=== PATIENT | male | born 1945 | race Caucasian/White ===

== ENCOUNTER → 2019-09-19 11:45 | Outpatient (BNVA) | payer MEDICARE, OTHER, SELFPAY | PROVIDERS: PCP Nurse Practitioner Family; Visit Provider Nurse Practitioner Family | DX: I10 Essential (primary) hypertension (principal); E11.9 Type 2 diabetes mellitus without complications | CPT/HCPCS: 80053; 80061; 82044; 83036; 85025 ==

== ENCOUNTER 2019-09-25 08:31 | Outpatient (CLI) | payer MEDICARE, OTHER, SELFPAY ==
--- NOTE | 2019-09-25 08:47 | NMCV_ITS ---
NM kayleen perf SPECT r/s* [id number] Tad Deleon Age: 74 Gender: M : 1945 Exam Date: 09/25/2019 08:47 Ordering Phys: Good Duvall MD ([email or web address]) Technologist: TATI Andre Exam Location: [facility] Indications: SHORTNESS OF BREATH STRESS TEST [facility] IMAGE PROTOCOL Rest/Stress 1 Exercise Day Radiopharmaceutical Dose (mCi) Administration Site Administered by Rest: Tc-99m 11.0 IV TATI Andre Sestamibi Stress:Tc-99m 32.4 IV TATI Meek Sestamibi Rest: 25-Sep-2019 60 Discovery 630 Stress: 25-Sep-2019 30 Discovery 630 Images obtained in supine and prone position. Radiopharmaceutical was injected at 76 % maximum heart rate. SPECT RESULTS Technical Quality: Excellent Raw Data Analysis: Normal Image Corrections: No attenuation or motion correction applied Summed Stress Score: 7 Summed Rest Score: 2 Summed Difference Score: 5 PERFUSION FINDINGS Medium-sized area of fixed perfusion defect noted in basal to distal inferior inferolateral wall with mild reversibility on the stress images suggestive of old myocardial infarction surrounded by mild doug-infarct ischemia most likely involving RCA FUNCTIONAL RESULTS (calculated via Gated SPECT) Stress Image LV EF (%): 39 Stress EDV (mL):194 TID: 0.98 Stress ESV (mL):118 Rest Image LV EF (%): 39 FUNCTIONAL FINDINGS: Inferior wall basal to mid akinesis and mid to distal hypokinesis IMPRESSIONS Medium-sized area of old myocardial infarction surrounded by small area of mild doug-infarct ischemia noted in the basal to distal inferior and inferolateral wall suggestive of lesion in RCA territory. Good Duvall MD (Electronically Signed) Final Date: 26 September 2019 14:09 S
--- NOTE | 2019-09-25 08:47 | ECG_ITS ---
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 Interpretive Statements NAME OF STUDY: EXERCISE SESTAMIBI STRESS TEST INDICATION: Pre Operative Clearance, EXERCISE DATA: The patient was exercised by Isaac protocol. Baseline heart rate was 78 beats per minute. Baseline blood pressure was 220/150 millimeters of mercury. Target heart rate was 145 beats per minute. Maximum heart rate achieved was 111, which was 76 % of the target heart rate. Maximum blood pressure was 246/115 millimeters of mercury. Total exercise time was 6 minutes 34 seconds. Maximum METs achieved was 7.5, maximum VO2 was 26.3. The reason for ending the test was completion of the protocol. The patient complained of during the stress test, which then resolved at the end of the test. ELECTROCARDIOGRAM: BASELINE: Sinus rhythm, normal axis, interventricular conduction delay, paced rhythm EXERCISE: At the peak exercise level, no significant ST-T changes suggestive of ischemia noted. RECOVERY: During the recovery period, heart rate dropped appropriately. Inferolateral ST depression noted CONCLUSION: 1. Exercise capacity fair. 2. Heart rate response was appropriate. Please note that patient had paced rhythm. 3. Blood pressure response was hypertensive. 4. Symptoms not suggestive of ischemia. 5. Electrocardiogram portion of the stress test was equivocal ischemia. 6. Nuclear scan will be documented separately. Electronically Signed On 10-02-2019 22:28:05 CDT by Good Duvall M.D. [id number]
[2019-09-25 09:01] VITALS: BMI 27.6
[2019-09-25 10:47] VITALS: BP 214/97; PULSE 65
== END 2019-09-25 08:32 | disposition home or self-care (01) ==
LOC: CDL 08:32
PROVIDERS: PCP Nurse Practitioner Family; Visit Provider Internal Medicine Cardiovascular Disease
DX: R06.02 Shortness of breath (principal); I25.2 Old myocardial infarction
CPT/HCPCS: 78452; 93017; A9500

== ENCOUNTER → 2019-10-01 09:21 | Outpatient (BNVA) | payer MEDICARE, OTHER, SELFPAY | PROVIDERS: PCP Nurse Practitioner Family; Visit Provider Nurse Practitioner Family | DX: D64.9 Anemia, unspecified (principal); R07.2 Precordial pain; I10 Essential (primary) hypertension; E11.9 Type 2 diabetes mellitus without complications | CPT/HCPCS: 85025 ==

== ENCOUNTER 2019-11-14 09:49 | Outpatient (CLI) | payer MEDICARE, OTHER, SELFPAY ==
[2019-11-14 10:09] LABS: Basophils % 0.4 %; Eosinophils # 0.1 10^3/uL (0.0-0.8); Eosinophils % 1.3 %; Hematocrit 33.5 % (42.0-52.0); Hemoglobin 11.3 g/dL (11.7-16.6); Lymphocytes # 0.9 10^3/uL (0.8-4.8); Lymphocytes % 17.3 %; Mean Corpuscular HGB Conc 33.7 g/dL (30.0-36.0); Mean Corpuscular Hemoglobin 29.3 pg (28.0-34.0); Mean Corpuscular Volume 86.8 fL (80-94); Mean Platelet Volume 11.5 fL (7.4-10.4); Monocytes # 0.4 10^3/uL (0.2-0.9); Monocytes % 8.2 %; Neutrophils # 3.82 10^3/uL (1.8-7.7); Neutrophils % 72.4 %; Nucleated Red Blood Cells % 0 %; Platelet Count 110 10^3/cmm (130-400); Red Blood Count 3.86 10^6/uL (4.1-5.3); White Blood Count 5.3 10^3/uL (4.0-10.0)
[2019-11-14 10:32] LABS: Blood Urea Nitrogen 23 mg/dL (8-23); Calcium 9.6 mg/dL (8.5-10.5); Carbon Dioxide 27 mmol/L (22-29); Chloride 99 mmol/L (98-107); Glucose 229 mg/dL (65-115); INR 0.98 (0.83-1.21); Osmolality Calculated 284 mOsm/kg (285-295); Prothrombin Time (Patient) 13.3 Seconds (12.0-15.1); Sodium 135 mmol/L (136-145)
== END 2019-11-14 09:50 | disposition home or self-care (01) ==
PROVIDERS: PCP Nurse Practitioner Family; Visit Provider Internal Medicine Cardiovascular Disease
DX: I70.90 Unspecified atherosclerosis (principal); R07.2 Precordial pain
CPT/HCPCS: 80048; 85025; 87635

== ENCOUNTER 2019-11-18 10:20 | Observation (INO) | payer MEDICARE, OTHER, SELFPAY ==
[2019-11-18] VITALS (60 sets, daily range): BP systolic 137–222; BP diastolic 73–124; PULSE 63–80; RESP 0–32; TEMP 36.5–37; O2SAT 95–98; BMI 27.8
[2019-11-18] MEDS: diphenhydrAMINE 50 mg Capsule PO (07:45)
--- NOTE | 2019-11-18 08:15 | XACV_ITS ---
Ht: 183 cm Wt: 93 kg BSA: 2.19 m2 Gender: Male : 1945 Any Known Allergies: Other Exam Priority: Routine Procedure(s): Procedure Description: Diagnostic procedure Procedure Description: Coronary IVUS Procedure Description: Miscellaneous Procedure Description: ACT Procedure Description: Coronary Angiography Diagnostic Cath Status: Elective Diagnostic Findings LM has 0% stenosis. CX has 0% stenosis. Distal Left Anterior Descending Coronary Artery: Severe 90% stenosis, MATEUS: 0 flow. pRCA: Severe 100% stenosis, MATEUS: 3 flow. Coronary angiography shows right dominance. PCI Status: Elective PCI Indication: New Onset Angina <= 2 months Interventional Findings Distal Left Anterior Descending Coronary Artery: 90% stenosis treated with MDT R ZAFAR 2.75X12 VALERIE and MDT NC EUPHORA RX [id number] BALLOON. 0% residual stenosis, MATEUS: 3 flow. Conclusions There is severe coronary artery disease with two vessel disease. Distal Left Anterior Descending Coronary Artery was treated with Drug Eluting Stent and Balloon. Indication for left heart cath: Worsening of shortness of breath despite of guideline directed therapy maximization. History of abnormal documented left main lesion by prior angiogram at an outside hospital, history of multiple stents. Recent history of worsening of chest pain despite of optimization of medicine suggestive of possible unstable angina . IVUS: After crossing left main and LAD lesion with cougar wire ACIST IVUS catheter was crossed into left main and LAD. No significant left main lesion was noted while distal calcified LAD lesion at the distal edge of prior stent was noted to have 2.75mm2 MLA . . Recommendations Continue current medical management and risk factor modification. Interventional RX Recommendation: PCI w/o planned CABG Diagnostic RX Recommendation: PCI w/o planned CABG Pressures Phase:Rest AO : 157 mmHg / 80 mmHg ( 111 mmHg ) @ 4:10:00 AM 177 mmHg / 87 mmHg ( 125 mmHg ) @ 4:14:00 AM 112 mmHg / 67 mmHg ( 90 mmHg ) @ 4:52:00 AM 187 mmHg / 84 mmHg ( 129 mmHg ) @ 4:57:00 AM Clinical Evaluation EBL: 5mL-10mL Procedural Details Procedure Consent Obtained. Pre-Procedure Time Out. Identified patient by full name and date of as verbalized by the patient/guarantor. Does the consent match the physician's order: Yes. Accurate & Complete Informed Consent: Yes. Inpatient/Outpatient History & Physical on Chart: Yes. If H&P is completed, is and addenduem needed: No; If yes, is the addendum complete: N/A. Visualize and Verify Site with Patient/Guarantor: N/A. Relevant Radiology Images available: N/A. Pre-op teaching completed and patient verbalized understanding. The risks, benefits, and alternatives of sedation and/or procedure were discussed by physician. The patient agrees to continue. Procedure started. [facility] Clinical Fraility Score: 4: Vulnerable. Squad Leader Indications: New Onset Angina. Chest Pain Symptom Assessment: Typical Angina Symptoms. Cardiovascular Instability: No. Correct patient, site and procedure confirmed by cath team. PERRLA. 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 Lungs clear x 5 lobes. IV Site on Arrival: 18 gauge in the left anticubital. IV Fluids: 0.9% NaCl at KVO. 0 mL infused prior to collaborative teacher. Pre Procedural Pulses: bilateral dorsalis pedis was 3+. Pre Procedural Pulses: bilateral posterior tibial was 3+. Pre Procedural Pulses: bilateral radial was 3+. Oxygen started at 2liters/min via nasal canula. Baseline sample Acquired. HR: 71 BPM. Physician arrived. Equipment: 6F - Radial. Cardiac Cath Pack. ACIST Manifold Kit Model BT 2000. Heparinized Saline (2 units/mL), 1000 mL bag. Baseline sample Acquired. HR: 70 BPM. bilateral groins was prepped with chloroprep then draped in the usual sterile fashion. right radial was prepped with chloroprep then draped in the usual sterile fashion. Physician scrubbed in. Immediate Pre-Procedure Time Out. Correct Patient: Yes; Correct Procedure: Yes; Correct Site: Yes; Correct Patient Position: Yes; Correct Supplies: Yes; Dried Flammable Prep: Yes; Blood Products Available: N/A;. Lidocaine 1% infiltrated to the right radial. Arterial access obtained. A CRD 5F JR4 Diagnostic Catheter was advanced over the wire and used for Right coronary angiography. Catheter out. 6 belarusian XB 3.5 SH guide catheter was inserted over the wire. Inventory is Nipendo [place] XT .014 190cm Str. Guidewire. [place] guidewire was advanced through the guide catheter to lesion in the mid LAD. [place] wire out. Inventory is TR 180cm Runthrough NS extra floppy 0.014 wire. Runthrough guidewire was advanced through the guide catheter to lesion in the mid LAD. [employer] IVUS catheter inserted to MID LAD. IVUS image recorded MID LAD. IVUS image recorded LEFT MAIN. IVUS catheter removed. ACT drawn. Results seconds. Therapeutic limits - pre-heparin administration 90-150 seconds and monitoring heparin during a vascular procedure >250 seconds. Inflation Number : 1 A MDT R ZAAFR 2.75X12 VALERIE -Lot Number# [id number] exp date 05/21/2021 was prepped and advanced across the Dist LAD. The stent was deployed at 16 DAY for 0:24 seconds. Stent balloon out over wire. Results checked. Inflation number : 2 A MDT NC EUPHORA RX [id number] BALLOON was prepped and advanced across the Dist LAD , then inflated to 10 DAY for 0:12 seconds. Inflation number: 3 The MDT NC EUPHORA RX [id number] BALLOON was reinflated across the Dist LAD, to 10 DAY for 0:12 seconds. Balloon and wire out. Guide catheter out. Physician scrubbed out. A TR Band was successful obtaining hemostatsis at the Right Radial artery insertion site. TR band placed. Hemostasis obtained. Post Procedure: Pulses reassessed and unchanged. PERRLA. 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 No VTE prophylaxis required. Medication's Wasted: Lidocaine 1% = 14 mL. Medication's Wasted: Nitro = 49.8 mg. Medication's Wasted: Heparin = 3000 units. Total IV fluids: 75 mL. Contrast type used: Omnipaque 300 mgI/mL, 500 mL bottle. Complications: none. Estimated blood loss: 5mL-10mL. Post-op diagnosis: CAD. Procedure completed. Patient transferred by wheelchair to 1st floor. Vital chart was stopped. Site: Right Radial artery Sheath Size: 6 Fr Hemostasis Method: TR Band Hemostasis Success: Successful Procedure Medications Start: 8:55 AM Stop: 8:55 AM Medication: Versed Amount: 1 mg Route: I.V. Start: 8:55 AM Stop: 8:55 AM Medication: Fentanyl Amount: 50 mcg Route: I.V. Start: 9:07 AM Stop: 9:07 AM Medication: Versed Amount: 1 mg Route: I.V. Start: 9:07 AM Stop: 9:07 AM Medication: Nitrogylcerin Amount: 200 mcg Route: I.A. Start: 9:10 AM Stop: 9:10 AM Medication: Heparin Amount: 5000 units Route: I.V. Start: 9:22 AM Stop: 9:22 AM Medication: Heparin Amount: 3000 units Route: I.V. Start: 9:38 AM Stop: 9:38 AM Medication: Versed Amount: 1 mg Route: I.V. Start: 10:02 AM Stop: 10:02 AM Medication: Versed Amount: 1 mg Route: I.V. Start: 10:13 AM Stop: 10:13 AM Medication: Plavix Amount: 300 mg Route: P.O. I, the attending physician, have reviewed and verified all procedure medications. Yes, all medications given per verbal order History/Risk Factors Hypertension: Yes Dyslipidemia: Yes Diabetic Therapy: Oral Peripheral Arterial Disease (PAD): No Myocardial Infarction (AL): No Obesity: No Renal Disease: No Tobacco Use: Former Prior Interventions PCI: Yes CABG: No Valve Surgery: No Report Signatures Finalized by:Good Duvall MD on 11/28/2019 5:12:51 PM
--- NOTE | 2019-11-18 09:00 | W.PM.OPSUD ---
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 He would like to proceed with it
[2019-11-18] MEDS: aspirin 81 mg Chew Tablet PO (11:42)
[2019-11-18] MEDS: hyDRALAzine 50 mg Tablet PO (15:19)
[2019-11-18] MEDS: carvedilol 25 mg Tablet PO (17:30)
[2019-11-18] MEDS: nitroglycerin 1 gm/inch oint Pkt 1 INCH TOPICAL (17:30)
[2019-11-18] MEDS: losartan 50 mg Tablet PO (17:30)
--- NOTE | 2019-11-18 18:26 | PC.NURSE ---
6516 Dr red notified of patient elevated blood pressure despite home mediation given blood pressure contniues to remain high new instructions to give home valsartan equivalent dose per pharmacy 25 mg coreg and 1 inch nitro paste and monitor bp
--- NOTE | 2019-11-18 18:30 | PC.NURSE ---
1730 new orders followed
--- NOTE | 2019-11-18 18:30 | PC.NURSE ---
notified Dr red of patient continued climb in blood pressure despite blood pressure medication given one hour ago new instructions given to start a nitro drip and maintain sys blood pressure less than 150
[2019-11-18] MEDS: nitroglycerin drip 50 MG/250 ML PREMIX IV (18:59)
--- NOTE | 2019-11-18 19:30 | PC.NURSE ---
Patient alert and oriented. Patient is denying pain and is on a nitro gtt. Patient is on telemetry. WIll continue to [facility].
--- NOTE | 2019-11-18 20:43 | PC.NURSE ---
Called Dr. Eloina taylor Patient blood pressure patient on 20 of Nitro gtt and patient still HTN. Orders for 0.2mg clondine PO x1. Hold hydralidralzine and IMDUR tonight. Will continue to montior.
[2019-11-18] MEDS: atorvastatin 40 mg Tablet 80 MG PO (20:54)
[2019-11-18] MEDS: trazodone 100 mg Tablet PO (20:54)
[2019-11-18] MEDS: cloNIDine 0.1 mg Tablet 0.2 MG PO (20:55)
--- NOTE | 2019-11-18 21:02 | PC.NURSE ---
supervisor mapping contacted regarding patient being upset about his blood pressure and Patient stated he would contact his proof operator and have him at the front end ui developer if it did not start to come down immediately. Medications were given as prescribed by Dr. Duvall and Nitro drip increased. Patient is anxious. supervisor mapping is conversing with patient at this time.
--- NOTE | 2019-11-18 23:06 | PC.NURSE ---
Updated patients grace Mishra per patients request and gone over medications given per patient request. Patient is calm and resting with eyes closed at this time. Patient denies any needs at this time. Current blood pressure 170/82.
[2019-11-19] VITALS (28 sets, daily range): BP systolic 132–185; BP diastolic 65–90; PULSE 65–71; RESP 10–20; TEMP 36.5; O2SAT 95–96
--- NOTE | 2019-11-19 04:05 | PC.NURSE ---
Called Dr. Omar Oscar patients blood pressure 160s to 170s at 70 on Nitro drip. Orders to give morning Coreg PO Now. Read back verbal order.
[2019-11-19] MEDS: carvedilol 25 mg Tablet 50 MG PO (04:12)
--- NOTE | 2019-11-19 04:16 | PC.NURSE ---
Patient complaint of slight head ache. Patient offered a tylenol or something for pain. Patient refused at this time. Patient would like to go without if he could.
[2019-11-19] MEDS: acetaminophen 325 mg Tablet 650 MG PO (04:23)
--- NOTE | 2019-11-19 05:58 | PC.NURSE ---
End of Shift: Patient mood has calmed and he has rested fairly well this shift. Patient remains alert and oriented. Patient remains on a nitro drip. Will continue to monitor.
[2019-11-19] MEDS: ferrous sulfate EC 325 mg Tablet PO (07:58)
[2019-11-19] MEDS: digoxin 125 mcg Tablet PO (07:59)
[2019-11-19] MEDS: isosorbide mononitrate ER 30 mg Tablet PO (07:59)
[2019-11-19] MEDS: losartan 50 mg Tablet PO (07:59)
[2019-11-19] MEDS: hyDRALAzine 50 mg Tablet PO (07:59)
[2019-11-19] MEDS: clopidogrel 75 mg Tablet PO (07:59)
[2019-11-19] MEDS: fluticasone nasal spray 16gm Btl 2 SPRAY INTRANASAL (07:59)
[2019-11-19] MEDS: aspirin 81 mg Chew Tablet PO (07:59)
[2019-11-19] MEDS: albuterol 8 gm MDI 2 PUFF INHALATION (08:02)
--- NOTE | 2019-11-19 08:30 | PC.NURSE ---
PATIENT AMBULATED IN THE HALLWAY WITH STAFF. NO ISSUES OR COMPLAINTS. BLOOD PRESSURE WNL UPON ARRIVAL BACK TO PATIENT ROOM. WILL CONTINUE TO MONITOR AND TITRATE NITRO GTT.
--- NOTE | 2019-11-19 10:08 | P.SS_ITS ---
Short Stay Summary Providers Date of Admit/Discharge: 11/19/19 Attending Provider: Good Duvall MD Primary Care Provider: Aspen Solis MD Chief Complaint: Chest Pain HPI History of Present Illness Tad Deleon is a 74 year old male past medical history significant for coronary artery disease labeled as 40% left main prior history of stents to LAD, history of RCA [employer] for worsening of chest pain along with shortness of breath underwent LAVONNE guided stent placement of mid LAD. Left main did not show any significant disease I believe what patient is describing that on his prior cath outside our hospital he was told that he has a ostial 40% left main it appeared to me due to angle of the vessel ostium look narrow but IVUS was consistent with luminal area of 12 mm without any significant stenosis. Mid LAD distal to prior stent is 80% has calcified stenosis, MLA was 2.76 treated with 2.75 mm x 12 stent placed in overlapping fashion into prior stent, stent was postdilated with 3.0 x 8 mm noncompliant balloon at high pressure. Prior stent has 50 to 60% in- stent restenosis which is also postdilated and treated with noncompliant balloon. Excellent angiographic result was achieved. Postop course was complicated with high blood pressure requiring nitro drip, patient did not take his home meds in the morning systolic blood pressure was around 192 200. Patient spent overnight his medicines were titrated this morning his systolic blood pressure is below 120/80. He is feeling much better he denies chest pain shortness of breath PND orthopnea he is being discharged home. Right wrist looks good. Review of Systems All/Imm: Denies: acute wheezing Home Meds/Allergies Home Medications and Allergies Home Medications Medication Instructions Recorded Confirmed Type albuterol sulfate 90 mcg/actuation 2 puff INHALATION Q6H PRN 03/19/19 11/18/19 History aerosol inhaler ascorbate calcium (vitamin C) 500 500 mg PO DAILY tab 03/19/19 11/18/19 History mg tablet aspirin 81 mg chewable tablet 81 mg PO DAILY tab 03/19/19 11/18/19 History atorvastatin 80 mg tablet 80 mg PO ONCE 03/19/19 11/18/19 History ferrous sulfate 325 mg (65 mg 325 mg PO DAILY tab 03/19/19 11/18/19 History iron) tablet fluticasone propionate 50 2 spray INTRANASAL DAILY ml 03/19/19 11/18/19 History mcg/actuation nasal spray,suspension glipizide 5 mg tablet, extended 5 mg PO DAILY tab 03/19/19 11/18/19 History release 24 hr metformin 500 mg tablet 500 mg PO BID 03/19/19 11/18/19 History nitroglycerin 0.4 mg sublingual 0.4 mg SUBLINGUAL Q5M PRN 03/19/19 11/18/19 History tablet omega-3 fatty acids 1,000 mg 1,000 mg PO DAILY cap 03/19/19 11/18/19 History capsule trazodone 100 mg tablet 100 mg PO .HS tab 03/19/19 11/18/19 History vit C 250 mg-E 200 unit-zinc 40 1 tab PO BID 03/19/19 11/18/19 History mg-copper 1 [id number] capsule cetirizine 10 mg capsule 10 mg PO DAILY PRN cap 09/05/19 11/18/19 History digoxin 125 mcg (0.125 mg) tablet 125 mcg PO DAILY tab 09/05/19 11/18/19 History terbinafine HCl 250 mg tablet 250 mg PO DAILY 09/05/19 11/18/19 History Allergies Allergy/AdvReac Type Severity Reaction Status Date / Time atenolol [From Tenormin] Allergy Intermediate hypotension Verified 11/18/19 08:15 niacin Allergy Intermediate rash, hot Verified 11/18/19 08:15 flashes PFSH Acute PFSH: Medical History Arteriosclerotic vascular disease Cardiac pacemaker [employer] pacemaker, last [place] transmission 08/04/18. Next [place] check 11/12/18 Chronic kidney disease, stage 2 (mild) Essential hypertension History of carotid artery dissection Mixed hyperlipidemia Paroxysmal atrial fibrillation Presence of stent in LAD coronary artery February 2018 Presence of stent in left circumflex coronary artery February 2018 RCA occlusion Thrombocytopenia TIA (transient ischemic attack) Type 2 diabetes mellitus without complications Ventricular tachycardia Surgical History History of right-sided carotid endarterectomy October 2018 Family History Family/Other CAD (coronary artery disease) Father CAD (coronary artery disease) Hyperlipidemia Hypertension Mother CAD (coronary artery disease) Cancer Dementia Hyperlipidemia Hypertension Brother Diabetes Denies family history of Clotting disorder Psychiatric illness Chronic kidney disease (CKD) Suicide Anesthesia complication Bleeding disorder Family history of premature coronary artery disease Lung disease Stroke Social History Smoking and tobacco status: former smoker Quit status (tobacco): has quit using tobacco Year quit tobacco: 1988 Alcohol intake: never Caregiver/support person: Yes (spouse) Lives independently: Yes Household members: spouse Housing: House Marital status: Number of children: 1 Current occupational status: retired History of recent travel: No Current gender identity: Male Vijaya/Pentecostalism: [employer] Dietary Habits: Current diet type/program: low salt Caffeine: Yes Exercise: What type of physical activity do you participate in?: walking Physical activity functional status: independent ambulation How many days of moderate to strenuous exercise, like a brisk walk, did you do in the last 7 days: 5 Safety: Seatbelt use: always Home Safety: Working smoke detector in home: Yes Fire extinguisher in home: No Carbon monoxide detector in home: Yes Vitals/I&O/Wt Last Vital Signs Temp 97.7 F 11/19/19 07:40 Pulse 68 11/19/19 08:06 Resp 20 H 11/19/19 08:06 BP 146/77 11/19/19 07:59 Pulse Ox 95 11/19/19 08:06 11/18/19 11/19/19 11/19/19 22:59 06:59 14:59 Intake Total 812.875 / 1312.875 437.250 / 1750.125 340.050 / 340.050 Output Total 400 / 1100 Balance 412.875 / 212.875 437.250 / 650.125 340.050 / 340.050 Weight last 48 hrs Weight 205 lb Physical Exam Narrative: EXAM NARRATIVE: GENERAL: Patient is alert, awake and oriented x3. NECK: No jugular vein distension. HEENT: No cyanosis. No icterus. No pallor. HEART: Regular S1 and S2. No murmur, rub or gallop. LUNGS: Clear to auscultate bilaterally. ABDOMEN: Soft, nontender and nondistended. Positive bowel sounds. No guarding, rebound or tenderness. CENTRAL NERVOUS SYSTEM: Grossly nonfocal. EXTREMITIES: Lower extremities without edema bilaterally. Const: COMMON NORMALS: alert Resp: COMMON NORMALS: clear to auscultation bilaterally AUSCULTATION: clear to auscultation bilaterally Neuro: SENSORIUM/ORIENTATION: Yes alert Hospital Course Discharge Summary: As above SSS Data Data Completed and Pending: Pending at discharge Category Date Time Status DISK SANDER request for service Routin e Exams 11/18/19 08:15 Taken Diagnoses at Discharge Discharge Diagnosis (1) Arteriosclerotic vascular disease: Status: Acute (2) Cardiac pacemaker: Status: Acute Problem details: [employer] pacemaker, last [place] transmission 08/04/18. 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 Qualified Code(s): E11.9 - Type 2 diabetes mellitus without complications (4) Paroxysmal atrial fibrillation: Status: Acute (5) Essential hypertension: Status: Acute Discharge Plan Discharge Patient Disposition: Home Condition: Stable Prescriptions: Continued terbinafine HCl 250 mg tablet 250 mg PO DAILY RF: 0 Allergy Relief (cetirizine) 10 mg capsule 10 mg PO DAILY PRN (Reason: allergy symptoms) RF: 0 trazodone 100 mg tablet 100 mg PO .HS RF: 0 atorvastatin 80 mg tablet 80 mg PO ONCE RF: 0 fluticasone propionate 50 mcg/actuation spray,suspension 2 spray INTRANASAL DAILY RF: 0 metformin 500 mg tablet 500 mg PO BID RF: 0 glipizide 5 mg tablet extended release 24hr 5 mg PO DAILY RF: 0 aspirin 81 mg tablet,chewable 81 mg PO DAILY RF: 0 ferrous sulfate [iron] 325 mg (65 mg iron) tablet 325 mg PO DAILY RF: 0 omega-3 fatty acids 1,000 mg capsule 1,000 mg PO DAILY RF: 0 ascorbate calcium (vitamin C) 500 mg tablet 500 mg PO DAILY RF: 0 PreserVision AREDS-2 [id number] [id number]-[id number]-mg capsule 1 tab PO BID RF: 0 nitroglycerin 0.4 mg tablet, sublingual 0.4 mg SUBLINGUAL Q5M PRN (Reason: Chest Pain) RF: 0 albuterol sulfate [ProAir HFA] 90 mcg/actuation HFA aerosol inhaler 2 puff INHALATION Q6H PRN (Reason: Shortness Of Breath) RF: 0 digoxin 125 mcg (0.125 mg) tablet 125 mcg PO DAILY RF: 0 clopidogrel [Plavix] 75 mg tablet 75 mg PO DAILY Qty: 90 RF: 3 valsartan 160 mg tablet 160 mg PO BID Qty: 60 RF: 3 hydralazine 50 mg tablet 50 mg PO TID Qty: 90 RF: 3 isosorbide mononitrate 30 mg tablet extended release 24 hr 30 mg PO BID Qty: 180 RF: 3 carvedilol 25 mg tablet 37.5 mg PO DIRECTED Qty: 135 RF: 3 Discharge Orders: Discharge Order (Routine); Ordered 11/19/19 Ordered By: Good Duvall Referrals: Good Duvall MD [Physician] - (You have an follow-up appointment with Dr. Masha vela on at 12:45p.m. If you have any questions or need to reschedule. Please call ) Georgia Adler FNP [Nurse Practitioner] - (You have an follow-up appointment with Georgia Adler Sunday at 10:00a.m. If you havw any questions or need to reschedule. Please call ) Discharge Diet: Cardiac and Low Salt Discharge Activity: Resume usual activity Patient Instructions: Left Heart Catheterization (DC), Coronary Angioplasty (DC), Hypertension (DC), Chest Pain Stoplight, Post Angiogram Home Care Instru ctions Activity Restrictions/Additional Instructions: Follow-up with Georgia dAler in 7 days cardiology nurse practitioner. Follow-up with Dr. Duvall in 3 months. 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
[2019-11-19] MEDS: carvedilol 25 mg Tablet PO (10:58)
--- NOTE | 2019-11-19 11:00 | PC.NURSE ---
PATIENT'S BLOOD PRESSURE NOTED TO BE 175/[address] JOHNSON. ORDERED 25MG COREG NOW. PATIENT MAY PROCEED WITH DISCHARGE.
== END 2019-11-19 11:02 | disposition home or self-care (01) ==
LOC: CSU 11-19 07:39
PROVIDERS: Admitting Provider Internal Medicine Cardiovascular Disease; PCP Family Medicine; Visit Provider Internal Medicine Cardiovascular Disease
DX: I25.10 Atherosclerotic heart disease of native coronary artery without angina pectoris (principal); I12.9 Hypertensive chronic kidney disease with stage 1 through stage 4 chronic kidney disease, or unspecified chronic kidney disease; N18.2 Chronic kidney disease, stage 2 (mild); E11.22 Type 2 diabetes mellitus with diabetic chronic kidney disease; E78.2 Mixed hyperlipidemia; I48.0 Paroxysmal atrial fibrillation; Z79.84 Long term (current) use of oral hypoglycemic drugs; Z87.891 Personal history of nicotine dependence; Z95.0 Presence of cardiac pacemaker; Z95.5 Presence of coronary angioplasty implant and graft; Z82.49 Family history of ischemic heart disease and other diseases of the circulatory system
CPT/HCPCS: 12345; 36415; 85347; 92978; 93454; 94640; 96360; 96361; C1725; C1753; C1769; C1874; C1887; C1894; C9600; G0378; J1644; J2250; J3010; J3490; J3535; J7030; Q0163; Q9967

== ENCOUNTER → 2019-11-24 10:33 | Outpatient (BNVA) | payer MEDICARE, OTHER, SELFPAY | PROVIDERS: PCP Family Medicine; Visit Provider Nurse Practitioner Family | DX: I70.90 Unspecified atherosclerosis (principal) | CPT/HCPCS: 80048 ==

== ENCOUNTER 2020-01-23 09:37 | Outpatient (CLI) | payer MEDICARE, OTHER, SELFPAY ==
--- NOTE | 2020-01-23 10:15 | USCV_ITS ---
Tad Deleon Age: 74 Gender: M : 1945 Exam Date: 01/23/2020 10:05 Ordering Phys: Georgia Adler Technologist: Flaca Knott Exam Location: [facility] Indication: HISTORY OF BILAT CAROTID ENDARTARECTOMAY Risk Factors: Unknown Previous Vascular Surgery: R CEA, L CEA Right Brachial BP: / Left Brachial BP: / Right Left Velocity (cm/s) Spectral Plaque Velocity (cm/s) Spectral Plaque Syst/Diast Broadening Syst/Diast Broadening 51.90/ 16.40 Prox CCA 62.40 / 14.50 43.50/ 11.20 Mid CCA 53.00 / 14.50 39.90/ 11.80 Distal CCA 63.20 / 27.30 146.80/38.20 Prox ICA 63.20 / 20.50 114.40/35.50 Mid ICA 73.50 / 23.90 103.90/23.70 Distal ICA 79.40 / 25.80 379.80 ECA 104.20 3.38 ICA/CCA 1.50 Antegrade Vertebral Antegrade 39.70/ 11.10 cm/s 38.60/ 14.10 cm/s Tri Subclavian Tri 97.30 97.15 FINDINGS Moderate to heavy heterogeneous plaques in the right bifurcation and proximal internal carotid artery Mild to moderate diffuse plaques of the left bifurcation and internal carotid artery Antegrade flow in the vertebral arteries bilaterally Elevated velocity in the right external carotid artery Intimal thickening in the common carotid arteries bilaterally CONCLUSIONS Moderate to heavy heterogeneous plaques in the right bifurcation and proximal internal carotid arterywith velocity elevation consistent with 50-79% stenosis. Mild to moderate diffuse plaques of the left bifurcation and internal carotid arterywith velocity elevation consistent with 16-49% stenosis. Elevated velocity in the external carotid artery on the right side, suggestive of hemodynamically significant stenosis. Compared to the study from 01/16/2019, there is worsening of stenosis on the right side Dr Sophie Nelson MD FAC (Electronically Signed) Final Date: 24 January 2020 18:13 S
== END 2020-01-23 09:38 | disposition home or self-care (01) ==
LOC: RAD 09:48
PROVIDERS: PCP Nurse Practitioner Family; Visit Provider Nurse Practitioner Family
DX: I70.90 Unspecified atherosclerosis (principal); I65.23 Occlusion and stenosis of bilateral carotid arteries
CPT/HCPCS: 93880

== ENCOUNTER 2020-02-12 13:15 | Outpatient (CLI) | payer MEDICARE, OTHER, SELFPAY ==
--- NOTE | 2020-02-12 14:00 | CT_ITS ---
WS: [id number] CTA scan of the head and neck. Additional two-dimensional coronal and sagittal reconstruction along w ith MIP images was performed. 02/12/2020 Clinical Data: I65.29 - Occlusion and stenosis of unspecified carotid artery Comparison: CTA of the head and neck, 10/18/2018 DLP: 2225.[address] scans at [facility] use at least one of these dose optimization techniques: automat ed exposure control; mA and/or kV adjustment per patient size (includes targeted exams where dose is matched to clinical indication); or iterative reconstruction. Findings: The carotid arteries bifurcate normally into the internal carotid arteries. There is 60% stenosis of the origin of the right internal carotid artery but there is no stenosis of the left internal carotid artery. The vertebral arteries are normal in size. . The intracerebral circulation shows that the in ternal carotid arteries bifurcate into the anterior and middle cerebral arteries. The basilar arteria l system is normal. No aneurysms are seen. There is no evidence of any recent infarct or hemorrhage. The lung apices show no abnormalities. There is calcification in the wall of the aortic arch. The thy roid gland shows normal enhancement. There is no prevertebral soft tissue swelling. No lymphadenopath y is seen in the neck. The salivary glands are nonremarkable. There is degenerative change and degene rative disc narrowing from C5 through C7. No compression fractures are seen. The larynx and oropharyn x are normal. The parapharyngeal regions show no abnormalities. The ventricular system is modestly dilated but there is no shift. No recent infarct or hemorrhage is seen. No abnormal intracerebral masses are present. Bony windows demonstrate no fractures or erosions . The mastoid air cells, internal auditory canals, sella turcica, intraorbital contents and paranasal sinuses are unremarkable. CT/CT angio headneck* [id number] Impression: 1. 60% stenosis of the right internal carotid artery origin. 2. No stenosis of the left internal carotid artery.
[2020-02-12 14:07] LABS: Blood Urea Nitrogen 20 mg/dL (8-23)
[2020-02-12] MEDS: iohexol 350 mg/mL 100 mL Btl IV (14:16)
== END 2020-02-12 13:16 | disposition home or self-care (01) ==
LOC: RADWPI 13:18
PROVIDERS: PCP Nurse Practitioner Family; Visit Provider Nurse Practitioner Family
DX: I65.21 Occlusion and stenosis of right carotid artery (principal)
CPT/HCPCS: 70496; 70498; 82565; 84520; Q9967

== ENCOUNTER → 2020-06-09 16:20 | Outpatient (BNVA) | payer MEDICARE, OTHER, SELFPAY | PROVIDERS: PCP Nurse Practitioner Family; Visit Provider Nurse Practitioner Family | DX: N41.9 Inflammatory disease of prostate, unspecified (principal); N41.0 Acute prostatitis | CPT/HCPCS: 80053; 81000; 85025; G0103 ==

== ENCOUNTER → 2020-07-22 10:01 | Outpatient (BNVA) | payer MEDICARE, OTHER, SELFPAY | PROVIDERS: PCP Nurse Practitioner Family; Visit Provider Nurse Practitioner Family | DX: I48.0 Paroxysmal atrial fibrillation (principal); Z95.0 Presence of cardiac pacemaker | CPT/HCPCS: 80162 ==

== ENCOUNTER → 2020-07-26 09:53 | Outpatient (BNVA) | payer MEDICARE, OTHER, SELFPAY | PROVIDERS: PCP Nurse Practitioner Family; Visit Provider Internal Medicine Cardiovascular Disease | DX: I70.90 Unspecified atherosclerosis (principal); I65.29 Occlusion and stenosis of unspecified carotid artery; I48.0 Paroxysmal atrial fibrillation | CPT/HCPCS: 80162 ==

== ENCOUNTER → 2020-07-30 11:59 | Outpatient (BNVA) | payer MEDICARE, OTHER, SELFPAY | PROVIDERS: PCP Nurse Practitioner Family; Visit Provider Nurse Practitioner Family | DX: N41.0 Acute prostatitis; R35.0 Frequency of micturition | CPT/HCPCS: 80053; 81003; 85025; G0103 ==

== ENCOUNTER → 2020-08-10 16:17 | Outpatient (BNVA) | payer MEDICARE, OTHER, SELFPAY | PROVIDERS: PCP Nurse Practitioner Family; Visit Provider Nurse Practitioner Family | DX: D64.9 Anemia, unspecified (principal) | CPT/HCPCS: 82272 ==

== ENCOUNTER 2020-08-26 08:08 | Emergency (ER) | payer MEDICARE, OTHER, SELFPAY ==
[2020-08-26] VITALS (7 sets, daily range): BP systolic 123–160; BP diastolic 63–77; PULSE 61–65; RESP 15–18; TEMP 36.6; O2SAT 96–98; BMI 27.0
--- NOTE | 2020-08-26 08:11 | ECG_ITS ---
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 Measurements Intervals Sandy Rate: 65 P: 241 IA: 258 QRS: -21 QRSD: 130 T: 202 QT: 399 QTc: 415 Interpretive Statements ELECTRONIC ATRIAL PACEMAKER SEPTAL MYOCARDIAL INFARCTION [40+ ms Q WAVE IN V1/V2], OF INDETERMINATE AGE POSSIBLE LATERAL MYOCARDIAL INFARCTION [30 ms Q WAVE IN I/aVL/V5/V6], OF INDETERMINATE AGE Compared to ECG 02/28/2019 13:24:36 Myocardial infarct finding now present Ventricular-paced complex(es) or rhythm no longer present Ventricular premature complex(es) no longer present Electronically Signed On 08-26-2020 18:23:10 CDT by Anibal Abernathy M.D. [email or web address]
--- NOTE | 2020-08-26 08:11 | XR_ITS ---
WS: [id number] Exam: XR chest 1V portable [id number] Date/Time of Exam: 08/26/2020 8:26 AM Reason For Exam: dyspnea/cough Comparison 02/28/2019. The lungs are fully expanded and clear. Heart size is normal. A cardiac pacer superimposes the left c hest. Signs of previous coronary artery stenting. Several old left rib fractures. The mediastinum and regional bony structures are otherwise intact. XR/XR chest 1V portable [id number] IMPRESSION: 1. No acute cardiopulmonary finding.
--- NOTE | 2020-08-26 08:12 | W.ED.ARRPALP ---
HPI - Arrhythmia/Palpitations General: Chief Complaint: Arrhythmia/Palpitations Stated Complaint: afib sob Time Seen by Provider: 08/26/20 08:09 History of Present Illness: HPI narrative: 75-year-old male who presents emergency room with complaint of shortness of breath and varying heart rate. Patient has a known history of atrial fibrillation he is on carvedilol and digoxin. He also is on aspirin and Plavix. Patient has a known history of coronary disease and has previously had PTCA with stenting. Patient states his heart rate on the monitor at home has gone from 47 to 80s. He is due for a change in his battery on his pacemaker in about 5 months. Not actually had any chest pain. MD complaint: atrial fibrillation Onset (ago): hour(s) Duration: intermittent Severity: mild Context: occurred during rest Arrhythmia history: atrial fibrillation Associated symptoms: Deny anxiety, cough, diaphoresis, muscle cramps, nausea, paresthesias, pre-syncope, sense of impending doom, short of breath, syncope or vomiting Treatments prior to arrival: beta-ezra and other (digoxin) Review of Systems Const: Denies: diaphoresis ENMT: Denies: throat pain, ear or mastoid pain, nasal discharge or nasal congestion Card: Reports: chest pain (Patient states he chronically has intermittent chest discomfort and this is) and palpitations; Denies: syncope or pre-syncope Resp: Denies: dyspnea, productive cough or non-productive cough GI: Denies: nausea or vomiting : Denies: flank pain, dysuria, urinary frequency or urinary urgency Musc: Denies: muscle cramps Skin/Breast: Denies: rash or pruritus Psych: Denies: anxiety [facility] ED PFSH: Medical History (Updated 08/26/20 @ 11:29 by Oswaldo Ortega DO) Arteriosclerotic vascular disease Cardiac pacemaker St Varghese pacemaker, DDDR, base rate 65 bpm. Chronic kidney disease, stage 2 (mild) Essential hypertension History of carotid artery dissection Mixed hyperlipidemia Paroxysmal atrial fibrillation Presence of stent in LAD coronary artery February 2018 Presence of stent in left circumflex coronary artery February 2018 RCA occlusion Thrombocytopenia TIA (transient ischemic attack) Type 2 diabetes mellitus without complications Ventricular tachycardia Surgical History History of right-sided carotid endarterectomy October 2018 Family History Family/Other CAD (coronary artery disease) Father CAD (coronary artery disease) Hyperlipidemia Hypertension Mother CAD (coronary artery disease) Cancer Dementia Hyperlipidemia Hypertension Brother Diabetes Denies family history of Clotting disorder Psychiatric illness Chronic kidney disease (CKD) Suicide Anesthesia complication Bleeding disorder Family history of premature coronary artery disease Lung disease Stroke Social History Smoking and tobacco status: former smoker Quit status (tobacco): has quit using tobacco Year quit tobacco: 1988 Alcohol intake: never Caregiver/support person: Yes (spouse) Lives independently: Yes Household members: spouse Housing: House Marital status: Number of children: 1 Current occupational status: retired History of recent travel: No Current gender identity: Male 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: [employer] Physical Exam Const: COMMON NORMALS: no acute distress GENERAL APPEARANCE: cooperative and comfortable ORIENTATION/CONSCIOUSNESS: Yes awake, Yes oriented to person, Yes oriented to place and Yes oriented to time HENMT: COMMON NORMALS: normocephalic, atraumatic, hearing grossly normal bilaterally and external ears normal HEAD & SCALP: normocephalic and atraumatic EXTERNAL EAR: Yes external ears normal Neck/C-Spine: COMMON NORMALS: no JVD Resp: COMMON NORMALS: normal respiratory effort, No retractions, No use of accessory muscles and clear to auscultation bilaterally AUSCULTATION: clear to auscultation bilaterally Cardio: COMMON NORMALS: no JVD, regular rate, regular rhythm and No murmurs present (Cardio) RATE: regular rate RHYTHM: regular rhythm GI: COMMON NORMALS: Soft to palpation and No hepatosplenomegaly present AUSCULTATION: Yes normoactive bowel sounds PALPATION: Yes Soft to palpation, No Tenderness to palpation present (GI), No Guarding due to palpation present (GI) and Yes No hepatosplenomegaly present Extremity: COMMON NORMALS: normal to inspection, capillary refill normal, no clubbing, cyanosis or edema, no calf tenderness and no pedal edema Neuro: SENSORIUM/ORIENTATION: Yes oriented to person, Yes oriented to place and Yes oriented to time Skin: COMMON NORMALS: no rashes or lesions noted GENERAL SKIN EXAM: no rashes or lesions noted Course Vital Signs: Vital signs: Vital Signs Temperature 97.8 F 08/26/20 08:09 Pulse Rate 65 08/26/20 11:26 Respiratory Rate 15 08/26/20 11:26 Blood Pressure 160/77 08/26/20 11:26 Pulse Oximetry 97 08/26/20 11:26 MDM - Arrhythmia/Palpitations MDM Narrative: Medical decision making narrative: Patient remained asymptomatic while in the ER. He had a stress test in September of last year and a subsequent PTCA with stenting. He is symptom-free at this time. He is mostly concerned with his variation of his heart rate. Interrogation of the pacer does not show any abnormalities there were some mode switches which he interrogation was read as normal. There was no periods of time where it was not functioning properly and battery life is tolerated at 5-1/2 months. We will go ahead and discharge home continue on the same medications and follow-up with Dr. Vigil. We will get a 48-hour Holter monitor to evaluate for episodes of bradycardia. And have follow-up with Dr. Vigil return to the emergency room if has any other symptoms or concerns. Lab Data: Labs: Lab Results 08/26/20 08/26/20 08/26/20 Range/Units 08:38 08:38 08:38 WBC 5.1 (4.0-10.0) 10^3/ uL RBC 3.30 L (4.1-5.3) 10^6/u L Hgb 9.7 L (11.7-16.6) g/dL Hct 28.6 L (42.0-52.0) % MCV 86.7 (80-94) fL MCH 29.4 (28.0-34.0) pg MCHC 33.9 (30.0-36.0) g/dL RDW 14.4 (12.1-15.1) % Plt Count 101 L (130-400) 10^3/c mm MPV 11.6 H (7.4-10.4) fL Neut % (Auto) 75.5 % Lymph % (Auto) 14.1 % Ballard % (Auto) 8.0 % Eos % (Auto) 1.4 % Baso % (Auto) 0.6 % Neut # (Auto) 3.86 (1.8-7.7) 10^3/u L Lymph # (Auto) 0.7 L (0.8-4.8) 10^3/u L Ballard # (Auto) 0.4 (0.2-0.9) 10^3/u L Eos # (Auto) 0.1 (0.0-0.8) 10^3/u L Baso # (Auto) 0.0 (0.0-0.1) 10^3/u L Nucleated RBC % (a uto) 0 % Nucleated RBCs # 0.0 /100WBC Sodium 136 (136-145) mmol/L Potassium 3.9 (3.5-5.1) mmol/L Chloride 101 (98-107) mmol/L Carbon Dioxide 24 (22-29) mmol/L Anion Gap 14.9 (5-19) BUN 22 (8-23) mg/dL Creatinine 1.3 H (0.7-1.2) mg/dL GFR Calculation Not Reportable Glucose 143 H (65-115) mg/dL Calculated Osmolal ity 288 (285-295) mOsm/k g Calcium 8.7 (8.5-10.5) mg/dL Total Bilirubin 0.4 (0.15-1.2) mg/dL AST 16 (0-40) U/L ALT 19 (0-41) U/L Alkaline Phosphata se 51 (40-130) IU/L Troponin T Baselin e 29 H (0-15) ng/L Troponin T 120 Min [place] (0-15) ng/L Delta Troponin T (0-10) ABS# Total Protein 5.9 L (6.6-8.7) g/dL Albumin 4.0 (3.5-5.2) g/dL Globulin 1.9 (1.3-4.6) g/dL Urine Color (Yellow) Urine Appearance (CLEAR) Urine pH (5-7) Ur Specific Gravit y (1.005-1.030) Urine Protein (Negative) Urine Glucose (UA) (Normal) Urine Ketones (Negative) Urine Blood (Negative) Urine Nitrate (Negative) Urine Bilirubin (Negative) Urine Urobilinogen (Negative) mg/dL Ur Leukocyte Charito ase (Negative) Urine RBC (0-2) /hpf Urine WBC (0-5) /hpf Ur Squamous Epith Cells (0-5) /hpf Amorphous Sediment Urine Bacteria (NONE) /hpf Digoxin 1.1 (0.6-1.2) ng/mL 08/26/20 08/26/20 Range/Units 09:48 10:34 WBC (4.0-10.0) 10^3/ uL RBC (4.1-5.3) 10^6/u L Hgb (11.7-16.6) g/dL Hct (42.0-52.0) % MCV (80-94) fL MCH (28.0-34.0) pg MCHC (30.0-36.0) g/dL RDW (12.1-15.1) % Plt Count (130-400) 10^3/c mm MPV (7.4-10.4) fL Neut % (Auto) % Lymph % (Auto) % Ballard % (Auto) % Eos % (Auto) % Baso % (Auto) % Neut # (Auto) (1.8-7.7) 10^3/u L Lymph # (Auto) (0.8-4.8) 10^3/u L Ballard # (Auto) (0.2-0.9) 10^3/u L Eos # (Auto) (0.0-0.8) 10^3/u L Baso # (Auto) (0.0-0.1) 10^3/u L Nucleated RBC % (a uto) % Nucleated RBCs # /100WBC Sodium (136-145) mmol/L Potassium (3.5-5.1) mmol/L Chloride (98-107) mmol/L Carbon Dioxide (22-29) mmol/L Anion Gap (5-19) BUN (8-23) mg/dL Creatinine (0.7-1.2) mg/dL GFR Calculation Glucose (65-115) mg/dL Calculated Osmolal ity (285-295) mOsm/k g Calcium (8.5-10.5) mg/dL Total Bilirubin (0.15-1.2) mg/dL AST (0-40) U/L ALT (0-41) U/L Alkaline Phosphata se (40-130) IU/L Troponin T Baselin e (0-15) ng/L Troponin T 120 Min [place] 22.50 H (0-15) ng/L Delta Troponin T -6.50 L (0-10) ABS# Total Protein (6.6-8.7) g/dL Albumin (3.5-5.2) g/dL Globulin (1.3-4.6) g/dL Urine Color Yellow (Yellow) Urine Appearance Clear (CLEAR) Urine pH 5 (5-7) Ur Specific Gravit y 1.020 (1.005-1.030) Urine Protein 3+ H (Negative) Urine Glucose (UA) Norm (Normal) Urine Ketones Negative (Negative) Urine Blood Neg (Negative) Urine Nitrate Negative (Negative) Urine Bilirubin Neg (Negative) Urine Urobilinogen Norm (Negative) mg/dL Ur Leukocyte Charito ase Negative (Negative) Urine RBC None (0-2) /hpf Urine WBC None (0-5) /hpf Ur Squamous Epith Cells 0-4 H (0-5) /hpf Amorphous Sediment Not Reportable Urine Bacteria None (NONE) /hpf Digoxin (0.6-1.2) ng/mL Discharge Plan Discharge Patient Disposition: Home Clinical Impression: Paroxysmal atrial fibrillation, Cardiac pacemaker, Essential hypertension Condition: Stable Prescriptions: No Action Allergy Relief (cetirizine) 10 mg capsule 10 mg PO DAILY RF: 0 carvedilol 25 mg tablet 37.5 mg PO BID RF: 0 trazodone 100 mg tablet 100 mg PO BEDTIME RF: 0 fluticasone propionate 50 mcg/actuation spray,suspension 2 spray INTRANASAL DAILY RF: 0 aspirin 81 mg tablet,chewable 81 mg PO DAILY@12 RF: 0 ferrous sulfate [iron] 325 mg (65 mg iron) tablet 325 mg PO DAILY RF: 0 omega-3 fatty acids 1,000 mg capsule 1,000 mg PO BEDTIME RF: 0 ascorbate calcium (vitamin C) 500 mg tablet 500 mg PO QAM RF: 0 PreserVision AREDS-2 [id number] vl-bxpm-sq-mg capsule 1 tab PO BID RF: 0 nitroglycerin 0.4 mg tablet, sublingual 0.4 mg SUBLINGUAL Q5M PRN (Reason: Chest Pain) RF: 0 albuterol sulfate [ProAir HFA] 90 mcg/actuation HFA aerosol inhaler 2 puff INHALATION QID PRN (Reason: Shortness Of Breath) RF: 0 atorvastatin 80 mg tablet 80 mg PO BEDTIME RF: 0 valsartan 80 mg tablet See Rx Instructions PO BID Qty: 180 RF: 2 isosorbide mononitrate 30 mg tablet extended release 24 hr 30 mg PO BID Qty: 180 RF: 3 digoxin 125 mcg (0.125 mg) tablet 125 mcg PO BID RF: 0 nifedipine 30 mg Tablet Extended Release 30 mg PO BID@, RF: 0 metformin 1,000 mg Tablet 500 mg PO BID RF: 0 ibuprofen 200 mg Tablet 600 mg PO PRN RF: 0 glipizide 5 mg Tablet 5 mg PO QAM RF: 0 Voltaren 1 % Gel 2 g TOPICAL QID PRN (Reason: Pain) RF: 0 Vitamin C 1 tab PO DAILY RF: 0 Vitamin D3 1 cap PO DAILY RF: 0 Plavix 75 mg tablet 75 mg PO DAILY@12 RF: 0 hydralazine 50 mg tablet 50 mg PO TID RF: 0 Discharge Orders: Discharge ED (Routine); Ordered 08/26/20 Ordered By: Oswaldo Ortega Referrals: Paris Dennis FNP [Primary Care Provider] - Discharge Diet: Usual diet Discharge Activity: Resume usual activity Patient Instructions: Opioid Safety Activity Restrictions/Additional Instructions: Follow-up with your manufacturing process technician within the week. Continue take all of your currently prescribed medications. Coding Level of Care Code ED Senior Service Technician for Manpreet Fwd Exam Comprehensive
--- NOTE | 2020-08-26 08:48 | PC.NURSE ---
Pacemaker interrogated
[2020-08-26 08:51] LABS: Basophils % 0.6 %; Eosinophils # 0.1 10^3/uL (0.0-0.8); Eosinophils % 1.4 %; Hematocrit 28.6 % (42.0-52.0); Hemoglobin 9.7 g/dL (11.7-16.6); Lymphocytes # 0.7 10^3/uL (0.8-4.8); Lymphocytes % 14.1 %; Mean Corpuscular HGB Conc 33.9 g/dL (30.0-36.0); Mean Corpuscular Hemoglobin 29.4 pg (28.0-34.0); Mean Corpuscular Volume 86.7 fL (80-94); Mean Platelet Volume 11.6 fL (7.4-10.4); Monocytes # 0.4 10^3/uL (0.2-0.9); Neutrophils # 3.86 10^3/uL (1.8-7.7); Neutrophils % 75.5 %; Nucleated Red Blood Cells % 0 %; Platelet Count 101 10^3/cmm (130-400); Red Cell Distribution Width 14.4 % (12.1-15.1); White Blood Count 5.1 10^3/uL (4.0-10.0)
--- NOTE | 2020-08-26 08:56 | PC.NURSE ---
XR performed at bedside
[2020-08-26 09:06] LABS: Troponin(5th) Baseline 29 ng/L (0-15)
[2020-08-26 09:08] LABS: Alanine Aminotransferase 19 U/L (0-41); Alkaline Phosphatase 51 IU/L (40-130); Anion Gap 14.9 (5-19); Aspartate Amino Transferase 16 U/L (0-40); Blood Urea Nitrogen 22 mg/dL (8-23); Calcium 8.7 mg/dL (8.5-10.5); Carbon Dioxide 24 mmol/L (22-29); Chloride 101 mmol/L (98-107); Digoxin 1.1 ng/mL (0.6-1.2); Globulin 1.9 g/dL (1.3-4.6); Glucose 143 mg/dL (65-115); Osmolality Calculated 288 mOsm/kg (285-295); Potassium 3.9 mmol/L (3.5-5.1); Sodium 136 mmol/L (136-145); Total Bilirubin 0.4 mg/dL (0.15-1.2); Total Protein 5.9 g/dL (6.6-8.7)
[2020-08-26 10:07] LABS: Add Urine Microscopic? YES; Bilirubin Urine Neg (Negative); Blood Urine Neg (Negative); Glucose Urine UA Norm (Normal); Ketones Urine Negative (Negative); Leukocyte Esterase Urine Negative (Negative); Nitrate Urine Negative (Negative); Protein Urine 3+ (Negative); Urine Appearance Clear (CLEAR); Urine Color Yellow (Yellow); Urobilinogen Urine Norm (Negative); pH Urine 5 (5-7)
[2020-08-26 10:08] LABS: Add Urine Culture? No; Squamous Epithelial Cell Urine 0-4 /hpf (0-5)
--- NOTE | 2020-08-26 10:11 | ECG_ITS ---
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 Measurements Intervals [place] Rate: 65 P: -70 [place]: 257 QRS: -22 QRSD: 124 T: 164 QT: 392 QTc: 408 Interpretive Statements ELECTRONIC ATRIAL PACEMAKER SEPTAL MYOCARDIAL INFARCTION [40+ ms Q WAVE IN V1/V2], OF INDETERMINATE AGE MODERATE T-WAVE ABNORMALITY, CONSIDER LATERAL ISCHEMIA [-0.1+ mV T WAVE IN I/aVL/V5/V6] Compared to ECG 08/26/2020 08:33:27 T-wave abnormality now present Possible ischemia now present Myocardial infarct finding still present Electronically Signed On 08-26-2020 18:30:23 CDT by Anibal Abernathy M.D. [email or web address]/[id number]
--- NOTE | 2020-08-26 10:26 | PC.PHAR ---
pt states he takes care of his own medications-pts [place] med [place] has nifedipine 30mg daily as a active medication-kimberli @ [facility] states this medication was dced on september [address] hardin-pt states he has been taking 30mg bid-pts [place] med list has digoxin 125mcg daily-rx written in 07/26/20 250mcg daily from eliazar jiménez-pt states he is taking 125mcg bid-notes are made in pharmacy comments
--- NOTE | 2020-08-30 06:56 | DCPLANNER ---
bank manager had message to schedule an outpatient appointment for a 48 hour halter monitor with [facility]. bank manager faxed a signed order to [facility]. bank manager will call for appointment information.
--- NOTE | 2020-08-30 08:45 | DCPLANNER ---
training and quality manager had message to schedule a follow up appointment for patient with [facility]. Patient has a followup appointment scheduled for 08.27.20 with Georgia Adler, patient is aware of appointment.
--- NOTE | 2020-09-17 07:30 | DCPLANNER ---
Patient had an appointment scheduled for 08.30.20 for a 48 hour halter monitor - patient did attend appointment.
--- NOTE | 2020-10-07 08:09 | DCPLANNER ---
Patient had a follow up appointment scheduled for 08.30.20 at [facility] - patient did attend appointment.
== END 2020-08-26 11:46 | disposition home or self-care (01) ==
PROVIDERS: Emergency Provider Family Medicine; PCP Nurse Practitioner Family
DX: I48.0 Paroxysmal atrial fibrillation (principal); Z95.0 Presence of cardiac pacemaker; Z79.82 Long term (current) use of aspirin; Z79.84 Long term (current) use of oral hypoglycemic drugs; I12.9 Hypertensive chronic kidney disease with stage 1 through stage 4 chronic kidney disease, or unspecified chronic kidney disease; E11.22 Type 2 diabetes mellitus with diabetic chronic kidney disease; N18.2 Chronic kidney disease, stage 2 (mild); E78.2 Mixed hyperlipidemia; Z86.73 Personal history of transient ischemic attack (TIA), and cerebral infarction without residual deficits; Z87.891 Personal history of nicotine dependence
CPT/HCPCS: 71045; 80053; 80162; 81001; 84484; 85025; 93005; 99284

== ENCOUNTER → 2020-08-30 11:34 | Outpatient (BNVA) | payer MEDICARE, OTHER, SELFPAY | PROVIDERS: PCP Nurse Practitioner Family; Visit Provider Nurse Practitioner Family | DX: D64.9 Anemia, unspecified (principal); Z95.0 Presence of cardiac pacemaker | CPT/HCPCS: 80053; 82607; 82728; 82746; 83550; 85025 ==

== ENCOUNTER → 2020-09-02 13:45 | Outpatient (BNVA) | payer MEDICARE, OTHER, SELFPAY | PROVIDERS: PCP Nurse Practitioner Family; Referring Provider Nurse Practitioner Family; Visit Provider Nurse Practitioner Family | DX: R35.0 Frequency of micturition (principal); N41.1 Chronic prostatitis | CPT/HCPCS: 81003; 87086 ==

== ENCOUNTER → 2020-09-14 09:37 | Outpatient (BNVA) | payer MEDICARE, OTHER, SELFPAY | PROVIDERS: PCP Nurse Practitioner Family; Visit Provider Nurse Practitioner Family | DX: D64.9 Anemia, unspecified (principal) | CPT/HCPCS: 85025 ==

== ENCOUNTER → 2020-10-04 08:50 | Outpatient (BNVA) | payer MEDICARE, OTHER, SELFPAY | PROVIDERS: PCP Nurse Practitioner Family; Visit Provider Internal Medicine | DX: Z01.812 Encounter for preprocedural laboratory examination (principal); D50.9 Iron deficiency anemia, unspecified; Z20.822 Contact with and (suspected) exposure to COVID-19 | CPT/HCPCS: 87635 ==

== ENCOUNTER 2020-10-08 08:11 | Day surgery (SDC) | payer MEDICARE, OTHER, SELFPAY ==
[2020-10-05 09:49] VITALS: BMI 27.0
[2020-10-08] MEDS: sodium chloride 0.9% 1,000 ML 30 ML IV (08:33)
[2020-10-08 08:34] VITALS: BP 131/75; PULSE 67; RESP 18; TEMP 36.2; O2SAT 97
[2020-10-08 08:47] LABS: Glucose Point of Care 148 mg/dL (70-110)
--- NOTE | 2020-10-08 08:56 | P.ANESASSM_ITS ---
Pre-Anesthetic Assessment Pre-Anesthetic Assessment: Height/Weight: Height 1.85 m Weight 92.986 kg Temp Pulse Resp BP Pulse Ox 97.2 F L 67 18 131/75 97 10/08/20 08:34 10/08/20 08:34 10/08/20 08:34 10/08/20 08:34 10/08/20 08:34 Preop Diagnosis: iron def anemia Proposed Procedure: Operation Date: 10/08/20 09:30 Proposed Procedures p EGD [id number] d50.9 d64.9(Not Applicable) - Bassam Brennan MD s Colonoscopy(Not Applicable) - Bassam Brennan MD Was Beta Alice taken within 24 hours: Yes Was Clonidine taken within 24 hours: N/A Last intake: Intake Last Liquid Date 10/07/20 Last Liquid Time 23:00 Last Solid Date 10/06/20 Social: Social History: No alcohol and No tobacco Exam: Pre-Anes Outpt Exam: alert, oriented x 3, clear to auscultation bilaterally and regular rate & rhythm Airway: Submandibular: WNL Cervical ROM: WNL MP: 1 Dentition: False History/ROS: No significant history except as noted Pulmonary: Pulmonary: None reported CV/HEM: CV/HEM: Afib (pacemaker 65bpm), Anemia, Arrythmia, CAD, HTN and Palp : : Chronic renal Insufficiency and UTI Comments: BPH Hepatic: Hepatic: None reported GI: GI: GERD Metabolic: Metabolic: DM and Hyperlipidemia Musc/skel: Musc/skel: Lower Back Pain and OA/DJD (history of decompression) Neuropsych: Neuropsych: TIA Anesthetic Plan: ASA status: 3 Anesthesia: Anesthesia Evaluation and MAC Risk of > 500 ml blood loss (7ml/kg in children): No Meds/Allergies Current Medications: Current Medications Generic Name Dose Route Start Last Admin Trade Name Freq PRN Reason Stop Dose Admin Sodium Chloride 1,000 mls @ 30 ml s/hr 10/08/20 08:30 10/08/20 08:33 Sodium Chloride 0.9% IV 10/09/20 08:29 30 mls/hr .Q24H REGULO Administration PFSH Anesthesia PFSH: Medical History Arteriosclerotic vascular disease Cardiac pacemaker St Varghese pacemaker, DDDR, base rate 65 bpm. Chronic kidney disease, stage 2 (mild) Chronic prostatitis Essential hypertension History of carotid artery dissection Mixed hyperlipidemia Paroxysmal atrial fibrillation Presence of stent in LAD coronary artery February 2018 Presence of stent in left circumflex coronary artery February 2018 RCA occlusion Thrombocytopenia TIA (transient ischemic attack) Type 2 diabetes mellitus without complications Ventricular tachycardia Surgical History History of right-sided carotid endarterectomy October 2018 Family History Family/Other CAD (coronary artery disease) Father CAD (coronary artery disease) Hyperlipidemia Hypertension Mother CAD (coronary artery disease) Cancer Dementia Hyperlipidemia Hypertension Brother Diabetes Denies family history of Clotting disorder Psychiatric illness Chronic kidney disease (CKD) Suicide Anesthesia complication Bleeding disorder Family history of premature coronary artery disease Lung disease Stroke Social History Smoking and tobacco status: former smoker Quit status (tobacco): has quit using tobacco Year quit tobacco: 1988 Second hand smoke exposure: No Alcohol intake: never Caregiver/support person: Yes (spouse) Lives independently: Yes Household members: spouse Housing: House Marital status: Number of children: 1 Current occupational status: retired Pets and animals: Yes Pets & animals: dog(s) History of recent travel: No Current gender identity: Male Vijaya/Pentecostal: [employer] Special vijaya needs: No Agree to transfusion: Yes Data Anesthesia Other Labs: Laboratory Results - last 48 hr 10/08/20 08:43 POC Glucose 148 H Cardiac Studies: Cardiac Event Monitor 09/07/20
--- NOTE | 2020-10-08 09:41 | W.PM.OPSFHP ---
Same Day Surgery H&P Indication for Procedure/HPI DATE OF PROCEDURE: October 08, 2020 CHIEF COMPLAINT/INDICATIONFOR SURGICAL PROCEDURE: Anemia PREOP DIAGNOSIS: iron def anemia PLANNED PROCEDRUE: Operation Date: 10/08/20 09:30 Proposed Procedures p EGD [id number] d50.9 d64.9(Not Applicable) - Bassam Brennan MD s Colonoscopy(Not Applicable) - Bassam Brennan MD Medications/Allergies* Home Medications Medication Instructions Recorded Confirmed Type albuterol sulfate 90 mcg/actuation 2 puff INHALATION QID PRN 03/19/19 10/08/20 History aerosol inhaler ascorbate calcium (vitamin C) 500 500 mg PO QAM tab 03/19/19 10/08/20 History mg tablet aspirin 81 mg chewable tablet 81 mg PO DAILY@12 tab 03/19/19 10/08/20 History ferrous sulfate 325 mg (65 mg 325 mg PO DAILY tab 03/19/19 10/08/20 History iron) tablet fluticasone propionate 50 2 spray INTRANASAL DAILY ml 03/19/19 10/08/20 History mcg/actuation nasal spray,suspension nitroglycerin 0.4 mg sublingual 0.4 mg SUBLINGUAL Q5M PRN 03/19/19 10/08/20 History tablet omega-3 fatty acids 1,000 mg 1,000 mg PO BEDTIME cap 03/19/19 10/08/20 History capsule trazodone 100 mg tablet 100 mg PO BEDTIME tab 03/19/19 10/08/20 History vit C 250 mg-vit E 90 mg-zinc 40 1 tab PO BID 03/19/19 10/08/20 History mg-copper 1 ig-[id number]-qcgpln capsule cetirizine 10 mg capsule 10 mg PO DAILY cap 09/05/19 10/08/20 History atorvastatin 80 mg tablet 80 mg PO BEDTIME tab 01/20/20 10/08/20 History carvedilol 25 mg tablet 37.5 mg PO BID tab 01/20/20 10/08/20 History Vitamin D3 1 cap PO DAILY 08/26/20 10/08/20 History clopidogrel [Plavix] 75 mg PO DAILY@12 08/26/20 10/08/20 History diclofenac sodium [Voltaren] 2 g TOPICAL QID PRN 08/26/20 10/08/20 History glipizide 5 mg PO QAM 08/26/20 10/08/20 History hydralazine 50 mg PO TID 08/26/20 10/08/20 History ibuprofen 600 mg PO PRN 08/26/20 10/08/20 History omega-3 250 zg-dsu-lwm-lutein 2.5 1 cap PO DAILY 08/30/20 10/08/20 History mg-zeaxanthin 0.5 mg capsule Allergies/Adverse Reactions Allergy/AdvReac Type Severity Reaction Status Date / Time atenolol [From Tenormin] Allergy Intermediate hypotension Verified 10/05/20 09:38 niacin Allergy Intermediate rash, hot Verified 10/05/20 09:38 flashes Current Medications: Generic Name Dose Route Start Last Admin Trade Name Freq PRN Reason Stop Dose Admin Sodium Chloride 1,000 mls @ 30 mls/hr 10/08/20 08:30 10/08/20 08:33 Sodium Chloride 0.9% IV 10/09/20 08:29 30 mls/hr .Q24H REGULO Administration Pertinent History/Comorbid Conditions* Medical History (Updated 09/29/20 @ 15:11 by Bassam Brennan MD) Arteriosclerotic vascular disease Cardiac pacemaker St Varghese pacemaker, DDDR, base rate 65 bpm. Chronic kidney disease, stage 2 (mild) Chronic prostatitis Essential hypertension History of carotid artery dissection Mixed hyperlipidemia Paroxysmal atrial fibrillation Presence of stent in LAD coronary artery February 2018 Presence of stent in left circumflex coronary artery February 2018 RCA occlusion Thrombocytopenia TIA (transient ischemic attack) Type 2 diabetes mellitus without complications Ventricular tachycardia Surgical History (Updated 10/22/19 @ 13:22 by JANA Carpio) History of right-sided carotid endarterectomy October 2018 Family History (Updated 04/14/19 @ 10:58 by Candelaria Ballesteros RN) Diabetes Brother CAD (coronary artery disease) Family/Other Father Mother Dementia Mother Hyperlipidemia Father Mother Cancer Mother Hypertension Father Mother Denies family history of Clotting disorder Psychiatric illness Chronic kidney disease (CKD) Suicide Anesthesia complication Bleeding disorder Family history of premature coronary artery disease Lung disease Stroke Social History Smoking and tobacco status: former smoker Quit status (tobacco): has quit using tobacco Year quit tobacco: 1988 Second hand smoke exposure: No Alcohol intake: never Caregiver/support person: Yes (spouse) Lives independently: Yes Household members: spouse Housing: House Marital status: Number of children: 1 Current occupational status: retired Pets and animals: Yes Pets & animals: dog(s) History of recent travel: No Current gender identity: Male Vijaya/Episcopal: [employer] Special vijaya needs: No Agree to transfusion: Yes Pertinent Exam Findings alert, oriented x 3, clear to auscultation bilaterally, regular rate & rhythm, operative site marked and procedure specific exam findings Recommendations Surgery/Procedure today Coding Level of Care Code Acute Gill Box Operator for Manpreet Garcia
[2020-10-08 10:14] VITALS: BP 150/78; PULSE 65; RESP 16; TEMP 36.1; O2SAT 97
[2020-10-08 10:34] VITALS: BP 166/78; PULSE 66; RESP 18; O2SAT 96
--- NOTE | 2020-10-08 11:40 | ANE.PACU2 ---
Inpatient post-anesthesia follow up: Airway intact: Yes Vital signs: Temperature 97 F Pulse Rate 66 Respiratory Rate 18 Blood Pressure 166/78 Pulse Oximetry 96 Oxygen Delivery Me thod Room Air Oxygen Flow Rate Fraction of Inspir ed Oxygen Hydration adequate: Yes Nausea and vomiting: No Pain level: 1 Mental status: Baseline
[2020-10-10 12:33] LABS: H. Pylori / CLO Test Negative
== END 2020-10-08 10:45 | disposition home or self-care (01) ==
PROVIDERS: PCP Nurse Practitioner Family; Visit Provider Internal Medicine
PROC: 0DJ08ZZ Inspection of Upper Intestinal Tract, Via Natural or Artificial Opening Endoscopic (ICD-10-PCS; CPT 43235; principal; 2020-10-08 09:30)
PROC: 0DJD8ZZ Inspection of Lower Intestinal Tract, Via Natural or Artificial Opening Endoscopic (ICD-10-PCS; CPT 45378; 2020-10-08 09:30)
DX: D50.9 Iron deficiency anemia, unspecified (principal); D12.2 Benign neoplasm of ascending colon; K57.30 Diverticulosis of large intestine without perforation or abscess without bleeding; K29.70 Gastritis, unspecified, without bleeding; K25.9 Gastric ulcer, unspecified as acute or chronic, without hemorrhage or perforation; Z95.0 Presence of cardiac pacemaker; Z79.82 Long term (current) use of aspirin; E78.2 Mixed hyperlipidemia; I12.9 Hypertensive chronic kidney disease with stage 1 through stage 4 chronic kidney disease, or unspecified chronic kidney disease; E11.22 Type 2 diabetes mellitus with diabetic chronic kidney disease; N18.2 Chronic kidney disease, stage 2 (mild); I48.0 Paroxysmal atrial fibrillation; Z95.5 Presence of coronary angioplasty implant and graft; Z86.73 Personal history of transient ischemic attack (TIA), and cerebral infarction without residual deficits; Z82.49 Family history of ischemic heart disease and other diseases of the circulatory system; Z83.3 Family history of diabetes mellitus; Z87.891 Personal history of nicotine dependence; N40.0 Benign prostatic hyperplasia without lower urinary tract symptoms
CPT/HCPCS: 36416; 43239; 45385; 82962; 87077; 88305; 96360; 96361; J2704; J7030

== ENCOUNTER → 2020-10-14 15:52 | Outpatient (BNVA) | payer MEDICARE, OTHER, SELFPAY | PROVIDERS: PCP Nurse Practitioner Family; Visit Provider Nurse Practitioner Family | DX: D64.9 Anemia, unspecified (principal); N41.1 Chronic prostatitis; Z12.5 Encounter for screening for malignant neoplasm of prostate | CPT/HCPCS: 85025; G0103 ==

== ENCOUNTER → 2020-10-15 11:11 | Outpatient (BNVA) | payer MEDICARE, OTHER, SELFPAY | PROVIDERS: PCP Nurse Practitioner Family; Visit Provider Nurse Practitioner Family | DX: D64.9 Anemia, unspecified (principal); R53.83 Other fatigue; R53.1 Weakness | CPT/HCPCS: 80053; 82306; 82607; 84443 ==

== ENCOUNTER → 2020-10-25 08:29 | Outpatient (BNVA) | payer MEDICARE, OTHER, SELFPAY | PROVIDERS: PCP Nurse Practitioner Family; Visit Provider Nurse Practitioner Family | DX: R50.9 Fever, unspecified (principal); N18.9 Chronic kidney disease, unspecified; Z11.52 Encounter for screening for COVID-19; Z20.822 Contact with and (suspected) exposure to COVID-19 | CPT/HCPCS: 80048; 81000; 85025; 87635 ==

== ENCOUNTER → 2020-12-01 09:35 | Outpatient (BNVA) | payer MEDICARE, OTHER, SELFPAY | PROVIDERS: PCP Nurse Practitioner Family; Visit Provider Nurse Practitioner Family | DX: E11.9 Type 2 diabetes mellitus without complications (principal) | CPT/HCPCS: 36416; 80053; 80061; 82009; 82962; 83036; 83721; 83735; 85025 ==

== ENCOUNTER → 2020-12-31 12:08 | Outpatient (BNVA) | payer MEDICARE, OTHER, SELFPAY | PROVIDERS: PCP Nurse Practitioner Family; Visit Provider Internal Medicine Nephrology | DX: N18.9 Chronic kidney disease, unspecified (principal) | CPT/HCPCS: 82043 ==

== ENCOUNTER → 2021-02-09 09:00 | Outpatient (BNVA) | payer MEDICARE, OTHER, SELFPAY | PROVIDERS: PCP Nurse Practitioner Family; Visit Provider Thoracic Surgery (Cardiothoracic Vascular Surgery) | DX: Z20.822 Contact with and (suspected) exposure to COVID-19 (principal); Z95.0 Presence of cardiac pacemaker | CPT/HCPCS: 87635 ==

== ENCOUNTER 2021-02-14 06:48 | Day surgery (SDC) | payer MEDICARE, OTHER, SELFPAY ==
[2021-02-09 10:45] VITALS: BMI 27.0
--- NOTE | 2021-02-09 11:02 | ECG_ITS ---
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 Measurements Intervals [place] Rate: 58 P: -72 [place]: 260 QRS: 4 QRSD: 131 T: 140 QT: 429 QTc: 424 Interpretive Statements ELECTRONIC ATRIAL PACEMAKER INTRAVENTRICULAR CONDUCTION DELAY [130+ ms QRS DURATION] SEPTAL MYOCARDIAL INFARCTION , OF INDETERMINATE AGE [40+ ms Q WAVE IN V1/V2] Compared to ECG 08/26/2020 10:27:50 Intraventricular conduction delay now present T-wave abnormality no longer present Possible ischemia no longer present Myocardial infarct finding still present Electronically Signed On 02-09-2021 23:54:37 STRUCTURAL DESIGNER by Sophie Nelson M.D. [id number]
[2021-02-09 11:44] LABS: Basophils % 0.2 %; Eosinophils % 0.2 %; Hematocrit 28.1 % (42.0-52.0); Lymphocytes % 11.4 %; Mean Corpuscular Hemoglobin 28.2 pg (28.0-34.0); Mean Corpuscular Volume 88.1 fl (80-94); Mean Platelet Volume 11.9 fL (7.4-10.4); Monocytes # 0.6 10^3/uL (0.2-0.9); Monocytes % 6.5 %; Neutrophils # 7.36 10^3/uL (1.8-7.7); Neutrophils % 81.3 %; Nucleated Red Blood Cells % 0 %; Platelet Count 125 10^3/cmm (130-400); Red Blood Count 3.19 10^6/uL (4.1-5.3); Red Cell Distribution Width 14.3 % (12.1-15.1); White Blood Count 9.1 10^3/uL (4.0-10.0)
[2021-02-09 12:03] LABS: Anion Gap 15.6 (5-19); Blood Urea Nitrogen 38 mg/dL (8-23); Calcium 9.3 mg/dL (8.5-10.5); Carbon Dioxide 20 mmol/L (22-29); Chloride 104 mmol/L (98-107); Glucose 117 mg/dL (65-115); Osmolality Calculated 292 mOsm/kg (285-295); Potassium 3.6 mmol/L (3.5-5.1); Sodium 136 mmol/L (136-145)
[2021-02-09 12:08] LABS: Add Urine Microscopic? YES; Bilirubin Urine Neg (Negative); Blood Urine Neg (Negative); Glucose Urine UA Norm (Normal); Ketones Urine Negative (Negative); Leukocyte Esterase Urine Negative (Negative); Nitrate Urine Negative (Negative); Protein Urine 2+ (Negative); Specific Gravity, Urine 1.015 (1.005-1.030); Urine Appearance Clear (CLEAR); Urine Color Yellow (Yellow); Urobilinogen Urine Norm (Negative); pH Urine 5 (5-7)
[2021-02-09 12:24] LABS: Add Urine Culture? No; Hyaline Casts Urine 0-4 /lpf; Renal Epithelial Cells Urine 2 /hpf; WBC Urine 0-4 /hpf (0-5)
--- NOTE | 2021-02-09 17:30 | P.ANESASSM_ITS ---
Pre-Anesthetic Assessment Pre-Anesthetic Assessment: Height/Weight: Height 1.85 m Weight 92.986 kg Preop Diagnosis: Pacemaker generator end of service Proposed Procedure: Operation Date: 02/14/21 08:20 Proposed Procedures p Pacemaker Exchange(Not Applicable) - Bandar Paniagua MD Was Beta Alice taken within 24 hours: Yes Was Clonidine taken within 24 hours: N/A Social: Social History: No alcohol and No tobacco Exam: Pre-Anes Outpt Exam: alert, oriented x 3, clear to auscultation bilaterally and regular rate & rhythm Airway: Submandibular: WNL Cervical ROM: WNL MP: 2 Dentition: False CV/HEM: CV/HEM: Afib, Anemia, Arrythmia, CAD, CHF, HTN and PVD Comments: Pacemaker : : Chronic renal Insufficiency GI: GI: GERD Metabolic: Metabolic: DM Neuropsych: Neuropsych: TIA Anesthetic Plan: ASA status: 3 Anesthesia: Choice Risk of > 500 ml blood loss (7ml/kg in children): No PFSH Anesthesia PFSH: Medical History Arteriosclerotic vascular disease Cardiac pacemaker [employer] pacemaker, DDDR, base rate 65 bpm. Chronic kidney disease, stage 2 (mild) Chronic prostatitis Essential hypertension History of carotid artery dissection Mixed hyperlipidemia Paroxysmal atrial fibrillation Presence of stent in LAD coronary artery February 2018 Presence of stent in left circumflex coronary artery February 2018 RCA occlusion Thrombocytopenia TIA (transient ischemic attack) Type 2 diabetes mellitus without complications Ventricular tachycardia Surgical History History of right-sided carotid endarterectomy October 2018 Family History Family/Other CAD (coronary artery disease) Father CAD (coronary artery disease) Hyperlipidemia Hypertension Mother CAD (coronary artery disease) Cancer Dementia Hyperlipidemia Hypertension Brother Diabetes Denies family history of Clotting disorder Psychiatric illness Chronic kidney disease (CKD) Suicide Anesthesia complication Bleeding disorder Family history of premature coronary artery disease Lung disease Stroke Social History Quit status (tobacco): has quit using tobacco Year quit tobacco: 1988 Second hand smoke exposure: No Alcohol intake: never Caregiver/support person: Yes (spouse) Lives independently: Yes Household members: spouse Housing: House Marital status: Number of children: 1 Current occupational status: retired Pets and animals: Yes Pets & animals: dog(s) History of recent travel: No Current gender identity: Male Vijaya/Anabaptist: [employer] [place] Special vijaya needs: No Agree to transfusion: Yes Data Anesthesia CBC & Chem 7: 02/09/21 11:15 02/09/21 11:15 Other Labs: Laboratory Results - last 48 hr 02/09/21 02/09/21 02/09/21 11:03 11:15 11:15 WBC 9.1 RBC 3.19 L Hgb 9.0 L Hct 28.1 L MCV 88.1 MCH 28.2 MCHC 32.0 RDW 14.3 Plt Count 125 L MPV 11.9 H Neut % (Auto) 81.3 Lymph % (Auto) 11.4 [place] % (Auto) 6.5 Eos % (Auto) 0.2 Baso % (Auto) 0.2 Neut # (Auto) 7.36 Lymph # (Auto) 1.0 [place] # (Auto) 0.6 Eos # (Auto) 0.0 Baso # (Auto) 0.0 Nucleated RBC % (auto) 0 Nucleated RBCs # 0.0 Sodium 136 Potassium 3.6 Chloride 104 Carbon Dioxide 20 L Anion Gap 15.6 BUN 38 H Creatinine 1.2 GFR Calculation Not Reportable Glucose 117 H Calculated Osmolality 292 Calcium 9.3 Urine Color Yellow Urine Appearance Clear Urine pH 5 Ur Specific [place] 1.015 Urine Protein 2+ H Urine Glucose (UA) Norm Urine Ketones Negative Urine Blood Neg Urine Nitrate Negative Urine Bilirubin Neg Urine Urobilinogen Norm Ur Leukocyte Esterase Negative Urine RBC None Urine WBC 0-4 H Ur Squamous Epith Cells None Ur Renal Epithelial Cell 2 Amorphous Sediment Not Reportable Urine Bacteria None Hyaline Casts 0-4 H Cardiac Studies: Cardiac Event Monitor 09/07/20
[2021-02-14 06:57] VITALS: BP 126/53; PULSE 58; RESP 18; TEMP 36.2; O2SAT 97
[2021-02-14 07:17] LABS: Glucose Point of Care 87 mg/dL (70-110)
[2021-02-14] MEDS: sodium chloride 0.9% 1,000 ML 30 ML IV (07:17)
--- NOTE | 2021-02-14 07:39 | P.ANESUD_ITS ---
Pre-Anesthetic Update Pre-Anesthetic Assessment: Date of Surgery/Procedure: 02/14/21 Preop Pina gnosis: Pacemaker generator end of service Proposed Procedure: Operation Date: 02/14/21 08:20 Proposed Procedures p Pacemaker Exchange(Not Applicable) - Bandar Paniagua MD Any changes to Pre-Anesthetic Assessment?: Yes Last Intake: Intake Last Liquid Date 02/13/21 Last Liquid Time 19:00 Last Solid Date 02/13/21 Last Solid Time 19:00 Labs Last 48hrs: Laboratory Results - last 48 hr 02/14/21 07:09 POC Glucose 87 Vitals: Temperature 97.2 F L 02/14/21 06:57 Temperature Source Temporal Artery S can 02/14/21 06:57 Pulse Rate 58 L 02/14/21 06:57 Pulse Rhythm 02/14/21 06:57 Pulse Strength 3+ Normal 02/14/21 06:57 Respiratory Rate 18 02/14/21 06:57 Blood Pressure 126/53 02/14/21 06:57 Blood Pressure Marlen n 77 02/14/21 06:57 Pulse Oximetry 97 02/14/21 06:57 Oxygen Delivery Me thod 02/14/21 06:57 Exam: Pre-Anes Outpt Exam: alert, oriented x 3, clear to auscultation bilaterally and regular rate & rhythm Cardiac Studies: Cardiac Event Monitor 09/07/20
--- NOTE | 2021-02-14 08:29 | W.PM.OPSUD ---
Surgery/Procedure H&P Update DATE OF PROCEDURE: February 14, 2021 DATE H&P PERFORMED: 02/07/21 H&P UPDATE INFORMATION: I have reviewed H&P completed within last 30 days, I have examined patient prior to procedure, No changes to prior documentation and Changes to prior documentation as noted here PREOP DIAGNOSIS: Pacemaker generator end of service PRIMARY INDICATION FOR PROCEDURE: Pacemaker generator end of service Cardiopulmonary exam completed today. Lungs are clear. No substantial murmurs. Pacemaker generator easily palpable in the left subclavicular region. PLANNED PROCEDURE: Operation Date: 02/14/21 08:20 Proposed Procedures p Pacemaker Exchange(Not Applicable) - Bandar Paniagua MD
[2021-02-14] MEDS: ceFAZolin 1,000 mg SDV 1000 MG IRRIGATION (08:59)
[2021-02-14] MEDS: lidocaine 1% INJ 20 mL XX (08:59)
--- NOTE | 2021-02-14 09:36 | PM.OP ---
Operative Report Date of procedure: February 14, 2021 Pre-op Diagnosis: Pacemaker generator end of service Post-op diagnosis: same Procedure Done: Pacemaker generator exchange Implants: Medtronic pacemaker generator Specimens removed/disposition: [place] pacing generator removed and delivered to pacemaker rep Pathology: none sent Surgeon: Bandar Paniagua Anesthesia: MAC and Local Estimated blood loss (mL): 5 Complications: None Condition: stable Disposition: same day Brief History: 75-year-old gentleman with dual-lead pacemaker now at end of service. Original device was placed approximately a decade ago. Diogo followed by Dr. Duvall through our cardiology service. He status post intervention to the LAD in August 2019 and has had several prior interventions to coronaries. Rationale for generator exchange was carefully discussed. All questions answered. Proper consents reviewed and signed. Procedure: Mr. Deleon was appropriately positioned and sterilely prepped and draped. IV consicious sedation was given with anesthesia monitoring. 1% lidocaine was infiltrated through the prior insertion incision site. # 15 scalpel blade was used to incise the skin down to subcutaneous layer. Subsequently, using sharp and blunt dissection the pseudocapsule to the old generator was reached and opened with a scalpel blade. This area was then enhanced utilizing Metzenbaum scissors with care taken not to injure the pacing leads. Once the pocket was adequate opened, hemostats were utilized to deliver the old generator. Set screws were released and the leads were removed and inserted properly into the new generator with set screws then secured. The old generator was removed from the field. The incision was irrigated with antibiotic solution. Hemostasis was confirmed. The new generator was placed back into the old subcutaneous pocket. The wound was then closed in 2 layers of 3-0 Vicryl suture. Skin was closed in a subcuticular manner with 4-0 undyed Vicryl suture. A 2 layer pressure dressing was then applied. The entire system was interrogated and appropriate parameters obtained. Patient tolerated procedure well and was taken to the recovery room in stable condition. I did student support counselor with the family at the completion of the procedure. Medtronic generator: Model: [id number] serial number:[id number] Right atrial lead pacing: Impedance 323 ohms. Threshold 1 V. Right ventricular lead sensing is 8.9 mV. Impedance 399 ohms. Threshold 0.75 V Mode: AAIR/DDDR 70/130 with mode switch
[2021-02-14 09:37] VITALS: BP 138/64; PULSE 75; RESP 18; TEMP 36.3; O2SAT 96
[2021-02-14 09:40] VITALS: BP 142/76; PULSE 70; RESP 17; O2SAT 96
[2021-02-14 09:45] VITALS: BP 148/67; PULSE 75; RESP 14; TEMP 36.5; O2SAT 95
[2021-02-14 10:01] VITALS: BP 152/77; PULSE 69; RESP 18; TEMP 36.1; O2SAT 95
--- NOTE | 2021-02-14 14:28 | ANE.PACU2 ---
Inpatient post-anesthesia follow up: Airway intact: Yes Vital signs: Temperature 97 F Pulse Rate 69 Respiratory Rate 18 Blood Pressure 152/77 Pulse Oximetry 95 Oxygen Delivery Me thod Room Air Oxygen Flow Rate Fraction of Inspir ed Oxygen Hydration adequate: Yes Nausea and vomiting: No Pain level: 2 Mental status: Baseline
== END 2021-02-14 10:45 | disposition home or self-care (01) ==
PROVIDERS: PCP Nurse Practitioner Family; Visit Provider Thoracic Surgery (Cardiothoracic Vascular Surgery)
PROC: 0JPT0PZ Removal of Cardiac Rhythm Related Device from Trunk Subcutaneous Tissue and Fascia, Open Approach (ICD-10-PCS; CPT 33228; principal; 2021-02-14 08:10)
DX: Z45.010 Encounter for checking and testing of cardiac pacemaker pulse generator [battery] (principal); I25.10 Atherosclerotic heart disease of native coronary artery without angina pectoris; K21.9 Gastro-esophageal reflux disease without esophagitis; Z86.73 Personal history of transient ischemic attack (TIA), and cerebral infarction without residual deficits; E78.2 Mixed hyperlipidemia; E11.22 Type 2 diabetes mellitus with diabetic chronic kidney disease; I13.0 Hypertensive heart and chronic kidney disease with heart failure and stage 1 through stage 4 chronic kidney disease, or unspecified chronic kidney disease; N18.9 Chronic kidney disease, unspecified; I50.9 Heart failure, unspecified; Z82.49 Family history of ischemic heart disease and other diseases of the circulatory system; Z83.3 Family history of diabetes mellitus; Z87.891 Personal history of nicotine dependence
CPT/HCPCS: 33228; 36415; 36416; 80048; 81001; 82962; 85025; 93005; C1786; J0690; J2250; J2405; J2704; J3010; J7030

== ENCOUNTER 2021-03-02 06:48 | Outpatient (CLI) | payer MEDICARE, OTHER, SELFPAY ==
--- NOTE | 2021-03-02 06:59 | US_ITS ---
WS: [id number] RENAL ULTRASOUND HISTORY: STAGE 3 CHRONIC KIDNEY DISEASE COMPARISON: None available. TECHNIQUE: 2-D and color Doppler imaging of the kidney submitted. Right kidney: 14.3 cm x 4.3 cm x 6.4 cm. Enlarged kidney with multiple cortical cysts. Largest cyst in the superior kidney measures 5.3 x 5.3 x 5.8 cm. No solid mass or obstruction. Left kidney: 13.0 cm x 5.1 cm x 5.9 cm. Mildly enlarged kidney. Multiple cortical cysts. The largest from the superior pole measures 6.1 x 5. 9 x 6.1 cm. No solid mass or obstruction. Aorta: Mild atherosclerosis. Urinary Bladder: Minimally distended urinary bladder. Mild thickening of the wall due to underdistent ion. Prostate gland is mildly heterogeneous measuring 4.3 x 2.7 x 4.1 cm. US/US renal BI* [id number] IMPRESSION: 1. Multiple bilateral renal cysts with no obstruction or solid mass. 2. Mild prostate gland enlargement and heterogeneity.
== END 2021-03-02 06:49 | disposition home or self-care (01) ==
LOC: RAD 06:51
PROVIDERS: PCP Nurse Practitioner Family; Visit Provider Internal Medicine Nephrology
DX: N18.32 Chronic kidney disease, stage 3b (principal); Q61.02 Congenital multiple renal cysts; N40.0 Benign prostatic hyperplasia without lower urinary tract symptoms
CPT/HCPCS: 76770

== ENCOUNTER → 2021-03-17 13:15 | Outpatient (BNVA) | payer MEDICARE, OTHER, SELFPAY | PROVIDERS: PCP Nurse Practitioner Family; Visit Provider Urology | DX: N41.1 Chronic prostatitis (principal) | CPT/HCPCS: 81003 ==

== ENCOUNTER 2021-06-17 11:49 | Outpatient (CLI) | payer MEDICARE, OTHER, SELFPAY ==
--- NOTE | 2021-06-17 12:00 | CT_ITS ---
WS: [id number] CT HEAD TECHNIQUE: Noncontrast CT of the head obtained from the skullbase to the vertex. CLINICAL INFORMATION: S09.90XA - Unspecified injury of head, initial encounter COMPARISON: 02/28/19 DLP: 1542.[address] scans at [facility] use at least one of these dose optimization techniques: automated e xposure control; mA and/or kV adjustment per patient size (includes targeted exams where dose is matc hed to clinical indication); or iterative reconstruction. FINDINGS: No evidence of intracranial hemorrhage or mass effect. Ventricular system and basal cisterns are henderson nt. Mild small vessel changes with mild parenchymal volume loss. No extra-axial fluid collections. No evidence of mass or mass effect. Normal stahl-white differentiation. Paranasal sinuses and mastoid air cells well aerated. Mild mucosal thickening in the ethmoid air cell s. Mild soft tissue swelling overlying the LEFT orbit CT/CT head wo con* [id number] IMPRESSION: 1. No evidence of intracranial hemorrhage or mass effect. 2. Mild small vessel changes with mild parenchymal volume loss. 3. Mild soft tissue swelling overlying the LEFT orbit. 4. No acute intracranial findings.
--- NOTE | 2021-06-17 12:00 | CT_ITS ---
WS: [id number] CT SINUSES TECHNIQUE: Noncontrast CT of the paranasal sinuses with coronal and sagittal reformatted images. CLINICAL INFORMATION: S09.90XA - Unspecified injury of head, initial encounter COMPARISON: January 10, 2011 DLP: 1542.[address] scans at [facility] use at least one of these dose optimization techniques: automated e xposure control; mA and/or kV adjustment per patient size (includes targeted exams where dose is matc hed to clinical indication); or iterative reconstruction. FINDINGS: Mastoid air cells are well aerated. Mild mucosal thickening in the ethmoid air cells. Mild mucosal th ickening LEFT maxillary sinus. Cavernous carotid calcification. Normal posterior nasopharynx. Lucenci es in the LEFT sphenoid wing unchanged the prior studies. Soft tissue edema overlying the LEFT superolateral orbit. Orbit is normal in appearance. No orbital f ractures. Normal lamina papyracea. Normal zygoma. Chronic mild LEFT to RIGHT nasal septal deviation. Inferior orbits are normal in appea emeterio. CT/CT sinus wo con* [id number] IMPRESSION: Mild soft tissue edema overlying the superolateral orbit. No acute fractures.
== END 2021-06-17 11:50 | disposition home or self-care (01) ==
LOC: RAD 11:52
PROVIDERS: PCP Nurse Practitioner Family; Visit Provider Nurse Practitioner Family
DX: S09.90XA Unspecified injury of head, initial encounter (principal); X58.XXXA Exposure to other specified factors, initial encounter; R60.0 Localized edema
CPT/HCPCS: 70450; 70486

== ENCOUNTER → 2021-06-21 10:23 | Outpatient (BNVA) | payer MEDICARE, OTHER, SELFPAY | PROVIDERS: PCP Nurse Practitioner Family; Visit Provider Internal Medicine Nephrology | DX: E11.9 Type 2 diabetes mellitus without complications (principal); M10.9 Gout, unspecified; N18.32 Chronic kidney disease, stage 3b | CPT/HCPCS: 80053; 80061; 82043; 82310; 83036; 83970; 84100; 84443; 84550; 85025 ==

== ENCOUNTER 2021-06-23 | Outpatient (CLI) | payer MEDICARE, OTHER, SELFPAY | END 2021-06-23 23:59 | disposition home or self-care (01) | LOC: RAD 10-11 15:42 | PROVIDERS: PCP Nurse Practitioner Family; Visit Provider Nurse Practitioner Family | DX: R79.89 Other specified abnormal findings of blood chemistry (principal) | CPT/HCPCS: 84439; 84481 ==

== ENCOUNTER → 2021-06-29 11:12 | Outpatient (BNVA) | payer MEDICARE, OTHER, SELFPAY | PROVIDERS: PCP Nurse Practitioner Family; Visit Provider Nurse Practitioner Family | DX: D50.9 Iron deficiency anemia, unspecified (principal); R79.89 Other specified abnormal findings of blood chemistry | CPT/HCPCS: 80048; 82607; 82728; 82746; 84439; 84443; 84481; 85025 ==

== ENCOUNTER → 2021-07-04 16:52 | Outpatient (BNVA) | payer MEDICARE, OTHER, SELFPAY | PROVIDERS: PCP Nurse Practitioner Family; Visit Provider Nurse Practitioner Family | DX: D50.9 Iron deficiency anemia, unspecified (principal) | CPT/HCPCS: 82272 ==

== ENCOUNTER → 2021-07-12 07:59 | Outpatient (BNVA) | payer MEDICARE, OTHER, SELFPAY | PROVIDERS: PCP Nurse Practitioner Family; Referring Provider Nurse Practitioner Family; Visit Provider Surgery | DX: D64.9 Anemia, unspecified (principal) | CPT/HCPCS: 99204 ==

== ENCOUNTER 2021-07-13 07:48 | Day surgery (SDC) | payer MEDICARE, OTHER, SELFPAY ==
[2021-07-12 09:49] VITALS: BMI 27.4
[2021-07-13 08:25] VITALS: BP 174/112; PULSE 59; RESP 18; TEMP 36.4; O2SAT 97
[2021-07-13] MEDS: sodium chloride 0.9% 1,000 ML 30 ML IV (08:29)
--- NOTE | 2021-07-13 09:23 | ANES.PREANE2 ---
Pre-Anesthetic Assessment Height/Weight: Height 1.85 m Weight 94.347 kg Temp Pulse Resp BP Pulse Ox 97.6 F 59 L 18 174/112 97 07/13/21 08:25 07/13/21 08:25 07/13/21 08:25 07/13/21 08:25 07/13/21 08:25 Preop Diagnosis: Pacemaker generator end of service Operation Date: 07/13/21 09:45 Proposed Procedures p EGD 96616/d50.9(Not Applicable) - Lazaro Preciado MD Familial anesthetic complications: None Was Beta Alice taken within 24 hours: Yes Was Clonidine taken within 24 hours: N/A Last intake: Intake Last Liquid Date 07/12/21 Last Liquid Time 16:00 Last Solid Date 07/12/21 Last Solid Time 16:00 Social No alcohol and No tobacco Exam alert, oriented x 3, clear to auscultation bilaterally and regular rate & rhythm Airway Submandibular: within normal limits Cervical ROM: within normal limits Mallampati: Class II Dentition: false Pulmonary Chronic Obstructive Pulmonary Disease CV/HEM Atrial Fibrillation, Anemia, Coronary Artery Disease (stent) and Hypertension Pacemaker Chronic Renal Insufficiency Metabolic Diabetes Mellitus and Hyperlipidemia Anesthetic Plan ASA status: 3 Anesthesia: MAC Medications/Allergies Home Medications Medication Instructions Recorded Confirmed Last Taken Type albuterol sulfate 90 mcg/actuation 2 puff INHALATION QID PRN 03/19/19 07/13/21 07/12/21 History aerosol inhaler (ProAir HFA) ascorbate calcium (vitamin C) 500 500 mg PO QAM tab 03/19/19 07/13/21 07/12/21 History mg tablet fluticasone propionate 50 2 spray INTRANASAL DAILY ml 03/19/19 07/13/21 07/12/21 History mcg/actuation nasal spray,suspension omega-3 fatty acids 1,000 mg 1,000 mg PO BEDTIME cap 03/19/19 07/13/21 07/12/21 History capsule trazodone 100 mg tablet 100 mg PO BEDTIME tab 03/19/19 07/13/21 07/12/21 History cetirizine 10 mg capsule (Allergy 10 mg PO DAILY cap 09/05/19 07/13/21 07/12/21 History Relief (cetirizine)) diclofenac sodium 1 % topical gel 2 g TOPICAL QID PRN 08/26/20 07/13/21 Unknown History (Voltaren) glipizide 5 mg tablet 5 mg PO QAM 08/26/20 07/13/21 07/12/21 History omega-3 250 no-ycv-wtb-lutein 2.5 1 cap PO DAILY 08/30/20 07/13/21 07/12/21 History mg-zeaxanthin 0.5 mg capsule ([employer] [facility]) vitamin B complex 1 tab PO DAILY #90 tab 09/03/20 07/13/21 07/12/21 Rx ondansetron HCl 4 mg tablet 4 mg PO Q6H PRN #20 tab 10/12/20 07/13/21 Unknown Rx (Zofran) atorvastatin 80 mg tablet 80 mg PO BEDTIME #90 tab 11/19/20 07/13/21 07/12/21 Rx carvedilol 25 mg tablet 37.5 mg PO BID #270 tab 11/19/20 07/13/21 07/12/21 Rx clopidogrel 75 mg tablet (Plavix) 75 mg PO DAILY@12 #90 tab 11/19/20 07/13/21 07/12/21 Rx digoxin 250 mcg (0.25 mg) tablet 250 mcg PO DAILY #90 tab 11/19/20 07/13/21 07/12/21 Rx isosorbide mononitrate 30 mg 30 mg PO BID #180 tab 11/19/20 07/13/21 07/13/21 Rx tablet,extended release 24 hr nifedipine 30 mg tablet,extended 30 mg PO BID #180 tab 11/19/20 07/13/21 07/12/21 Rx release nitroglycerin 0.4 mg sublingual 0.4 mg SUBLINGUAL Q5M PRN #25 tab 11/19/20 07/13/21 Unknown Rx tablet valsartan 160 mg tablet 160 mg PO BID #180 tab 11/19/20 07/13/21 07/13/21 Rx pen needle, diabetic 31 gauge x #100 ea 12/01/20 07/12/21 Unknown Rx 07/25 (Pen Needle) insulin detemir U-100 100 unit/mL 15 unit (0.15 mL) SUBCUT DAILY 30 02/10/21 07/13/21 07/12/21 Rx (3 mL) subcutaneous pen (Levemir Days #15 ml FlexTouch U-100 Insulin) hydralazine 50 mg tablet 50 mg PO TID tab 03/17/21 07/13/21 07/13/21 History levothyroxine 25 mcg tablet 25 mcg PO DAILY #90 tab 06/24/21 07/13/21 07/12/21 Rx ferrous sulfate 325 mg (65 mg 325 mg PO BID #60 tab 07/06/21 07/13/21 07/12/21 Rx iron) tablet (iron) pantoprazole 40 mg tablet,delayed 40 mg PO BID #60 tab 07/06/21 07/13/21 07/13/21 Rx release acetaminophen 300 mg-codeine 30 mg 1 - 2 tab PO TID PRN 07/12/21 07/13/21 Unknown History tablet aspirin 81 mg tablet,delayed 81 mg PO DAILY 07/12/21 07/13/21 07/12/21 History release cholecalciferol (vitamin D3) 50 50 mcg PO DAILY 07/12/21 07/13/21 07/12/21 History mcg (2,000 unit) capsule ciprofloxacin HCl 500 mg tablet 500 mg PO BID 07/12/21 07/13/21 07/13/21 History Allergies Allergy/AdvReac Type Severity Reaction Status Date / Time atenolol [From Tenormin] Allergy Intermediate hypotension Verified 07/13/21 08:17 niacin Allergy Intermediate rash, hot Verified 07/13/21 08:17 flashes Current Medications Generic Name Dose Route Start Last Admin Trade Name Freq PRN Reason Stop Dose Admin Sodium Chloride 1,000 mls @ 30 mls/hr 07/13/21 08:30 07/13/21 08:29 Sodium Chloride 0.9% IV 07/14/21 08:29 30 mls/hr .Q24H REGULO Administration PFSH Anesthesia Medical History Arteriosclerotic vascular disease Cardiac pacemaker Medtronic pacemaker, AAIR-DDDR, base rate 70 bpm. Chronic kidney disease, stage 2 (mild) Chronic prostatitis Diagnosed August 2020 with good response to more prolonged course of ciprofloxacin. Essential hypertension History of carotid artery dissection Mixed hyperlipidemia Paroxysmal atrial fibrillation Presence of stent in LAD coronary artery February 2018 Presence of stent in left circumflex coronary artery February 2018 RCA occlusion Thrombocytopenia TIA (transient ischemic attack) Type 2 diabetes mellitus without complications Ventricular tachycardia Surgical History (Updated 07/12/21 @ 08:27 by Lazaro Preciado MD) History of colonoscopy 1 year History of esophagogastroduodenoscopy 1 year History of permanent cardiac pacemaker placement History of right-sided carotid endarterectomy October 2018 Family History Family/Other CAD (coronary artery disease) Father CAD (coronary artery disease) Hyperlipidemia Hypertension Mother CAD (coronary artery disease) Cancer Dementia Hyperlipidemia Hypertension Brother Diabetes Social History Smoking and tobacco status: former smoker Quit status (tobacco): has quit using tobacco Year quit tobacco: 1988 Second hand smoke exposure: No Alcohol intake: never Caregiver/support person: Yes (spouse) Lives independently: Yes Household members: spouse Housing: House Marital status: Number of children: 1 Current occupational status: retired Pets and animals: Yes Pets & animals: dog(s) History of recent travel: No Current gender identity: Male Vijaya/Evangelical: [employer] [place] Special vijaya needs: No Agree to transfusion: Yes Data Anesthesia Cardiac Studies: Sestamibi Stress Test (Cardiology) 09/25/19 Cardiac Event Monitor 09/07/20
--- NOTE | 2021-07-13 09:28 | P.HP_ITS ---
Same Day Surgery H&P Indication for Procedure/HPI DATE OF PROCEDURE: July 13, 2021 CHIEF COMPLAINT/INDICATIONFOR SURGICAL PROCEDURE: Anemia PREOP DIAGNOSIS: Pacemaker generator end of service PLANNED PROCEDURE: Operation Date: 07/13/21 09:45 Proposed Procedures p EGD 46892/d50.9(Not Applicable) - Lazaro Preciado MD Medications/Allergies* Home Medications Medication Instructions Recorded Confirmed Type albuterol sulfate 90 mcg/actuation 2 puff INHALATION QID PRN 03/19/19 07/13/21 History aerosol inhaler (ProAir HFA) ascorbate calcium (vitamin C) 500 500 mg PO QAM tab 03/19/19 07/13/21 History mg tablet fluticasone propionate 50 2 spray INTRANASAL DAILY ml 03/19/19 07/13/21 History mcg/actuation nasal spray,suspension omega-3 fatty acids 1,000 mg 1,000 mg PO BEDTIME cap 03/19/19 07/13/21 History capsule trazodone 100 mg tablet 100 mg PO BEDTIME tab 03/19/19 07/13/21 History cetirizine 10 mg capsule (Allergy 10 mg PO DAILY cap 09/05/19 07/13/21 History Relief (cetirizine)) diclofenac sodium 1 % topical gel 2 g TOPICAL QID PRN 08/26/20 07/13/21 History (Voltaren) glipizide 5 mg tablet 5 mg PO QAM 08/26/20 07/13/21 History omega-3 250 ih-xif-aua-lutein 2.5 1 cap PO DAILY 08/30/20 07/13/21 History mg-zeaxanthin 0.5 mg capsule ([employer] [facility]) hydralazine 50 mg tablet 50 mg PO TID tab 03/17/21 07/13/21 History acetaminophen 300 mg-codeine 30 mg 1 - 2 tab PO TID PRN 07/12/21 07/13/21 His tory tablet aspirin 81 mg tablet,delayed 81 mg PO DAILY 07/12/21 07/13/21 History release cholecalciferol (vitamin D3) 50 50 mcg PO DAILY 07/12/21 07/13/21 History mcg (2,000 unit) capsule ciprofloxacin HCl 500 mg tablet 500 mg PO BID 07/12/21 07/13/21 History Allergies/Adverse Reactions Allergy/AdvReac Type Severity Reaction Status Date / Time atenolol [From Tenormin] Allergy Intermediate hypotension Verified 07/13/21 08:17 niacin Allergy Intermediate rash, hot Verified 07/13/21 08:17 flashes Current Medications: Generic Name Dose Route Start Last Admin Trade Name Sandor PRN Reason Stop Dose Admin Sodium Chloride 1,000 mls @ 30 mls/hr 07/13/21 08:30 07/13/21 08:29 Sodium Chloride 0.9% IV 07/14/21 08:29 30 mls/hr .Q24H REGULO Administration Pertinent History/Comorbid Conditions* Medical History (Updated 06/23/21 @ 14:18 by JANA Ambrocio) Arteriosclerotic vascular disease Cardiac pacemaker Medtronic pacemaker, AAIR-DDDR, base rate 70 bpm. Chronic kidney disease, stage 2 (mild) Chronic prostatitis Diagnosed August 2020 with good response to more prolonged course of ciprofloxacin. Essential hypertension History of carotid artery dissection Mixed hyperlipidemia Paroxysmal atrial fibrillation Presence of stent in LAD coronary artery February 2018 Presence of stent in left circumflex coronary artery February 2018 RCA occlusion Thrombocytopenia TIA (transient ischemic attack) Type 2 diabetes mellitus without complications Ventricular tachycardia Surgical History (Updated 07/12/21 @ 08:27 by Lazaro Preciado MD) History of colonoscopy 1 year History of esophagogastroduodenoscopy 1 year History of permanent cardiac pacemaker placement History of right-sided carotid endarterectomy October 2018 Family History (Updated 04/14/19 @ 10:57 by Candelaria Ballesteros RN) Diabetes Brother CAD (coronary artery disease) Family/Other Father Mother Dementia Mother Hyperlipidemia Father Mother Cancer Mother Hypertension Father Mother Social History Smoking and tobacco status: former smoker Quit status (tobacco): has quit using tobacco Year quit tobacco: 1988 Second hand smoke exposure: No Alcohol intake: never Caregiver/support person: Yes (spouse) Lives independently: Yes Household members: spouse Housing: House Marital status: Number of children: 1 Current occupational status: retired Pets and animals: Yes Pets & animals: dog(s) History of recent travel: No Current gender identity: Male Vijaya/Catholic: [employer] [place] Special vijaya needs: No Agree to transfusion: Yes Pertinent Exam Findings alert and regular rate & rhythm Recommendations Surgery/Procedure today Coding Level of Care Code Acute Lamp Shade Sewer for Manpreet Garcia
[2021-07-13 09:45] VITALS: BP 173/93; PULSE 68; RESP 16; TEMP 36.3; O2SAT 96
--- NOTE | 2021-07-13 09:48 | ANE.PACU2 ---
Inpatient post-anesthesia follow up: Airway intact: Yes Vital signs: Temperature 97.6 F Pulse Rate 59 Respiratory Rate 18 Blood Pressure 174/112 Pulse Oximetry 97 Oxygen Delivery Me thod Room Air Oxygen Flow Rate Fraction of Inspir ed Oxygen Hydration adequate: Yes Nausea and vomiting: No Pain level: 1 Mental status: Baseline
[2021-07-13 09:59] VITALS: BP 172/84; PULSE 70; RESP 16; O2SAT 96
== END 2021-07-13 10:10 | disposition home or self-care (01) ==
PROVIDERS: PCP Nurse Practitioner Family; Visit Provider Surgery
PROC: 0DJ08ZZ Inspection of Upper Intestinal Tract, Via Natural or Artificial Opening Endoscopic (ICD-10-PCS; CPT 43235; principal; 2021-07-13 09:45)
DX: Z45.010 Encounter for checking and testing of cardiac pacemaker pulse generator [battery] (principal); K25.9 Gastric ulcer, unspecified as acute or chronic, without hemorrhage or perforation; K29.80 Duodenitis without bleeding; K29.50 Unspecified chronic gastritis without bleeding; E78.2 Mixed hyperlipidemia; I48.0 Paroxysmal atrial fibrillation; Z86.73 Personal history of transient ischemic attack (TIA), and cerebral infarction without residual deficits; E11.22 Type 2 diabetes mellitus with diabetic chronic kidney disease; I12.9 Hypertensive chronic kidney disease with stage 1 through stage 4 chronic kidney disease, or unspecified chronic kidney disease; N18.2 Chronic kidney disease, stage 2 (mild); Z95.5 Presence of coronary angioplasty implant and graft; Z87.891 Personal history of nicotine dependence; J44.9 Chronic obstructive pulmonary disease, unspecified; I25.10 Atherosclerotic heart disease of native coronary artery without angina pectoris; Z79.4 Long term (current) use of insulin
CPT/HCPCS: 43239; 88305; 88342; J2704; J7030

== ENCOUNTER → 2021-07-26 09:04 | Outpatient (BNVA) | payer MEDICARE, OTHER, SELFPAY | PROVIDERS: PCP Nurse Practitioner Family; Visit Provider Surgery | DX: Z09 Encounter for follow-up examination after completed treatment for conditions other than malignant neoplasm (principal) | CPT/HCPCS: 99212 ==

== ENCOUNTER → 2021-07-27 13:57 | Outpatient (BNVA) | payer MEDICARE, OTHER, SELFPAY | PROVIDERS: PCP Nurse Practitioner Family; Visit Provider Nurse Practitioner Family | DX: D64.9 Anemia, unspecified (principal) | CPT/HCPCS: 85025 ==

== ENCOUNTER 2021-08-03 08:00 | Oncology outpatient (recurring) (ONCR) | payer MEDICARE, OTHER, SELFPAY ==
[2021-08-03] VITALS (8 sets, daily range): BP systolic 174–204; BP diastolic 63–78; PULSE 69–73; RESP 18; TEMP 22.7–36.6; O2SAT 97–99
[2021-08-03] MEDS: acetaminophen 325 mg Tablet 650 MG PO (08:47)
[2021-08-03] MEDS: diphenhydrAMINE 25 mg Capsule PO ×2 (08:48)
[2021-08-03] MEDS: sodium chloride 0.9% 250 ML 75 ML IV (08:49)
[2021-08-03] MEDS: FUROsemide 10 mg/mL SDV 2mL 20 MG IVP (11:33)
[2021-08-03] MEDS: ferric carboxy (IVPB) 750 MG in sodium chloride 0.9% (100 ml) 100 ML 345 MG IV (13:41)
== END 2021-08-09 23:59 | disposition home or self-care (01) ==
PROVIDERS: PCP Nurse Practitioner Family; Visit Provider Internal Medicine Hematology & Oncology
DX: D50.9 Iron deficiency anemia, unspecified (principal); Z79.899 Other long term (current) drug therapy
CPT/HCPCS: 36430; 82728; 83540; 83550; 86850; 86900; 86920; 96365; 99204; 99999; J1439; J1940; J7050; P9040

== ENCOUNTER 2021-08-17 14:00 | Oncology outpatient (recurring) (ONCR) | payer MEDICARE, OTHER, SELFPAY ==
[2021-08-10] MEDS: sodium chloride 0.9% 250 ML 75 ML IV (14:10)
[2021-08-10] MEDS: ferric carboxy (IVPB) 750 MG in sodium chloride 0.9% (100 ml) 100 ML 345 MG IV (14:27)
[2021-08-17 14:08] LABS: Basophils % 0.5 %; Eosinophils # 0.1 10^3/uL (0.0-0.8); Hemoglobin 11.2 g/dL (11.7-16.6); Lymphocytes # 0.9 10^3/uL (0.8-4.8); Lymphocytes % 14.9 %; Mean Corpuscular Hemoglobin 28.7 pg (28.0-34.0); Mean Corpuscular Volume 82.1 fl (80-94); Mean Platelet Volume 11.5 fL (7.4-10.4); Monocytes # 0.5 10^3/uL (0.2-0.9); Monocytes % 7.4 %; Neutrophils # 4.75 10^3/uL (1.8-7.7); Neutrophils % 75.9 %; Nucleated Red Blood Cells % 0 %; Platelet Count 91 10^3/cmm (130-400); Red Cell Distribution Width 14.2 % (12.1-15.1); White Blood Count 6.3 10^3/uL (4.0-10.0)
== END 2021-09-08 23:59 | disposition home or self-care (01) ==
PROVIDERS: PCP Nurse Practitioner Family; Visit Provider Internal Medicine Hematology & Oncology
DX: D50.9 Iron deficiency anemia, unspecified (principal); E11.22 Type 2 diabetes mellitus with diabetic chronic kidney disease; N18.9 Chronic kidney disease, unspecified; I12.9 Hypertensive chronic kidney disease with stage 1 through stage 4 chronic kidney disease, or unspecified chronic kidney disease; Z79.4 Long term (current) use of insulin; I48.0 Paroxysmal atrial fibrillation; D69.6 Thrombocytopenia, unspecified; Z79.899 Other long term (current) drug therapy; Z87.891 Personal history of nicotine dependence
CPT/HCPCS: 85025; 96365; 99214; J1439; J7050

== ENCOUNTER 2021-09-07 14:34 | Inpatient (IN) | payer MEDICARE, OTHER, SELFPAY ==
[2021-09-07 14:43] VITALS: BP 148/65; PULSE 84; RESP 18; TEMP 36.8; O2SAT 96; BMI 26.4
--- NOTE | 2021-09-07 14:53 | XR_ITS ---
WS: [id number] XR chest 1V portable [id number] REASON FOR EXAM: chest pain FINDINGS: The chest is unchanged compared to 08/26/2020. Cardiac device over the left chest with transvenous left subclavian vein leads to the right HM and ri ght ventricle. Moderate tortuosity and ectasia of thoracic aorta. Mild cardiomegaly. Previous coronary artery stents. Calcified granulomatous disease in both hemithoraces. 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 No acute pulmonary parenchymal or pleural abnormality is identified . Multiple old healed rib fractures on the left. XR/XR chest 1V portable [id number] IMPRESSION: No acute chest abnormality.
--- NOTE | 2021-09-07 14:53 | ECG_ITS ---
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 Measurements Intervals [place] Rate: 71 P: 170 ME: 271 QRS: 19 QRSD: 118 T: 96 QT: 353 QTc: 385 Interpretive Statements ELECTRONIC ATRIAL PACEMAKER POSSIBLE ANTERIOR MYOCARDIAL INFARCTION , OF INDETERMINATE AGE [30 ms Q WAVE IN V3/V4, OR R < 0.2 mV IN V4] MODERATE T-WAVE ABNORMALITY, CONSIDER LATERAL ISCHEMIA [-0.1+ mV T-WAVE IN I/aVL/V5/V6] Compared to ECG 02/09/2021 11:36:36 T-wave abnormality now present Possible ischemia now present Intraventricular conduction delay no longer present Myocardial infarct finding still present Electronically Signed On 09-08-2021 18:57:56 CDT by Anibal Abernathy M.D. [id number] f
--- NOTE | 2021-09-07 16:07 | W.ED.CHESTPA ---
HPI - Chest Pain General: Chief Complaint: Chest Pain Stated Complaint: Chest pressure, finger numbness, sob Time Seen by Provider: 09/07/21 15:30 Source: patient Mode of arrival: ambulatory Limitations: no limitations History of Present Illness: 76-year-old male presents emergency room complaining of chest pressure and pain for the last 2 to 3 weeks. He will get onsets at both rest and with exertion he has a known history of coronary disease with placement of 5 stents previously according to him. His last most recent angiogram was done in our facility about 2 to 3 years ago. He also has a pacemaker placed. In talking to him it is difficult to elicit exactly what the indication was. It sounds lhe may have had a heart block from his description of the events.. He has not really noticed anything that consistently exacerbates or relieves his discomfort. It does radiate up into his back and his shoulders. He gets short of breath with the chest pain. He denies any diaphoresis. He is diabetic he is a former smoker having quit 30 some years ago. Patient routinely describes eating walking a mile or 2 in the morning and doing other exertional activities such as riding a bike with no episodes of chest pain. MD complaint: chest pain Pertinent past history: coronary artery disease Onset (ago): week(s) (2 to 3 weeks) Timing of current episode: episodic Onset: during rest and during exertion Pain radiation: back, left shoulder and left scapula Severity: moderate Quality: tightness, aching and heaviness Relieving factors: nothing Exacerbating factors: nothing Associated symptoms: Reports dyspnea and other; Deny abdominal pain, diaphoresis, fever(s), leg edema, nausea, palpitations, sense of impending doom, syncope or vomiting Treatment prior to arrival: none Review of Systems Const: Denies: fever(s), chills, fatigue, malaise or diaphoresis ENMT: Denies: throat pain, ear or mastoid pain, nasal discharge or nasal congestion Card: Reports: chest pain; Denies: palpitations, irregular heart rhythm, edema, swelling of feet/ankles or syncope Resp: Reports: dyspnea GI: Denies: abdominal pain, nausea or vomiting : Denies: flank pain, difficulty urinating, dysuria, urinary frequency or urinary urgency Musc: Reports: back pain Skin/Breast: Denies: rash or pruritus PFSH ED PFSH: Medical History Arteriosclerotic vascular disease Cardiac pacemaker Medtronic pacemaker, AAIR-DDDR, base rate 70 bpm. Chronic kidney disease, stage 2 (mild) Chronic prostatitis Diagnosed August 2020 with good response to more prolonged course of ciprofloxacin. Essential hypertension History of carotid artery dissection Mixed hyperlipidemia Paroxysmal atrial fibrillation Presence of stent in LAD coronary artery February 2018 Presence of stent in left circumflex coronary artery February 2018 RCA occlusion Thrombocytopenia Thrombocytopenia TIA (transient ischemic attack) Type 2 diabetes mellitus without complications Ventricular tachycardia Surgical History History of colonoscopy 1 year History of esophagogastroduodenoscopy (07/13/21) 1 year History of permanent cardiac pacemaker placement History of right-sided carotid endarterectomy October 2018 Family History Family/Other CAD (coronary artery disease) Father CAD (coronary artery disease) Hyperlipidemia Hypertension Mother CAD (coronary artery disease) Cancer Dementia Hyperlipidemia Hypertension Brother Diabetes Social History Smoking and tobacco status: former smoker Quit status (tobacco): has quit using tobacco Year quit tobacco: 1988 Second hand smoke exposure: No Alcohol intake: never Caregiver/support person: Yes (spouse) Lives independently: Yes Household members: spouse Housing: House Marital status: Number of children: 1 Current occupational status: retired Pets and animals: Yes Pets & animals: dog(s) History of recent travel: No Current gender identity: Male Vijaya/Rastafari: [facility] Special vijaya needs: No Agree to transfusion: Yes Physical Exam Const: GENERAL APPEARANCE: cooperative and comfortable ORIENTATION/CONSCIOUSNESS: Yes awake, Yes oriented to person, Yes oriented to place and Yes oriented to time HENMT: COMMON NORMALS: normocephalic, atraumatic and hearing grossly normal bilaterally HEAD & SCALP: normocephalic and atraumatic Neck/C-Spine: COMMON NORMALS: no JVD Resp: COMMON NORMALS: normal respiratory effort, No retractions, No use of accessory muscles and clear to auscultation bilaterally AUSCULTATION: clear to auscultation bilaterally Cardio: COMMON NORMALS: no JVD, regular rate, regular rhythm and No murmurs present (Cardio) RATE: regular rate RHYTHM: regular rhythm GI: COMMON NORMALS: Soft to palpation and No hepatosplenomegaly present AUSCULTATION: Yes normoactive bowel sounds PALPATION: Yes Soft to palpation, No Tenderness to palpation present (GI), No Guarding due to palpation present (GI) and Yes No hepatosplenomegaly present Extremity: COMMON NORMALS: normal to inspection, capillary refill normal, no clubbing, cyanosis or edema, no calf tenderness and no pedal edema Neuro: SENSORIUM/ORIENTATION: Yes oriented to person, Yes oriented to place and Yes oriented to time Skin: COMMON NORMALS: no rashes or lesions noted GENERAL SKIN EXAM: no rashes or lesions noted Course Vital Signs: Vital signs: Vital Signs Temperature 98.7 F 09/07/21 22:27 Pulse Rate 79 09/07/21 22:27 Respiratory Rate 22 H 09/07/21 22:27 Blood Pressure 164/66 09/07/21 22:27 Pulse Oximetry 94 09/08/21 00:00 MDM - Chest Pain Medical Decision Making Patient has escalating angina with known history of heart disease his previous heart cath he had some heart disease note was decided to treat manic medically because they are not able to intervene because of the location of these issues. We will place patient on observation and consult to cardiology. Discussed with hospitalist orders are written. Medical Records I reviewed the patient's medical records. Lab Data I reviewed the patient's lab results. : 09/07/21 15:55 09/07/21 17:55 Radiology Impressions Chest X-Ray 09/07/21 14:53 IMPRESSION: No acute chest abnormality. Laboratory Results WBC 6.9 10^3/uL (4.0-10.0) 09/07/21 15:55 RBC 3.44 10^6/uL (4.1-5.3) L 09/07/21 15:55 Hgb 9.9 g/dL (11.7-16.6) L 09/07/21 15:55 Hct 28.4 % (42.0-52.0) L 09/07/21 15:55 MCV 82.6 fl (80-94) 09/07/21 15:55 MCH 28.8 pg (28.0-34.0) 09/07/21 15:55 MCHC 34.9 g/dL (30.0-36.0) 09/07/21 15:55 RDW 14.1 % (12.1-15.1) 09/07/21 15:55 Plt Count 88 10^3/cmm (130-400) L 09/07/21 15:55 MPV 12.5 fL (7.4-10.4) H 09/07/21 15:55 Neut % (Auto) 76.0 % 09/07/21 15:55 Lymph % (Auto) 11.4 % 09/07/21 15:55 [place] % (Auto) 10.7 % 09/07/21 15:55 Eos % (Auto) 1.2 % 09/07/21 15:55 Baso % (Auto) 0.3 % 09/07/21 15:55 Neut # (Auto) 5.28 10^3/uL (1.8-7.7) 09/07/21 15:55 Lymph # (Auto) 0.8 10^3/uL (0.8-4.8) 09/07/21 15:55 [place] # (Auto) 0.7 10^3/uL (0.2-0.9) 09/07/21 15:55 Eos # (Auto) 0.1 10^3/uL (0.0-0.8) 09/07/21 15:55 Baso # (Auto) 0.0 10^3/uL (0.0-0.1) 09/07/21 15:55 Nucleated RBC % (auto) 0 % 09/07/21 15:55 Nucleated RBCs # 0.0 /100WBC 09/07/21 15:55 Sodium Cancelled 09/07/21 15:55 Potassium Cancelled 09/07/21 15:55 Chloride Cancelled 09/07/21 15:55 Carbon Dioxide Cancelled 09/07/21 15:55 Anion Gap Cancelled 09/07/21 15:55 BUN Cancelled 09/07/21 15:55 Creatinine Cancelled 09/07/21 15:55 GFR Calculation Cancelled 09/07/21 15:55 Glucose Cancelled 09/07/21 15:55 Calculated Osmolality Cancelled 09/07/21 15:55 Calcium Cancelled 09/07/21 15:55 Total Bilirubin Cancelled 09/07/21 15:55 AST Cancelled 09/07/21 15:55 ALT Cancelled 09/07/21 15:55 Alkaline Phosphatase Cancelled 09/07/21 15:55 Troponin T Baseline 35 ng/L (0-15) H 09/07/21 15:55 Troponin T 120 Minute 30.88 ng/L (0-15) H 09/07/21 17:42 Delta Troponin T -4.12 ABS# (0-10) L 09/07/21 17:42 Total Protein Cancelled 09/07/21 15:55 Albumin Cancelled 09/07/21 15:55 Globulin Cancelled 09/07/21 15:55 Discharge Plan Discharge Patient Disposition: Admitted As Inpatient Admit Provider: Good Mallory Clinical Impression: Unstable angina, Arteriosclerotic vascular disease, Paroxysmal atrial fibrillation, Cardiac pacemaker, CKD (chronic kidney disease), Thrombocytopenia, Iron deficiency anemia, Essential hypertension Condition: Stable Coding Level of Care Code ED Hide Grader for Chg Fwd Exam Comprehensive
[2021-09-07 16:13] LABS: Basophils % 0.3 %; Eosinophils # 0.1 10^3/uL (0.0-0.8); Eosinophils % 1.2 %; Hematocrit 28.4 % (42.0-52.0); Hemoglobin 9.9 g/dL (11.7-16.6); Lymphocytes # 0.8 10^3/uL (0.8-4.8); Lymphocytes % 11.4 %; Mean Corpuscular HGB Conc 34.9 g/dL (30.0-36.0); Mean Corpuscular Hemoglobin 28.8 pg (28.0-34.0); Mean Corpuscular Volume 82.6 fl (80-94); Mean Platelet Volume 12.5 fL (7.4-10.4); Monocytes # 0.7 10^3/uL (0.2-0.9); Monocytes % 10.7 %; Neutrophils # 5.28 10^3/uL (1.8-7.7); Nucleated Red Blood Cells % 0 %; Platelet Count 88 10^3/cmm (130-400); Red Blood Count 3.44 10^6/uL (4.1-5.3); Red Cell Distribution Width 14.1 % (12.1-15.1); White Blood Count 6.9 10^3/uL (4.0-10.0)
[2021-09-07 16:42] LABS: Troponin(5th) Baseline 35 ng/L (0-15)
--- NOTE | 2021-09-07 16:53 | ECG_ITS ---
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 Measurements Intervals [place] Rate: 71 P: 265 NE: 306 QRS: 21 QRSD: 113 T: 266 QT: 331 QTc: 360 Interpretive Statements ELECTRONIC ATRIAL PACEMAKER INCOMPLETE RIGHT BUNDLE BRANCH BLOCK [90+ ms QRS DURATION, TERMINAL R IN V1/V2, 40+ ms S IN I/aVL/V4/V5/V6] SEPTAL MYOCARDIAL INFARCTION , PROBABLY OLD [40+ ms Q WAVE IN V1/V2] MODERATE T-WAVE ABNORMALITY, CONSIDER LATERAL ISCHEMIA [-0.1+ mV T-WAVE IN I/aVL/V5/V6] Compared to ECG 09/07/2021 14:52:54 Incomplete right bundle-branch block now present Myocardial infarct finding still present T-wave abnormality still present Possible ischemia still present Electronically Signed On 09-08-2021 19:03:32 CDT by Anibal Abernathy M.D. [id number]
[2021-09-07] MEDS: aspirin 81 mg Chew Tablet 324 MG PO (17:04)
[2021-09-07] MEDS: nitroglycerin 1 gm/inch oint Pkt 1 INCH TOPICAL (17:04)
[2021-09-07 17:44] VITALS: BP 158/70; PULSE 78; RESP 16; O2SAT 95
--- NOTE | 2021-09-07 17:51 | PM.HP ---
Providers/Chief Complaint Chief Complaint: Chest pressure, finger numbness, sob History of Present Illness Tad Deleon is a 76 year old male carries history of status coronary disease presented today with chief complaint of worsening shortness of breath. Coronary angiogram 11/29 showed distal calcified LAD lesion at distal edge of prior stent which was managed medically, he also has history of carotid artery disease 50 to 70% stenosis of right side, borderline anemia, paroxysmal A. fib, secondary to GI bleed not on anticoagulating agent, EGD revealed gastritis. Demetra stating that for last 2 weeks he has been experiencing shortness of breath and chest pain on exertion. He noticed the symptoms during his bike ride and walking his dog. He is describing this pain as pressure sensation radiating towards his jaw only last for about few minutes. In last 2 days he was also febrile temperature 100.9 isolated event. No productive cough, dysuria, diarrhea sinus infection. The only symptom that he associated with his fever was chills. He tested himself multiple times for COVID at home it was negative. In the ER for troponin is 35 EKG showing paced rhythm Chest x-ray unremarkable Hospital service has been requested to admit him because of his significant history I will do COVID test Check UA Serial troponin and EKG Give him therapeutic dose of Lovenox He still experiencing mild chest discomfort, Nitropaste has been applied at the bedside He is full code Review of Systems Const: Reports: fever(s), chills and body aches Eyes: Denies: change in vision ENMT: Denies: throat pain Card: Reports: chest pain Resp: Reports: dyspnea GI: Denies: abdominal pain : Denies: flank pain Musc: Denies: neck pain Skin/Breast: Denies: rash Neuro: Denies: headache(s) Psych: Denies: anxiety Endo: Denies: polyuria Jayden/Lymph: Denies: easy bruising All/Imm: Denies: urticaria Medications/Allergies Home Medications Medication Instructions Recorded Confirmed Last Taken Type albuterol sulfate 90 mcg/actuation 2 puff INHALATION QID PRN 03/19/19 09/07/21 07/12/21 History aerosol inhaler (ProAir HFA) ascorbate calcium (vitamin C) 500 500 mg PO QAM tab 03/19/19 09/07/21 09/07/21 History mg tablet fluticasone propionate 50 2 spray INTRANASAL DAILY PRN ml 03/19/19 09/07/21 07/12/21 History mcg/actuation nasal spray,suspension trazodone 100 mg tablet 100 mg PO BEDTIME tab 03/19/19 09/07/21 09/06/21 History cetirizine 10 mg capsule (Allergy 10 mg PO DAILY cap 09/05/19 09/07/21 09/07/21 History Relief (cetirizine)) diclofenac sodium 1 % topical gel 2 g TOPICAL QID PRN 08/26/20 09/07/21 Unknown History (Voltaren) glipizide 5 mg tablet 5 mg PO QAM 08/26/20 09/07/21 09/07/21 History omega-3 250 le-dwj-tuj-lutein 2.5 1 cap PO DAILY 08/30/20 09/07/21 09/07/21 History mg-zeaxanthin 0.5 mg capsule ([facility]) vitamin B complex 1 tab PO DAILY #90 tab 09/03/20 09/07/21 09/07/21 Rx atorvastatin 80 mg tablet 80 mg PO BEDTIME #90 tab 11/19/20 09/07/21 09/06/21 Rx carvedilol 25 mg tablet 37.5 mg PO BID #270 tab 11/19/20 09/07/21 09/07/21 Rx clopidogrel 75 mg tablet (Plavix) 75 mg PO DAILY@12 #90 tab 11/19/20 09/07/21 09/07/21 Rx isosorbide mononitrate 30 mg 30 mg PO BID #180 tab 11/19/20 09/07/21 09/07/21 Rx tablet,extended release 24 hr nifedipine 30 mg tablet,extended 30 mg PO BID #180 tab 11/19/20 09/07/21 09/07/21 Rx release nitroglycerin 0.4 mg sublingual 0.4 mg SUBLINGUAL Q5M PRN #25 tab 11/19/20 09/07/21 Unknown Rx tablet valsartan 160 mg tablet 160 mg PO BID #180 tab 11/19/20 09/07/21 09/07/21 Rx pen needle, diabetic 31 gauge x #100 ea 12/01/20 09/07/21 Unknown Rx 5/16 (Pen Needle) insulin detemir U-100 100 unit/mL 15 unit (0.15 mL) SUBCUT DAILY 30 02/10/21 09/07/21 09/07/21 Rx (3 mL) subcutaneous pen (Levemir Days #15 ml FlexTouch U-100 Insulin) pantoprazole 40 mg tablet,delayed 40 mg PO BID #60 tab 07/06/21 09/07/21 09/07/21 Rx release aspirin 81 mg tablet,delayed 81 mg PO DAILY 07/12/21 09/07/21 09/07/21 History release cholecalciferol (vitamin D3) 50 50 mcg PO DAILY 07/12/21 09/07/21 09/07/21 History mcg (2,000 unit) capsule digoxin 250 mcg (0.25 mg) tablet 125 mcg PO BID tab 08/02/21 09/07/21 09/07/21 History hydralazine 50 mg tablet 25 mg PO TID tab 08/02/21 09/07/21 09/07/21 History ciprofloxacin HCl 500 mg tablet 500 mg PO BID #60 tab 08/18/21 09/07/21 09/07/21 Rx levothyroxine 25 mcg tablet 25 mcg PO DAILY #90 tab 08/26/21 09/07/21 09/07/21 Rx Allergies Allergy/AdvReac Type Severity Reaction Status Date / Time atenolol [From Tenormin] Allergy Intermediate hypotension Verified 08/17/21 15:05 niacin Allergy Intermediate rash, hot Verified 08/17/21 15:05 flashes PFSH Acute PFSH: Medical History Arteriosclerotic vascular disease Cardiac pacemaker Medtronic pacemaker, AAIR-DDDR, base rate 70 bpm. Chronic kidney disease, stage 2 (mild) Chronic prostatitis Diagnosed August 2020 with good response to more prolonged course of ciprofloxacin. Essential hypertension History of carotid artery dissection Mixed hyperlipidemia Paroxysmal atrial fibrillation Presence of stent in LAD coronary artery February 2018 Presence of stent in left circumflex coronary artery February 2018 RCA occlusion Thrombocytopenia Thrombocytopenia TIA (transient ischemic attack) Type 2 diabetes mellitus without complications Ventricular tachycardia Surgical History History of colonoscopy 1 year History of esophagogastroduodenoscopy (07/13/21) 1 year History of permanent cardiac pacemaker placement History of right-sided carotid endarterectomy October 2018 Family History Family/Other CAD (coronary artery disease) Father CAD (coronary artery disease) Hyperlipidemia Hypertension Mother CAD (coronary artery disease) Cancer Dementia Hyperlipidemia Hypertension Brother Diabetes Social History Smoking and tobacco status: former smoker Quit status (tobacco): has quit using tobacco Year quit tobacco: 1988 Second hand smoke exposure: No Alcohol intake: never Caregiver/support person: Yes (spouse) Lives independently: Yes Household members: spouse Housing: House Marital status: Number of children: 1 Current occupational status: retired Pets and animals: Yes Pets & animals: dog(s) History of recent travel: No Current gender identity: Male Vijaya/Druze: [employer] Special vijaya needs: No Agree to transfusion: Yes Vitals/I&O/Wt Last Vital Signs Temp 98.3 F 09/07/21 14:43 Pulse 78 09/07/21 17:44 Resp 16 09/07/21 17:44 BP 158/70 09/07/21 17:44 Pulse Ox 95 09/07/21 17:44 Weight last 48 hrs Weight 90.718 kg Physical Exam Narrative: Very pleasant cooperative male Euvolemic No signs of tick bites Abdomen soft No sign of cholecystitis Nonfocal neuro exam Saturating well on room air Complaining of mild chest discomfort has Nitropaste on Bilateral breath sounds without adventitious rhonchi or crackles Abdomen is soft is at the bedside Very pleasant and cooperative EOMI, PERRLA Mild redness of conjunctive a noted No active crusting or discharge Data : 09/07/21 15:55 09/07/21 17:55 A&P Assessment and plan (1) Thrombocytopenia: Status: Acute (2) Iron deficiency anemia: Status: Acute (3) Sinus pain: Status: Acute (4) CKD (chronic kidney disease): Status: Acute (5) Unstable angina: Status: Acute (6) Carotid stenosis: Status: Acute (7) Arteriosclerotic vascular disease: Status: Acute (8) Cardiac pacemaker: Status: Acute (9) Type 2 diabetes mellitus without complications: Status: Acute Qualifiers: Diabetes mellitus [facility] insulin use: unspecified [facility] insulin use status Qualified Code(s): E11.9 - Type 2 diabetes mellitus without complications (10) Anemia: Status: Acute (11) Paroxysmal atrial fibrillation: Status: Acute (12) Essential hypertension: Status: Acute Plan Unstable angina Established history of coronary disease Patient is endorsing an isolated event of fever 100.9 I will do COVID PCR Chest x-ray unremarkable No active dysuria diarrhea Quick sign negative Sinusitis? Trend troponin and EKG L given therapeutic Lovenox for now N.p.o. after midnight Will consult cardiology after I see the trend of troponin For now he is on Nitropaste, I have notified patient that we will notify her supervisor vacuum metalizing overnight to evaluate him at the bedside if he becomes more symptomatic Pacemaker interrogation Type 2 diabetes Sliding scale, Accu-Cheks, sliding scale Carotid artery disease no active signs of stroke Sick sinus syndrome status post pacemaker placement Pacemaker interrogation Hypothyroid: Takes levothyroxine Anemia, thrombocytopenia, Dr. Merlos was planning for a bone marrow biopsy to rule out MDS Platelets are low 88,000 I would go ahead and give him therapeutic Lovenox for now monitor platelets closely N.p.o. after midnight Consistent carb cardiac diet for now Continue antihypertensives Patient is full code Patient is stating in case of any cardiac event he does not want to be resuscitated more than 15 to 20 minutes if there is no meaningful recovery, is at the bedside Attestations Medical Necessity Statement*: Anticipating more than 2 midnights for evaluation of unstable angina Time Spent in Patient Care: 40 Coding Level of Care Code Acute Agile Qa Tester for g Fwd Diagnoses Thrombocytopenia D69.6 Iron deficiency anemia D50.9 Sinus pain J34.89 CKD (chronic kidney disease) N18.9 Unstable angina I20.0 Carotid stenosis I65.29 Arteriosclerotic vascular disease I70.90 Cardiac pacemaker Z95.0 Type 2 diabetes mellitus without complications E11.9 Diabetes mellitus [facility] insulin use: 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
[2021-09-07 18:16] LABS: Troponin 5 2HR 30.88 ng/L (0-15)
[2021-09-07 18:18] LABS: Alanine Aminotransferase 17 U/L (0-41); Albumin Level 3.8 g/dL (3.5-5.2); Alkaline Phosphatase 49 IU/L (40-130); Anion Gap 15.2 (5-19); Aspartate Amino Transferase 15 U/L (0-40); Blood Urea Nitrogen 30 mg/dL (8-23); Calcium 8.7 mg/dL (8.5-10.5); Carbon Dioxide 24 mmol/L (22-29); Chloride 100 mmol/L (98-107); Globulin 2.9 g/dL (1.3-4.6); Glucose 111 mg/dL (65-115); Osmolality Calculated 287 mOsm/kg (285-295); Potassium 4.2 mmol/L (3.5-5.1); Sodium 135 mmol/L (136-145); Total Bilirubin 0.3 mg/dL (0.15-1.2); Total Protein 6.7 g/dL (6.6-8.7)
[2021-09-07 18:20] LABS: Troponin 5 2HR Delta -4.12 ABS# (0-10)
[2021-09-07] MEDS: enoxaparin 80 mg/0.8 mL Syringe 60 MG SUBCUT (18:35)
[2021-09-07 19:00] VITALS: BP 148/69; PULSE 70; RESP 18; O2SAT 94
[2021-09-07 19:48] VITALS: BP 157/74; PULSE 70; RESP 20; O2SAT 95
[2021-09-07 20:24] LABS: Adenovirus Not Detected (NOT DETECT); Chlamydia Pneumoniae Not Detected (NOT DETECT); Coronavirus 229E,HKU1,NL63,OC4 Not Detected (NOT DETECT); Human Metapneumovirus Not Detected (NOT DETECT); Human Rhinovirus/Enterovirus Not Detected (NOT DETECT); Influenza A Not Detected (NOT DETECT); Influenza A H1 Not Detected (NOT DETECT); Influenza A H1-2009 Not Detected (NOT DETECT); Influenza A H3 Not Detected (NOT DETECT); Influenza B Not Detected (NOT DETECT); Mycoplasma Pneumoniae Not Detected (NOT DETECT); Parainfluenza Virus Type 1 Not Detected (NOT DETECT); Parainfluenza Virus Type 2 Not Detected (NOT DETECT); Parainfluenza Virus Type 3 Not Detected (NOT DETECT); Parainfluenza Virus Type 4 Not Detected (NOT DETECT); Respiratory Syncytial Virus A Not Detected (NOT DETECT); Respiratory Syncytial Virus B Not Detected (NOT DETECT); SARS-COV-2 Not Detected (NOT DETECT)
[2021-09-07 20:35] LABS: Add Urine Culture? No; Add Urine Microscopic? YES; Bacteria Urine TRACE /hpf; Bilirubin Urine Neg (Negative); Blood Urine Neg (Negative); Glucose Urine UA Norm (Normal); Ketones Urine Negative (Negative); Leukocyte Esterase Urine Negative (Negative); Nitrate Urine Negative (Negative); Protein Urine 2+ (Negative); RBC Urine 0-4 /hpf (0-2); Specific Gravity, Urine 1.015 (1.005-1.030); Squamous Epithelial Cell Urine 0-4 /hpf (0-5); Urine Appearance Clear (CLEAR); Urine Color Yellow (Yellow); Urobilinogen Urine Norm (Negative); WBC Urine 0-4 /hpf (0-5); pH Urine 5 (5-7)
[2021-09-07 20:45] VITALS: BP 167/70; PULSE 71; RESP 20; O2SAT 92
--- NOTE | 2021-09-07 20:53 | ECG_ITS ---
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 Measurements Intervals [place] Rate: P: AK: QRS: QRSD: T: QT: QTc: Interpretive Statements ELECTRONIC ATRIAL PACEMAKER Compared to ECG 09/07/2021 16:58:32 Incomplete right bundle-branch block no longer present Myocardial infarct finding no longer present T-wave abnormality no longer present Possible ischemia no longer present Electronically Signed On 09-08-2021 19:02:47 CDT by Anibal Abernathy M.D. [id number]
[2021-09-07 21:30] LABS: Estmated Average Glucose 146; Hemoglobin A1C 6.7 % (4.0-6.0)
--- NOTE | 2021-09-07 21:33 | USCV_ITS ---
Pancho Tad Age: 76 Gender: M : 1945 Exam Date: 09/07/2021 23:06 Ordering Phys: Good Mallory MD Technologist: MIRANDA Exam Location: [facility] [place] Indication: chest pain, finger numbness, SOB, hx cardiac stents x 5. Hx pacer x 13 yrs. BP: 164 / 66 HR: 77 Rhythm: Sinus Technical Quality: Adequate MEASUREMENTS (Male / Female) Normal Values 2D ECHO LV Diastolic Diameter PLAX 5.2 cm 4.2 - 5.9 / 3.9 - 5.3 cm LV Systolic Diameter PLAX 3.1 cm IVS Diastolic Thickness 1.8 cm 0.6 - 1.0 / 0.6 - 0.9 cm IVS Systolic Thickness 1.9 cm LVPW Diastolic Thickness 2.1 cm 0.6 - 1.0 / 0.6 - 0.9 cm LVPW Systolic Thickness 2.4 cm LVOT Diameter 2.2 cm LV Ejection Fraction 2D Teich 71.7 % LV Ejection Fraction MOD 2C 70.0 % LV Ejection Fraction 2C AL 72.7 % LA Diameter 5.0 cm LA Width 4.7 cm LA Height 7.0 cm RA Width 3.3 cm RA Height 5.2 cm Aorta at Sinotubular Diameter 3.2 cm M-MODE Aortic Annulus Diameter 3.0 cm LA Ao Ratio MM 1.8 MV E Point Septal Separation 0.5 cm DOPPLER AV Peak Velocity 163.0 cm/s LVOT Peak Velocity 115.0 cm/s AV Area Cont Eq vti 2.5 cm squared AV Area Cont Eq pk 2.6 cm squared MV Peak Velocity 127.0 cm/s MV Area PHT 4.1 cm squared Mitral E to A Ratio 0.8 MV E' Velocity 48.5 cm/s Mitral E to MV E' Ratio 8.9 Mitral E to LV E' Lateral Ratio 7.2 Mitral E to LV E' Septal Ratio 11.7 TR Peak Velocity 269.3 cm/s TR Peak Gradient 29.0 mmHg TV Peak E Velocity 63.0 cm/s Right Atrial Pressure 10.0 mmHg Pulmonary Artery Systolic Pressu 39.0 mmHg PV Peak Velocity 114.0 cm/s RV Acceleration Time 0.1 s RV Ejection Time 0.4 s RV AcT/ET 0.3 FINDINGS Left Ventricle Normal left ventricular size. LV systolic function is normal with EF of 60-65%. No regional wall motion abnormalities. Grade 1 diastolic dysfunction Right Ventricle The right ventricle is normal in size and function. Pacemaker lead is seen Right Atrium The right atrium is normal in size. Pacemaker lead is seen Left Atrium The left atrium is dilated Mitral Valve Mitral valve is thickened. Without significant stenosis or prolapse. There is trace mitral regurgitation. Aortic Valve Aortic valve is thickened. No significant stenosis or regurgitation. Tricuspid Valve Structurally normal tricuspid valve without significant stenosis. Mild tricuspid regurgitation. RVSP is 35-40mmHg. This is consistent with mild pulmonary hypertension Pulmonic Valve Not well visualized Pericardium Moderate sized pericardial effusion. No echo features of pericardial tamponade Aorta Normal ascending aorta dimension. IVC The inferior vena cava appear normal. RA pressure 8mmHg CONCLUSIONS LV systolic function is normal with EF of 60-65% Grade 1 diastolic dysfunction Left atrium is dilated Trace mitral regurgitation Mild tricuspid regurgitation Mild pulmonary hypertension Moderate sized pericardial effusion. No echo features of pericardial tamponade Compared to prior echocardiogram from 04/30/2018, patient now has a moderate sized pericardial effusion Anibal Abernathy MD (Electronically Signed) Final Date: 08 September 2021 10:15 S
[2021-09-07 21:38] LABS: Troponin 5 6HR 34.29 ng/L (0-15); Troponin 5 6HR Delta -0.71 ng/L (0-12)
[2021-09-07 22:27] VITALS: BP 164/66; PULSE 79; RESP 22; TEMP 37.1; O2SAT 94
[2021-09-07] MEDS: atorvastatin 40 mg Tablet 80 MG PO (22:30)
[2021-09-08] VITALS (10 sets, daily range): BP systolic 151–213; BP diastolic 68–84; PULSE 70–79; RESP 17–19; TEMP 36.8–37.4; O2SAT 93–95
[2021-09-08 01:18] LABS: Glucose Point of Care 120 mg/dL (70-110)
[2021-09-08] MEDS: hyDRALAzine 50 mg Tablet 25 MG PO ×4 (03:26→20:37)
[2021-09-08] MEDS: pneumococcal (23 valent) SDV 0.5 mL IM (03:27)
[2021-09-08 05:07] LABS: Basophils % 0.3 %; Eosinophils # 0.1 10^3/uL (0.0-0.8); Eosinophils % 1.4 %; Lymphocytes # 0.8 10^3/uL (0.8-4.8); Mean Corpuscular HGB Conc 34.5 g/dL (30.0-36.0); Mean Corpuscular Hemoglobin 28.3 pg (28.0-34.0); Mean Corpuscular Volume 82.2 fl (80-94); Mean Platelet Volume 12.3 fL (7.4-10.4); Monocytes # 0.6 10^3/uL (0.2-0.9); Monocytes % 10.9 %; Neutrophils # 4.23 10^3/uL (1.8-7.7); Neutrophils % 73.1 %; Nucleated Red Blood Cells % 0 %; Platelet Count 90 10^3/cmm (130-400); Red Blood Count 3.53 10^6/uL (4.1-5.3); Red Cell Distribution Width 14.1 % (12.1-15.1); White Blood Count 5.8 10^3/uL (4.0-10.0)
[2021-09-08 05:30] LABS: Blood Urea Nitrogen 25 mg/dL (8-23); Calcium 9.2 mg/dL (8.5-10.5); Carbon Dioxide 24 mmol/L (22-29); Chloride 102 mmol/L (98-107); Glucose 109 mg/dL (65-115); Osmolality Calculated 291 mOsm/kg (285-295); Sodium 138 mmol/L (136-145)
[2021-09-08 05:32] LABS: Anion Gap 15.8 (5-19); Potassium 3.8 mmol/L (3.5-5.1)
[2021-09-08 06:26] LABS: Glucose Point of Care 146 mg/dL (70-110)
--- NOTE | 2021-09-08 08:48 | PM.CONSULT ---
Providers/Reason For Consult Consulting Physician/Specialty*: Dr. Terry, cardiology Reason for Consult*: Chest pain, history of coronary artery disease Attending Physician: Good Mallory MD History of Present Illness History of Present Illness Tad Deleon is a 76 year old male with PMHx of CAD with h/o prior stents, distal LAD stent (11/2019), type 2 DM, HTN, HLD, paroxysmal atrial fibrillation not on anticoagulation, s/p PPM with generator change 02/2021, carotid artery disease s/p bilateral carotid endarterectomy, hypothyroidism, gastritis/duodenitis on recent EGD and iron deficiency anemia s/p 2 units of blood transfusion and IV iron infusion recently and chronic prostatitis. He presented with chief complaint of worsening shortness of breath and vague chest discomfort 5/10 dull pain with intermittent sharp component.? He usually walks one and 1/2 miles eveyday but recently had to stop few times to catch his breath. In last 2 days he was also febrile temperature 100.9 isolated event with chills.? No productive cough, URI, dysuria, diarrhea.?? He tested himself multiple times for COVID at home it was negative. BP recently has been running somewhat high lately. He is accompanied by his . EKG with A paced rhythm, Possible old septal ND, T wave abnormality, consider lateral ischemia vs memory T waves (I, aVL, V4-V6). Review of Systems Const: Reports: fever(s), chills and body aches Eyes: Denies: change in vision ENMT: Denies: throat pain Card: Reports: chest pain and pre-syncope; Denies: edema, swelling of feet/ankles, syncope or dyspnea on exertion Resp: Reports: dyspnea GI: Denies: abdominal pain, hematochezia or melena : Denies: flank pain Musc: Denies: neck pain Skin/Breast: Denies: rash Neuro: Denies: headache(s) or weakness in extremities Psych: Denies: anxiety Endo: Denies: polyuria Jayden/Lymph: Denies: easy bruising, petechiae or purpura All/Imm: Denies: urticaria Medications/Allergies Home Medications Medication Instructions Recorded Confirmed Last Taken Type albuterol sulfate 90 mcg/actuation 2 puff INHALATION QID PRN 03/19/19 09/07/2122 History aerosol inhaler (ProAir HFA) ascorbate calcium (vitamin C) 500 500 mg PO QAM tab 03/19/19 09/07/21 09/07/21 History mg tablet fluticasone propionate 50 2 spray INTRANASAL DAILY PRN ml 03/19/19 09/07/21 07/12/21 History mcg/actuation nasal spray,suspension trazodone 100 mg tablet 100 mg PO BEDTIME tab 03/19/19 09/07/21 09/06/21 History cetirizine 10 mg capsule (Allergy 10 mg PO DAILY cap 09/05/19 09/07/21 09/07/21 History Relief (cetirizine)) diclofenac sodium 1 % topical gel 2 g TOPICAL QID PRN 08/26/20 09/07/21 Unknown History (Voltaren) glipizide 5 mg tablet 5 mg PO QAM 08/26/20 09/07/21 09/07/21 History omega-3 250 il-nut-gfb-lutein 2.5 1 cap PO DAILY 08/30/20 09/07/21 09/07/21 History mg-zeaxanthin 0.5 mg capsule ([facility]) vitamin B complex 1 tab PO DAILY #90 tab 09/03/20 09/07/21 09/07/21 Rx atorvastatin 80 mg tablet 80 mg PO BEDTIME #90 tab 11/19/20 09/07/21 09/06/21 Rx carvedilol 25 mg tablet 37.5 mg PO BID #270 tab 11/19/20 09/07/21 09/07/21 Rx clopidogrel 75 mg tablet (Plavix) 75 mg PO DAILY@12 #90 tab 11/19/20 09/07/21 09/07/21 Rx isosorbide mononitrate 30 mg 30 mg PO BID #180 tab 11/19/20 09/07/21 09/07/21 Rx tablet,extended release 24 hr nifedipine 30 mg tablet,extended 30 mg PO BID #180 tab 11/19/20 09/07/21 09/07/21 Rx release nitroglycerin 0.4 mg sublingual 0.4 mg SUBLINGUAL Q5M PRN #25 tab 11/19/20 09/07/21 Unknown Rx tablet valsartan 160 mg tablet 160 mg PO BID #180 tab 0909/07/21 09/07/21 Rx pen needle, diabetic 31 gauge x #100 ea 12/01/20 09/07/21 Unknown Rx 16 (Pen Needle) insulin detemir U-100 100 unit/mL 15 unit (0.15 mL) SUBCUT DAILY 30 02/10/21 09/07/21 09/07/21 Rx (3 mL) subcutaneous pen (Levemir Days #15 ml FlexTouch U-100 Insulin) pantoprazole 40 mg tablet,delayed 40 mg PO BID #60 tab 07/06/21 09/07/21 09/07/21 Rx release aspirin 81 mg tablet,delayed 81 mg PO DAILY 07/12/21 09/07/21 09/07/21 History release cholecalciferol (vitamin D3) 50 50 mcg PO DAILY 07/12/21 09/07/21 09/07/21 History mcg (2,000 unit) capsule digoxin 250 mcg (0.25 mg) tablet 125 mcg PO BID tab 08/02/21 09/07/21 09/07/21 History hydralazine 50 mg tablet 25 mg PO TID tab 08/02/21 09/07/21 09/07/21 History ciprofloxacin HCl 500 mg tablet 500 mg PO BID #60 tab 08/18/21 09/07/21 09/07/21 Rx levothyroxine 25 mcg tablet 25 mcg PO DAILY #90 tab 08/26/21 09/07/21 09/07/21 Rx Allergies Allergy/AdvReac Type Severity Reaction Status Date / Time atenolol [From Tenormin] Allergy Intermediate hypotension Verified 08/17/21 15:05 niacin Allergy Intermediate rash, hot Verified 08/17/21 15:05 flashes Current Medications Generic Name Dose Route Start Last Admin Trade Name Freq PRN Reason Stop Dose Admin Atorvastatin Calcium 80 mg 09/07/21 22:00 09/07/21 22:30 Atorvastatin 40 Mg Tablet PO 80 mg BEDTIME REGULO Administration Hydralazine HCl 25 mg 09/07/21 21:33 09/08/21 03:26 Hydralazine 50 Mg Tablet PO 25 mg TID REGULO Administration PFSH Acute PFSH: Medical History (Updated 09/08/21 @ 17:04 by Benita Terry MD) 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 Chronic kidney disease, stage 2 (mild) Chronic prostatitis Diagnosed August 2020 with good response to more prolonged course of ciprofloxacin. Essential hypertension History of carotid artery dissection Mixed hyperlipidemia Paroxysmal atrial fibrillation Presence of stent in LAD coronary artery February 2018 Presence of stent in left circumflex coronary artery February 2018 RCA occlusion Thrombocytopenia Thrombocytopenia TIA (transient ischemic attack) Type 2 diabetes mellitus without complications Ventricular tachycardia Surgical History History of colonoscopy 1 year History of esophagogastroduodenoscopy (07/13/21) 1 year History of permanent cardiac pacemaker placement History of right-sided carotid endarterectomy October 2018 Family History Family/Other CAD (coronary artery disease) Father CAD (coronary artery disease) Hyperlipidemia Hypertension Mother CAD (coronary artery disease) Cancer Dementia Hyperlipidemia Hypertension Brother Diabetes Social History Smoking and tobacco status: former smoker Quit status (tobacco): has quit using tobacco Year quit tobacco: 1988 Second hand smoke exposure: No Alcohol intake: never Caregiver/support person: Yes (spouse) Lives independently: Yes Household members: spouse Housing: House Marital status: Number of children: 1 Current occupational status: retired Pets and animals: Yes Pets & animals: dog(s) History of recent travel: No Current gender identity: Male Vijaya/Shinto: Jainism of [place] Special vijaya needs: No Agree to transfusion: Yes Vitals/I&O/Wt Last Vital Signs Temp 98.5 F 09/08/21 08:00 Pulse 79 09/08/21 08:00 Resp 18 09/08/21 08:00 BP 162/76 09/08/21 08:00 Pulse Ox 93 09/08/21 08:00 09/07/21 09/08/21 09/08/21 22:59 06:59 14:59 Intake Total 1060 / 1060 0 / 0 Output Total 1500 / 1500 Balance -440 / -440 0 / 0 Weight last 48 hrs Weight 200 lb Physical Exam Narrative: GENERAL: Averagely built and averagely nourished in no acute distress HEENT: Extraocular movement intact. No pallor or icterus. NECK: central trachea, No JVD, No carotid bruit. CARDIOVASCULAR SYSTEM: S1-S2 regular. No S3 or S4 present. No murmur rubs or gallops. RESPIRATORY SYSTEM: Chest clear to auscultation. No wheezes rhonchi or rubs heard. ABDOMEN: Soft, nontender and nondistended. Normal bowel sounds present. EXTREMITIES: No cyanosis or edema. No signs of chronic venous insufficiency. SCREEN STRETCHER: Patient is alert oriented ?3. No focal neurological deficits. SKIN: Normal turgor and temperature. PSYCH: Normal insight and judgment. Data : 09/08/21 04:27 09/08/21 04:27 Other data: TTE (09/08/21) CONCLUSIONS ?LV systolic function is normal with EF of 60-65% ?Grade 1 diastolic dysfunction ?Left atrium is dilated ?Trace mitral regurgitation ?Mild tricuspid regurgitation ?Mild pulmonary hypertension ?Moderate sized pericardial effusion.? No echo features of ?pericardial tamponade ?Compared to prior echocardiogram from 04/30/2018, patient now has ?a moderate sized pericardial effusion Coronary angiogram (11/2019) Diagnostic Cath Status: ? ? Elective Diagnostic Findings ? LM has 0% stenosis. ? CX has 0% stenosis. ? Distal Left Anterior Descending Coronary Artery: Severe 90% stenosis, MATEUS: 0 flow. ? pRCA: Severe 100% stenosis, MATEUS: 3 flow. ? Coronary angiography shows right dominance. PCI Status: ? ? Elective PCI Indication: ? ? New Onset Angina <= 2 months Interventional Findings ? Distal Left Anterior Descending Coronary Artery: 90% stenosis treated with MDT R ZAFAR 2.75X12 VALERIE and MDT DIDI EUPHORA RX 3.07E95ET BALLOON. 0% residual stenosis, MATEUS: 3 flow. Conclusions ? There is severe coronary artery disease with two vessel disease. ? Distal Left Anterior Descending Coronary Artery was treated with Drug Eluting Stent and Balloon. ? Indication for left heart cath: Worsening of shortness of breath despite of guideline directed therapy maximization.? History of abnormal documented left main lesion ? by prior angiogram at an outside hospital, history of multiple stents. Recent history of worsening of chest pain despite of optimization of medicine suggestive of possible unstable angina ? . ? IVUS: After crossing left main and LAD lesion with cougar wire ACIST IVUS catheter was crossed into left main and LAD.? No significant left main lesion was noted while distal calcified LAD lesion at the distal edge of prior stent was noted to have 2.75mm2 MLA .? . CTA Head/neck (02/2020) Impression:? 1. 60% stenosis of the right internal carotid artery origin. 2. No stenosis of the left internal carotid artery. A&P Assessment and plan (1) Chest pain: No significant EKG changes. Troponins flat. -Plan for stress test in am -increase imdur to 60 mg am and 30 mg pm -continue other meds Status: Acute (2) Arteriosclerotic vascular disease: h/o CAD with 100% occluded RCA and s/p distal LAD stent 11/2019 Status: Acute (3) Carotid stenosis: Status: Acute (4) Cardiac pacemaker: Status: Acute (5) Type 2 diabetes mellitus without complications: Status: Acute Qualifiers: Diabetes mellitus termite exterminator helper insulin use: unspecified termite exterminator helper insulin use status Qualified Code(s): E11.9 - Type 2 diabetes mellitus without complications Plan Paroxysmal atrial fibrillation: No prior CV/ antiarrhythmics; previously on OAC Hyperlipidemia Hypertension CKD stage 3 Normocytic anemia Thrombocytopenia Moderate pericardial effusion : no tamponade physiology Thank you for allowing me to participate in patient's care. Please feel free to call with questions or concerns Consult Attestations Time Spent in Patient Care: Greater than 35 minutes Coding Level of Care Code Acute Electrical Test Technician for Chg Fwd Diagnoses Chest pain R07.9 Arteriosclerotic vascular disease I70.90 Carotid stenosis I65.29 Cardiac pacemaker Z95.0 Type 2 diabetes mellitus without complications E11.9 Diabetes mellitus termite exterminator helper insulin use: unspecified intermediate insulin use status
--- NOTE | 2021-09-08 09:07 | PM.PN ---
Subjective Subjective: Patient is to complaining of chest pain 1 to 2 days intensity Has Nitropaste on his right side Troponin trending down Echo report is pending I requested Dr. Cedillo to see him as I have kept him n.p.o. Further plan will be made after cardiology consultation Vitals/I&O/Wt Last Vital Signs Temp 98.5 F 09/08/21 08:00 Pulse 79 09/08/21 08:00 Resp 18 09/08/21 08:00 BP 162/76 09/08/21 08:00 Pulse Ox 93 09/08/21 08:00 09/07/21 09/08/21 09/08/21 22:59 06:59 14:59 Intake Total 1060 / 1060 0 / 0 Output Total 1500 / 1500 Balance -440 / -440 0 / 0 Weight last 48 hrs Weight 90.718 kg Physical Exam Narrative: Patient is laying supine Awake and alert Nonfocal neuro exam Saturating well on room air Has Nitropaste Chest pain 1-2 in intensity Abdomen soft Surgery Movement No audible stridor or wheezing Soft abdomen Data : 09/08/21 04:27 09/08/21 04:27 A&P Assessment and plan (1) Unstable angina: Status: Acute (2) Thrombocytopenia: Status: Acute (3) Iron deficiency anemia: Status: Acute (4) Sinus pain: Status: Acute (5) Sinusitis: Status: Acute Qualifiers: Sinusitis location: maxillary Chronicity: acute Recurrence: non-recurrent Qualified Code(s): J01.00 - Acute maxillary sinusitis, unspecified (6) CKD (chronic kidney disease): Status: Acute Plan Unstable angina Established coronary disease Patient is n.p.o. I have kept him on therapeutic dose of Lovenox Continue aspirin and Plavix Still complaining of chest pain 1-2 in intensity Will make further plan after cardiology consultation Chronic kidney disease: Creatinine seems to be at baseline now Type 2 diabetes, hemoglobin A1c 6.7 Will check BMP Clinically does not look fluid overloaded No febrile episode likely sinusitis related febrile event at home COVID test negative Patient is full code N.p.o. Doing well on room air Continue levothyroxine He will need insulin with sliding scale, because of high creatinine I held his digoxin Pacemaker interrogation Attestations Medical Necessity Statement*: Awaiting cardiology consultation today Time Spent in Patient Care: 35 Coding Level of Care Code Acute Territory Sales Representative for Chg Fwd Diagnoses Unstable angina I20.0 Thrombocytopenia D69.6 Iron deficiency anemia D50.9 Sinus pain J34.89 Sinusitis J01.00 Sinusitis location: maxillary Chronicity: acute Recurrence: non-recurrent CKD (chronic kidney disease) N18.9
[2021-09-08] MEDS: doxycycline 100 mg Tablet PO ×2 (10:23→19:28)
[2021-09-08] MEDS: cetirizine 10 mg Tablet PO (10:25)
[2021-09-08] MEDS: carvedilol 25 mg Tablet 37.5 MG PO ×2 (10:25→19:26)
[2021-09-08] MEDS: aspirin 81 mg EC Tablet PO (10:25)
[2021-09-08] MEDS: insulin lispro 100 unit/1 mL SUBCUT ×3 (10:27→19:29)
[2021-09-08] MEDS: levothyroxine 25 mcg Tablet PO (10:27)
[2021-09-08] MEDS: losartan 50 mg Tablet PO (10:29)
[2021-09-08] MEDS: pantoprazole DR 40 mg Tablet PO ×2 (10:32→19:28)
[2021-09-08] MEDS: isosorbide mononitrate ER 60 mg Tablet PO (10:39)
[2021-09-08 11:46] LABS: Glucose Point of Care 246 mg/dL (70-110)
[2021-09-08] MEDS: clopidogrel 75 mg Tablet PO (13:03)
[2021-09-08 16:39] LABS: Glucose Point of Care 192 mg/dL (70-110)
[2021-09-08 18:05] LABS: NT Pro B Type Natriuretic Pept 1049 pg/mL (0-450)
[2021-09-08] MEDS: isosorbide mononitrate ER 30 mg Tablet PO (20:37)
[2021-09-08] MEDS: trazodone 100 mg Tablet PO (20:37)
[2021-09-08] MEDS: atorvastatin 40 mg Tablet 80 MG PO (20:37)
[2021-09-08] MEDS: enoxaparin 100 mg/mL Syringe 90 MG SUBCUT (20:38)
[2021-09-09] VITALS (13 sets, daily range): BP systolic 167–187; BP diastolic 64–75; PULSE 70–79; RESP 16–18; TEMP 36.4–38.4; O2SAT 92–99
[2021-09-09 00:32] LABS: Glucose Point of Care 234 mg/dL (70-110)
[2021-09-09 05:28] LABS: Basophils % 0.3 %; Eosinophils % 0.5 %; Hematocrit 28.6 % (42.0-52.0); Hemoglobin 9.7 g/dL (11.7-16.6); Lymphocytes # 0.8 10^3/uL (0.8-4.8); Lymphocytes % 11.9 %; Mean Corpuscular HGB Conc 33.9 g/dL (30.0-36.0); Mean Corpuscular Hemoglobin 28.4 pg (28.0-34.0); Mean Corpuscular Volume 83.6 fl (80-94); Mean Platelet Volume 12.3 fL (7.4-10.4); Monocytes # 0.6 10^3/uL (0.2-0.9); Monocytes % 8.8 %; Neutrophils # 4.97 10^3/uL (1.8-7.7); Neutrophils % 77.9 %; Nucleated Red Blood Cells % 0 %; Platelet Count 77 10^3/cmm (130-400); Red Blood Count 3.42 10^6/uL (4.1-5.3); White Blood Count 6.4 10^3/uL (4.0-10.0)
[2021-09-09 05:42] LABS: Blood Urea Nitrogen 27 mg/dL (8-23); C Reactive Protein 178.5 mg/L (0.0-4.9); Calcium 8.7 mg/dL (8.5-10.5); Carbon Dioxide 25 mmol/L (22-29); Chloride 101 mmol/L (98-107); Glucose 155 mg/dL (65-115); Magnesium 1.7 mg/dL (1.7-2.3); Osmolality Calculated 292 mOsm/kg (285-295); Sodium 137 mmol/L (136-145)
[2021-09-09 05:43] LABS: Anion Gap 14.8 (5-19); Potassium 3.8 mmol/L (3.5-5.1)
[2021-09-09] MEDS: enoxaparin 100 mg/mL Syringe 90 MG SUBCUT (06:05)
[2021-09-09 06:48] LABS: Glucose Point of Care 158 mg/dL (70-110)
[2021-09-09] MEDS: regadenoson 0.4 Mg/5 ml Syringe IVP (07:17)
[2021-09-09 09:19] LABS: C Reactive Protein 192.2 mg/L (0.0-4.9)
--- NOTE | 2021-09-09 09:44 | NMCV_ITS ---
NM kayleen perf SPECT r/s* [id number] Tad Deleon Age: 76 Gender: M : 1945 Exam Date: 09/09/2021 06:41 Ordering Phys: Benita Terry MD ([email or web address]) Technologist: TATI Andre Exam Location: [facility] Indications: CHEST PAIN STRESS TEST Please see separate stress test report in [facility] for full findings IMAGE PROTOCOL Rest/Stress 1 Lexiscan Day Radiopharmaceutical Dose (mCi) Administration Site Administered by Rest: Tc-99m 11.0 IV TATI Meek Sestamibi Stress:Tc-99m 32.8 IV TATI Meek Sestamibi Rest: 09-Sep-2021 60 Discovery 630 Stress: 09-Sep-2021 30 Discovery 630 0.4mg Lexiscan. Images obtained in supine and prone position. SPECT RESULTS Technical Quality: Excellent Raw Data Analysis: Normal Image Corrections: No attenuation or motion correction applied Summed Stress Score: 10 Summed Rest Score: 11 Summed Difference Score: 1 PERFUSION FINDINGS Medium sized perfusion abnormality of moderate to severe severiaty of basal to apical inferior, basal to mid inferolateral and apical lateral grewal on rest and stress images. FUNCTIONAL RESULTS (calculated via Gated SPECT) Stress Image LV EF (%): 45 Stress EDV (mL):213 TID: 0.98 Stress ESV (mL):117 FUNCTIONAL FINDINGS: The left ventricle is normal in size. Transient Ischemia Dilatation of 0.98. The left ventricular ejection fraction is mildly reduced with a value of 45%. There seems to be mild hypokinesis of inferior and mid to apical lateral grewal. IMPRESSIONS 1. Medium sized fixed perfusion abnormality of moderate to severe severity of basal to apical inferior, basal to mid inferolateral and apical lateral grewal. 2. This is suggestive of old myocardial infarction in right coronary/circumflex artery territory with no doug-infarct ischemia. 3. The left ventricular ejection fraction is mildly reduced with a value of 45%. 4. There seems to be mild hypokinesis of inferior and mid to apical lateral grweal. 5. No coronary ischemia based on this study. Benita Terry MD (Electronically Signed) Final Date: 09 September 2021 13:03 S
--- NOTE | 2021-09-09 09:44 | ECG_ITS ---
[facility] Test Date: 2021-09-09 Pat Name: Tad Deleon Department: Room: 279 Gender: Male Director Search: Mira Valentin : 1945 Requested By: Benita Terry Order Number: [id number] Zamora MD: Benita Terry M.D. Interpretive Statements NAME OF STUDY: LEXISCAN SESTAMIBI STRESS TEST INDICATION: Chest Pain PROCEDURE: At the baseline, the blood pressure was 156/70 mm Hg with a heart rate of 71 bpm. The electrocardiogram showed sinus rhythm, possible old anteroseptal infarct. Non specific T wave changes. ??? The Lexiscan was infused over a period of 20 seconds. A total of 0.4 milligrams of Lexiscan was infused. The stress phase was continued for a total of 5 minutes. Heart rate at the end of the stress phase was 70 bpm with a blood pressure of 161/61 mm Hg. The EKG at the peak infusion revealed no significant ST-T wave changes. Intermittent PVC's and demand V paced beats noted. ??? Sestamibi was injected 20 seconds after the Lexiscan infusion. ??? Blood pressure at the end of the recovery phase was 167/66 mm Hg with a heart rate of 73 beats per minute. ??? CONCLUSION: 1. No significant EKG changes with the LexiScan infusion. 2. No LexiScan induced chest pain or cardiac arrhythmia. 3. Normal blood pressure and heart rate response. 4. Sestamibi/sestamibi perfusion scan pending; see separate report. Electronically Signed On 09-18-2021 19:19:37 CDT by Benita Terry M.D. [id number]
[2021-09-09 10:57] LABS: Glucose Point of Care 250 mg/dL (70-110)
[2021-09-09] MEDS: aspirin 81 mg EC Tablet PO (11:23)
[2021-09-09] MEDS: hyDRALAzine 50 mg Tablet 25 MG PO (11:23)
[2021-09-09] MEDS: doxycycline 100 mg Tablet PO ×2 (11:24→18:47)
[2021-09-09] MEDS: losartan 50 mg Tablet PO (11:25)
[2021-09-09] MEDS: carvedilol 25 mg Tablet 37.5 MG PO ×2 (11:25→18:48)
[2021-09-09] MEDS: cetirizine 10 mg Tablet PO (11:25)
[2021-09-09] MEDS: clopidogrel 75 mg Tablet PO (11:26)
[2021-09-09] MEDS: levothyroxine 25 mcg Tablet PO (11:26)
[2021-09-09] MEDS: pantoprazole DR 40 mg Tablet PO ×2 (11:26→18:47)
[2021-09-09] MEDS: isosorbide mononitrate ER 60 mg Tablet PO ×2 (11:27→18:48)
--- NOTE | 2021-09-09 11:52 | P.PN_ITS ---
Subjective Subjective: High CRP, afebrile no leukocytosis Creatinine 1.5 Moderate pericardial effusion Concern for pericarditis Dr. Merlos I will follow up on stress test results today and add pericarditis treatment if needed We will hold off on adding any steroids for now Vitals/I&O/Wt Last Vital Signs Temp 97.5 F L 09/09/21 04:00 Pulse 74 09/09/21 09:50 Resp 17 09/09/21 09:50 BP 177/70 09/09/21 11:25 Pulse Ox 98 09/09/21 09:50 09/08/21 09/09/21 09/09/21 22:59 06:59 14:59 Intake Total 480 / 960 580 / 1540 Output Total 1100 / 1100 900 / 2000 Balance -620 / -140 -320 / -460 Weight last 48 hrs Weight 90.718 kg Physical Exam Narrative: Very pleasant male Sitting at the bedside is also present S1, S2 No signs of distant heart sounds or muffled heartbeat, no signs of JVD Patient still endorsing orthopnea and PND No active chest pain Currently doing well on room air Nonlabored breathing Abdomen is soft No signs of fluid overload nonfocal neuro exam Data : 09/09/21 05:17 09/09/21 05:17 A&P Assessment and plan (1) Chest pain: Status: Acute (2) Unstable angina: Status: Acute (3) Thrombocytopenia: Status: Acute (4) Iron deficiency anemia: Status: Acute (5) Type 2 diabetes mellitus without complications: Status: Acute Qualifiers: Diabetes mellitus custodial insulin use: unspecified custodial insulin use status Qualified Code(s): E11.9 - Type 2 diabetes mellitus without complications (6) Paroxysmal atrial fibrillation: Status: Acute (7) Essential hypertension: Status: Acute (8) Cardiac pacemaker: Status: Acute Plan Unstable angina Stress test results are pending Concern for pericarditis Moderate pericardial fusion No signs of cardiac tamponade No signs of muffled heart sounds, JVD Patient is still endorsing orthopnea and PND Does feel better on sitting upwards leaning forward Will touch base with Dr. Terry before adding any pericarditis treatment he has creatinine of 1.5 Echo reviewed Hypertensive: he is on Coreg, Imdur, hydralazine, needs optimization of antihypertensive regimen Type 2 diabetes: Sliding scale Chronic kidney disease: Creatinine at baseline Pacemaker secondary to sick sinus syndrome Paced rhythm Full code Cardiac consistent carb diet DVT prophylaxis on board Will make further plan after results of stress test Attestations Medical Necessity Statement*: Mentioned above Time Spent in Patient Care: 30 Coding Level of Care Code Acute Maintenance Journeyman for Haleyg Fwhugo Diagnoses Chest pain R07.9 Unstable angina I20.0 Thrombocytopenia D69.6 Iron deficiency anemia D50.9 Type 2 diabetes mellitus without complications E11.9 Diabetes mellitus continuous churn buttermaker insulin use: unspecified continuous churn buttermaker insulin use status Paroxysmal atrial fibrillation I48.0 Essential hypertension I10 Cardiac pacemaker Z95.0
[2021-09-09] MEDS: insulin lispro 100 unit/1 mL SUBCUT ×3 (12:06→18:48)
[2021-09-09] MEDS: amlodipine 10 mg Tablet PO (14:31)
[2021-09-09] MEDS: hyDRALAzine 50 mg Tablet PO ×2 (14:31→20:18)
[2021-09-09] MEDS: colchicine 0.6 mg Tablet PO (14:32)
[2021-09-09] MEDS: predniSONE 20 mg Tablet 40 MG PO (14:32)
--- NOTE | 2021-09-09 15:16 | PM.PN ---
Subjective Subjective: Patient states he feels better today. He complains of feeling tired. Has some generalized body ache. He underwent stress test this morning Medications: Reviewed: Yes Vitals/I&O/Wt Last Vital Signs Temp 98.3 F 09/09/21 12:17 Pulse 72 09/09/21 12:17 Resp 17 09/09/21 12:17 BP 177/75 09/09/21 12:17 Pulse Ox 94 09/09/21 12:17 09/09/21 09/09/21 09/09/21 06:59 14:59 22:59 Intake Total 580 / 1540 120 / 120 Output Total 900 / 2000 100 / 100 Balance -320 / -460 Physical Exam Narrative: GENERAL: Averagely built and averagely nourished in no acute distress HEENT: Extraocular movement intact. No pallor or icterus. NECK: central trachea, No JVD, No carotid bruit. CARDIOVASCULAR SYSTEM: S1-S2 regular. No S3 or S4 present. No murmur rubs or gallops. RESPIRATORY SYSTEM: Chest clear to auscultation. No wheezes rhonchi or rubs heard. ABDOMEN: Soft, nontender and nondistended. Normal bowel sounds present. EXTREMITIES: No cyanosis or edema. No signs of chronic venous insufficiency. EXTENSION DIVISION DIRECTOR: Patient is alert oriented ?3. No focal neurological deficits. SKIN: Normal turgor and temperature. PSYCH: Normal insight and judgment. Data : 09/09/21 05:17 09/09/21 05:17 A&P Assessment and plan (1) Chest pain: No significant EKG changes. Troponins flat. -No ischemia on stress Chest pain secondary to acute pericarditis Echo with small to moderate circumferential pericardial effusion more accumulation posteriorly. No tamponade physiology. EKG without any typical pericarditis changes. -On talking to patient today he does endorse to somewhat improvement of his chest discomfort on leaning forward and 2 episodes of low-grade fever 100.9 at home. ESR still pending and CRP has been reported to be increased at 179. -We will treat him for pericarditis with prednisone and low-dose colchicine given abnormal renal function, anemia, thrombocytopenia and gastritis/duodenitis. -He was advised to hold off on Plavix and increase pantoprazole to 40 mg twice a day while on prednisone. -He will need close monitoring of BMP, CBC, ESR and CRP -Plan to titrate prednisone down in a week or 2 based on symptoms and inflammatory markers and continue colchicine if tolerated for at least 3 months -f/u with [place] in 1 week -Follow-up with me in 6 to 8 weeks. 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 Imdur has been increased to 60 twice a day. Paroxysmal atrial fibrillation: No prior CV/ antiarrhythmics; previously on OAC Hyperlipidemia CKD stage 3 Normocytic anemia Thrombocytopenia Moderate pericardial effusion reported on echo : no tamponade physiology Thank you for allowing me to participate in patient's care. Please feel free to call with questions or concerns Attestations Medical Necessity Statement*: stable to be discharged. Coding Level of Care Code Acute Postdoctoral Scholar for Chg Fwd Diagnoses Chest pain R07.9 Arteriosclerotic vascular disease I70.90 Carotid stenosis I65.29 Cardiac pacemaker Z95.0 Type 2 diabetes mellitus without complications E11.9 Diabetes mellitus nursing home insulin use: unspecified nursing home insulin use status
--- NOTE | 2021-09-09 15:25 | PM.DCS ---
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 Reason for Visit Reason for Visit: Chest pressure, finger numbness, sob Hospital Course Hospital Course 76 male who presented with chief complaint of exertional shortness of breath and chest pain exertion, his chest pain was getting worse on laying flat, it would improve on sitting up and leaning forward, high ESR and CRP noted, Dr. Cedillo was consulted who recommended stress test, cardiac stress test is unremarkable for coronary ischemia, he was started on prednisone [address] Terry has recommended colchicine and prednisone at the time of discharge. He does have chronic kidney disease I would use lowest dose of colchicine. Dr. Terry is aware of chronic kidney disease. He will get Prednisone 40 mg for 2 weeks and then tapering regimen, colchicine 0.3 mg daily. I have held his losartan because of creatinine 1.5. Echo showed moderate pericardial effusion. Follow-up with cardiology in 1 week, repeat CBC, BMP, ESR and CRP Physical Exam Narrative: Very pleasant male Sitting at the bedside is also present S1, S2 No signs of distant heart sounds or muffled heartbeat, no signs of JVD Patient still endorsing orthopnea and PND No active chest pain Currently doing well on room air Nonlabored breathing Abdomen is soft No signs of fluid overload nonfocal neuro exam Discharge Data Studies Completed and Pending Completed Studies During Hospitalization Category Date Time Status Sestamibi Stress Test Request Routine Exams 09/09/21 09:44 Draft XR chest 1V portable [id number] Urgent Exams 09/07/21 14:53 Completed NM kayleen perf SPECT r/s* [id number] Routine Nuc Med 09/09/21 09:44 Completed CV. echo complete* [id number] Routine Ultrasound 09/07/21 21:33 Completed Pending at discharge Category Date Time Status Sestamibi Stress Test Request Routine Exams 09/08/21 09:44 Stop Req Basic Metabolic Panel AM LABS Lab 09/10/21 04:00 Ordered Complete Blood Count w/Auto AM LABS Lab 09/10/21 04:00 Ordered Erythrocyte Sedimentation Rate Routine Lab 09/09/21 08:55 Received Miscellaneous Test Routine Lab 09/09/21 08:55 Received Radiology Impressions Chest X-Ray 09/07/21 14:53 IMPRESSION: No acute chest abnormality. Laboratory Results WBC 6.4 10^3/uL (4.0-10.0) 09/09/21 05:17 RBC 3.42 10^6/uL (4.1-5.3) L 09/09/21 05:17 Hgb 9.7 g/dL (11.7-16.6) L 09/09/21 05:17 Hct 28.6 % (42.0-52.0) L 09/09/21 05:17 MCV 83.6 fl (80-94) 09/09/21 05:17 MCH 28.4 pg (28.0-34.0) 09/09/21 05:17 MCHC 33.9 g/dL (30.0-36.0) 09/09/21 05:17 RDW 14.0 % (12.1-15.1) 09/09/21 05:17 Plt Count 77 10^3/cmm (130-400) L 09/09/21 05:17 MPV 12.3 fL (7.4-10.4) H 09/09/21 05:17 Neut % (Auto) 77.9 % 09/09/21 05:17 Lymph % (Auto) 11.9 % 09/09/21 05:17 Hayes % (Auto) 8.8 % 09/09/21 05:17 Eos % (Auto) 0.5 % 09/09/21 05:17 Baso % (Auto) 0.3 % 09/09/21 05:17 Neut # (Auto) 4.97 10^3/uL (1.8-7.7) 09/09/21 05:17 Lymph # (Auto) 0.8 10^3/uL (0.8-4.8) 09/09/21 05:17 Hayes # (Auto) 0.6 10^3/uL (0.2-0.9) 09/09/21 05:17 Eos # (Auto) 0.0 10^3/uL (0.0-0.8) 09/09/21 05:17 Baso # (Auto) 0.0 10^3/uL (0.0-0.1) 09/09/21 05:17 Nucleated RBC % (auto) 0 % 09/09/21 05:17 Nucleated RBCs # 0.0 /100WBC 09/09/21 05:17 ESR Cancelled 09/09/21 05:17 Sodium 137 mmol/L (136-145) 09/09/21 05:17 Potassium 3.8 mmol/L (3.5-5.1) 09/09/21 05:17 Chloride 101 mmol/L (98-107) 09/09/21 05:17 Carbon Dioxide 25 mmol/L (22-29) 09/09/21 05:17 Anion Gap 14.8 (5-19) 09/09/21 05:17 BUN 27 mg/dL (8-23) H 09/09/21 05:17 Creatinine 1.5 mg/dL (0.7-1.2) H 09/09/21 05:17 GFR Calculation Not Reportable 09/09/21 05:17 Glucose 155 mg/dL (65-115) H 09/09/21 05:17 POC Glucose 250 mg/dL (70-110) H 09/09/21 10:53 Estimat Average Glucose 146 09/07/21 19:39 Hemoglobin A1c 6.7 % (4.0-6.0) H 09/07/21 19:39 Calculated Osmolality 292 mOsm/kg (285-295) 09/09/21 05:17 Calcium 8.7 mg/dL (8.5-10.5) 09/09/21 05:17 Magnesium 1.7 mg/dL (1.7-2.3) 09/09/21 05:17 Total Bilirubin 0.3 mg/dL (0.15-1.2) 09/07/21 17:55 AST 15 U/L (0-40) 09/07/21 17:55 ALT 17 U/L (0-41) 09/07/21 17:55 Alkaline Phosphatase 49 IU/L (40-130) 09/07/21 17:55 Troponin T Baseline 35 ng/L (0-15) H 09/07/21 15:55 Troponin T 120 Minute 30.88 ng/L (0-15) H 09/07/21 17:42 Delta Troponin T -4.12 ABS# (0-10) L 09/07/21 17:42 Troponin T Hi Sens 6Hr 34.29 ng/L (0-15) H 09/07/21 21:10 Troponin T Hi Sens 6Hr Delta -0.71 ng/L (0-12) L 09/07/21 21:10 C-Reactive Protein 192.2 mg/L (0.0-4.9) H 09/09/21 08:55 NT-Pro-B Natriuret Pep 1049 pg/mL (0-450) H 09/08/21 04:27 Total Protein 6.7 g/dL (6.6-8.7) 09/07/21 17:55 Albumin 3.8 g/dL (3.5-5.2) 09/07/21 17:55 Globulin 2.9 g/dL (1.3-4.6) 09/07/21 17:55 Urine Color Yellow (Yellow) 09/07/21 19:40 Urine Appearance Clear (CLEAR) 09/07/21 19:40 Urine pH 5 (5-7) 09/07/21 19:40 Ur Specific [place] 1.015 (1.005-1.030) 09/07/21 19:40 Urine Protein 2+ (Negative) H 09/07/21 19:40 Urine Glucose (UA) Norm (Normal) 09/07/21 19:40 Urine Ketones Negative (Negative) 09/07/21 19:40 Urine Blood Neg (Negative) 09/07/21 19:40 Urine Nitrate Negative (Negative) 09/07/21 19:40 Urine Bilirubin Neg (Negative) 09/07/21 19:40 Urine Urobilinogen Norm mg/dL (Negative) 09/07/21 19:40 Ur Leukocyte Esterase Negative (Negative) 09/07/21 19:40 Urine RBC 0-4 /hpf (0-2) H 09/07/21 19:40 Urine WBC 0-4 /hpf (0-5) H 09/07/21 19:40 Ur Squamous Epith Cells 0-4 /hpf (0-5) H 09/07/21 19:40 Amorphous Sediment Not Reportable 09/07/21 19:40 Urine Bacteria Trace /hpf (NONE) 09/07/21 19:40 Coronavirus 229E (PCR) Not detected (NOT DETECT) 09/07/21 18:33 SARS-CoV-2 (PCR) Not detected (NOT DETECT) 09/07/21 18:33 Vitals Last Vital Signs Temp 98.3 F 09/09/21 12:17 Pulse 72 09/09/21 12:17 Resp 17 09/09/21 12:17 BP 177/75 09/09/21 12:17 Pulse Ox 94 09/09/21 12:17 Discharge Plan Discharge Patient Disposition: Home Condition: Stable Prescriptions: New colchicine 0.6 mg Tablet 0.3 mg PO DAILY Qty: 90 0RF prednisone 20 mg tablet 40 mg PO DAILY 14 Days Qty: 56 0RF Continued Allergy Relief (cetirizine) 10 mg capsule 10 mg PO DAILY 0RF (DME) pen needle, diabetic [Pen Needle] 31 gauge x 5/16 needle See Rx Instructions .ROUTE .MEDSUPPLY Qty: 100 0RF Rx Instructions: As directed; 10 units hs trazodone 100 mg tablet 100 mg PO BEDTIME 0RF fluticasone propionate 50 mcg/actuation spray,suspension 2 spray INTRANASAL DAILY PRN (Reason: Nasal Congestion) 0RF ascorbate calcium (vitamin C) 500 mg tablet 500 mg PO QAM 0RF albuterol sulfate [ProAir HFA] 90 mcg/actuation HFA aerosol inhaler 2 puff INHALATION QID PRN (Reason: Shortness Of Breath) 0RF [facility] 250-2.5-0.5 mg capsule 1 cap PO DAILY 0RF hydralazine 50 mg tablet 25 mg PO TID 0RF vitamin B complex Tablet 1 tab PO DAILY Qty: 90 0RF atorvastatin 80 mg tablet 80 mg PO BEDTIME Qty: 90 4RF carvedilol 25 mg tablet 37.5 mg PO BID Qty: 270 4RF clopidogrel [Plavix] 75 mg tablet 75 mg PO DAILY@12 Qty: 90 4RF isosorbide mononitrate 30 mg tablet extended release 24 hr 30 mg PO BID Qty: 180 4RF nifedipine 30 mg tablet extended release 30 mg PO BID Qty: 180 4RF nitroglycerin 0.4 mg tablet, sublingual 0.4 mg SUBLINGUAL Q5M PRN (Reason: Chest Pain) Qty: 25 3RF Levemir FlexTouch U-100 Insuln 100 unit/mL (3 mL) insulin pen 15 unit SUBCUT DAILY 30 Days Qty: 15 2RF Rx Instructions: dose change pantoprazole 40 mg tablet,delayed release (DR/EC) 40 mg PO BID Qty: 60 1RF Rx Instructions: dose change levothyroxine 25 mcg tablet 25 mcg PO DAILY Qty: 90 0RF glipizide 5 mg Tablet 5 mg PO QAM 0RF aspirin 81 mg Tablet,Delayed Release (Dr/Ec) 81 mg PO DAILY 0RF cholecalciferol (vitamin D3) 50 mcg (2,000 unit) capsule 50 mcg PO DAILY 0RF Held valsartan 160 mg tablet 160 mg PO BID Qty: 180 4RF Hold Instructions: Resume on 10/07/21. Discontinued digoxin 250 mcg (0.25 mg) tablet 125 mcg PO BID 0RF ciprofloxacin HCl 500 mg tablet 500 mg PO BID Qty: 60 1RF diclofenac sodium [Voltaren] 1 % Gel 2 g TOPICAL QID PRN (Reason: Pain) 0RF Discharge Orders: Discharge Order (Routine); Ordered 09/09/21 Ordered By: Good Mallory Other Ambulatory Orders: Basic Metabolic Panel (Routine) Timeframe: 3 Days Facility: [facility] - Location: Lab - Main Lab Ordered By: Good Mallory Complete Blood Count w/Auto (Routine) Timeframe: 3 Days Location: Determined by Patient Ordered By: Good Mallory C Reactive Protein (Routine) Timeframe: 3 Days Facility: [facility] - Location: Lab - Main Lab Ordered By: Good Mallory Erythrocyte Sedimentation Rate (Routine) Timeframe: 3 Days Facility: [facility] - Location: Lab - Main Lab Ordered By: Good Mallory Referrals: Georgia Adler FNP [Nurse Practitioner] - 1 week Benita Terry MD [Physician] - 1 month Discharge Diet: Cardiac Discharge Activity: Increase activity as tolerated Patient Instructions: Opioid Safety Activity Restrictions/Additional Instructions: Prednisone 40 mg for 2 weeks and then you will taper prednisone as per Dr. Merlos's recommendation you will take colchicine 0.3 mg daily for next 3 months You will take prednisone 40 mg for 2 weeks and then you will take 30 mg for 3 days, 20 mg for 3 days, 10 mg for 3 days and then discontinue, if you run out of prednisone tablets please call your PCP or cardiology clinic Discharge Attestations Time Spent in Discharge Care*: less than 30 min Quality Metrics Clinical Quality Measures [ No reported AMI, CVA or VTE this stay] Coding Level of Care Code Acute Chg FW DC note Diagnoses Chest pain R07.9 Unstable angina I20.0 Thrombocytopenia D69.6 Iron deficiency anemia D50.9 Type 2 diabetes mellitus without complications E11.9 Diabetes mellitus chcf insulin use: unspecified termination clerk insulin use status Paroxysmal atrial fibrillation I48.0 Essential hypertension I10 Cardiac pacemaker Z95.0
--- NOTE | 2021-09-09 16:10 | XRR_ITS ---
PROCEDURE INFORMATION: Exam: XR Chest Exam date and time: 09/09/2021 4:53 PM Age: 76 years old Clinical indication: Fever TECHNIQUE: Imaging protocol: Radiologic exam of the chest. Views: 1 view. COMPARISON: CR XR chest 1V portable [id number] 09/07/2021 3:07 PM FINDINGS: Tubes, catheters and devices: There is a dual-lead AICD with leads positioned in the right atrium and right ventricle. Lungs: There is no consolidation. Pleural spaces: There is no pleural effusion or pneumothorax. Heart/Mediastinum: There is new moderate enlargement of the cardiac silhouette since 09/07/2021. Bones/joints: There are healed left lateral rib fractures. XR/XR chest 1V portable [id number] IMPRESSION: 1. New enlargement of the cardiac silhouette since 09/07/2021, suggesting pericardial effusion. 2. Lungs are clear.
[2021-09-09 17:24] LABS: Glucose Point of Care 249 mg/dL (70-110)
[2021-09-09] MEDS: trazodone 100 mg Tablet PO (20:18)
[2021-09-09] MEDS: atorvastatin 40 mg Tablet 80 MG PO (20:18)
[2021-09-09 20:59] LABS: Add Urine Culture? No; Add Urine Microscopic? YES; Amorphous Sediment Urine TRACE /hpf; Bacteria Urine TRACE /hpf; Bilirubin Urine Neg (Negative); Blood Urine Neg (Negative); Glucose Urine UA 4+ (Normal); Ketones Urine Negative (Negative); Leukocyte Esterase Urine Negative (Negative); Nitrate Urine Negative (Negative); Protein Urine 3+ (Negative); RBC Urine 0-4 /hpf (0-2); Specific Gravity, Urine 1.015 (1.005-1.030); Squamous Epithelial Cell Urine 0-4 /hpf (0-5); Urine Appearance Clear (CLEAR); Urine Color Yellow (Yellow); Urobilinogen Urine Norm (Negative); WBC Urine 0-4 /hpf (0-5); pH Urine 5 (5-7)
[2021-09-10] VITALS: BP 144/68; PULSE 70; RESP 19; TEMP 36.6; O2SAT 93
[2021-09-10 04:00] VITALS: BP 147/79; PULSE 70; RESP 18; TEMP 36.5; O2SAT 95
--- NOTE | 2021-09-10 04:00 | USCV_ITS ---
Tad Deleon Age: 76 Gender: M : 1945 Exam Date: 09/10/2021 06:58 Ordering Phys: Good Mallory MD Technologist: Melissa Barr [place] [facility] [place]: ECHO LIMITED FOR PERICARDIAL EFFUSION COMPARISON BP: 147 / 79 HR: 72 Rhythm: Sinus Technical Quality: Adequate MEASUREMENTS (Male / Female) Normal Values FINDINGS Left Ventricle This is a 2D examination only. This is to compare size of the pericardial effusion to that of several days ago. The ventricle is normal in size. Normal left ventricular function. Ejection fraction about 55%. Diastolic function not evaluated. Right Ventricle Normal right ventricular size and systolic function. Right Atrium Normal right atrial size. Left Atrium Normal left atrial size. Mitral Valve Structurally normal mitral valve. Aortic Valve Structurally normal trileaflet aortic valve. Tricuspid Valve Structurally normal tricuspid valve. Pulmonic Valve Pulmonic valve not well visualized. Pericardium There is a small to moderate sized pericardial effusion. This is unchanged from that of 09/07/2021. There is no right atrial or right ventricular diastolic collapse. Aorta Normal aorta. IVC Inferior vena cava not visualized. CONCLUSIONS This is a 2D examination only. This is to compare size of the pericardial effusion to that of several days ago. The ventricle is normal in size. Normal left ventricular function. Ejection fraction about 55%. Diastolic function not evaluated. There is a small to moderate sized pericardial effusion. This is unchanged from that of 09/07/2021. There is no right atrial or right ventricular diastolic collapse. Dr. Diogo Porras MD (Electronically Signed) Final Date: 10 September 2021 10:13 S
[2021-09-10 04:35] VITALS: PULSE 72
[2021-09-10 04:45] LABS: Basophils % 0.1 %; Hematocrit 27.4 % (42.0-52.0); Hemoglobin 9.7 g/dL (11.7-16.6); Lymphocytes # 0.4 10^3/uL (0.8-4.8); Lymphocytes % 5.2 %; Mean Corpuscular HGB Conc 35.4 g/dL (30.0-36.0); Mean Corpuscular Hemoglobin 28.7 pg (28.0-34.0); Mean Corpuscular Volume 81.1 fl (80-94); Mean Platelet Volume 12.3 fL (7.4-10.4); Monocytes # 0.4 10^3/uL (0.2-0.9); Neutrophils # 6.13 10^3/uL (1.8-7.7); Neutrophils % 88.1 %; Nucleated Red Blood Cells % 0 %; Platelet Count 113 10^3/cmm (130-400); Red Blood Count 3.38 10^6/uL (4.1-5.3); Red Cell Distribution Width 13.7 % (12.1-15.1)
[2021-09-10 05:04] LABS: Anion Gap 15.9 (5-19); Blood Urea Nitrogen 29 mg/dL (8-23); C Reactive Protein 162.2 mg/L (0.0-4.9); Calcium 8.9 mg/dL (8.5-10.5); Carbon Dioxide 23 mmol/L (22-29); Chloride 102 mmol/L (98-107); Glucose 242 mg/dL (65-115); Osmolality Calculated 298 mOsm/kg (285-295); Potassium 3.9 mmol/L (3.5-5.1); Sodium 137 mmol/L (136-145)
[2021-09-10] MEDS: enoxaparin 40 mg/0.4 mL Syringe SUBCUT (06:05)
[2021-09-10 06:24] LABS: Glucose Point of Care 228 mg/dL (70-110)
[2021-09-10 06:24] LABS: Glucose Point of Care 369 mg/dL (70-110)
--- NOTE | 2021-09-10 07:30 | P.PN_ITS ---
Subjective Subjective: Tad is 76 has a long list of medical problems including coronary disease, anemia, chronic kidney disease, thrombocytopenia, TIAs, nonsustained V. tach, bilateral carotid disease post endarterectomy, diabetes, dyslipidemia, pacemaker, peripheral disease, paroxysmal atrial fibrillation among others. He was admitted 3 days ago with chest pain and shortness of breath. His echo revealed a small to moderate size pericardial effusion. His stress test was negative. He was started on colchicine and prednisone. He was prepared for discharge yesterday however developed a fever. His discharge was held. He tells me he thinks his fever broke this morning about 4:00 when he woke up in a sweat. He feels fine now. As of 434 this morning his temperature was 97.7 degrees. Vitals/I&O/Wt Last Vital Signs Temp 97.7 F 09/10/21 04:00 Pulse 72 09/10/21 04:35 Resp 18 09/10/21 04:00 BP 147/79 09/10/21 04:00 Pulse Ox 95 09/10/21 04:00 09/09/21 09/10/21 09/10/21 22:59 06:59 14:59 Intake Total 640 / 760 1000 / 1760 Output Total 600 / 700 800 / 1500 Balance 40 / 60 200 / 260 Physical Exam Narrative: GENERAL: General he looks and feels well HEENT: Exam within normal limits. [] NECK: Supple without jugular vein distention. The carotid upstroke is normal without bruits. [] BACK: Exam normal. [] LUNGS: Clear. [] HEART: Regular rate and rhythm. [] ABDOMEN: Benign without organomegaly or tenderness. [] EXTREMITIES: No edema. [] NEUROLOGIC: Exam normal. [] SKIN: Unremarkable. 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 He will follow-up as scheduled and take the medications as currently prescribed. 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
[2021-09-10 08:34] VITALS: PULSE 72; RESP 18; O2SAT 95
[2021-09-10] MEDS: cetirizine 10 mg Tablet PO (08:56)
[2021-09-10] MEDS: isosorbide mononitrate ER 60 mg Tablet PO (08:56)
[2021-09-10] MEDS: carvedilol 25 mg Tablet 37.5 MG PO (08:56)
[2021-09-10] MEDS: predniSONE 20 mg Tablet 40 MG PO (08:57)
[2021-09-10] MEDS: levothyroxine 25 mcg Tablet PO (08:57)
[2021-09-10] MEDS: amlodipine 10 mg Tablet PO (08:57)
[2021-09-10] MEDS: doxycycline 100 mg Tablet PO (08:57)
[2021-09-10] MEDS: aspirin 81 mg EC Tablet PO (08:57)
[2021-09-10] MEDS: insulin lispro 100 unit/1 mL SUBCUT (08:58)
[2021-09-10] MEDS: colchicine 0.6 mg Tablet PO (08:58)
[2021-09-10] MEDS: pantoprazole DR 40 mg Tablet PO (08:58)
[2021-09-10 11:04] LABS: Erythrocyte Sedimentation Rate 33 mm/hr (0-10)
[2021-09-10 11:43] LABS: Glucose Point of Care 315 mg/dL (70-110)
--- NOTE | 2021-09-10 11:54 | PC.SOCIAL ---
Pg 2 IMM Explained to pt Pg 2 IMM. No questions voiced. Provided pt a copy. Initialed, dated, & timed a copy & placed in chart.
[2021-09-10 16:47] VITALS: PULSE 72; RESP 18; O2SAT 95
== END 2021-09-10 12:00 | disposition home or self-care (01) | DRG 316 ==
LOC: ER 19:19 → MEDSURG 20:04
PROVIDERS: Internal Medicine Cardiovascular Disease; Physician Assistant; Admitting Provider Internal Medicine; Emergency Provider Family Medicine; Visit Provider Internal Medicine
DX: I30.9 Acute pericarditis, unspecified (principal); R07.9 Chest pain, unspecified; I25.10 Atherosclerotic heart disease of native coronary artery without angina pectoris; Z95.5 Presence of coronary angioplasty implant and graft; Z95.0 Presence of cardiac pacemaker; E11.22 Type 2 diabetes mellitus with diabetic chronic kidney disease; I12.9 Hypertensive chronic kidney disease with stage 1 through stage 4 chronic kidney disease, or unspecified chronic kidney disease; N18.30 Chronic kidney disease, stage 3 unspecified; N41.1 Chronic prostatitis; E78.2 Mixed hyperlipidemia; I48.0 Paroxysmal atrial fibrillation; Z86.73 Personal history of transient ischemic attack (TIA), and cerebral infarction without residual deficits; Z87.891 Personal history of nicotine dependence; D69.6 Thrombocytopenia, unspecified; D50.9 Iron deficiency anemia, unspecified; D63.1 Anemia in chronic kidney disease; E03.9 Hypothyroidism, unspecified; Z95.828 Presence of other vascular implants and grafts; Z23 Encounter for immunization; Z79.891 Long term (current) use of opiate analgesic; Z79.82 Long term (current) use of aspirin; Z79.84 Long term (current) use of oral hypoglycemic drugs; Z79.4 Long term (current) use of insulin; Z79.51 Long term (current) use of inhaled steroids
CPT/HCPCS: 36415; 36416; 71045; 78452; 80048; 80053; 81001; 82962; 83036; 83735; 83880; 84484; 85025; 85651; 86140; 87040; 87635; 90471; 90732; 93005; 93017; 93306; 93308; 96372; 99285; A9500; J1650; J1815; J2785; J7512

== ENCOUNTER 2021-09-16 06:53 | Oncology outpatient (recurring) (ONCR) | payer MEDICARE, OTHER, SELFPAY ==
[2021-09-16 07:44] LABS: Basophils % 0.1 %; Eosinophils % 0.1 %; Hematocrit 29.6 % (42.0-52.0); Hemoglobin 10.2 g/dL (11.7-16.6); Lymphocytes # 0.5 10^3/uL (0.8-4.8); Lymphocytes % 4.7 %; Mean Corpuscular HGB Conc 34.5 g/dL (30.0-36.0); Mean Corpuscular Hemoglobin 28.5 pg (28.0-34.0); Mean Corpuscular Volume 82.7 fl (80-94); Mean Platelet Volume 11.3 fL (7.4-10.4); Monocytes # 0.5 10^3/uL (0.2-0.9); Monocytes % 4.8 %; Neutrophils # 8.73 10^3/uL (1.8-7.7); Neutrophils % 87.9 %; Nucleated Red Blood Cells % 0 %; Platelet Count 174 10^3/cmm (130-400); Red Blood Count 3.58 10^6/uL (4.1-5.3); Red Cell Distribution Width 14.3 % (12.1-15.1); White Blood Count 9.9 10^3/uL (4.0-10.0)
[2021-09-16 08:06] LABS: Anion Gap 15.2 (5-19); Blood Urea Nitrogen 39 mg/dL (8-23); C Reactive Protein 12.6 mg/L (0.0-4.9); Calcium 8.7 mg/dL (8.5-10.5); Carbon Dioxide 24 mmol/L (22-29); Chloride 99 mmol/L (98-107); Glucose 256 mg/dL (65-115); Iron 45 ug/dL (59-158); Osmolality Calculated 296 mOsm/kg (285-295); Percent Saturation 28.8 % (20-50); Potassium 4.2 mmol/L (3.5-5.1); Sodium 134 mmol/L (136-145); Total Iron Binding Capacity 156 mcg/dl; Unsaturated Iron Binding 111 ug/dL (112-347)
[2021-09-16 08:09] LABS: Erythrocyte Sedimentation Rate 26 mm/hr (0-10)
[2021-09-16 08:18] LABS: Ferritin 1256 ng/mL (30-400)
== END 2021-10-09 23:59 | disposition home or self-care (01) ==
PROVIDERS: Internal Medicine; Visit Provider Internal Medicine Hematology & Oncology
DX: Z79.899 Other long term (current) drug therapy (principal); D63.1 Anemia in chronic kidney disease
CPT/HCPCS: 36415; 80048; 82728; 83540; 83550; 85025; 85651; 86140; 99214

== ENCOUNTER → 2021-09-19 09:30 | Outpatient (BNVA) | payer MEDICARE, OTHER, SELFPAY | PROVIDERS: PCP Nurse Practitioner Family; Visit Provider Nurse Practitioner Family | DX: I12.9 Hypertensive chronic kidney disease with stage 1 through stage 4 chronic kidney disease, or unspecified chronic kidney disease (principal); N18.2 Chronic kidney disease, stage 2 (mild); Z86.73 Personal history of transient ischemic attack (TIA), and cerebral infarction without residual deficits; Z87.891 Personal history of nicotine dependence | CPT/HCPCS: 99213 ==

== ENCOUNTER → 2021-09-23 08:12 | Outpatient (BNVA) | payer MEDICARE, OTHER, SELFPAY | PROVIDERS: PCP Nurse Practitioner Family; Visit Provider Internal Medicine Cardiovascular Disease | DX: Z45.010 Encounter for checking and testing of cardiac pacemaker pulse generator [battery] (principal) | CPT/HCPCS: 93280 ==

== ENCOUNTER → 2021-10-10 11:27 | Outpatient (BNVA) | payer MEDICARE, OTHER, SELFPAY | PROVIDERS: PCP Nurse Practitioner Family; Visit Provider Internal Medicine Cardiovascular Disease | DX: I31.3 Pericardial effusion (noninflammatory) (principal); I12.9 Hypertensive chronic kidney disease with stage 1 through stage 4 chronic kidney disease, or unspecified chronic kidney disease; E11.22 Type 2 diabetes mellitus with diabetic chronic kidney disease; N18.9 Chronic kidney disease, unspecified; Z79.84 Long term (current) use of oral hypoglycemic drugs; E78.2 Mixed hyperlipidemia; D64.9 Anemia, unspecified; I70.90 Unspecified atherosclerosis; I42.9 Cardiomyopathy, unspecified; R06.02 Shortness of breath; Z87.891 Personal history of nicotine dependence | CPT/HCPCS: 36415; 80048; 82607; 82728; 83540; 83550; 83880; 85025; 86141; 99214 ==

== ENCOUNTER → 2021-10-13 10:29 | Outpatient (BNVA) | payer MEDICARE, OTHER, SELFPAY | PROVIDERS: PCP Nurse Practitioner Family; Visit Provider Internal Medicine Hematology & Oncology | DX: D64.9 Anemia, unspecified (principal) | CPT/HCPCS: 85025 ==

== ENCOUNTER 2021-10-18 14:14 | Oncology outpatient (recurring) (ONCR) | payer MEDICARE, OTHER, SELFPAY ==
[2021-10-10 12:56] LABS: Eosinophils % 0.1 %; Hematocrit 31.2 % (42.0-52.0); Hemoglobin 10.5 g/dL (11.7-16.6); Lymphocytes # 0.4 10^3/uL (0.8-4.8); Lymphocytes % 6.3 %; Mean Corpuscular HGB Conc 33.7 g/dL (30.0-36.0); Mean Corpuscular Hemoglobin 28.2 pg (28.0-34.0); Mean Corpuscular Volume 83.6 fl (80-94); Mean Platelet Volume 11.6 fL (7.4-10.4); Monocytes # 0.4 10^3/uL (0.2-0.9); Neutrophils # 6.04 10^3/uL (1.8-7.7); Neutrophils % 86.6 %; Nucleated Red Blood Cells % 0 %; Platelet Count 153 10^3/cmm (130-400); Red Blood Count 3.73 10^6/uL (4.1-5.3); Red Cell Distribution Width 15.9 % (12.1-15.1)
[2021-10-10 13:53] LABS: Anion Gap 13.5 (5-19); Blood Urea Nitrogen 38 mg/dL (8-23); Calcium 8.9 mg/dL (8.5-10.5); Carbon Dioxide 26 mmol/L (22-29); Chloride 101 mmol/L (98-107); Glucose 297 mg/dL (65-115); Iron 70 ug/dL (59-158); NT Pro B Type Natriuretic Pept 6198 pg/mL (0-450); Osmolality Calculated 302 mOsm/kg (285-295); Percent Saturation 38.8 % (20-50); Potassium 4.5 mmol/L (3.5-5.1); Sodium 136 mmol/L (136-145); Total Iron Binding Capacity 180 mcg/dl; Unsaturated Iron Binding 110 ug/dL (112-347); Vitamin B12 574 pg/mL (232-1245)
[2021-10-10 14:06] LABS: Ferritin 1419 ng/mL (30-400)
== END 2021-11-09 23:59 | disposition home or self-care (01) ==
PROVIDERS: Internal Medicine Cardiovascular Disease; PCP Nurse Practitioner Family; Visit Provider Internal Medicine Hematology & Oncology
DX: N18.9 Chronic kidney disease, unspecified (principal); D63.1 Anemia in chronic kidney disease
CPT/HCPCS: 36415; 80048; 82607; 82728; 83540; 83550; 83880; 85025; 86141; 99214

== ENCOUNTER → 2021-11-16 10:38 | Outpatient (BNVA) | payer MEDICARE, OTHER, SELFPAY | PROVIDERS: PCP Nurse Practitioner Family; Visit Provider Internal Medicine Hematology & Oncology | DX: N18.30 Chronic kidney disease, stage 3 unspecified (principal); D63.1 Anemia in chronic kidney disease | CPT/HCPCS: 80069; 82043; 82310; 83970; 85025 ==

== ENCOUNTER 2021-11-18 09:56 | Oncology outpatient (recurring) (ONCR) | payer MEDICARE, OTHER, SELFPAY | END 2021-12-09 23:59 | disposition home or self-care (01) | PROVIDERS: PCP Nurse Practitioner Family; Visit Provider Internal Medicine Hematology & Oncology | DX: D50.9 Iron deficiency anemia, unspecified (principal); K29.50 Unspecified chronic gastritis without bleeding; Z89.021 Acquired absence of right finger(s); D69.6 Thrombocytopenia, unspecified; Z79.899 Other long term (current) drug therapy | CPT/HCPCS: 99214 ==

== ENCOUNTER 2021-11-22 15:10 | Outpatient (CLI) | payer MEDICARE, OTHER, SELFPAY ==
--- NOTE | 2021-11-22 16:00 | USCV_ITS ---
Tad Deleon Age: 76 Gender: M : 1945 Exam Date: 11/22/2021 15:53 Ordering Phys: Sophie Nelson MD ([email or web address]) Technologist: Merrick Goss [place] [facility] [place]: Pericardial effusion BP: / HR: Rhythm: Sinus Technical Quality: Adequate MEASUREMENTS (Male / Female) Normal Values FINDINGS Left Ventricle Normal left ventricular cavity size and systolic function. Left ventricular ejection fraction is estimated at 55 %. No diagnostic regional wall motion abnormality. Right Ventricle Normal right ventricular size and systolic function. Pacemaker wire visualized in the right ventricle. Right Atrium Normal right atrial size. Pacemaker wire in the right atrial cavity. Left Atrium Mildly increased left atrial size. Mitral Valve Mildly thickened mitral valve. Aortic Valve Structurally normal trileaflet aortic valve. Tricuspid Valve Structurally normal tricuspid valve. Pulmonic Valve Pulmonic valve not well visualized. Pericardium Small circumferential pericardial effusion more along left ventricle. Aorta Normal size aortic root and proximal ascending aorta. IVC Inferior vena cava not visualized. CONCLUSIONS 1. Normal left ventricular cavity size and systolic function. Left ventricular ejection fraction is estimated at 55 %. No diagnostic regional wall motion abnormality. 2. Small circumferential pericardial effusion more along left ventricle. 3. When compared to previous echocardiogram dated 09/10/2021, pericardial effusion seems to have decreased in size. Benita Terry MD (Electronically Signed) Final Date: 24 November 2021 16:38 S
== END 2021-11-22 15:11 | disposition home or self-care (01) ==
PROVIDERS: PCP Nurse Practitioner Family; Visit Provider Internal Medicine Cardiovascular Disease
DX: I31.3 Pericardial effusion (noninflammatory) (principal); I42.9 Cardiomyopathy, unspecified
CPT/HCPCS: 93308

== ENCOUNTER → 2021-12-14 10:44 | Outpatient (BNVA) | payer MEDICARE, OTHER, SELFPAY | PROVIDERS: PCP Nurse Practitioner Family; Visit Provider Internal Medicine Hematology & Oncology | DX: I10 Essential (primary) hypertension (principal); E78.2 Mixed hyperlipidemia; R79.89 Other specified abnormal findings of blood chemistry; M10.9 Gout, unspecified; E11.8 Type 2 diabetes mellitus with unspecified complications; I70.90 Unspecified atherosclerosis; Z12.5 Encounter for screening for malignant neoplasm of prostate; K29.71 Gastritis, unspecified, with bleeding; D64.9 Anemia, unspecified; D69.6 Thrombocytopenia, unspecified | CPT/HCPCS: 80053; 80061; 82607; 82728; 83036; 83550; 84443; 84550; 85025; G0103 ==

== ENCOUNTER 2021-12-19 12:52 | Oncology outpatient (recurring) (ONCR) | payer MEDICARE, OTHER, SELFPAY | END 2022-01-09 23:59 | disposition home or self-care (01) | PROVIDERS: PCP Nurse Practitioner Family; Visit Provider Internal Medicine Hematology & Oncology | DX: D50.9 Iron deficiency anemia, unspecified (principal); D69.6 Thrombocytopenia, unspecified; Z79.899 Other long term (current) drug therapy | CPT/HCPCS: 99214 ==

== ENCOUNTER → 2022-02-17 09:08 | Outpatient (BNVA) | payer MEDICARE, OTHER, SELFPAY | PROVIDERS: PCP Nurse Practitioner Family; Visit Provider Internal Medicine Hematology & Oncology | DX: D64.9 Anemia, unspecified (principal); K29.71 Gastritis, unspecified, with bleeding | CPT/HCPCS: 82728; 83550; 85025 ==

== ENCOUNTER 2022-02-21 12:13 | Oncology outpatient (recurring) (ONCR) | payer MEDICARE, OTHER, SELFPAY | END 2022-03-11 23:59 | disposition home or self-care (01) | LOC: ONCMED 12:14 | PROVIDERS: PCP Nurse Practitioner Family; Visit Provider Internal Medicine Hematology & Oncology | DX: D50.9 Iron deficiency anemia, unspecified (principal); D69.6 Thrombocytopenia, unspecified; Z79.899 Other long term (current) drug therapy; Z87.891 Personal history of nicotine dependence | CPT/HCPCS: 99214 ==

== ENCOUNTER → 2022-03-14 07:55 | Outpatient (BNVA) | payer MEDICARE, OTHER, SELFPAY | PROVIDERS: PCP Nurse Practitioner Family; Visit Provider Urology | DX: N41.1 Chronic prostatitis (principal); R35.0 Frequency of micturition | CPT/HCPCS: 51798; 81003; 99213 ==

== ENCOUNTER → 2022-04-24 14:51 | Outpatient (BNVA) | payer MEDICARE, OTHER, SELFPAY | PROVIDERS: PCP Nurse Practitioner Family; Visit Provider Nurse Practitioner Family | DX: I70.90 Unspecified atherosclerosis (principal); I10 Essential (primary) hypertension; Z87.891 Personal history of nicotine dependence | CPT/HCPCS: 99214 ==

== ENCOUNTER → 2022-05-15 11:58 | Outpatient (BNVA) | payer MEDICARE, OTHER, SELFPAY | PROVIDERS: PCP Nurse Practitioner Family; Visit Provider Internal Medicine Hematology & Oncology | DX: D64.9 Anemia, unspecified (principal); K29.71 Gastritis, unspecified, with bleeding | CPT/HCPCS: 82728; 83550; 85025 ==

== ENCOUNTER 2022-05-19 08:28 | Oncology outpatient (recurring) (ONCR) | payer MEDICARE, OTHER, SELFPAY | END 2022-06-09 23:59 | disposition home or self-care (01) | PROVIDERS: PCP Nurse Practitioner Family; Visit Provider Internal Medicine Hematology & Oncology | DX: D50.9 Iron deficiency anemia, unspecified (principal); Z79.899 Other long term (current) drug therapy; Z87.891 Personal history of nicotine dependence; Z96.652 Presence of left artificial knee joint | CPT/HCPCS: 99213 ==

== ENCOUNTER → 2022-05-24 09:05 | Outpatient (BNVA) | payer MEDICARE, OTHER, SELFPAY | PROVIDERS: PCP Nurse Practitioner Family; Visit Provider Internal Medicine Nephrology | DX: N18.2 Chronic kidney disease, stage 2 (mild) (principal) | CPT/HCPCS: 80069; 81000; 82043; 82310; 83970; 85025 ==

== ENCOUNTER → 2022-06-05 15:44 | Outpatient (BNVA) | payer MEDICARE, OTHER, SELFPAY | PROVIDERS: PCP Nurse Practitioner Family; Visit Provider Nurse Practitioner Family | DX: I70.90 Unspecified atherosclerosis (principal); I12.9 Hypertensive chronic kidney disease with stage 1 through stage 4 chronic kidney disease, or unspecified chronic kidney disease; E11.22 Type 2 diabetes mellitus with diabetic chronic kidney disease; N18.2 Chronic kidney disease, stage 2 (mild); Z87.891 Personal history of nicotine dependence | CPT/HCPCS: 36415; 80048; 83880; 99214 ==

== ENCOUNTER → 2022-06-19 08:44 | Outpatient (BNVA) | payer MEDICARE, OTHER, SELFPAY | PROVIDERS: PCP Nurse Practitioner Family; Visit Provider Internal Medicine Hematology & Oncology | DX: E11.22 Type 2 diabetes mellitus with diabetic chronic kidney disease (principal); N18.9 Chronic kidney disease, unspecified; K29.71 Gastritis, unspecified, with bleeding; D63.1 Anemia in chronic kidney disease | CPT/HCPCS: 80048; 82668; 82728; 83550; 85025 ==

== ENCOUNTER 2022-06-21 14:21 | Oncology outpatient (recurring) (ONCR) | payer MEDICARE, OTHER, SELFPAY | END 2022-07-09 23:59 | disposition home or self-care (01) | PROVIDERS: PCP Nurse Practitioner Family; Visit Provider Internal Medicine Hematology & Oncology | DX: D50.9 Iron deficiency anemia, unspecified (principal); D69.6 Thrombocytopenia, unspecified; Z79.899 Other long term (current) drug therapy; Z87.891 Personal history of nicotine dependence | CPT/HCPCS: 99214 ==

== ENCOUNTER → 2022-06-28 13:07 | Outpatient (BNVA) | payer MEDICARE, OTHER, SELFPAY | PROVIDERS: PCP Nurse Practitioner Family; Visit Provider Internal Medicine Hematology & Oncology | DX: D64.9 Anemia, unspecified (principal) | CPT/HCPCS: 85025 ==

== ENCOUNTER 2022-07-03 09:51 | Day surgery (SDC) | payer MEDICARE, OTHER, SELFPAY ==
[2022-06-29 13:20] VITALS: BMI 27.0
[2022-07-03 10:53] VITALS: BP 148/71; PULSE 74; RESP 18; TEMP 36.3; O2SAT 97
[2022-07-03 10:57] LABS: Basophils % 0.5 %; Eosinophils # 0.1 10^3/uL (0.0-0.8); Eosinophils % 1.9 %; Hematocrit 34.2 % (42.0-52.0); Hemoglobin 11.1 g/dL (11.7-16.6); Lymphocytes # 0.9 10^3/uL (0.8-4.8); Lymphocytes % 15.2 %; Mean Corpuscular HGB Conc 32.5 g/dL (30.0-36.0); Mean Corpuscular Hemoglobin 26.9 pg (28.0-34.0); Mean Corpuscular Volume 82.8 fl (80-94); Mean Platelet Volume 11.1 fL (7.4-10.4); Monocytes # 0.5 10^3/uL (0.2-0.9); Monocytes % 8.5 %; Neutrophils # 4.25 10^3/uL (1.8-7.7); Neutrophils % 73.6 %; Nucleated Red Blood Cells % 0 %; Platelet Count 142 10^3/cmm (130-400); Red Blood Count 4.13 10^6/uL (4.1-5.3); Red Cell Distribution Width 15.7 % (12.1-15.1); White Blood Count 5.8 10^3/uL (4.0-10.0)
[2022-07-03] MEDS: sodium chloride 0.9% 1,000 ML 30 ML IV (10:57)
--- NOTE | 2022-07-03 11:35 | P.ANESASSM_ITS ---
Pre-Anesthetic Assessment Height/Weight: Height 1.85 m Weight 92.986 kg Temp Pulse Resp BP Pulse Ox O2 Del Method 97.3 F L 74 18 148/71 97 Room Air 07/03/22 10:53 07/03/22 10:53 07/03/22 10:53 07/03/22 10:53 07/03/22 10:53 07/03/22 10:53 Preop Diagnosis: Anemia Thrombocytopenia Operation Date: 07/03/22 12:00 Proposed Procedures p Bone Marrow Biospy With Aspiration(Not Applicable) - Lisette Merlos MD Familial anesthetic complications: none Was Beta Alice taken within 24 hours: N/A Last intake: Intake Last Liquid Date 07/02/22 Last Liquid Time 19:00 Last Solid Date 07/02/22 Last Solid Time 19:00 Social No alcohol and No tobacco Exam alert, oriented x 3, clear to auscultation bilaterally and regular rate & rhythm Airway Submandibular: within normal limits Cervical ROM: within normal limits Mallampati: Class II Dentition: false Pulmonary Asthma daily use of albuterol inhaler reports well controlled. CV/HEM Atrial Fibrillation, Stable Angina, Arrythmia, Coronary Artery Disease, Hypertension and Myocardial Infarction 2020 04 Pacemaker 2007 1st Pacemaker Cardiac Stents- multiple most recent 2019 bilateral CEA Chronic Renal Insufficiency Hepatic None reported GI Gastroesophageal Reflux Disease Metabolic Diabetes Mellitus (diet controlled), Hyperlipidemia and Thyroid Disease [facility] None reported Neuropsych None reported Anesthetic Plan ASA status: 3 Anesthesia: MAC Medications/Allergies Home Medications Medication Instructions Recorded Confirmed Last Taken Type albuterol sulfate 90 mcg/actuation 2 puff inhalation QID PRN 03/19/19 06/29/22 07/02/22 History aerosol inhaler (ProAir HFA) Shortness Of Breath ascorbate calcium (vitamin C) 500 500 mg PO QAM 03/19/19 07/03/22 07/02/22 History mg tablet fluticasone propionate 50 2 spray intranasal DAILY PRN Nasal 03/19/19 06/29/22 07/03/22 History mcg/actuation nasal Congestion spray,suspension trazodone 100 mg tablet 100 mg PO BEDTIME 03/19/19 06/29/22 07/02/22 History cetirizine 10 mg capsule (Allergy 10 mg PO DAILY 09/05/19 06/29/22 07/03/22 History Relief (cetirizine)) omega-3 250 ch-xny-cpq-lutein 2.5 1 cap PO DAILY 08/30/20 06/29/22 07/02/22 History mg-zeaxanthin 0.5 mg capsule ([employer] [facility]) vitamin B complex 1 tab PO DAILY #90 tabs 09/03/20 06/29/22 07/02/22 Rx atorvastatin 80 mg tablet 80 mg PO BEDTIME #90 tabs 11/19/20 06/29/22 07/03/22 Rx carvedilol 25 mg tablet 37.5 mg PO BID #270 tabs 11/19/20 06/29/22 07/03/22 Rx clopidogrel 75 mg tablet (Plavix) 75 mg PO DAILY@12 #90 tabs 11/19/20 06/29/22 06/28/22 Rx nitroglycerin 0.4 mg sublingual 0.4 mg sublingual Q5M PRN Chest 11/19/20 06/29/22 Unknown Rx tablet Pain #25 tabs pen needle, diabetic 31 gauge x #100 ea 12/01/20 06/21/22 Unknown Rx 5/16 (Pen Needle) pantoprazole 40 mg tablet,delayed 40 mg PO BID #60 tabs 07/06/21 06/29/22 07/03/22 Rx release aspirin 81 mg tablet,delayed 81 mg PO DAILY 07/12/21 06/29/22 06/28/22 History release cholecalciferol (vitamin D3) 50 50 mcg PO DAILY 07/12/21 06/29/22 07/02/22 History mcg (2,000 unit) capsule hydralazine 50 mg tablet 25 mg PO TID 08/02/21 06/29/22 07/02/22 History colchicine 0.6 mg tablet 0.3 mg PO DAILY #90 tabs 09/09/21 06/29/22 07/03/22 Rx potassium chloride 10 mEq 10 meq PO DAILY #90 tabs 10/11/21 06/29/22 07/02/22 Rx tablet,extended release(part/cryst) magnesium L-lactate 84 mg 84 mg PO BID #180 tabs 12/19/21 06/29/22 07/02/22 Rx tablet,extended release (Magtab) isosorbide mononitrate 30 mg 30 mg PO DAILY 12/21/21 06/29/22 07/02/22 History tablet,extended release 24 hr valsartan 160 mg tablet 160 mg PO BID #180 tabs 02/16/22 06/29/22 07/02/22 Rx levothyroxine 25 mcg tablet See Rx Instructions .Route 04/03/22 06/29/22 3 Rx .COMPLEX #90 tabs bumetanide 0.5 mg tablet 0.5 mg PO .COMPLEX 06/05/22 06/29/22 07/03/22 History nifedipine 30 mg tablet,extended 30 mg PO DIRECTED #270 tabs 06/09/22 06/29/22 06/29/22 Rx release Allergies Allergy/AdvReac Type Severity Reaction Status Date / Time atenolol [From Tenormin] Allergy Intermediate hypotension Verified 07/03/22 10 :46 niacin Allergy Intermediate rash, hot Verified 07/03/22 10:46 flashes Current Medications Generic Name Dose Route Start Last Admin Trade Name Freq PRN Reason Stop Dose Admin Sodium Chloride 1,000 mls @ 30 mls/hr 07/03/22 10:45 07/03/22 10:57 Sodium Chloride 0.9% IV 07/04/22 10:44 30 mls/hr .Q24H REGULO Administration PFSH Anesthesia Medical History Anemia 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 Carotid stenosis Chest pain Chronic kidney disease, stage 2 (mild) Chronic prostatitis Diagnosed August 2020 with good response to more prolonged course of ciprofloxacin. CKD (chronic kidney disease) Essential hypertension History of carotid artery dissection Iron deficiency anemia (~09/2020) Mixed hyperlipidemia Paroxysmal atrial fibrillation Presence of stent in LAD coronary artery February 2018 Presence of stent in left circumflex coronary artery February 2018 RCA occlusion Sinus pain Sinusitis Thrombocytopenia Thrombocytopenia TIA (transient ischemic attack) Type 2 diabetes mellitus without complications Unstable angina Ventricular tachycardia Surgical History History of colonoscopy 1 year History of esophagogastroduodenoscopy (07/13/21) 1 year History of permanent cardiac pacemaker placement History of right-sided carotid endarterectomy October 2018 Family History Family/Other CAD (coronary artery disease) Father CAD (coronary artery disease) Hyperlipidemia Hypertension Mother CAD (coronary artery disease) Cancer Dementia Hyperlipidemia Hypertension Stroke Brother Diabetes Denies family history of Clotting disorder Chronic kidney disease (CKD) Suicide Anesthesia complication Bleeding disorder Lung disease Social History Smoking and tobacco status: former smoker (smoked x 40 years) Quit status (tobacco): has quit using tobacco Year quit tobacco: 1988 Second hand smoke exposure: No Alcohol intake: never Substance/Drug Use: never Caregiver/support person: Yes (spouse) Lives independently: Yes Household members: spouse Housing: House Marital status: Number of children: 1 Current occupational status: retired Pets and animals: Yes Pets & animals: dog(s) Current gender identity: Male Vijaya/Worship: [employer] Special vijaya needs: No Agree to transfusion: Yes Data Anesthesia 07/03/22 10:47 Short CBC 07/03/22 Range/Units 10:47 WBC 5.8 (4.0-10.0) 10^3/uL Hgb 11.1 L (11.7-16.6) g/dL Hct 34.2 L (42.0-52.0) % MCV 82.8 (80-94) fl Plt Count 142 (130-400) 10^3/cmm Neut % (Auto) 73.6 % Neut # (Auto) 4.25 (1.8-7.7) 10^3/uL Cardiac Studies: Echocardiogram 09/07/21 Echocardiogram Limited Views 11/22/21 Sestamibi Stress Test (Cardiology) 09/09 Cardiac Event Monitor 11/07/21
--- NOTE | 2022-07-03 12:05 | W.PM.OPSUD ---
Surgery/Procedure H&P Update DATE OF PROCEDURE: July 03, 2022 DATE H&P PERFORMED: 06/21/22 CHANGES TO PREVIOUS DOCUMENTATION: Patient was seen and examined, no obvious changes or complaints since his recent visit to the clinic PREOP DIAGNOSIS: Anemia Thrombocytopenia PRIMARY INDICATION FOR PROCEDURE: Anemia, to rule out MDS PLANNED PROCEDURE: Operation Date: 07/03/22 12:00 Proposed Procedures p Bone Marrow Biospy With Aspiration(Not Applicable) - Lisette Merlos MD
--- NOTE | 2022-07-03 12:25 | P.PCN_ITS ---
Bone Marrow Biopsy Bone Marrow Biopsy: I was consulted by [] office regarding bone marrow biopsy on [Tad Deleon]. Briefly, the patient is a [77] year old [Male] with [Anemia]. In the Outpatient Services Department, with nursing staff and laboratory technologists in attendance, the procedure was discussed with the patient. Appropriate consent form had been signed. Appropriate alternatives, benefits and risks of procedure were discussed with the patient and he was pre- operatively assessed with a history and physical by myself and cleared for the biopsy procedure. The patient did request IV sedation and that was provided by the Anesthesia Department. Under aseptic condition, posterior right iliac area was cleaned and prepped, local anesthesia was given, about 15 cc of bone marrow aspirate and core biopsy was obtained, patient tolerated procedure well, specimen was sent for routine histopathology, flow cytometry, cytogenetics and FISH for MDS. Postprocedure nursing instructions were given Thank you for allowing me to participate in this patient's care and diagnosis. Coding Level of Care Code Acute Code for Manpreet Garcia
[2022-07-03 12:27] VITALS: BP 125/69; PULSE 72; RESP 18; TEMP 36.1; O2SAT 97
[2022-07-03 12:52] VITALS: BP 168/78; PULSE 70; RESP 16; O2SAT 98
--- NOTE | 2022-07-03 15:21 | ANE.PACU2 ---
Inpatient post-anesthesia follow up: Airway intact: Yes Vital signs: Temperature 97.0 F Pulse Rate 70 Respiratory Rate 16 Blood Pressure 168/78 Pulse Oximetry 98 Oxygen Delivery Me thod Room Air Oxygen Flow Rate 3 Fraction of Inspir ed Oxygen Hydration adequate: Yes Nausea and vomiting: No Pain level: 2 Mental status: Baseline
[2022-07-07 13:17] LABS: Leukemia Profile (BBPL) See Report; Lymphoma Profile (BBPL) See Report
[2022-07-13 12:08] LABS: Chromosome Analysis BBPL See Report; MDS Panel (BBPL) See Report
== END 2022-07-03 12:57 | disposition home or self-care (01) ==
PROVIDERS: PCP Nurse Practitioner Family; Visit Provider Internal Medicine Hematology & Oncology
PROC: 07DT3ZX Extraction of Bone Marrow, Percutaneous Approach, Diagnostic (ICD-10-PCS; CPT 38222; principal; 2022-07-03 12:00)
DX: D69.6 Thrombocytopenia, unspecified (principal); J45.909 Unspecified asthma, uncomplicated; I48.91 Unspecified atrial fibrillation; I25.118 Atherosclerotic heart disease of native coronary artery with other forms of angina pectoris; I12.9 Hypertensive chronic kidney disease with stage 1 through stage 4 chronic kidney disease, or unspecified chronic kidney disease; I25.2 Old myocardial infarction; Z95.5 Presence of coronary angioplasty implant and graft; Z95.0 Presence of cardiac pacemaker; N18.9 Chronic kidney disease, unspecified; K21.9 Gastro-esophageal reflux disease without esophagitis; E11.22 Type 2 diabetes mellitus with diabetic chronic kidney disease; E78.2 Mixed hyperlipidemia; E03.9 Hypothyroidism, unspecified; Z79.02 Long term (current) use of antithrombotics/antiplatelets; Z79.82 Long term (current) use of aspirin; Z87.891 Personal history of nicotine dependence; D64.9 Anemia, unspecified
CPT/HCPCS: 36415; 38222; 85025; 88184; 88185; 88237; 88264; 88291; 88305; 88311; 88367; 88374; J2704; J7030

== ENCOUNTER → 2022-07-17 08:13 | Outpatient (BNVA) | payer MEDICARE, OTHER, SELFPAY | PROVIDERS: PCP Nurse Practitioner Family; Visit Provider Internal Medicine Hematology & Oncology | DX: D64.9 Anemia, unspecified (principal); K29.71 Gastritis, unspecified, with bleeding | CPT/HCPCS: 82728; 85025 ==

== ENCOUNTER → 2022-07-19 14:39 | Outpatient (BNVA) | payer MEDICARE, OTHER, SELFPAY | PROVIDERS: PCP Nurse Practitioner Family; Visit Provider Internal Medicine Hematology & Oncology | DX: D50.9 Iron deficiency anemia, unspecified (principal); Z79.899 Other long term (current) drug therapy; Z87.891 Personal history of nicotine dependence | CPT/HCPCS: 99214 ==

== ENCOUNTER 2022-08-09 11:30 | Oncology outpatient (recurring) (ONCR) | payer MEDICARE, OTHER, SELFPAY ==
[2022-08-02 12:20] VITALS: BP 154/78; PULSE 74; RESP 18; TEMP 36.6; O2SAT 98
[2022-08-02] MEDS: ferric carboxy (IVPB) 750 MG in sodium chloride 0.9% (100 ml) 100 ML 345 MG IV (12:47)
[2022-08-02 12:51] VITALS: BP 157/76; PULSE 71; RESP 18; TEMP 36.6; O2SAT 97
[2022-08-09 12:25] VITALS: BP 183/75; PULSE 73; RESP 18; TEMP 35.9; O2SAT 99
[2022-08-09] MEDS: sodium chloride 0.9% 250 ML 75 ML IV (12:50)
[2022-08-09] MEDS: ferric carboxy (IVPB) 750 MG in sodium chloride 0.9% (100 ml) 100 ML 345 MG IV (12:51)
[2022-08-09 13:20] VITALS: BP 178/71; PULSE 73; RESP 18; TEMP 32.8; O2SAT 99
== END 2022-08-09 23:59 | disposition home or self-care (01) ==
PROVIDERS: PCP Nurse Practitioner Family; Visit Provider Internal Medicine Hematology & Oncology
DX: D50.9 Iron deficiency anemia, unspecified (principal)
CPT/HCPCS: 96365; J1439; J7050

== ENCOUNTER → 2022-08-30 09:19 | Outpatient (BNVA) | payer MEDICARE, OTHER, SELFPAY | PROVIDERS: PCP Nurse Practitioner Family; Visit Provider Internal Medicine Hematology & Oncology | DX: D64.9 Anemia, unspecified (principal); K29.71 Gastritis, unspecified, with bleeding | CPT/HCPCS: 82728; 83550; 85025 ==

== ENCOUNTER → 2022-08-31 09:30 | Outpatient (BNVA) | payer OTHER, MEDICARE, SELFPAY | PROVIDERS: PCP Nurse Practitioner Family; Referring Provider Emergency Medicine Emergency Medical Services; Visit Provider Dermatology | DX: L82.1 Other seborrheic keratosis (principal); L57.0 Actinic keratosis; L91.8 Other hypertrophic disorders of the skin; L81.4 Other melanin hyperpigmentation | CPT/HCPCS: 11102; 17000; 17003; 99203 ==

== ENCOUNTER 2022-09-05 13:21 | Oncology outpatient (recurring) (ONCR) | payer MEDICARE, OTHER, SELFPAY ==
[2022-09-05 13:33] VITALS: BP 168/71; PULSE 75; RESP 18; TEMP 37.1; O2SAT 97
[2022-09-05 13:46] LABS: Basophils % 0.7 %; Eosinophils # 0.1 10^3/uL (0.0-0.8); Eosinophils % 2.2 %; Hematocrit 28.2 % (42.0-52.0); Hemoglobin 9.3 g/dL (11.7-16.6); Lymphocytes # 0.7 10^3/uL (0.8-4.8); Lymphocytes % 17.3 %; Mean Corpuscular Hemoglobin 28.1 pg (28.0-34.0); Mean Corpuscular Volume 85.2 fl (80-94); Mean Platelet Volume 10.8 fL (7.4-10.4); Monocytes # 0.3 10^3/uL (0.2-0.9); Monocytes % 7.7 %; Neutrophils # 2.89 10^3/uL (1.8-7.7); Neutrophils % 71.6 %; Nucleated Red Blood Cells % 0 %; Platelet Count 107 10^3/cmm (130-400); Red Blood Count 3.31 10^6/uL (4.1-5.3); Red Cell Distribution Width 16.6 % (12.1-15.1)
[2022-09-05 14:12] LABS: Ferritin 730 ng/mL (30-400); Iron 65 ug/dL (59-158); Percent Saturation 30.3 % (20-50); Total Iron Binding Capacity 214 mcg/dl; Unsaturated Iron Binding 149 ug/dL (112-347)
== END 2022-09-08 23:59 | disposition home or self-care (01) ==
PROVIDERS: PCP Nurse Practitioner Family; Visit Provider Internal Medicine Hematology & Oncology
DX: Z79.899 Other long term (current) drug therapy; Z87.891 Personal history of nicotine dependence; K29.71 Gastritis, unspecified, with bleeding; D64.9 Anemia, unspecified
CPT/HCPCS: 36415; 51798; 81003; 82728; 83540; 83550; 85025; 99213; 99214

== ENCOUNTER → 2022-09-11 13:36 | Outpatient (BNVA) | payer MEDICARE, OTHER, SELFPAY | PROVIDERS: PCP Nurse Practitioner Family; Visit Provider Internal Medicine Cardiovascular Disease | DX: I70.90 Unspecified atherosclerosis (principal); E78.2 Mixed hyperlipidemia; I12.9 Hypertensive chronic kidney disease with stage 1 through stage 4 chronic kidney disease, or unspecified chronic kidney disease; E11.22 Type 2 diabetes mellitus with diabetic chronic kidney disease; N18.2 Chronic kidney disease, stage 2 (mild); Z87.891 Personal history of nicotine dependence; Z79.4 Long term (current) use of insulin; Z95.0 Presence of cardiac pacemaker | CPT/HCPCS: 99214 ==

== ENCOUNTER → 2022-11-20 13:23 | Outpatient (BNVA) | payer MEDICARE, OTHER, SELFPAY | PROVIDERS: PCP Nurse Practitioner Family; Visit Provider Internal Medicine Medical Oncology | DX: D64.9 Anemia, unspecified (principal) | CPT/HCPCS: 85025 ==

== ENCOUNTER 2022-11-22 14:36 | Oncology outpatient (recurring) (ONCR) | payer MEDICARE, OTHER, SELFPAY | END 2022-12-09 23:59 | disposition home or self-care (01) | PROVIDERS: PCP Nurse Practitioner Family; Visit Provider Internal Medicine Hematology & Oncology | DX: D64.9 Anemia, unspecified (principal); K29.71 Gastritis, unspecified, with bleeding; I12.9 Hypertensive chronic kidney disease with stage 1 through stage 4 chronic kidney disease, or unspecified chronic kidney disease; N18.9 Chronic kidney disease, unspecified | CPT/HCPCS: 99214 ==

== ENCOUNTER → 2022-12-12 11:22 | Outpatient (BNVA) | payer MEDICARE, OTHER, SELFPAY | PROVIDERS: PCP Nurse Practitioner Family; Visit Provider Nurse Practitioner Family | DX: N18.9 Chronic kidney disease, unspecified (principal); E55.9 Vitamin D deficiency, unspecified | CPT/HCPCS: 80069; 82043; 82306; 82542; 85025 ==

== ENCOUNTER → 2022-12-18 11:07 | Outpatient (BNVA) | payer OTHER, MEDICARE, SELFPAY | PROVIDERS: PCP Nurse Practitioner Family; Visit Provider Nurse Practitioner Family | DX: L57.0 Actinic keratosis (principal); L82.1 Other seborrheic keratosis; D18.01 Hemangioma of skin and subcutaneous tissue; L91.8 Other hypertrophic disorders of the skin | CPT/HCPCS: 17000; 99213 ==

== ENCOUNTER → 2022-12-19 08:35 | Outpatient (BNVA) | payer MEDICARE, OTHER, SELFPAY | PROVIDERS: PCP Nurse Practitioner Family; Visit Provider Internal Medicine Medical Oncology | DX: D64.9 Anemia, unspecified (principal); K29.71 Gastritis, unspecified, with bleeding | CPT/HCPCS: 82728; 83550; 85025 ==

== ENCOUNTER 2022-12-20 14:42 | Oncology outpatient (recurring) (ONCR) | payer MEDICARE, OTHER, SELFPAY ==
--- OUTSIDE RECORDS SUMMARY | 2022-12-20 14:43 | XMS_ITS | Patient Health Record ---
Author Name Unknown Organization [facility] Address [address] [place] [address] Support Name Relationship Address Phone Tad Deleon Guarantor Unknown [phone] ALLERGIES Allergen (clinical drug ingredient) Drug/Non Drug Allergy documented on EMR Reaction Allergy Type Onset Date Status atenolol Atenolol , Drug Allergy Active Tenormin (atenolol) Unknown Drug Allergy 945 Active REASON FOR REFERRAL No Information MEDICATIONS Medication SIG (Take, Route, Frequency, Duration) Notes Start Date End Date Status Enalapril Maleate 10 MG Oral Tablet Enalapril Maleate 10 MG Oral Tablet 3 03/12/18 Active ferrous sulfate 325 MG Oral Tablet ferrous sulfate 325 MG Oral Tablet 3 03/12/18 Active Nitroglycerin 0.4 MG Sublingual Tablet [Nitrostat] Nitroglycerin 0.4 MG Sublingual Tablet [Nitrostat] 3 03/12/18 Active Trazodone Hydrochloride 100 MG Oral Tablet Trazodone Hydrochloride 100 MG Oral Tablet 3 03/12/18 Active Hydrochlorothiazide 12.5 MG Oral Capsule Hydrochlorothiazide 12.5 MG Oral Capsule 3 03/12/18 Active atorvastatin 40 MG Oral Tablet atorvastatin 40 MG Oral Tablet 3 03/12/18 Active clopidogrel 75 MG Oral Tablet clopidogrel 75 MG Oral Tablet 3 03/12/18 Active Losartan Potassium 100 MG Oral Tablet Losartan Potassium 100 MG Oral Tablet 3 03/12/18 Active gabapentin 100 MG Oral Tablet gabapentin 100 MG Oral Tablet 3 03/12/18 Active Gemfibrozil 600 MG Oral Tablet Gemfibrozil 600 MG Oral Tablet 3 03/12/18 Active Aspirin 81 MG Oral Tablet Aspirin 81 MG Oral Tablet 3 01/01/19 00 Active SOCIAL HISTORY Sex Assigned At : Social History Observation Description Sex Assigned At Unknown PROBLEMS Problem Type ICD Code Onset Dates Problem Status W/U Status Risk SNOMED Code Notes Problem Atherosclerotic heart disease of [place] coronary artery without angina pectoris (I25.10) Active confirmed Atherosclerotic heart disease of [place] coronary artery without angina pectoris (430069918608824 ) [id number] ed Description:Essie nary arteriosclerosis Problem Paroxysmal atrial fibrillation (I48.0) Active confirmed Paroxysmal atrial fibrillation (328998195) [id number] ed Description:Paro xysmal atrial fibrillation Problem Shortness of breath (R06.02) Active confirmed Shortness of breath (391342590) [id number]- Problem Presence of cardiac pacemaker (Z95.0) Active confirmed Cardiac pacemaker in situ (844135550) [id number] ed Description:Card iac pacemaker in situ Problem Presence of coronary angioplasty implant and graft (Z95.5) Active confirmed Post percutaneous transluminal coronary angioplasty (356942489) [id number] ed Description:Hist ory of placement of stent for coronary artery disease Problem Sick sinus syndrome (I49.5) Active confirmed Sick sinus syndrome (16392443) [id number]-Thln ed Description:Sick sinus syndrome Problem Essential primary hypertension (I10) Active confirmed Essential hypertension (60725415) [id number]-Thle ed Description:Esse ntial hypertension PLAN OF TREATMENT No Information
== END 2023-01-09 23:59 | disposition home or self-care (01) ==
PROVIDERS: PCP Nurse Practitioner Family; Visit Provider Internal Medicine Hematology & Oncology
DX: D64.9 Anemia, unspecified (principal); K29.71 Gastritis, unspecified, with bleeding; I12.9 Hypertensive chronic kidney disease with stage 1 through stage 4 chronic kidney disease, or unspecified chronic kidney disease; N18.9 Chronic kidney disease, unspecified
CPT/HCPCS: 99214

== ENCOUNTER → 2023-01-12 08:21 | Outpatient (BNVA) | payer MEDICARE, OTHER, SELFPAY | PROVIDERS: PCP Nurse Practitioner Family; Visit Provider Internal Medicine Medical Oncology | DX: D64.9 Anemia, unspecified (principal); K29.71 Gastritis, unspecified, with bleeding | CPT/HCPCS: 80053; 82728; 83550; 85025 ==

== ENCOUNTER 2023-01-17 14:58 | Oncology outpatient (recurring) (ONCR) | payer MEDICARE, OTHER, SELFPAY ==
--- OUTSIDE RECORDS SUMMARY | 2023-01-17 15:00 | XMS_ITS | Patient Health Record ---
Author Name Unknown Organization [facility] Address [address] [facility] [place] [address] Care Team Providers Care Grinder Hand Name Role Phone Paris Dennis Primary Care Provider Bandar Woods Unavailable [phone] Jazmin Barksdale Unavailable [phone] ALLERGIES Allergen (clinical drug ingredient) Drug/Non Drug Allergy documented on EMR Reaction Allergy Type Onset Date Status atenolol Atenolol , Drug Allergy Active Tenormin (atenolol) Unknown Drug Allergy 945 Active niacin Niacin Unknown Drug Allergy Active REASON FOR REFERRAL Reason Gastritis w/Bleeding , Anemia Appt 01/11 Referring Provider First Name Paris Referring Provider Last Name Jeannie Referred Organization [facility] Referred Provider Faraz French shelly [facility] Referred Address [address] [place],[address] Referred Provider Specialty Gastroentero logy General Notes Amalia Reid 12/26 09:34:37 AM >3 year Referral Priority Routine MEDICATIONS Medication SIG (Take, Route, Frequency, Duration) Notes Start Date End Date Status Fluticasone Propionate 50 MCG/ACT 1 spray in each nostril Nasally Once a day Active Nitroglycerin 0.4 MG Sublingual Tablet [Nitrostat] Nitroglycerin 0.4 MG Sublingual Tablet [Nitrostat] 09/27/19 13 Not-Takin g Colchicine 0.6 MG 1 tablet Orally Active Losartan Potassium 100 MG Oral Tablet Losartan Potassium 100 MG Oral Tablet 09/27/19 13 Not-Takin g hydrALAZINE HCl 50 MG 1 tablet with food Orally Three times a day Active Cetirizine HCl 10 MG 1 tablet Orally Once a day Active Aspirin 81 MG Oral Tablet Aspirin 81 MG Oral Tablet 09/27/19 13 Active Carvedilol 25 MG 1 tablet with food Orally Twice a day Active Clopidogrel Bisulfate 75 MG 1 tablet Orally Once a day Active Cholecalciferol 50 MCG (2000 UT) 1 tablet Orally Once a day Active Enalapril Maleate 10 MG Oral Tablet Enalapril Maleate 10 MG Oral Tablet 09/27/19 13 Kapil jha Levothyroxine Sodium 25 MCG 1 tablet in the morning on an empty stomach Orally Once a day Active Isosorbide Mononitrate ER 30 MG 1 tablet in the morning Orally Once a day Active NIFEdipine ER 30 MG 1 tablet on an empty stomach Orally Once a day Active ferrous sulfate 325 MG Oral Tablet ferrous sulfate 325 MG Oral Tablet 09/27/19 13 Kapil jha Magnesium Lactate 84 MG (7MEQ) 1 tablet Orally every 12 hrs Active Valsartan 160 MG as directed Orally daily Active Albuterol Sulfate HFA 108 (90 Base) MCG/ACT 1 puff as needed Inhalation every 4 hrs Active traZODone HCl 100 MG 1 tablet at bedtime Orally Once a day Active Vitamin C 500 MG as directed Orally Once a day Active [place] DHA - as directed Orally daily Active Nitroglycerin 0.4 MG as directed Sublingual Active Potassium Chloride 10 MEQ/50ML as directed Intravenous Active Vitamin B Complex - as directed Orally daily Active Pantoprazole Sodium 40 MG 1 tablet Orally Once a day Active Hydrochlorothiazide 12.5 MG Oral Capsule Hydrochlorothiazide 12.5 MG Oral Capsule 09/27/19 13 Kapil jha atorvastatin 40 MG Oral Tablet atorvastatin 40 MG Oral Tablet 09/27/19 13 Active Aspirin 81 81 MG 1 tablet Orally Once a day Active clopidogrel 75 MG Oral Tablet clopidogrel 75 MG Oral Tablet 09/27/19 13 Active Trazodone Hydrochloride 100 MG Oral Tablet Trazodone Hydrochloride 100 MG Oral Tablet 09/27/19 13 Active Bumetanide 0.5 MG 1 tablet Orally Once a day Active Gemfibrozil 600 MG Oral Tablet Gemfibrozil 600 MG Oral Tablet 09/27/19 13 Kapil jha gabapentin 100 MG Oral Tablet gabapentin 100 MG Oral Tablet 09/27/19 13 Active Atorvastatin Calcium 80 MG 1 tablet Orally Once a day Active Cefdinir 300 MG as directed Orally twice daily Active SOCIAL HISTORY Tobacco Use: Social History Observation Description Date Details (start date - stop date) Former Smoker NA - NA Sex Assigned At : Social History Observation Description Sex Assigned At Unknown Tobacco Use/Smoking Question Answer Notes Are you a former smoker Alcohol Screen (Audit-C) Question Answer Notes Did you have a drink containing alcohol in the p ast year? No Points 0 Interpretation Negative PROBLEMS Problem Type ICD Code Onset Dates Problem Status W/U Status Risk SNOMED Code Notes Problem Iron deficiency anemia, unspecified iron deficiency anemia type (D50.9) Active confirmed 50950857 Problem Atherosclerotic heart disease of [place] coronary artery without angina pectoris (I25.10) Active confirmed Atherosclerotic heart disease of [place] coronary artery without angina pectoris (138661264067031 ) [id number] ed Description:Essie nary arteriosclerosis Problem Paroxysmal atrial fibrillation (I48.0) Active confirmed Paroxysmal atrial fibrillation (664010012) [id number] ed Description:Paro xysmal atrial fibrillation Problem Shortness of breath (R06.02) Active confirmed Shortness of breath (089805818) [id number]- Problem Presence of cardiac pacemaker (Z95.0) Active confirmed Cardiac pacemaker in situ (208613238) [id number]-Fmdv ed Description:Card iac pacemaker in situ Problem Presence of coronary angioplasty implant and graft (Z95.5) Active confirmed Post percutaneous transluminal coronary angioplasty (977304330) [id number] ed Description:Hist ory of placement of stent for coronary artery disease Problem Sick sinus syndrome (I49.5) Active confirmed Sick sinus syndrome (01419444) [id number]-Mxjw ed Description:Sick sinus syndrome Problem Essential primary hypertension (I10) Active confirmed Essential hypertension (93324882) [id number]-Easl ed Description:Esse ntial hypertension VITAL SIGNS Heart Rate 72 /min 01/11/2023 Temperature 98 degrees Fahrenheit 01/11/2023 Respiratory Rate 18 /min 01/11/2023 Oximetry 99 % 01/11/2023 Blood pressure diastolic 70 mm Hg 01/11/2023 Weight-kg 96.52 kg 01/11/2023 Height 73 in 01/11/2023 Blood pressure systolic 160 mm Hg 01/11/2023 Weight 212.8 lbs 01/11/2023 BMI 28.07 kg/m2 01/11/2023 Encounters Encounter Location Date Provider Diagnosis [facility] [address] [place] [address] 01/16/2023 Bandar Matthews [facility] [address] [place] [address] 01/02/2023 Jazmin Barksdale Iron deficiency anemia, unspecified iron deficiency anemia type D50.9 [facility] [address] [place] [address] 01/11/2023 Bandar Matthews Chronic anemia D64.9 ASSESSMENTS Encounter Date Diagnosis Assessment Notes Treatment Notes Treatment Clinical Notes 01/02/2023 Iron deficiency anemia, unspecified iron deficiency anemia type (ICD-10 - D50.9) 01/11/2023 Chronic anemia (ICD-10 - D64.9) PLAN OF TREATMENT No Information Insurance Providers Payer Name Payer Address Payer Phone Subscriber Number Group Number Insured Name Patient Relationship to Insured Coverage Start Date Coverage End Date [place] Medicare [address] DAISHA ÁLVAREZ [phone] [id number] Tad Deleon Self - patient is the insured [facility] Insurance [address] [address] DAVI VINCENT [phone] [id number] Tad Deleon Self - patient is the insured MEDICAL (GENERAL) HISTORY Medical History History ICD Code arthritis iron deficiency anemia diabetes hypertension asthma colon polyps congestive heart failure coronary artery disease Surgical History Surgery Date(Month/Year) Bilateral carotid endarterectomy coronary artery stent x 5 1999 pacemaker implant Left knee replacement 2022 Hospitalization History Reason Date(Month/Year) See history
== END 2023-02-08 23:59 | disposition home or self-care (01) ==
PROVIDERS: PCP Nurse Practitioner Family; Visit Provider Internal Medicine Hematology & Oncology
DX: D64.9 Anemia, unspecified (principal); K29.71 Gastritis, unspecified, with bleeding; I12.9 Hypertensive chronic kidney disease with stage 1 through stage 4 chronic kidney disease, or unspecified chronic kidney disease; N18.9 Chronic kidney disease, unspecified; D50.9 Iron deficiency anemia, unspecified; D69.6 Thrombocytopenia, unspecified; Z79.899 Other long term (current) drug therapy; Z87.891 Personal history of nicotine dependence; K29.50 Unspecified chronic gastritis without bleeding; Z89.021 Acquired absence of right finger(s); D63.1 Anemia in chronic kidney disease; I48.0 Paroxysmal atrial fibrillation; E11.22 Type 2 diabetes mellitus with diabetic chronic kidney disease; Z79.4 Long term (current) use of insulin; R06.02 Shortness of breath
CPT/HCPCS: 99213

== ENCOUNTER → 2023-02-12 12:44 | Outpatient (BNVA) | payer MEDICARE, OTHER, SELFPAY | PROVIDERS: PCP Nurse Practitioner Family; Visit Provider Internal Medicine Medical Oncology | DX: D64.9 Anemia, unspecified (principal) | CPT/HCPCS: 80053; 83550; 85025 ==

== ENCOUNTER 2023-02-14 07:54 | Oncology outpatient (recurring) (ONCR) | payer MEDICARE, OTHER, SELFPAY ==
--- OUTSIDE RECORDS SUMMARY | 2023-02-14 07:56 | XMS_ITS | Patient Health Record ---
Author Name Unknown Organization [facility] Address [address] [place] [address] Care Team Providers Care Sweatband Flanger Name Role Phone Paris Dennis Primary Care Provider Bandar Woods Unavailable [phone] Jazmin Barksdale Unavailable [phone] ALLERGIES Allergen (clinical drug ingredient) Drug/Non Drug Allergy documented on EMR Reaction Allergy Type Onset Date Status atenolol Atenolol , Drug Allergy Active Tenormin (atenolol) Unknown Drug Allergy 945 Active niacin Niacin Unknown Drug Allergy Active REASON FOR REFERRAL Reason Gastritis w/Bleeding , Anemia Appt 01/11 Referring Provider First Name Paris Referring Provider Last Name Jeannie Referred Organization [facility] Referred Provider Faraz French shelly [facility] Referred Address [address] [place],[address] Referred Provider Specialty Gastroentero logy General Notes [...] as directed Orally Once a day Active [place] DHA - as directed Orally daily Active [...] W/U Status Risk SNOMED Code Notes Problem Presence of coronary angioplasty implant and graft (Z95.5) Active confirmed Post percutaneous transluminal coronary angioplasty (090562393) [id number] ed Description:Hist ory of placement of stent for coronary artery disease Problem Sick sinus syndrome (I49.5) Active confirmed Sick sinus syndrome (31544839) [id number]-Uxnp ed Description:Sick sinus syndrome Problem Essential primary hypertension (I10) Active confirmed Essential hypertension (33561387) [id number]-Bayu ed Description:Esse ntial hypertension Problem Presence of cardiac pacemaker (Z95.0) Active confirmed Cardiac pacemaker in situ (331383996) [id number]-Zxrj ed Description:Card iac pacemaker in situ Problem Shortness of breath (R06.02) Active confirmed Shortness of breath (775992699) Dominic-8457817- Problem Paroxysmal atrial fibrillation (I48.0) Active confirmed Paroxysmal atrial fibrillation (796226300) [id number]-Ekpa ed Description:Paro xysmal atrial fibrillation Problem Atherosclerotic heart disease of [place] coronary artery without angina pectoris (I25.10) Active confirmed Atherosclerotic heart disease of [place] coronary artery without angina pectoris (329398765501788 ) [id number]-Uzuf ed Description:Essie nary arteriosclerosis Problem Iron deficiency anemia, unspecified iron deficiency anemia type (D50.9) Active confirmed 65288171 VITAL SIGNS Heart Rate 72 /min 01/11/2023 Temperature 98 degrees Fahrenheit 01/11/2023 Respiratory Rate 18 /min 01/11/2023 Oximetry 99 % 01/11/2023 Blood pressure diastolic 70 mm Hg 01/11/2023 Weight-kg 96.52 kg 01/11/2023 Height 73 in 01/11/2023 Blood pressure systolic 160 mm Hg 01/11/2023 Weight 212.8 lbs 01/11/2023 BMI 28.07 kg/m2 01/11/2023 Encounters Encounter Location Date Provider Diagnosis [facility] [address] [place] [address] 01/23/2023 Bandar Matthews [facility] [address] [place] [address] 01/02/2023 Jazmin Barksdale Iron deficiency anemia, unspecified iron deficiency anemia type D50.9 [facility] [address] [place] [address] 01/11/2023 Bandar Matthews Chronic anemia D64.9 ASSESSMENTS [...] [place] Medicare [address] DAISHA ÁLVAREZ [phone] [id number] Tad Deleon Self - patient is the insured [facility] Insurance [address] [address] DAV[place] VINC[place] [phone] [id number] Tad Deleon Self - patient is the insured MEDICAL (GENERAL) HISTORY Medical History History ICD Code arthritis iron deficiency anemia diabetes hypertension asthma colon polyps congestive heart failure coronary artery disease Surgical History Surgery Date(Month/Year) Left knee replacement 2022 pacemaker implant coronary artery stent x 5 1999 Bilateral carotid endarterectomy Hospitalization History Reason Date(Month/Year) See history
[2023-02-14 09:10] LABS: Ferritin 77 ng/mL (30-400)
== END 2023-03-11 23:59 | disposition home or self-care (01) ==
PROVIDERS: Internal Medicine; PCP Nurse Practitioner Family; Visit Provider Internal Medicine Hematology & Oncology
DX: D64.9 Anemia, unspecified (principal); K29.71 Gastritis, unspecified, with bleeding; I12.9 Hypertensive chronic kidney disease with stage 1 through stage 4 chronic kidney disease, or unspecified chronic kidney disease; N18.9 Chronic kidney disease, unspecified; D50.9 Iron deficiency anemia, unspecified; D69.6 Thrombocytopenia, unspecified; Z79.899 Other long term (current) drug therapy; Z87.891 Personal history of nicotine dependence; K29.50 Unspecified chronic gastritis without bleeding; Z89.021 Acquired absence of right finger(s); D63.1 Anemia in chronic kidney disease; I48.0 Paroxysmal atrial fibrillation; E11.22 Type 2 diabetes mellitus with diabetic chronic kidney disease; Z79.4 Long term (current) use of insulin; R06.02 Shortness of breath
CPT/HCPCS: 82728; 99214

== ENCOUNTER → 2023-02-20 13:56 | Outpatient (BNVA) | payer MEDICARE, OTHER, SELFPAY | PROVIDERS: PCP Nurse Practitioner Family; Visit Provider Internal Medicine Gastroenterology | DX: D64.9 Anemia, unspecified (principal) | CPT/HCPCS: 82668; 85007; 85027 ==

== ENCOUNTER → 2023-03-22 14:12 | Outpatient (BNVA) | payer MEDICARE, OTHER, SELFPAY | PROVIDERS: PCP Nurse Practitioner Family; Visit Provider Internal Medicine Cardiovascular Disease | DX: R07.9 Chest pain, unspecified (principal); I65.21 Occlusion and stenosis of right carotid artery; I10 Essential (primary) hypertension; E78.2 Mixed hyperlipidemia; E11.9 Type 2 diabetes mellitus without complications; Z87.891 Personal history of nicotine dependence; R94.31 Abnormal electrocardiogram [ECG] [EKG] | CPT/HCPCS: 93005; 99214 ==

== ENCOUNTER 2023-04-03 06:03 | Outpatient (CLI) | payer MEDICARE, OTHER, SELFPAY ==
--- NOTE | 2023-04-03 07:00 | USCV_ITS ---
Tad Deleon Age: 77 Gender: M : 1945 Exam Date: 04/03/2023 06:12 Ordering Phys: Sophie Nelson MD ([email or web address]) Technologist: MAMI Exam Location: [facility] [place] Indication: BRUIT Risk Factors: Previous Vascular Surgery: Right Brachial BP: / Left Brachial BP: / Right Left Velocity (cm/s) Spectral Plaque Velocity (cm/s) Spectral Plaque Syst/Diast Broadening Syst/Diast Broadening 55.90/ 17.90 Prox CCA 68.40 / 11.00 58.30/ 20.20 Mid CCA 66.70 / 15.40 43.50/ 15.50 Distal CCA 76.90 / 14.50 120.30/39.60 Prox ICA 57.20 / 15.00 105.10/37.60 Mid ICA 97.50 / 26.30 110.30/40.80 Distal ICA 94.70 / 31.90 217.20 ECA 92.90 2.06 ICA/CCA 1.27 Antegrade Vertebral Antegrade 95.90/ 23.20 cm/s 70.60/ 14.30 cm/s Tri Subclavian Tri 78.30 161.9 0 FINDINGS Mild diffuse plaques in the common carotid, internal carotid and bifurcations bilaterally Antegrade flow in the vertebral arteries bilaterally. Elevated Doppler velocity in the right external carotid artery Normal Doppler flow velocities in the right subclavian artery. Slightly elevated velocity in the left subclavian artery possibly from tortuosity Normal Doppler velocities in the vertebral arteries bilaterally CONCLUSIONS Mild diffuse plaques in the common carotid, internal carotid and bifurcations bilaterally with Doppler flow velocities suggesting less than 50% stenosis.. Elevated velocity in the right external carotid artery, suggesting hemodynamically significant stenosis. Elevated velocity in the left subclavian artery, possibly from tortuosity Compared to the study from 01/23/2020, the plaque burden on the right side appears to be much less Dr Sophie Nelson MD [facility] (Electronically Signed) Final Date: 04 April 2023 18:38 S
== END 2023-04-03 06:04 | disposition home or self-care (01) ==
LOC: RAD 06:03
PROVIDERS: PCP Nurse Practitioner Family; Visit Provider Internal Medicine Cardiovascular Disease
DX: I65.23 Occlusion and stenosis of bilateral carotid arteries (principal); R09.89 Other specified symptoms and signs involving the circulatory and respiratory systems
CPT/HCPCS: 93880

== ENCOUNTER 2023-04-03 06:26 | Outpatient (CLI) | payer MEDICARE, OTHER, SELFPAY ==
--- NOTE | 2023-04-03 | ECG_ITS ---
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 Interpretive Statements NAME OF STUDY: LEXISCAN SESTAMIBI STRESS TEST INDICATION: Chest Pain: RESULTS TO RAVI DEE PROCEDURE: At the baseline, the EKG revealed normal sinus rhythm with a nonspecific IVCD. V2 V3 lead reversal. Some nonspecific T wave changes. The baseline heart was 77 bpm with a blood pressue of 193/93 mm of Hg Lexiscan was infused over a period of 20 seconds. A total of 0.4 milligrams of Lexiscan was infused. The stress phase was continued for a total of 5 minutes. Heart rate at the end of the stress phase was 71 bpm with a blood pressure 170/76 mm of Hg. The EKG at the peak infusion revealed no significant changes. Sestamibi was injected 20 seconds after the Lexiscan infusion. Heart rate at the end of the recovery phase was 70 bpm with a blood pressure of 169/73 mm of Hg. CONCLUSION: 1. No significant EKG changes with the LexiScan infusion 2. No LexiScan induced chest pain or cardiac arrhythmia 3. Normal blood pressure and heart rate response 4. Sestamibi/sestamibi perfusion scan pending; see separate report. Electronically Signed On 04-06-2023 9:18:40 FRANCHISE SALES DIRECTOR by Sophie Nelson M.D. [id number]
[2023-04-03 07:41] VITALS: BMI 29.0
--- NOTE | 2023-04-03 07:46 | NMCV_ITS ---
NM kayleen perf SPECT r/s* [id number] Tad Deleon Age: 77 Gender: M : 1945 Exam Date: 04/03/2023 08:16 Ordering Phys: Sophie Nelson MD ([email or web address]) Technologist: TATI Andre Exam Location: [facility] Indications: CORONARY ANGIOPLASTY STATUS STRESS TEST Please see separate stress test report [facility] for full findings IMAGE PROTOCOL Rest/Stress 1 Lexiscan Day Radiopharmaceutical Dose (mCi) Administration Site Administered by Rest: Tc-99m 11.0 IV TATI Meek Sestamibi Stress:Tc-99m 32.7 IV TATI Meek Sestamibi Rest: 03-Apr-2023 60 Discovery 630 Stress: 03-Apr-2023 30 Discovery 630 0.4mg Lexiscan. Images obtained in supine and prone position. SPECT RESULTS Technical Quality: Excellent Raw Data Analysis: Normal Image Corrections: No attenuation or motion correction applied Summed Stress Score: 17 Summed Rest Score: 7 Summed Difference Score: 10 PERFUSION FINDINGS Moderate area of moderate to severely decreased aseptic involving the basal, mid and apical inferior, basal and mid inferolateral, apical lateral and LV apex. Some reversibility was noted in the basal and mid inferior and inferolateral regions. FUNCTIONAL RESULTS (calculated via Gated SPECT) Stress Image LV EF (%): 53 Stress EDV (mL):145 TID: 0.85 Stress ESV (mL):68 FUNCTIONAL FINDINGS: Segmental wall motion analysis revealed no significant wall motion abnormalities. IMPRESSIONS 1. Myocardial perfusion imaging revealing moderate area of moderate to severely decreased tracer uptake involving the inferior, inferolateral and apical regions with some reversibility in the basal and mid inferior and inferolateral regions suggesting myocardial scarring with ischemia in the distribution of the right coronary artery/circumflex artery. 2. Normal LV ejection fraction of 53%. 3. LV wall motion analysis revealing no gross wall motion abnormalities. 4. Mildly dilated LV cavity with an end-systolic volume of 68 ml Compared to the study from 09/09/2021, the ischemia appears to be new Dr Sophie Nelson MD [facility] (Electronically Signed) Final Date: 03 April 2023 10:20 S
[2023-04-03] MEDS: regadenoson 0.4 Mg/5 ml Syringe IVP (09:00)
[2023-04-03 09:16] VITALS: BP 153/84; PULSE 70
== END 2023-04-03 06:27 | disposition home or self-care (01) ==
PROVIDERS: PCP Nurse Practitioner Family; Visit Provider Internal Medicine Cardiovascular Disease
DX: R07.9 Chest pain, unspecified (principal); Z98.61 Coronary angioplasty status; R93.1 Abnormal findings on diagnostic imaging of heart and coronary circulation; I65.23 Occlusion and stenosis of bilateral carotid arteries; I51.7 Cardiomegaly; R09.89 Other specified symptoms and signs involving the circulatory and respiratory systems
CPT/HCPCS: 36415; 78452; 93017; 93880; 96374; A9500; J2785

== ENCOUNTER 2023-04-17 07:14 | Outpatient (CLI) | payer MEDICARE, OTHER, SELFPAY ==
--- NOTE | 2023-04-17 07:30 | US_ITS ---
WS: [id number] Complete ABDOMINAL ULTRASOUND HISTORY: thrombocytopenia COMPARISON: Renal ultrasound 03/02/2021 Liver: 13.7 cm in length. Normal size liver. Mild coarse echotexture throughout the liver but no mass . Portal Vein: Normal hepatopetal flow with monophasic waveform. Gallbladder: Normally distended gallbladder with no stones or wall thickening. CBD: 0.5 cm Pancreas: Normal size and echogenicity. Right kidney: 13.6 cm x 6.0 x 5.4 cm. Cortex: 1.0 cm. RIGHT kidney is normal size with mild thinning of the cortex. There are numerous cysts throughout the kidney. The largest cyst reidentified in the upper pole measures 5.7 x 6.1 x 6.0 cm with very slight increase in size since the prior study. There are numerous cysts identified. No solid mass. Left kidney: 13.8 cm x 6.9 cm x 6.6 cm. Cortex: 1.6 cm. Normal size kidney with numerous simple cysts. No hydronephrosis. Largest cyst measures 6.6 x 5.6 x 6 .5 cm. This cyst has increased slightly in size. Spleen: 12.9 cm. Normal. Aorta and IVC: Unremarkable abdominal aorta and IVC. Impression: 1. Normal gallbladder. 2. No hydronephrosis. 3. Numerous bilateral renal cysts. The largest cysts have slightly increased in size since . 4. Mild changes of mild hepatocellular disease or hepatic steatosis.
== END 2023-04-17 07:15 | disposition home or self-care (01) ==
LOC: RAD 07:14
PROVIDERS: PCP Nurse Practitioner Family; Visit Provider Internal Medicine
DX: D69.6 Thrombocytopenia, unspecified (principal); N28.1 Cyst of kidney, acquired
CPT/HCPCS: 76700

== ENCOUNTER → 2023-05-01 14:01 | Outpatient (BNVA) | payer MEDICARE, OTHER, SELFPAY | PROVIDERS: PCP Nurse Practitioner Family; Visit Provider Nurse Practitioner Family | DX: R05.9 Cough, unspecified (principal) | CPT/HCPCS: 71046; 87400; 87426 ==

== ENCOUNTER → 2023-05-14 18:07 | Outpatient (BNVA) | payer MEDICARE, OTHER, SELFPAY | PROVIDERS: PCP Nurse Practitioner Family; Visit Provider Nurse Practitioner Family | DX: E11.22 Type 2 diabetes mellitus with diabetic chronic kidney disease (principal); D64.9 Anemia, unspecified | CPT/HCPCS: 83036; 85025 ==

== ENCOUNTER → 2023-05-29 12:15 | Outpatient (BNVA) | payer MEDICARE, OTHER, SELFPAY | PROVIDERS: PCP Nurse Practitioner Family; Visit Provider Internal Medicine Medical Oncology | DX: I10 Essential (primary) hypertension (principal); E78.2 Mixed hyperlipidemia | CPT/HCPCS: 80053; 82607; 82728; 82746; 83883; 83921; 84155; 84156; 84165; 84166; 84238; 85025; 85045; 85610; 86334; 86335 ==

== ENCOUNTER 2023-06-06 11:34 | Oncology outpatient (recurring) (ONCR) | payer MEDICARE, OTHER, SELFPAY ==
[2023-06-06] MEDS: ferric carboxy (IVPB) 750 MG in sodium chloride 0.9% (100 ml) 100 ML 345 MG IV (13:18)
[2023-06-06 13:37] LABS: Ferritin 34 ng/mL (30-400); Iron 50 ug/dL (59-158); Percent Saturation 16.8 % (20-50); Total Iron Binding Capacity 296 mcg/dl; Unsaturated Iron Binding 246 ug/dL (112-347)
[2023-06-06 13:40] VITALS: BP 154/71; PULSE 71; RESP 16; TEMP 36.8; O2SAT 96
[2023-06-06 14:44] LABS: Hepatitis A Antibody IgM Non-Reactive (Nonreactive); Hepatitis B Core AB, Total Non-Reactive (Nonreactive); Hepatitis B Surface AB < 3.5 (11.5-1000); Hepatitis B Surface Antigen Non-Reactive (Nonreactive); Hepatitis C Virus Antibody Non-Reactive (Nonreactive)
[2023-06-07 12:24] LABS: PROTEIN, TOTAL 6.7 g/dL (6.1-8.1)
[2023-06-07 13:41] LABS: Leukemia Profile (BBPL) See Report
[2023-06-08 09:39] LABS: ALBUMIN 4.1 g/dL (3.8-4.8); ALPHA 1 GLOBULIN 0.4 g/dL (0.2-0.3); ALPHA 2 GLOBULIN 0.7 g/dL (0.5-0.9); BETA 1 GLOBULIN 0.4 g/dL (0.4-0.6); BETA 2 GLOBULIN 0.3 g/dL (0.2-0.5); GAMMA GLOBULIN 0.7 g/dL (0.8-1.7)
[2023-06-08 13:19] LABS: Zinc Level, Serum or Plasma 107 mcg/dL (60-130)
[2023-06-08 15:31] LABS: Copper Level 121 mcg/dL (70-175)
[2023-06-09 06:39] LABS: Methylmalonic Acid 237 nmol/L (87-318)
== END 2023-06-10 23:59 | disposition home or self-care (01) ==
PROVIDERS: PCP Nurse Practitioner Family; Visit Provider Internal Medicine
DX: D64.9 Anemia, unspecified (principal); K29.71 Gastritis, unspecified, with bleeding; I12.9 Hypertensive chronic kidney disease with stage 1 through stage 4 chronic kidney disease, or unspecified chronic kidney disease; N18.9 Chronic kidney disease, unspecified; D50.9 Iron deficiency anemia, unspecified; D69.6 Thrombocytopenia, unspecified; Z79.899 Other long term (current) drug therapy; Z87.891 Personal history of nicotine dependence; K29.50 Unspecified chronic gastritis without bleeding; Z89.021 Acquired absence of right finger(s); D63.1 Anemia in chronic kidney disease; I48.0 Paroxysmal atrial fibrillation; E11.22 Type 2 diabetes mellitus with diabetic chronic kidney disease; Z79.4 Long term (current) use of insulin; R06.02 Shortness of breath
CPT/HCPCS: 82525; 82728; 83540; 83550; 83921; 84155; 84165; 84630; 86334; 86705; 86706; 86709; 86803; 87340; 88184; 88185; 96365; 99214; J1439

== ENCOUNTER 2023-06-07 05:43 | Outpatient (CLI) | payer MEDICARE, OTHER, SELFPAY ==
[2023-06-07] VITALS (42 sets, daily range): BP systolic 127–180; BP diastolic 64–94; PULSE 67–85; RESP 6–21; TEMP 36.4–37.2; O2SAT 95–98; BMI 28.3
--- NOTE | 2023-06-07 06:00 | XACV_ITS ---
Ht: 185 cm Wt: 98 kg BSA: 2.26 m2 Gender: Male : 1945 Any Known Allergies: Other Exam Priority: Routine Procedure(s): Procedure Description: Diagnostic procedure Procedure Description: PCI procedure Procedure Description: Left Heart Catheterization Procedure Description: Drug Eluting Coronary Stent Procedure Description: PTCA Procedure Description: Coronary Angiography Diagnostic Cath Status: Elective Diagnostic Findings * The left main is a medium caliber vessel which has a tapering narrowing of around 20% distally. Minimal calcification was noted in the artery. * The left anterior descending artery is a medium caliber vessel which appears to wrap around the LV apex. The artery was found to have extensive stenting in the proximal, mid and distal segments. Near to the proximal end of the proximal stented area, there was a moderate to high-grade in-stent stenosis. Also in the doug stent area of the distal stented segment, high-grade lesions were noted. The artery gives off multiple diagonal branches. Minimal intimal irregularities are noted to the proximal segment of these arteries. * The left circumflex artery is a medium caliber vessel which appears to give of a high obtuse marginal branch which has a long stented segment. This was found to be widely patent. The proximal circumflex artery was found to have a minimal intimal irregularities. * The right coronary artery was found to be totally occluded at the ostium. There was a grade 2 vfhe-iy-aokak collaterals filling of the PLV and PDA branch of the artery. PCI Status: Elective PCI Indication: Other Interventional Findings * PROCEDURE DETAIL: We engaged left main artery with XB 3.5 guide catheter. IV heparin was administered to maintain anticoagulation. 0.014 run-through guidewire was used to cross the stenosis was put in distal LAD. Initially dilated severe ISR of mid to distal stent with 3.0 x 12 mm NC balloon at high pressure. Same balloon was used to predilate proximal LAD stent however there was significant area that was difficult to dilate just proximal to the proximal stent. At this stage we performed angiogram that showed stenosis that was extending below the mid to distal prior stent and was significant. We placed a 2.75 x 12 mm resolute Kike drug-eluting stent overlapping with the prior stent. We then performed IVUS that showed calcified lesion prior to proximal vessel stent which after the ballooning was not severe but as ballooning was just performed we decided to cover it with a 3.5x15mm Resolute kike stent. This stent was post dilated with [id number] balloon. At this time final angiogram was performed that showed excellent stent expansion, no residual stenosis and MATEUS-3 flow. Guidewire and guide catheter were removed. 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 * Proximal Left Anterior Descendin% stenosis treated with a MDT NC EUPHORA RX [id number] BALLOON, MDT R KIKE 2.75X12 VALERIE, MDT R KIKE 3.5X15 VALERIE, and MDT NC EUPHORA RX 3.42P78DY BALLOON. 0% residual stenosis, MATEUS: 3 flow. * Distal Left Anterior Descendin% stenosis treated with a MDT R KIKE 2.75X12 VALERIE. 0% residual stenosis, MATEUS: 3 flow. Conclusions 1. 77-year-old white male with a history of atherosclerotic heart disease and multiple PCI's in the past, is presenting with complaints of increasing episodes of chest pains. Abnormal Myocardial perfusion imaging revealing ischemia in the inferolateral regions. In view of his ongoing symptoms, in order to further evaluate the coronary status, a repeat cardiac catheterization was recommended. Patient underwent left heart catheterization with coronary angiogram today. The findings are as follows. 2. 1. The medium caliber left main artery was found to have a tapering narrowing of around 20% distally.2. The left anterior descending artery is a medium caliber elongated vessel which was found to have moderate to high-grade lesions in the proximal and distal segments mostly in the doug stent region. 3. Patent stented segment of the obtuse marginal artery.4. 100% occlusion of the right coronary artery at the ostium with a grade 2 ohlz-sz-tjryd collaterals filling of the PDA and the PLV branches. LV gram was not performed. LVEDP was 30 mmHg. 3. I reviewed and discussed the cardiac catheterization data with the Dr. Abernathy. It was thought to be appropriate to consider PCI of the LAD lesions. Dr. Abernathy concurred with this plan and took over further management of this patient at this point. 4. Successful revascularization of mid to distal LAD ISR and de marie lesion with 1 stent and balloon angioplasty. Successful revascularization of proximal LAD stenosis/ISR with balloon angioplasty and 1 stent placement. 5. Proximal Left Anterior Descending was treated with a Balloon, Drug Eluting Stent, Drug Eluting Stent, and Balloon. 6. Distal Left Anterior Descending was treated with a Drug Eluting Stent. Recommendations * Dual antiplatelet therapy with aspirin and plavix for at least 1 year. * High intensity statin therapy. * Outpatient cardiology follow up in 4 weeks. Interventional RX Recommendation: PCI w/o planned CABG Diagnostic RX Recommendation: PCI w/o planned CABG Anticoagulation: Heparin LV EDP: 32 mmHg Left Ventriculography Findings: * LV gram was not performed because of the patient's history of chronic kidney disease. The LVEDP was found to be 32 mmHg. Pressures Phase:Rest AO : 128 / 63 ( 89 ) @ 8:33:00 AM 120 / 69 ( 93 ) @ 8:35:00 AM 121 / 69 ( 93 ) @ 8:36:00 AM 162 / 70 ( 109 ) @ 8:39:00 AM 157 / 67 ( 106 ) @ 8:39:00 AM 131 / 76 ( 101 ) @ 8:56:00 AM 153 / 77 ( 109 ) @ 8:58:00 AM 133 / 75 ( 102 ) @ 9:01:00 AM 156 / 75 ( 109 ) @ 9:16:00 AM 142 / 68 ( 99 ) @ 9:19:00 AM LV : 166 / 11 / 32 @ 8:38:00 AM 153 / 10 / 28 @ 8:39:00 AM Valves Phase:DefaultPhase AV : 0.0 @ 8:32:19 AM 0.0 @ 8:32:19 AM AV Mean Gradient: 0.0 @ 8:32:19 AM 0.0 @ 8:32:19 AM Clinical Evaluation EBL: 5mL-10mL Procedural Details Pre-Procedure Time Out. Identified patient by full name and date of as verbalized by the patient/guarantor. Does the consent match the physician's order: Yes. Accurate & Complete Informed Consent: Yes. Inpatient/Outpatient History & Physical on Chart: Yes. If H&P is completed, is and addenduem needed: Yes; If yes, is the addendum complete: Yes. Visualize and Verify Site with Patient/Guarantor: N/A. Relevant Radiology Images available: Yes. Pre-op teaching completed and patient verbalized understanding. The risks, benefits, and alternatives of sedation and/or procedure were discussed by physician. The patient agrees to continue. Procedure started. [facility] Clinical Fraility Score: 4: Vulnerable. Linux Admin Indications: Worsening Angina. Chest Pain Symptom Assessment: Atypical Angina. Correct patient, site and procedure confirmed by cath team. Current diagnosis: Chest Pain. PERRLA. Strong, equal hand fig washer bilaterally. Lungs clear x 5 lobes. IV Site on Arrival: 20 gauge in the left anticubital. Current Diagnosis : Chest Pain. IV Fluids: 0.9% NaCl at KVO. 500 mL infused prior to agriculture laborer. Pre Procedural Pulses: bilateral dorsalis pedis was 3+. Pre Procedural Pulses: bilateral posterior tibial was 3+. Pre Procedural Pulses: bilateral radial was 3+. Oxygen started at 2liters/min via nasal canula. right groin was prepped with chloroprep then draped in the usual sterile fashion. right radial was prepped with chloroprep then draped in the usual sterile fashion. Baseline sample Acquired. HR: 71 BPM. Physician arrived. Physician scrubbed in. Immediate Pre-Procedure Time Out. Correct Patient: Yes; Correct Procedure: Yes; Correct Site: Yes; Correct Patient Position: Yes; Correct Supplies: Yes; Dried Flammable Prep: Yes; Blood Products Available: N/A;. Lidocaine 1% infiltrated to the right radial. Arterial access obtained. A 5 maori Adams catheter in over wire. Multiple views taken of left coronary artery. Dr. Abernathy called to review pictures. EDP Sample taken: LV 166/11,32; HR: 70 BPM; SpO2: 99%. Pullback taken: LV 153/10,28; AO 162/70(109); Mean: 0mmHg, Peak to Peak: 0mmHg, SEP: 5sec/min; HR: 70 BPM; SpO2: 98%. Catheter redirected to the RCA. Dr. Abernathy arrived. Catheter removed over the exchange wire. Dr. Nelson scrubbed out. Side port of sheath attached to Normal Saline flush at KVO to maintain patency. Dr. Abernathy scrubbed in. 6 maori XB 3.5 guide catheter was inserted over the wire. Runthrough guidewire was advanced through the guide catheter to lesion in the mid LAD. Inflation number : 1 A MDT NC EUPHORA RX 3.93Q71OL BALLOON was prepped and advanced across the Mid LAD , then inflated to 18 DAY for 0:21 seconds. Inflation number: 1 The MDT NC EUPHORA RX 3.84J62BC BALLOON was reinflated across the Prox LAD, to 18 DAY for 0:21 seconds. Balloon out. Results checked. Inflation number: 2 The MDT NC EUPHORA RX 3.08U56WH BALLOON was reinflated across the Mid LAD, to 14 DAY for 0:21 seconds. Inflation number: 3 The MDT NC EUPHORA RX 3.87J10TL BALLOON was reinflated across the Mid LAD, to 12 DAY for 0:08 seconds. Inflation number: 4 The MDT NC EUPHORA RX 3.96O17NF BALLOON was reinflated across the Mid LAD, to 12 DAY for 0:16 seconds. Balloon out. Results checked. Inflation Number : 1 A MDT R KIKE 2.75X12 VALERIE -Lot Number# _[id number] EXP: 07/06/2023 was prepped and advanced across the Dist LAD. The stent was deployed at 12 DAY for 0:21 seconds. Inflation number: 2 The stent balloon was then re-inflated across the Prox LAD to 16 DAY for 0:08 seconds. Inflation number: 3 The stent balloon was then re-inflated across the Prox LAD to 16 DAY for 0:16 seconds. Stent balloon out over wire. Results checked. IVUS catheter inserted OTW. ACT drawn. Results out of range high seconds. Therapeutic limits - pre-heparin administration 90-150 seconds and monitoring heparin during a vascular procedure >250 seconds. IVUS measurements obtained. IVUS catheter out OTW. Inflation Number : 4 A MDT R KIKE 3.5X15 VALERIE -Lot Number# _[id number] EXP:10/31/2025 was prepped and advanced across the Prox LAD. The stent was deployed at 12 DAY for 0:19 seconds. Stent balloon out over wire. Results checked. Inflation number : 5 A MDT NC EUPHORA RX 3.42J16TN BALLOON was prepped and advanced across the Prox LAD , then inflated to 12 DAY for 0:13 seconds. Inflation number: 6 The MDT NC EUPHORA RX 3.62X48TO BALLOON was reinflated across the Prox LAD, to 18 DAY for 0:15 seconds. Inflation number: 7 The MDT NC EUPHORA RX 3.16L79LA BALLOON was reinflated across the Prox LAD, to 20 DAY for 0:13 seconds. Balloon out. Results checked. Wire out. Results checked. Guide catheter out. ACT drawn. Results 292 seconds. Therapeutic limits - pre-heparin administration 90-150 seconds and monitoring heparin during a vascular procedure >250 seconds. A TR Band was successful obtaining hemostatsis at the Right Radial artery insertion site. Post Procedure: Pulses reassessed and unchanged. PERRLA. Strong, equal hand fig washer bilaterally. No VTE prophylaxis required. Medication's Wasted: Nitro = 49.6 mg. Medication's Wasted: Lidocaine 1% = 18 mL. Total IV fluids: 85 mL. Vital chart was stopped. Complications: None. Estimated blood loss: 5mL-10mL. Responsiveness - Normal response to verbal stimuli; alert and oriented, PERRLA. Airway - Unaffected, no intervention required; spontaneous ventilation. Circulation: W/N/L, pulses unchanged. Nausea/Vomiting: No. Procedure completed. Patient transferred by wheelchair to 1st floor. Access Site Site: Right Radial artery Sheath Size: 6 Fr Hemostasis Method: TR Band Hemostasis Success: Successful Procedure Medications Start: 7:23 AM Stop: 7:23 AM Medication: Versed Amount: 1 mg Route: I.V. Start: 7:24 AM Stop: 7:24 AM Medication: Fentanyl Amount: 25 mcg Route: I.V. Start: 7:29 AM Stop: 7:29 AM Medication: Verapamil Amount: 5 mg Route: I.A. Start: 7:29 AM Stop: 7:29 AM Medication: Nitrogylcerin Amount: 200 mcg Route: I.A. Start: 7:30 AM Stop: 7:30 AM Medication: Fentanyl Amount: 25 mcg Route: I.V. Start: 7:32 AM Stop: 7:32 AM Medication: Heparin Amount: 5000 units Start: 7:46 AM Stop: 7:46 AM Medication: Versed Amount: 1 mg Route: I.V. Start: 7:50 AM Stop: 7:50 AM Medication: Heparin Amount: 4000 units Route: I.V. Start: 7:56 AM Stop: 7:56 AM Medication: Fentanyl Amount: 25 mcg Route: I.V. Start: 8:04 AM Stop: 8:04 AM Medication: Heparin Amount: 1000 units Route: I.V. Start: 8:12 AM Stop: 8:12 AM Medication: Fentanyl Amount: 25 mcg Route: I.V. Start: 8:21 AM Stop: 8:21 AM Medication: Nitrogylcerin Amount: 200 mcg Route: I.C. I, the attending physician, have reviewed and verified all procedure medications. Yes, all medications given per verbal order History/Risk Factors Hypertension: Yes Dyslipidemia: Yes Peripheral Arterial Disease (PAD): No Myocardial Infarction (FL): No Obesity: No Renal Disease: Yes Tobacco Use: Former Prior Interventions PCI: Yes CABG: No Valve Surgery: No Date of PCI: 11/18/2019 Report Signatures Interventional Workflow Finalized by Anibal Abernathy MD on 06/10/2023 08:02 AM Diagnostic Workflow Finalized by Dr Sophie Nelson MD [facility] on 06/07/2023 10:28 PM
[2023-06-07 06:14] LABS: Basophils % 0.5 %; Eosinophils # 0.1 10^3/uL (0.0-0.8); Eosinophils % 1.6 %; Lymphocytes # 0.9 10^3/uL (0.8-4.8); Lymphocytes % 19.7 %; Mean Corpuscular HGB Conc 30.7 g/dL (30-55); Mean Corpuscular Hemoglobin 26.4 pg (27-33); Monocytes # 0.5 10^3/uL (0.2-0.9); Monocytes % 10.3 %; Neutrophils # 2.93 10^3/uL (1.8-7.7); Neutrophils % 67.2 %; Nucleated Red Blood Cells % 0 %; Platelet Count 137 10^3/cmm (157-399); Red Blood Count 3.14 10^6/uL (3.85-5.65); Red Cell Distribution Width 15.6 % (12.1-15.1); White Blood Count 4.36 10^3/uL (3.29-11.43)
[2023-06-07] MEDS: diphenhydrAMINE 50 mg Capsule PO (06:26)
--- NOTE | 2023-06-07 06:27 | PC.NURSE ---
NS bolus orders Dr. Nelson gave telephone orders to infuse 500ml bolus over 1 hour pre cardiac cath for elevated creatinine. Bolus started at this time and administered from 1000ml NS bag pulled in labor delivery specialist.
[2023-06-07 06:39] LABS: Anion Gap 14.8 (5-19); Blood Urea Nitrogen 33 mg/dL (8-23); Calcium 8.9 mg/dL (8.5-10.5); Carbon Dioxide 23 mmol/L (22-29); Chloride 105 mmol/L (98-107); Glucose 161 mg/dL (65-115); Osmolality Calculated 299 mOsm/kg (285-295); Potassium 3.8 mmol/L (3.5-5.1); Sodium 139 mmol/L (136-145)
--- NOTE | 2023-06-07 07:12 | PM.HP ---
Providers/Chief Complaint Admitting Physician: RODDY Nelson MD Primary Care Provider: JANA Ambrocio Chief Complaint: Abdominal pain History of Present Illness Tad Deleon is a 78 year old male with a history of atherosclerotic heart disease, status post PCI, history of hypertension, type 2 diabetes, dyslipidemia and chronic kidney disease presents with increasing episodes of chest pain. Patient had a Myocardial perfusion imaging which revealed areas of fixed and reversible defects suggesting myocardial scarring with ischemia in the distribution of the right coronary artery/circumflex artery. For further evaluation of his coronary status, in view of his ongoing symptoms, a repeat cardiac catheterization was recommended. Patient is also known to have carotid artery disease, status post carotid endarterectomy, TIA, paroxysmal atrial fibrillation, ventricular arrhythmia, chronic iron deficiency anemia, hypothyroidism and chronic kidney disease. He has no fever, chills or cough. Review of Systems Narrative: CONSTITUTIONAL: No fever or chills. EYES: No blurring of vision or other visual disturbances lately. ENT: No hoarseness of voice, auditory disturbances or sore throat. CARDIOVASCULAR: As mentioned above. RESPIRATORY: No significant cough. GASTROINTESTINAL: No hematemesis or melena. GENITOURINARY: No dysuria or hematuria. INTEGUMENTARY: No skin rashes or history of skin cancer. NEURO: No transient ischemic attacks or amaurosis. PSYCHIATRIC: No history of psychosis or major depression. HEMATOLOGIC: No bleeding disorders or significant anemia. ENDOCRINE: No history of polyuria or polydipsia. MUSCULOSKELETAL: No recent joint pain or swelling. ALLERGY/IMMUNOLOGY: As mentioned above. Medications/Allergies Home Medications Medication Instructions Recorded Confirmed Last Taken Type albuterol sulfate 90 mcg/actuation 2 puff inhalation QID PRN 03/19/19 06/06/23 07/02/22 History aerosol inhaler (ProAir HFA) Shortness Of Breath ascorbate calcium (vitamin C) 500 500 mg PO QAM 03/19/19 06/06/23 06/06/23 History mg tablet fluticasone propionate 50 2 spray intranasal DAILY PRN Nasal 03/19/19 06/06/23 07/03/22 History mcg/actuation nasal Congestion spray,suspension trazodone 100 mg tablet 100 mg PO BEDTIME 03/19/19 06/07/23 06/06/23 21:00 History cetirizine 10 mg capsule (Allergy 10 mg PO DAILY 0606/06/23 07/03/22 History Relief (cetirizine)) omega-3 250 sk-far-udv-lutein 2.5 1 cap PO DAILY 08/30/20 06/06/23 06/06/23 History mg-zeaxanthin 0.5 mg capsule ([facility]) vitamin B complex 1 tab PO DAILY #90 tabs 09/03/20 06/06/23 06/06/23 Rx atorvastatin 80 mg tablet 80 mg PO BEDTIME #90 tabs 11/19/20 06/06/23 06/06/23 21:00 Rx clopidogrel 75 mg tablet (Plavix) 75 mg PO DAILY@12 #90 tabs 11/19/20 06/06/23 06/07/23 05:00 Rx nitroglycerin 0.4 mg sublingual 0.4 mg sublingual Q5M PRN Chest 11/19/20 06/06/23 Unknown Rx tablet Pain #25 tabs pantoprazole 40 mg tablet,delayed 40 mg PO BID #60 tabs 07/06/21 06/06/23 06/06/23 05:00 Rx release aspirin 81 mg tablet,delayed 81 mg PO DAILY 07/12/21 06/06/23 06/07/23 05:00 History release cholecalciferol (vitamin D3) 50 50 mcg PO DAILY 07/12/21 06/06/23 06/06/23 History mcg (2,000 unit) capsule potassium chloride 10 mEq 10 meq PO DAILY #90 tabs 10/11/21 06/06/23 06/06/23 05:00 Rx tablet,extended release(part/cryst) valsartan 160 mg tablet 160 mg PO BID #180 tabs 02/16/22 06/06/23 06/07/23 05:00 Rx bumetanide 0.5 mg tablet 0.5 mg PO .COMPLEX 06/05/22 06/06/23 06/06/23 05:00 History nifedipine 30 mg tablet,extended 30 mg PO DIRECTED #270 tabs 06/09/22 06/07/23 06/06/23 12:00 Rx release levothyroxine 25 mcg tablet See Rx Instructions .Route 07/12/22 06/06/23 06/06/23 05:00 Rx .COMPLEX #90 tabs hydralazine 50 mg tablet 25 mg (1/2 x 50 mg) PO TID #180 09/11/22 06/07/23 06/06/23 17:00 Rx tabs carvedilol 25 mg tablet 37.5 mg (1.5 x 25 mg) PO BID #90 01/23/23 06/06/23 06/07/23 05:00 Rx tabs magnesium L-lactate 84 mg 84 mg PO BID #180 tabs 02/02/23 06/06/23 06/06/23 Rx tablet,extended release (Magtab) finasteride 1 mg tablet 1 mg PO DAILY 02/14/23 06/06/23 06/06/23 History isosorbide mononitrate 30 mg 60 mg (2 x 30 mg) PO DAILY #60 tabs 04/05/23 06/06/23 06/06/23 Rx tablet,extended release 24 hr budesonide-formoterol HFA 160 2 puff inhalation BID #10.2 grams 05/01/23 06/06/23 Unknown Rx mcg-4.5 mcg/actuation aerosol inhaler (Symbicort) dapagliflozin propanediol 10 mg 10 mg PO QAM #90 tabs 05/14/23 06/07/23 06/06/23 05:00 Rx tablet (Farxiga) Allergies Allergy/AdvReac Type Severity Reaction Status Date / Time atenolol [From Tenormin] Allergy Intermediate hypotension Verified 06/06/23 11:41 niacin Allergy Intermediate rash, hot Verified 06/06/23 11:41 flashes PFSH Acute PFSH: Medical History Chest pain AVM (arteriovenous malformation) of duodenum, acquired Unstable angina Thrombocytopenia Iron deficiency anemia (~09/2020) Sinus pain Sinusitis CKD (chronic kidney disease) Chronic prostatitis Diagnosed August 2020 with good response to more prolonged course of ciprofloxacin. Carotid stenosis Cardiac pacemaker Medtronic pacemaker, AAIR-DDDR, base rate 70 bpm. Thrombocytopenia Mixed hyperlipidemia Ventricular tachycardia TIA (transient ischemic attack) Arteriosclerotic vascular disease Chronic kidney disease, stage 2 (mild) History of carotid artery dissection RCA occlusion Presence of stent in left circumflex coronary artery February 2018 Presence of stent in LAD coronary artery February 2018 Type 2 diabetes mellitus without complications Anemia Essential hypertension Paroxysmal atrial fibrillation Surgical History History of colonoscopy 1 year History of esophagogastroduodenoscopy (07/13/21) 1 year History of permanent cardiac pacemaker placement History of right-sided carotid endarterectomy October 2018 Family History Family/Other CAD (coronary artery disease) Father CAD (coronary artery disease) Hyperlipidemia Hypertension Mother CAD (coronary artery disease) Cancer Dementia Hyperlipidemia Hypertension Stroke Brother Diabetes Denies family history of Clotting disorder Chronic kidney disease (CKD) Suicide Anesthesia complication Bleeding disorder Lung disease Social History Smoking and tobacco/nicotine status: former use of tobacco/nicotine Quit status (tobacco/nicotine): has quit using Year quit tobacco: 1988 Former quit date comment: smoked 30 years Second hand smoke exposure: No Alcohol intake: never Substance/Drug Use: never Caregiver/support person: Yes (spouse) Lives independently: Yes Household members: spouse Housing: House Marital status: Number of children: 1 Current occupational status: retired Pets and animals: Yes Pets & animals: dog(s) Current gender identity: Male Vijaya/Christianity: [facility] Special vijaya needs: No Agree to transfusion: Yes Vitals/I&O/Wt Last Vital Signs Temp 97.9 F 06/07/23 06:00 Pulse 76 06/07/23 06:00 Resp 18 06/07/23 06:00 BP 132/67 06/07/23 06:00 Pulse Ox 96 06/07/23 06:00 O2 Del Method Room Air 06/07/23 06:00 Weight last 48 hrs Weight 215 lb Physical Exam Narrative: GENERAL: The patient is alert and oriented times three. Not in any acute distress. HEENT: Mild pallor. No icterus or lymphadenopathy.Oral cavity: There are no mucous membrane lesions. NECK: Trachea appears to be central. No masses noted. No JVD or thyromegaly appreciated. RESPIRATORY: Chest is symmetrical. No intercostals muscle retraction or any accessory muscle activation. There is no chest wall tenderness. Breath sounds are heard bilaterally. No rales or rhonchi heard. No evidence of any consolidation. BREASTS: Deferred. HEART: The heart sounds are normal. No S3 or S4. Short systolic murmur in the left renal border. No diastolic murmurs. No pericardial rub ABDOMEN: No vessel pulsations or distention. No tenderness. No organomegaly appreciated. Bowel sounds are normally heard. : Deferred. RECTAL: Deferred. LYMPHATIC: No lymphadenopathy noted in the neck. EXTREMITIES: No edema or cyanosis. No clubbing. MUSCULOSKELETAL: No acute joint deformities or swelling SKIN: There are no significant rashes or ecchymosis NEUROPSYCHIATRIC: The patient is alert and oriented x3. Appears to be in a good mood. No tremors or rigidity noted. Data 06/07/23 06:05 06/07/23 06:05 EKG 1: My Interpretation: The EKG showed a sinus rhythm with diffuse nonspecific ST-T changes. Possible old septal ME. Other data: . Myocardial perfusion imaging revealing moderate area of moderate to severely decreased tracer uptake involving the inferior, inferolateral and apical regions with some reversibility in the basal and mid inferior and inferolateral regions suggesting myocardial scarring with ischemia in the distribution of the right coronary artery/circumflex artery. 2. Normal LV ejection fraction of 53%. 3. LV wall motion analysis revealing no gross wall motion abnormalities. 4. Mildly dilated LV cavity with an end-systolic volume of 68 ml Compared to the study from 09/09/2021, the ischemia appears to be new A&P Assessment and plan (1) Atherosclerotic heart disease of [place] coronary artery with other forms of angina pectoris: Cardiac catheterization today to evaluate the coronary status and decide on further management. (2) Carotid artery stenosis, asymptomatic: Continue on the current management. Follow-up evaluation as scheduled. Qualifiers: Laterality: right Qualified Code(s): I65.21 - Occlusion and stenosis of right carotid artery (3) Presence of permanent cardiac pacemaker: Patient renal function is appropriate. Continue on the current follow-up schedule (4) Mixed hyperlipidemia: Patient is known to have dyslipidemia. Advised to continue on the current medications. Will have the follow-up evaluation as scheduled. 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: unspecified fdc insulin use status Qualified Code(s): E11.9 - Type 2 diabetes mellitus without complications (7) CKD (chronic kidney disease): IV hydration Qualifiers: Chronic kidney disease stage: stage 3 (moderate) Chronic kidney disease stage 3 subtype: stage 3a (GFR 45-59) Qualified Code(s): N18.31 - Chronic kidney disease, stage 3a (8) Anemia: Chronic, iron deficiency anemia with no active bleed Qualifiers: Anemia type: iron deficiency Iron deficiency anemia type: other iron deficiency Qualified Code(s): D50.8 - Other iron deficiency anemias Plan This patient had iron transfusion yesterday. His anemia is chronic. Apparently had extensive workup for the anemia. His BUN/creatinine also seems to be stable. I discussed with the patient in detail the possible risk and benefits of the procedure. The risk of bleeding, hematoma, vascular injury, myocardial infarction, myocardial perforation, malignant cardiac arrhythmias ,CVA, renal failure and other concomitant complications were explained in detail. Patient understood this well. He carries an increased risk for bleeding and contrast-induced nephropathy. In view of his ongoing symptoms, it was thought to be appropriate to go ahead with the proposed procedure. Based on the angiogram findings, further management decisions will be made. Attestations Medical Necessity Statement*: Patient may require overnight stay after the procedure Coding Level of Care Code 57357 Diagnoses Atherosclerotic heart disease of [place] coronary artery with other forms of angina pectoris I25.118 Asymptomatic stenosis of right carotid artery I65.21 Laterality: right Presence of permanent cardiac pacemaker Z95.0 Mixed hyperlipidemia E78.2 Abnormal cardiovascular stress test R94.39 Type 2 diabetes mellitus without complication, unspecified whether fdc insulin use E11.9 Diabetes mellitus fdc insulin use: unspecified fdc insulin use status Stage 3a chronic kidney disease N18.31 Chronic kidney disease stage: stage 3 (moderate) Chronic kidney disease stage 3 subtype: stage 3a (GFR 45-59) Other iron deficiency anemia D50.8 Anemia type: iron deficiency Iron deficiency anemia type: other iron deficiency
--- NOTE | 2023-06-07 07:21 | W.PM.OPSUD ---
Surgery/Procedure H&P Update DATE OF PROCEDURE: June 07, 2023 DATE H&P PERFORMED: 06/07/23 H&P UPDATE INFORMATION: I have reviewed H&P completed within last 30 days, I have examined patient prior to procedure and No changes to prior documentation PREOP DIAGNOSIS: Atherosclerotic heart disease PRIMARY INDICATION FOR PROCEDURE: Abnormal stress test/atherosclerotic heart disease/hypertension/dyslipidemia/ PLANNED PROCEDURE: Operation Date: 06/07/23 07:00 Proposed Procedures p Cardiac Catheterization(Not Applicable) - Sophie Nelson MD PATIENT REASSESSED PRIOR TO SEDATION, WITH NO CHANGE NOTED: Yes PHYSICAL EXAM: alert, oriented x 3, clear to auscultation bilaterally and regular rate & rhythm AIRWAY EVAL/ANESTHESIA PLAN: normal airway, see other exam findings, ASA III, Monitored Anesthesia, Local Anesthesia, Risks, benefits & alternatives of sedation and/or procedure discussed and Patient agrees to continue as planned
--- NOTE | 2023-06-07 08:47 | PC.NURSE ---
Small hematoma On arrival to [facility] room 3 post cath TR band in place to right radial. Small hematoma noted above TR band band. Pressure applied and Second TR band placed containing 10 ml air. Radial pulse palpable. Pt instructed on activity restrictions and reportable signs and symptoms. Pt verbalized understanding. Denies pain.
[2023-06-07] MEDS: sodium chloride 0.9% 1,000 ML 100 ML IV (11:47)
[2023-06-07] MEDS: hyDRALAzine 20 mg/mL INJ 1 mL IVP ×2 (12:52→17:28)
[2023-06-07] MEDS: hyDRALAzine 50 mg Tablet 25 MG PO ×2 (15:35→21:16)
[2023-06-07] MEDS: albuterol 2.5 mg/3 mL Neb INHALATION ×2 (16:02→22:04)
[2023-06-07] MEDS: losartan 50 mg Tablet PO (17:21)
[2023-06-07] MEDS: magnesium lactate 84 mg Tablet PO (17:21)
[2023-06-07] MEDS: pantoprazole DR 40 mg Tablet PO (17:21)
[2023-06-07] MEDS: carvedilol 25 mg Tablet 37.5 MG PO (17:22)
[2023-06-07] MEDS: atorvastatin 40 mg Tablet 80 MG PO (21:16)
[2023-06-07] MEDS: trazodone 100 mg Tablet PO (21:16)
[2023-06-07] MEDS: budesonide 0.5 mg/2 mL Neb INHALATION (22:03)
[2023-06-08 00:38] VITALS: BP 181/77; PULSE 70; RESP 20; TEMP 37.3; O2SAT 94
[2023-06-08] MEDS: hyDRALAzine 20 mg/mL INJ 1 mL IVP (00:53)
[2023-06-08 04:54] VITALS: BP 175/76; PULSE 70; RESP 18; TEMP 37.4; O2SAT 97
[2023-06-08] MEDS: carvedilol 25 mg Tablet 37.5 MG PO (08:11)
[2023-06-08] MEDS: losartan 50 mg Tablet PO (08:11)
[2023-06-08] MEDS: levothyroxine 25 mcg Tablet PO (08:11)
[2023-06-08] MEDS: pantoprazole DR 40 mg Tablet PO (08:11)
[2023-06-08] MEDS: magnesium lactate 84 mg Tablet PO (08:11)
[2023-06-08] MEDS: hyDRALAzine 50 mg Tablet 25 MG PO (08:12)
[2023-06-08] MEDS: isosorbide mononitrate ER 30 mg Tablet 60 MG PO (08:12)
[2023-06-08] MEDS: aspirin 81 mg EC Tablet PO (08:12)
[2023-06-08] MEDS: albuterol 2.5 mg/3 mL Neb INHALATION (08:34)
[2023-06-08] MEDS: budesonide 0.5 mg/2 mL Neb INHALATION (08:34)
[2023-06-08 08:36] VITALS: PULSE 71; RESP 18; O2SAT 97
[2023-06-08 11:04] VITALS: BP 148/69
--- NOTE | 2023-06-08 12:16 | P.PN_ITS ---
Subjective 2 Subjective: Patient underwent left heart catheterization with the coronary angiogram. He was found to have high-grade lesions in the left and descending artery. Underwent angioplasty and stent placement by Dr. Abernathy. Patient remained stable throughout the postprocedure period. Currently he is ambulating on telemetry. No new symptoms. Medications: Medication Review Details: Current Medications Albuterol Sulfate (Albuterol 2.5 Mg/3 Ml Neb) 2.5 mg INHALATION QID.RESPIRATORY [facility] Last Admin: 06/08/23 08:34 Dose: 2.5 mg Aspirin (Aspirin 81 Mg Ec Tablet) 81 mg PO DAILY [facility] Last Admin: 06/08/23 08:12 Dose: 81 mg Atorvastatin Calcium (Atorvastatin 40 Mg Tablet) 80 mg PO BEDTIME [facility] Last Admin: 06/07/23 21:16 Dose: 80 mg Budesonide (Budesonide 0.5 Mg/2 Ml Neb) 0.5 mg INHALATION BID.RESPIRATORY [facility] Last Admin: 06/08/23 08:34 Dose: 0.5 mg Bumetanide (Bumetanide 1 Mg Tablet) 0.5 mg PO MoWeFr [facility] Last Admin: 06/08/23 08:15 Dose: Not Given Carvedilol (Carvedilol 25 Mg Tablet) 37.5 mg PO BID [facility] Last Admin: 06/08/23 08:11 Dose: 37.5 mg Clopidogrel Bisulfate (Clopidogrel 75 Mg Tablet) 75 mg PO DAILY@12 [facility] Last Admin: 06/07/23 11:17 Dose: Not Given Hydralazine HCl (Hydralazine 50 Mg Tablet) 25 mg PO TID [facility] Last Admin: 06/08/23 08:12 Dose: 25 mg Hydralazine HCl (Hydralazine 20 Mg/Ml Inj 1 Ml) 20 mg IVP Q4H PRN PRN Reason: HYPERTENSION Last Admin: 06/08/23 00:53 Dose: 20 mg Isosorbide Mononitrate (Isosorbide Mononitrate Er 30 Mg Tablet) 60 mg PO DAILY [facility] Last Admin: 06/08/23 08:12 Dose: 60 mg Levothyroxine Sodium (Levothyroxine 25 Mcg Tablet) 25 mcg PO DAILY [facility] Last Admin: 06/08/23 08:11 Dose: 25 mcg Losartan Potassium (Losartan 50 Mg Tablet) 50 mg PO BID [facility] Last Admin: 06/08/23 08:11 Dose: 50 mg Magnesium Lactate (Magnesium Lactate 84 Mg Tablet) 84 mg PO BID [facility] Last Admin: 06/08/23 08:11 Dose: 84 mg Nitroglycerin (Nitroglycerin 0.4 Mg Sublingual Tablet) 0.4 mg SUBLINGUAL Q5M PRN PRN Reason: Chest Pain Pantoprazole Sodium (Pantoprazole Dr 40 Mg Tablet) 40 mg PO BID [facility] Last Admin: 06/08/23 08:11 Dose: 40 mg Trazodone HCl (Trazodone 100 Mg Tablet) 100 mg PO BEDTIME [facility] Last Admin: 06/07/23 21:16 Dose: 100 mg Vitals/I&O/Wt Last Vital Signs Temp 99.3 F 06/08/23 04:54 Pulse 71 06/08/23 08:36 Resp 18 06/08/23 08:36 BP 148/69 06/08/23 11:04 Pulse Ox 97 06/08/23 08:36 O2 Del Method Room Air 06/08/23 08:36 06/07/23 06/08/23 06/08/23 22:59 06:59 14:59 Intake Total 1790 / 1790 1100 / 2890 Output Total 1200 / 1200 1000 / 2200 Balance 590 / 590 100 / 690 Weight last 48 hrs Weight 215 lb Physical Exam 2 Narrative: GENERAL: The patient is alert and oriented times three. Not in any acute distress. HEENT: Mild pallor. No icterus or lymphadenopathy.Oral cavity: There are no mucous membrane lesions. NECK: Trachea appears to be central. No masses noted. No JVD or thyromegaly appreciated. RESPIRATORY: Chest is symmetrical. No intercostals muscle retraction or any accessory muscle activation. There is no chest wall tenderness. Breath sounds are heard bilaterally. No rales or rhonchi heard. No evidence of any consolidation. BREASTS: Deferred. HEART: The heart sounds are normal. No S3 or S4. Short systolic murmur in the left renal border. No diastolic murmurs. No pericardial rub ABDOMEN: No vessel pulsations or distention. No tenderness. No organomegaly appreciated. Bowel sounds are normally heard. : Deferred. RECTAL: Deferred. LYMPHATIC: No lymphadenopathy noted in the neck. EXTREMITIES: No edema or cyanosis. No clubbing. MUSCULOSKELETAL: No acute joint deformities or swelling SKIN: There are no significant rashes or ecchymosis NEUROPSYCHIATRIC: The patient is alert and oriented x3. Appears to be in a good mood. No tremors or rigidity noted. Data 06/07/23 06:05 06/07/23 06:05 A&P Assessment and plan (1) Atherosclerotic heart disease of [place] coronary artery with other forms of angina pectoris: Patient had the angiogram which revealed high-grade lesions in the left anterior descending artery. Underwent PCI of these lesions. Currently remaining stable. No recurrence of chest pain. (2) Carotid artery stenosis, asymptomatic: Continue on the current management. Follow-up evaluation as scheduled. Qualifiers: Laterality: right Qualified Code(s): I65.21 - Occlusion and stenosis of right carotid artery (3) Presence of permanent cardiac pacemaker: The repeat BMP results are pending (4) Mixed hyperlipidemia: Patient is known to have dyslipidemia. Advised to continue on the current medications. Will have the follow-up evaluation as scheduled. 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 He will keep his follow-up appointments with the primary care and with hematology. Will be seen in the [facility] in a week. I may see him in the office as scheduled. Attestations 2 Medical Necessity Statement*: Discharge home today Coding Level of Care Code Acute Code for [facility] Diagnoses Atherosclerotic heart disease of [place] coronary artery with other forms of angina pectoris I25.118 Asymptomatic stenosis of right carotid artery I65.21 Laterality: right Presence of permanent cardiac pacemaker Z95.0 Mixed hyperlipidemia E78.2 Type 2 diabetes mellitus without complication, unspecified whether adjunct faculty for medical terminology insulin use E11.9 Diabetes mellitus group home insulin use: unspecified adjunct faculty for medical terminology insulin use status Stage 3a chronic kidney disease N18.31 Chronic kidney disease stage: stage 3 (moderate) Chronic kidney disease stage 3 subtype: stage 3a (GFR 45-59) Other iron deficiency anemia D50.8 Anemia type: iron deficiency Iron deficiency anemia type: other iron deficiency
[2023-06-08 12:57] LABS: Blood Urea Nitrogen 21 mg/dL (8-23); Calcium 8.5 mg/dL (8.5-10.5); Carbon Dioxide 19 mmol/L (22-29); Chloride 108 mmol/L (98-107); Creatinine Clr Calc Pharmacy 56.6654; Glucose 150 mg/dL (65-115); Osmolality Calculated 294 mOsm/kg (285-295); Sodium 139 mmol/L (136-145)
[2023-06-08] MEDS: clopidogrel 75 mg Tablet PO (13:41)
--- NOTE | 2023-06-08 13:41 | PC.NURSE ---
discharge to home with spotoi. instructed pt on his ff-up appointments and continued meds. all belongings sent with pt and -cellphone
== END 2023-06-08 13:09 | disposition home or self-care (01) ==
LOC: CCL 05:47 → CSU 11:31
PROVIDERS: Internal Medicine; PCP Nurse Practitioner Family; Visit Provider Internal Medicine Cardiovascular Disease
DX: I25.118 Atherosclerotic heart disease of native coronary artery with other forms of angina pectoris (principal); I65.21 Occlusion and stenosis of right carotid artery; Z95.0 Presence of cardiac pacemaker; E78.2 Mixed hyperlipidemia; R94.39 Abnormal result of other cardiovascular function study; E11.21 Type 2 diabetes mellitus with diabetic nephropathy; I12.9 Hypertensive chronic kidney disease with stage 1 through stage 4 chronic kidney disease, or unspecified chronic kidney disease; N18.2 Chronic kidney disease, stage 2 (mild); D63.1 Anemia in chronic kidney disease; Z86.73 Personal history of transient ischemic attack (TIA), and cerebral infarction without residual deficits; I48.0 Paroxysmal atrial fibrillation; Z87.891 Personal history of nicotine dependence
CPT/HCPCS: 36415; 80048; 85025; 85347; 92978; 93458; 94640; 96361; 96365; 96374; 96375; 99152; 99153; C1725; C1753; C1769; C1874; C1887; C1894; C9600; J0360; J1644; J2250; J3010; J3490; J7030; J7613; J7626; Q0163; Q9967

== ENCOUNTER → 2023-06-11 09:01 | Outpatient (BNVA) | payer MEDICARE, OTHER, SELFPAY | PROVIDERS: PCP Nurse Practitioner Family; Visit Provider Nurse Practitioner Family | DX: N18.31 Chronic kidney disease, stage 3a (principal) | CPT/HCPCS: 80069; 82043; 82542; 82652; 85007; 85027 ==

== ENCOUNTER 2023-06-20 11:43 | Outpatient (CLI) | payer MEDICARE, OTHER, SELFPAY ==
[2023-06-20 13:04] LABS: Calcium 9.1 mg/dL (8.5-10.5)
[2023-06-20 13:11] LABS: Parathyroid Hormone 64.3 pg/mL (15-65)
[2023-06-20 13:14] LABS: 25 Hydroxy Vitamin D 28 ng/mL (30-100)
== END 2023-06-20 11:44 | disposition home or self-care (01) ==
PROVIDERS: Internal Medicine Nephrology; PCP Nurse Practitioner Family; Visit Provider Internal Medicine
DX: E55.9 Vitamin D deficiency, unspecified (principal); N18.31 Chronic kidney disease, stage 3a
CPT/HCPCS: 36415; 82306; 82310; 83970

== ENCOUNTER → 2023-06-25 12:55 | Outpatient (BNVA) | payer MEDICARE, OTHER, SELFPAY | PROVIDERS: PCP Nurse Practitioner Family; Visit Provider Nurse Practitioner Family | DX: I25.118 Atherosclerotic heart disease of native coronary artery with other forms of angina pectoris (principal); Z87.891 Personal history of nicotine dependence; I12.9 Hypertensive chronic kidney disease with stage 1 through stage 4 chronic kidney disease, or unspecified chronic kidney disease; E11.22 Type 2 diabetes mellitus with diabetic chronic kidney disease; N18.2 Chronic kidney disease, stage 2 (mild); Z79.84 Long term (current) use of oral hypoglycemic drugs | CPT/HCPCS: 17000; 99213 ==

== ENCOUNTER 2023-07-04 13:30 | Oncology outpatient (recurring) (ONCR) | payer MEDICARE, OTHER, SELFPAY ==
[2023-06-13] MEDS: ferric carboxy (IVPB) 750 MG in sodium chloride 0.9% (100 ml) 100 ML 345 MG IV (15:04)
[2023-06-13 15:42] VITALS: BP 138/70; PULSE 72; RESP 16; O2SAT 98
[2023-06-14] VITALS (12 sets, daily range): BP systolic 157–188; BP diastolic 64–84; PULSE 68–86; RESP 16–17; TEMP 36.4–37.1; O2SAT 95–98
[2023-06-14] MEDS: sodium chloride 0.9% 250 mL Bag IV (08:37)
[2023-06-14] MEDS: diphenhydrAMINE 25 mg Capsule PO (08:38)
[2023-06-14] MEDS: acetaminophen 325 mg Tablet 650 MG PO (08:38)
[2023-06-14] MEDS: FUROsemide 10 mg/mL SDV 2mL 20 MG IVP (11:10)
[2023-06-20 14:39] LABS: Basophils % 0.7 %; Eosinophils # 0.1 10^3/uL (0.0-0.8); Eosinophils % 1.6 %; Hematocrit 34.1 % (37-53); Lymphocytes # 0.6 10^3/uL (0.8-4.8); Lymphocytes % 13.5 %; Mean Corpuscular HGB Conc 33.1 g/dL (30-55); Mean Corpuscular Hemoglobin 28.7 pg (27-33); Mean Corpuscular Volume 86.5 fl (82-101); Mean Platelet Volume 11.4 fL (7.4-10.4); Monocytes # 0.3 10^3/uL (0.2-0.9); Monocytes % 7.6 %; Neutrophils # 3.33 10^3/uL (1.8-7.7); Neutrophils % 76.4 %; Nucleated Red Blood Cells % 0 %; Platelet Count 108 10^3/cmm (157-399); Red Blood Count 3.94 10^6/uL (3.85-5.65); Red Cell Distribution Width 16.1 % (12.1-15.1); White Blood Count 4.36 10^3/uL (3.29-11.43)
[2023-06-20 15:00] LABS: Alanine Aminotransferase 17 U/L (0-41); Albumin Level 4.3 g/dL (3.5-5.2); Alkaline Phosphatase 74 U/L (40-130); Anion Gap 15.2 (5-19); Aspartate Amino Transferase 17 U/L (0-40); Blood Urea Nitrogen 28 mg/dL (8-23); Calcium 9.1 mg/dL (8.5-10.5); Carbon Dioxide 24 mmol/L (22-29); Chloride 106 mmol/L (98-107); Globulin 2.4 g/dL (1.3-4.6); Glucose 200 mg/dL (65-115); Iron 55 ug/dL (59-158); Osmolality Calculated 303 mOsm/kg (285-295); Percent Saturation 23.8 % (20-50); Potassium 4.2 mmol/L (3.5-5.1); Sodium 141 mmol/L (136-145); Total Bilirubin 0.4 mg/dL (0.15-1.2); Total Iron Binding Capacity 231 mcg/dl; Total Protein 6.7 g/dL (6.6-8.7); Unsaturated Iron Binding 176 ug/dL (112-347)
[2023-06-20 15:24] LABS: Ferritin 1300 ng/mL (30-400)
[2023-07-03 15:29] LABS: PTH Related Peptide (Protein) 8 pg/mL (11-20)
== END 2023-07-10 23:59 | disposition home or self-care (01) ==
PROVIDERS: PCP Nurse Practitioner Family; Visit Provider Internal Medicine
DX: Z53.9 Procedure and treatment not carried out, unspecified reason (principal)
CPT/HCPCS: 36415; 36430; 80053; 82274; 82306; 82310; 82542; 82728; 83540; 83550; 83970; 85025; 86850; 86900; 86920; 96365; J1439; J1940; J7050; P9040

== ENCOUNTER → 2023-07-09 09:39 | Outpatient (BNVA) | payer MEDICARE, OTHER, SELFPAY | PROVIDERS: PCP Nurse Practitioner Family; Referring Provider Internal Medicine; Visit Provider Surgery | DX: K92.2 Gastrointestinal hemorrhage, unspecified (principal); D50.9 Iron deficiency anemia, unspecified | CPT/HCPCS: 99214 ==

== ENCOUNTER → 2023-08-17 12:11 | Outpatient (BNVA) | payer MEDICARE, OTHER, SELFPAY | PROVIDERS: PCP Nurse Practitioner Family; Referring Provider Internal Medicine; Visit Provider Surgery | DX: K92.2 Gastrointestinal hemorrhage, unspecified (principal); D50.9 Iron deficiency anemia, unspecified; Z12.5 Encounter for screening for malignant neoplasm of prostate; Z79.899 Other long term (current) drug therapy | CPT/HCPCS: G0103 ==

== ENCOUNTER → 2023-08-30 10:45 | Outpatient (BNVA) | payer MEDICARE, OTHER, SELFPAY | PROVIDERS: PCP Nurse Practitioner Family; Visit Provider Nurse Practitioner Family | DX: L57.0 Actinic keratosis (principal); L81.4 Other melanin hyperpigmentation; L57.8 Other skin changes due to chronic exposure to nonionizing radiation; D22.5 Melanocytic nevi of trunk; L82.0 Inflamed seborrheic keratosis | CPT/HCPCS: 17000; 17110; 99213 ==

== ENCOUNTER 2023-09-03 08:30 | Oncology outpatient (recurring) (ONCR) | payer MEDICARE, OTHER, SELFPAY ==
[2023-08-23 11:49] LABS: Basophils % 0.2 %; Hematocrit 27.2 % (37-53); Lymphocytes # 0.7 10^3/uL (0.8-4.8); Lymphocytes % 10.4 %; Mean Corpuscular Hemoglobin 28.2 pg (27-33); Mean Platelet Volume 11.9 fL (7.4-10.4); Monocytes # 0.2 10^3/uL (0.2-0.9); Monocytes % 3.6 %; Neutrophils # 5.66 10^3/uL (1.8-7.7); Neutrophils % 84.9 %; Nucleated Red Blood Cells % 0 %; Platelet Count 141 10^3/cmm (157-399); Red Blood Count 3.09 10^6/uL (3.85-5.65); Red Cell Distribution Width 14.6 % (12.1-15.1); White Blood Count 6.66 10^3/uL (3.29-11.43)
[2023-08-23 12:07] LABS: Alanine Aminotransferase 13 U/L (0-41); Albumin Level 4.3 g/dL (3.5-5.2); Alkaline Phosphatase 66 U/L (40-130); Anion Gap 17.5 (5-19); Aspartate Amino Transferase 13 U/L (0-40); Blood Urea Nitrogen 36 mg/dL (8-23); Calcium 9.1 mg/dL (8.5-10.5); Carbon Dioxide 22 mmol/L (22-29); Chloride 101 mmol/L (98-107); Globulin 2.9 g/dL (1.3-4.6); Glucose 206 mg/dL (65-115); Osmolality Calculated 296 mOsm/kg (285-295); Potassium 4.5 mmol/L (3.5-5.1); Sodium 136 mmol/L (136-145); Total Bilirubin 0.3 mg/dL (0.15-1.2); Total Protein 7.2 g/dL (6.6-8.7)
[2023-08-23 17:29] LABS: Ferritin 85 ng/mL (30-400); Iron 42 ug/dL (59-158); Percent Saturation 16.1 % (20-50); Total Iron Binding Capacity 260 mcg/dl; Unsaturated Iron Binding 218 ug/dL (112-347)
[2023-08-27] MEDS: ferric carboxy (IVPB) 750 MG in sodium chloride 0.9% (100 ml) 100 ML 345 MG IV (09:43)
[2023-08-27 10:15] VITALS: BP 185/79; PULSE 71; RESP 16; TEMP 36.6; O2SAT 96
[2023-08-30 17:19] LABS: Soluble Transferrin Receptor 3.91 mg/L (0.76-1.76)
[2023-09-03 08:33] VITALS: BP 159/71; PULSE 71; RESP 16; TEMP 36.3; O2SAT 95
[2023-09-03] MEDS: ferric carboxy (IVPB) 750 MG in sodium chloride 0.9% (100 ml) 100 ML 345 MG IV (08:43)
[2023-09-03 09:11] VITALS: BP 154/57; PULSE 73; RESP 18; TEMP 36.4; O2SAT 95
== END 2023-09-09 23:59 | disposition home or self-care (01) ==
PROVIDERS: PCP Nurse Practitioner Family; Visit Provider Internal Medicine
DX: D50.9 Iron deficiency anemia, unspecified (principal); Z53.9 Procedure and treatment not carried out, unspecified reason
CPT/HCPCS: 36415; 80053; 82728; 83540; 83550; 84238; 85025; 96365; 99214; J1439

== ENCOUNTER → 2023-09-20 14:30 | Outpatient (BNVA) | payer MEDICARE, OTHER, SELFPAY | PROVIDERS: PCP Nurse Practitioner Family; Visit Provider Internal Medicine Cardiovascular Disease | DX: I25.118 Atherosclerotic heart disease of native coronary artery with other forms of angina pectoris (principal); E78.2 Mixed hyperlipidemia; Z95.0 Presence of cardiac pacemaker; I65.21 Occlusion and stenosis of right carotid artery; I12.9 Hypertensive chronic kidney disease with stage 1 through stage 4 chronic kidney disease, or unspecified chronic kidney disease; E11.22 Type 2 diabetes mellitus with diabetic chronic kidney disease; N18.2 Chronic kidney disease, stage 2 (mild); Z79.84 Long term (current) use of oral hypoglycemic drugs | CPT/HCPCS: 99214 ==

== ENCOUNTER 2023-09-24 10:07 | Oncology outpatient (recurring) (ONCR) | payer MEDICARE, OTHER, SELFPAY ==
--- OUTSIDE RECORDS SUMMARY | 2023-09-24 10:09 | XMS_ITS | Patient Health Record ---
Author Name Unknown Organization [facility] Address [address] [facility] [place] [address] Care Team Providers Care Syrup Maker Cook Name Role Phone Virgil Meyer Primary Care Provider Unavailab MELISSA Guerra Unavailable [phone] HARI MENDOZA Unavailable [phone] Allergies Allergen (clinical drug ingredient) Drug/Non Drug Allergy documented on EMR Reaction Allergy Type Onset Date Status atenolol Tenormin Unknown Drug Allergy Active niacin Niacin Unknown Drug Allergy Active Results Component Value Reference Range Notes Urinalysis, Routine Reviewed date:02/09/2023 12:45:43 PM Interpretation: Performing Lab: Notes/Report: Urine-Color yellow Appearance clear Glucose - Bilirubin - Ketones - Specific Morris 1.025 Occult Blood - pH 5.5 Urine Protein 1+ Urobilinogen,Semi-Qn - Nitrite, Urine - WBC Esterase - Urinalysis Gross Exam - Reason For Referral Reason TN Action Reminder S et Diagnosis 1 Chronic prostatitis (N41.1) Referring Provider First Name [facility] Referring Provider Last Name Nm Referred Organization [facility] Referred Provider MELISSA KIRAN Referred Address [address] [facility],[place],[address], Referred Provider Specialty Urology Referral Priority Routine Medications Medication SIG (Take, Route, Frequency, Duration) Notes Start Date End Date Status Cefdinir 300 MG as directed Orally Active hydrALAZINE HCl 50 MG 1 tablet with food Orally Three times a day Active Isosorbide Mononitrate 20 MG 1 tablet Orally Twice a day Active Levothyroxine Sodium 25 MCG 1 tablet in the morning on an empty stomach Orally Once a day Active Albuterol Sulfate (2.5 MG/3ML) 0.083% 3 mL as needed Inhalation every 6 hrs Active Magnesium Lactate 84 MG (7MEQ) 1 tablet Orally every 12 hrs Active Ascorbic Acid 500 MG/ML as directed Injection Active NIFEdipine 20 MG 1 capsule as needed Orally every 8 hrs Active Aspirin 81 MG 1 tablet Orally Once a day Active Nitroglycerin 0.4 MG as directed Sublingual Active Atorvastatin Calcium 80 MG 1 tablet Oral ly Once a day Active Saline 3 1000 MG 1 capsule Orally Onc e a day Active Bumetanide 0.5 MG 1 tablet Orally Once a day Active Carvedilol 25 MG 1 tablet with food Orally Twice a day Active Finasteride 5 MG 1 tablet Orally Once a day for 90 days 09/18/2023 09/12/2024 Active Potassium Chloride 20 MEQ 1 packet with food Orally Once a day Active traZODone HCl 100 MG 1 tablet at bedtime Orally Once a day Active Cetirizine HCl 10 MG 1 tablet Orally Onc e a day Active Valsartan 160 MG 1 tablet Orally Once a day Active Clopidogrel Bisulfate 75 MG 1 tablet Ora lly Once a day Active Vitamin B Complex - as directed Orally Active Fluticasone Propionate 50 MCG/ACT 1 spray in each nostril Nasally Once a day Active Social History Tobacco Use: Social History Observation Description Date Details (start date - stop date) Former Smoker NA - NA Tobacco Use/Smoking Question Answer Notes Tobacco use: former smoker How long has it been since you last smoked? > 10 years Problems Problem Type SNOMED Code ICD Code Onset Dates Problem Status W/U Status Risk Notes Problem Chronic prostatitis (57935383) Chronic prostatitis (N41.1) Active confirmed Vital Signs Heart Rate 80 /min 02/09/2023 Temperature 97.8 degrees Fahrenheit 02/09/2023 Height-cm 185.42 cm 02/09/2023 Blood pressure diastolic 77 mm Hg 02/09/2023 Weight-kg 95.25 kg 02/09/2023 Height 73 in 02/09/2023 Blood pressure systolic 150 mm Hg 02/09/2023 Weight 210 lbs 02/09/2023 BMI 27.7 kg/m2 02/09/2023 Procedures Procedure Date Ordered Date Performed Result Body Sit e Bladder Scan 02/09/2023 02/09/2023 N/A Encounters Encounter Location Date Provider Diagnosis [facility] [address] [facility] [place] [address] 02/09/2023 MELISSA KIRAN Chronic prostatitis N41.1 [facility] [address] [facility] [place] [address] 02/06/2023 HARI MENDOZA [facility], [facility] [address] [facility] [place] [address] 09/18/2023 MELISSA KIRAN Assessments Encounter Date Diagnosis (ICD Code) Assessment Notes Treat ment Notes Treatment Clinical Notes 02/09/2023 Chronic prostatitis (ICD-10 - N41.1) Plan Of Treatment Next Appt Details Provider Name:MELISSA Choi, 10/02/2023 02:30:00 PM, [address] [place], [address], Insurance Providers Payer Name Payer Address Payer Phone Subscriber Number Group Number Insured Name Patient Relationship to Insured Coverage Start Date Coverage End Date [employer] [address] [place], [place] [id number] Tad Deleon Self - patient is the insured Medical (General) History Medical History History ICD Code hypertension back trouble hx of blood/plasma transfusion diabetes recurrent bladder infections anemia arthritis heart disease hx of mumps hx of measles Surgical History Surgery Date(Month/Year) appendectomy 1954 Heart stent pacemaker implant 2021 knee replacement Hospitalization History Reason Date(Month/Year) see surgeries
--- OUTSIDE RECORDS SUMMARY | 2023-09-24 10:09 | XMS_ITS | Patient Health Record ---
Author Name Unknown Organization [facility] Address [address] [place] [address] Care Team Providers Care Customer Data Technician Name Role Phone Paris Dennis APRN Primary Care Provider Bandar Garza Unavailable [phone] Jazmin Barksdale Unavailable [phone] Allergies Allergen (clinical drug ingredient) Drug/Non Drug Allergy documented on EMR Reaction Allergy Type Onset Date Status atenolol Atenolol , Drug Allergy Active Tenormin (atenolol) Unknown Drug Allergy 945 Active niacin Niacin Unknown Drug Allergy Active Reason For Referral Reason Gastritis w/Bleeding , Anemia Appt 01/11 Referring Provider First Name Paris Referring Provider Last Name Jeannie Referring Provider Speciality Nurse De chadwick Referred Organization [facility] Referred Provider Faraz French shelly [facility] Referred Address [address] [place],[address] Referred Provider Specialty Gastroentero logy General Notes Amalia Reid 12/26 09:34:37 AM >3 year Referral Priority Routine Medications Medication SIG (Take, [...] as directed Orally Once a day Active [place] DHA - as directed Orally daily Active [...] MG as directed Orally twice daily Active Social History Tobacco Use: Social History Observation Description Date Details (start date - stop date) Former Smoker NA - NA xTobacco Use/Smoking Question Answer Notes Are you a former smoker Alcohol Screen (Audit-C) Question Answer Notes Did you have a drink containing alcohol in the p ast year? No Points 0 Interpretation Negative Problems Problem Type SNOMED Code ICD Code Onset Dates Problem Status W/U Status Risk Notes Problem 52010628 Iron deficiency anemia, unspecified iron deficiency anemia type (D50.9) Active confirmed Problem 930160536 Chronic anemia (D64.9) Active confirmed Problem Atherosclerotic heart disease of [place] coronary artery without angina pectoris (301998825967767 ) Atherosclerotic heart disease of [place] coronary artery without angina pectoris (I25.10) Active confirmed [id number]-Sxy m ed Description:Essie nary arteriosclerosis Problem Paroxysmal atrial fibrillation (130078790) Paroxysmal atrial fibrillation (I48.0) Active confirmed Brb-[id number]-Kfs m ed Description:Paro xysmal atrial fibrillation Problem Shortness of breath (485620186) Shortness of breath (R06.02) Active confirmed Dominic-2767127- Problem Cardiac pacemaker in situ (662672772) Presence of cardiac pacemaker (Z95.0) Active confirmed [id number]-Xab m ed Description:Card iac pacemaker in situ Problem Post percutaneous transluminal coronary angioplasty (425219833) Presence of coronary angioplasty implant and graft (Z95.5) Active confirmed Psj-1435868-Jl om ed Description:Hist ory of placement of stent for coronary artery disease Problem Sick sinus syndrome (26606071) Sick sinus syndrome (I49.5) Active confirmed Dominic-6368007 -Snom ed Description:Sick sinus syndrome Problem Essential hypertension (86291826) Essential primary hypertension (I10) Active confirmed Pxt-2690883-Ffq m ed Description:Esse ntial hypertension Vital Signs Heart Rate 72 /min 01/11/2023 Temperature 98 degrees Fahrenheit 01/11/2023 Respiratory Rate 18 /min 01/11/2023 Oximetry 99 % 01/11/2023 Blood pressure diastolic 70 mm Hg 01/11/2023 Weight-kg 96.52 kg 01/11/2023 Height 73 in 01/11/2023 Blood pressure systolic 160 mm Hg 01/11/2023 Weight 212.8 lbs 01/11/2023 BMI 28.07 kg/m2 01/11/2023 Encounters Encounter Location Date Provider Diagnosis [facility] [address] [place] [address] 01/11/2023 Bandar Costar Chronic anemia D64.9 [facility] [address] [place] [address] 03/09/2023 Bandar Matthews Chronic anemia D64.9 Assessments Encounter Date Diagnosis (ICD Code) Assessment Notes Treatment Notes Treatment Clinical Notes 01/11/2023 Chronic anemia (ICD-10 - D64.9) 03/09/2023 Chronic anemia (ICD-10 - D64.9) Plan Of Treatment Future Test Test Name Order Date CBC w\ Auto Diff 61883 02/19/2023 Erythropoietin 71063 02/19/2023 Insurance Providers Payer Name Payer Address Payer Phone Subscriber Number Group Number Insured Name Patient Relationship to Insured Coverage Start Date Coverage End Date [place] Medicare [address] [place] [phone] [id number] Tad Deleon Self - patient is the insured [facility] Insurance [address] [address] [place] [phone] [id number] Tad Deleon Self - patient is the insured Medical (General) History Medical History History ICD Code arthritis iron deficiency anemia diabetes hypertension asthma colon polyps congestive heart failure coronary artery disease Surgical History Surgery Date(Month/Year) Bilateral carotid endarterectomy coronary artery stent x 5 1999 pacemaker implant Left knee replacement 2022 Hospitalization History Reason Date(Month/Year) See history
[2023-09-24 10:54] LABS: Basophils % 0.7 %; Eosinophils # 0.1 10^3/uL (0.0-0.8); Eosinophils % 2.6 %; Hematocrit 30.4 % (37-53); Lymphocytes # 0.9 10^3/uL (0.8-4.8); Lymphocytes % 19.3 %; Mean Corpuscular HGB Conc 32.6 g/dL (30-55); Mean Corpuscular Hemoglobin 29.1 pg (27-33); Mean Corpuscular Volume 89.4 fl (82-101); Monocytes # 0.4 10^3/uL (0.2-0.9); Monocytes % 8.9 %; Neutrophils # 3.13 10^3/uL (1.8-7.7); Neutrophils % 68.1 %; Nucleated Red Blood Cells % 0 %; Platelet Count 120 10^3/cmm (157-399); Red Cell Distribution Width 16.4 % (12.1-15.1)
[2023-09-24 11:16] LABS: Alanine Aminotransferase 18 U/L (0-41); Albumin Level 4.5 g/dL (3.5-5.2); Alkaline Phosphatase 57 U/L (40-130); Anion Gap 13.1 (5-19); Aspartate Amino Transferase 16 U/L (0-40); Blood Urea Nitrogen 33 mg/dL (8-23); Calcium 9.5 mg/dL (8.5-10.5); Carbon Dioxide 25 mmol/L (22-29); Chloride 104 mmol/L (98-107); Ferritin 579 ng/mL (30-400); Globulin 2.6 g/dL (1.3-4.6); Glucose 131 mg/dL (65-115); Iron 73 ug/dL (59-158); Osmolality Calculated 295 mOsm/kg (285-295); Percent Saturation 31.3 % (20-50); Potassium 4.1 mmol/L (3.5-5.1); Sodium 138 mmol/L (136-145); Total Bilirubin 0.2 mg/dL (0.15-1.2); Total Iron Binding Capacity 233 mcg/dl; Total Protein 7.1 g/dL (6.6-8.7); Unsaturated Iron Binding 160 ug/dL (112-347)
== END 2023-10-10 23:59 | disposition home or self-care (01) ==
PROVIDERS: Nurse Practitioner Family; PCP Nurse Practitioner Family; Visit Provider Internal Medicine
DX: D50.8 Other iron deficiency anemias
CPT/HCPCS: 36415; 80053; 82728; 83540; 83550; 85025; 99214

== ENCOUNTER → 2023-11-02 09:34 | Outpatient (BNVA) | payer MEDICARE, OTHER, SELFPAY | PROVIDERS: PCP Nurse Practitioner Family; Visit Provider Nurse Practitioner Family | DX: D50.8 Other iron deficiency anemias (principal) | CPT/HCPCS: 80053; 82728; 83550; 85025; 93005 ==

== ENCOUNTER → 2023-12-06 09:15 | Outpatient (BNVA) | payer MEDICARE, OTHER, SELFPAY | PROVIDERS: PCP Nurse Practitioner Family; Visit Provider Nurse Practitioner Family | DX: N18.31 Chronic kidney disease, stage 3a (principal) | CPT/HCPCS: 80069; 82043; 82306; 82310; 83970; 85025 ==

== ENCOUNTER 2023-12-17 10:40 | Oncology outpatient (recurring) (ONCR) | payer OTHER, SELFPAY ==
[2023-12-17 11:02] LABS: Basophils % 0.3 %; Eosinophils # 0.1 10^3/uL (0.0-0.8); Eosinophils % 1.5 %; Hematocrit 35.7 % (37-53); Lymphocytes # 0.8 10^3/uL (0.8-4.8); Lymphocytes % 13.7 %; Mean Corpuscular HGB Conc 31.9 g/dL (30-55); Mean Corpuscular Hemoglobin 27.6 pg (27-33); Mean Corpuscular Volume 86.4 fl (82-101); Mean Platelet Volume 10.4 fL (7.4-10.4); Monocytes # 0.5 10^3/uL (0.2-0.9); Neutrophils # 4.48 10^3/uL (1.8-7.7); Nucleated Red Blood Cells % 0 %; Platelet Count 104 10^3/cmm (157-399); Red Blood Count 4.13 10^6/uL (3.85-5.65); Red Cell Distribution Width 14.8 % (12.1-15.1)
[2023-12-17 11:22] LABS: Alanine Aminotransferase 22 U/L (0-41); Albumin Level 4.3 g/dL (3.5-5.2); Alkaline Phosphatase 55 U/L (40-130); Anion Gap 12.2 (5-19); Aspartate Amino Transferase 18 U/L (0-40); Blood Urea Nitrogen 24 mg/dL (8-23); Calcium 9.6 mg/dL (8.5-10.5); Carbon Dioxide 26 mmol/L (22-29); Chloride 102 mmol/L (98-107); Ferritin 67 ng/mL (30-400); Globulin 2.6 g/dL (1.3-4.6); Glucose 141 mg/dL (65-115); Iron 48 ug/dL (59-158); Osmolality Calculated 288 mOsm/kg (285-295); Percent Saturation 17.5 % (20-50); Potassium 4.2 mmol/L (3.5-5.1); Sodium 136 mmol/L (136-145); Total Bilirubin 0.3 mg/dL (0.15-1.2); Total Iron Binding Capacity 274 mcg/dl; Total Protein 6.9 g/dL (6.6-8.7); Unsaturated Iron Binding 226 ug/dL (112-347)
== END 2024-01-10 23:59 | disposition home or self-care (01) ==
PROVIDERS: Nurse Practitioner Family; PCP Nurse Practitioner Family; Visit Provider Internal Medicine
DX: D50.8 Other iron deficiency anemias (principal)
CPT/HCPCS: 36415; 80053; 82728; 83540; 83550; 85025; 99214

== ENCOUNTER → 2024-02-12 14:26 | Outpatient (BNVA) | payer OTHER, SELFPAY | PROVIDERS: PCP Nurse Practitioner Family; Visit Provider Nurse Practitioner Family | DX: I10 Essential (primary) hypertension (principal); R07.9 Chest pain, unspecified | CPT/HCPCS: 36415; 80053; 83880; 84484; 85025; 93005 ==

== ENCOUNTER → 2024-02-19 14:23 | Outpatient (BNVA) | payer OTHER, SELFPAY | PROVIDERS: PCP Nurse Practitioner Family; Visit Provider Internal Medicine Cardiovascular Disease | DX: I25.118 Atherosclerotic heart disease of native coronary artery with other forms of angina pectoris (principal); I65.21 Occlusion and stenosis of right carotid artery; Z95.0 Presence of cardiac pacemaker; E78.2 Mixed hyperlipidemia; Z87.891 Personal history of nicotine dependence; I12.9 Hypertensive chronic kidney disease with stage 1 through stage 4 chronic kidney disease, or unspecified chronic kidney disease; E11.22 Type 2 diabetes mellitus with diabetic chronic kidney disease; N18.2 Chronic kidney disease, stage 2 (mild); Z79.84 Long term (current) use of oral hypoglycemic drugs | CPT/HCPCS: 99214 ==

== ENCOUNTER 2024-03-03 07:56 | Outpatient (CLI) | payer OTHER, SELFPAY ==
[2024-03-03 07:58] VITALS: BMI 27.0
--- NOTE | 2024-03-03 07:59 | NMCV_ITS ---
NM kayleen perf SPECT r/s* [id number] Tad Deleon Age: 78 Gender: M : 1945 Exam Date: 03/03/2024 07:59 Ordering Phys: Sophie Nelson MD ([email or web address]) Technologist: TATI Bonilla Exam Location: [facility] Indications: CP STRESS TEST Please [facility] IMAGE PROTOCOL Rest/Stress 1 Lexiscan Day Radiopharmaceutical Dose (mCi) Administration Site Administered by Rest: Tc-99m 10.8 IV Janey Hartman VETERINARY PRACTITIONER Sestamibi Stress:Tc-99m 32.5 IV Janey Hartman, VETERINARY PRACTITIONER Sestamibi Rest: 03-Mar-2024 60 Discovery 630 Stress: 03-Mar-2024 30 Discovery 630 0.4mg Lexiscan. Images obtained in supine and prone position. SPECT RESULTS Technical Quality: Good Raw Data Analysis: Normal Image Corrections: No attenuation or motion correction applied Summed Stress Score: 12 Summed Rest Score: 7 Summed Difference Score: 5 PERFUSION FINDINGS Moderate area of moderate to severely decreased tracer uptake involving the basal, mid and apical inferior; basal and mid inferolateral and apical lateral segments. Significant reversibility was noted in the inferior and basal inferolateral regions. FUNCTIONAL RESULTS (calculated via Gated SPECT) Stress Image LV EF (%): 37 Stress EDV (mL):184 TID: 0.9 Stress ESV (mL):116 FUNCTIONAL FINDINGS: Segmental wall motion analysis revealed diffuse hypokinesia of the left ventricle IMPRESSIONS 1. Myocardial perfusion imaging revealing moderate area of moderate to severely decreased tracer uptake involving the inferior, inferolateral and apical lateral regions with significant reversibility suggestive Myocard scarring with ischemia in the distribution of the right coronary artery/circumflex artery 2. LV ejection fraction estimated to be 37%. 3. Segmental wall motion analysis revealed diffuse hypokinesis of the left ventricular. 4. Moderately dilated LV cavity with end-systolic volume of 116 mL Compared to the study from 03/14/2023, there appears to be more dilatation of the LV cavity with a less ischemic burden Dr Sophie Nelson MD [facility] (Electronically Signed) Final Date: 03 March 2024 19:09 S
--- NOTE | 2024-03-03 07:59 | ECG_ITS ---
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 Interpretive Statements Lung unchanged pre/post procedure; Intraprocedure shortess of breath; Symptoms resoled by discharge PROCEDURE: At the baseline, the EKG revealed normal sinus rhythm with poor R wave progression. Minimal left axis deviation. Diffuse nonspecific ST-T changes. The baseline heart was 92 bpm with a blood pressue of 139/86 mm of Hg Lexiscan was infused over a period of 20 seconds. A total of 0.4 milligrams of Lexiscan was infused. The stress phase was continued for a total of 5 minutes. Heart rate at the end of the stress phase was 75 bpm with a blood pressure 151/64 mm of Hg. The EKG at the peak infusion revealed no significant changes. Sestamibi was injected 20 seconds after the Lexiscan infusion. Heart rate at the end of the recovery phase was 72 bpm with a blood pressure of 155/69 mm of Hg. CONCLUSION: 1. No significant EKG changes with the LexiScan infusion 2. No LexiScan induced chest pain or cardiac arrhythmia 3. Normal blood pressure and heart rate response 4. Sestamibi/sestamibi perfusion scan pending; see separate report. Electronically Signed On 03-07-2024 16:35:20 ALLERGY PHYSICIAN by Sophie Nelson M.D. [email or web address]
[2024-03-03] MEDS: regadenoson 0.4 Mg/5 ml Syringe IVP (09:14)
[2024-03-03 09:29] VITALS: BP 156/66; PULSE 72
== END 2024-03-03 07:57 | disposition home or self-care (01) ==
LOC: CDL 07:57
PROVIDERS: PCP Nurse Practitioner Family; Visit Provider Internal Medicine Cardiovascular Disease
DX: Z98.61 Coronary angioplasty status (principal); R06.02 Shortness of breath; R94.39 Abnormal result of other cardiovascular function study
CPT/HCPCS: 36415; 78452; 93017; 96374; A9500; J2785

== ENCOUNTER 2024-03-25 14:00 | Oncology outpatient (recurring) (ONCR) | payer OTHER, SELFPAY ==
[2024-03-18 11:56] LABS: Basophils % 0.5 %; Eosinophils # 0.1 10^3/uL (0.0-0.8); Eosinophils % 1.7 %; Hematocrit 27.5 % (37-53); Lymphocytes % 16.6 %; Mean Corpuscular HGB Conc 29.8 g/dL (30-55); Mean Corpuscular Hemoglobin 22.5 pg (27-33); Mean Corpuscular Volume 75.5 fl (82-101); Mean Platelet Volume 11.8 fL (7.4-10.4); Monocytes # 0.4 10^3/uL (0.2-0.9); Monocytes % 6.9 %; Neutrophils # 4.29 10^3/uL (1.8-7.7); Nucleated Red Blood Cells % 0 %; Platelet Count 122 10^3/cmm (157-399); Red Blood Count 3.64 10^6/uL (3.85-5.65); Red Cell Distribution Width 15.9 % (12.1-15.1)
[2024-03-18 12:03] LABS: Reticulocyte % 2.3 % (0.5-2.0)
[2024-03-18 12:18] LABS: Alanine Aminotransferase 13 U/L (0-41); Albumin Level 4.6 g/dL (3.5-5.2); Alkaline Phosphatase 59 U/L (40-130); Aspartate Amino Transferase 18 U/L (0-40); Blood Urea Nitrogen 30 mg/dL (8-23); Calcium 9.5 mg/dL (8.5-10.5); Carbon Dioxide 22 mmol/L (22-29); Chloride 103 mmol/L (98-107); Ferritin 41 ng/mL (30-400); Globulin 2.8 g/dL (1.3-4.6); Glucose 139 mg/dL (65-115); Iron 21 ug/dL (59-158); Osmolality Calculated 290 mOsm/kg (285-295); Percent Saturation 5.8 % (20-50); Sodium 136 mmol/L (136-145); Total Bilirubin 0.3 mg/dL (0.15-1.2); Total Iron Binding Capacity 359 mcg/dl; Total Protein 7.4 g/dL (6.6-8.7); Unsaturated Iron Binding 338 ug/dL (112-347)
[2024-03-18 12:20] LABS: Anion Gap 15.4 (5-19); Potassium 4.4 mmol/L (3.5-5.1)
[2024-03-18 12:33] LABS: Vitamin B12 580 pg/mL (232-1245)
[2024-03-18 12:58] LABS: Folate Level 5.3 ng/mL (4.5-32.2)
[2024-03-18] MEDS: ferric carboxy (PYXIS) 750 MG in sodium chloride 0.9% (100 ml) 100 ML 345 MG IV (13:08)
[2024-03-18 13:26] LABS: Lactate Dehydrogenase 239 U/L (135-225)
[2024-03-18 13:36] VITALS: BP 188/80; PULSE 74; RESP 16; O2SAT 96
[2024-03-18 16:17] VITALS: BP 158/88; PULSE 88; RESP 16; TEMP 36.7; O2SAT 96
[2024-03-24 14:40] LABS: Soluble Transferrin Receptor 5.95 mg/L (0.76-1.76)
[2024-03-25] MEDS: ferric carboxy (PYXIS) 750 MG in sodium chloride 0.9% (100 ml) 100 ML 345 MG IV (13:46)
[2024-03-25 14:13] VITALS: BP 146/84; PULSE 74; RESP 16; TEMP 36.5; O2SAT 96
== END 2024-04-11 23:59 | disposition home or self-care (01) ==
PROVIDERS: Internal Medicine Hematology & Oncology; PCP Nurse Practitioner Family; Visit Provider Internal Medicine
DX: Z53.9 Procedure and treatment not carried out, unspecified reason (principal); D50.9 Iron deficiency anemia, unspecified; Z79.899 Other long term (current) drug therapy
CPT/HCPCS: 36415; 80053; 82607; 82728; 82746; 83540; 83550; 83615; 84238; 85025; 85045; 96365; 99214; J1439

== ENCOUNTER → 2024-04-25 08:31 | Outpatient (BNVA) | payer OTHER, SELFPAY | PROVIDERS: PCP Nurse Practitioner Family; Visit Provider Nurse Practitioner Family | DX: I25.10 Atherosclerotic heart disease of native coronary artery without angina pectoris (principal); R07.9 Chest pain, unspecified; R94.39 Abnormal result of other cardiovascular function study; Z95.0 Presence of cardiac pacemaker; I65.21 Occlusion and stenosis of right carotid artery; I48.0 Paroxysmal atrial fibrillation; D50.9 Iron deficiency anemia, unspecified; Z87.891 Personal history of nicotine dependence; I12.9 Hypertensive chronic kidney disease with stage 1 through stage 4 chronic kidney disease, or unspecified chronic kidney disease; N18.9 Chronic kidney disease, unspecified; E11.22 Type 2 diabetes mellitus with diabetic chronic kidney disease; Z79.84 Long term (current) use of oral hypoglycemic drugs | CPT/HCPCS: 99214 ==

== ENCOUNTER 2024-04-29 09:11 | Oncology outpatient (recurring) (ONCR) | payer OTHER, SELFPAY ==
[2024-04-29 09:50] LABS: Basophils % 0.3 %; Eosinophils # 0.1 10^3/uL (0.0-0.8); Eosinophils % 1.2 %; Hematocrit 32.6 % (37-53); Lymphocytes # 0.8 10^3/uL (0.8-4.8); Lymphocytes % 13.3 %; Mean Platelet Volume 11.2 fL (7.4-10.4); Monocytes # 0.4 10^3/uL (0.2-0.9); Neutrophils # 4.58 10^3/uL (1.8-7.7); Nucleated Red Blood Cells % 0 %; Platelet Count 128 10^3/cmm (157-399); Red Blood Count 3.88 10^6/uL (3.85-5.65); Red Cell Distribution Width 20.8 % (12.1-15.1); White Blood Count 5.87 10^3/uL (3.29-11.43)
[2024-04-29 10:52] LABS: Alanine Aminotransferase 18 U/L (0-41); Albumin Level 4.6 g/dL (3.5-5.2); Alkaline Phosphatase 61 U/L (40-130); Anion Gap 17.2 (5-19); Aspartate Amino Transferase 15 U/L (0-40); Blood Urea Nitrogen 32 mg/dL (8-23); Calcium 9.2 mg/dL (8.5-10.5); Carbon Dioxide 23 mmol/L (22-29); Chloride 103 mmol/L (98-107); Creatinine Clr Calc Pharmacy 42.0884; Ferritin 90 ng/mL (30-400); Globulin 2.4 g/dL (1.3-4.6); Glucose 174 mg/dL (65-115); Iron 41 ug/dL (59-158); Osmolality Calculated 299 mOsm/kg (285-295); Potassium 4.2 mmol/L (3.5-5.1); Sodium 139 mmol/L (136-145); Total Bilirubin 0.4 mg/dL (0.15-1.2); Total Iron Binding Capacity 273 mcg/dl; Unsaturated Iron Binding 232 ug/dL (112-347); Vitamin B12 539 pg/mL (232-1245)
[2024-04-29 11:22] LABS: Folate Level 6.2 ng/mL (4.5-32.2)
== END 2024-05-09 23:59 | disposition home or self-care (01) ==
PROVIDERS: Internal Medicine Medical Oncology; PCP Nurse Practitioner Family; Visit Provider Internal Medicine
DX: D50.9 Iron deficiency anemia, unspecified; I25.10 Atherosclerotic heart disease of native coronary artery without angina pectoris; Z79.899 Other long term (current) drug therapy; Z87.891 Personal history of nicotine dependence; Z53.9 Procedure and treatment not carried out, unspecified reason
CPT/HCPCS: 36415; 80053; 82607; 82728; 82746; 83540; 83550; 85025; 99213

== ENCOUNTER → 2024-05-05 10:45 | Outpatient (BNVA) | payer MEDICARE, OTHER, SELFPAY | PROVIDERS: Family Provider Nurse Practitioner Family; PCP Nurse Practitioner Family; Visit Provider Nurse Practitioner Family | DX: I25.118 Atherosclerotic heart disease of native coronary artery with other forms of angina pectoris (principal) | CPT/HCPCS: 80048; 85025; 85610 ==

== ENCOUNTER 2024-05-09 05:54 | Outpatient (CLI) | payer OTHER, MEDICARE, SELFPAY ==
[2024-05-09] VITALS (31 sets, daily range): BP systolic 138–195; BP diastolic 67–104; PULSE 67–79; RESP 11–22; TEMP 36.4–36.8; O2SAT 94–98; BMI 27.4
--- NOTE | 2024-05-09 06:00 | XACV_ITS ---
Exam Room: 2 Ht: 185 cm Wt: 94 kg BSA: 2.22 m2 Gender: Male : 1945 Any Known Allergies: Other Exam Priority: Routine Procedure(s): Procedure Description: Diagnostic procedure Procedure Description: PCI procedure Procedure Description: Left Heart Catheterization Procedure Description: PTCA Procedure Description: Miscellaneous Procedure Description: ACT Procedure Description: Coronary Angiography Diagnostic Cath Status: Elective Diagnostic Findings * INDICATION: CCS class 2/3 angina/ Worsening dyspnea on exertion/ abnormal stress test. * Left Main has no significant disease. * Left Anterior Descending has patent prior stents. Mid LAD stent has mild to moderate 40% in-stent restenosis. * Circumflex is patent. Gives rise to a large OM1 with prior stents. Severe in-stent 90% restenosis. This is the area of ischemia on stress test. * Proximal Right Coronary Artery: chronic total occlusion, MATEUS: 0 flow. Left to right collaterals. * First Obtuse Marginal Branch Segment: severe 90% stenosis, MATEUS: 3 flow. * Coronary angiography shows right dominance. PCI Status: Elective Interventional Findings * First Obtuse Marginal Branch Segment: 90% stenosis treated with a MDT NC EUPHORA RX 3.66R79CM BALLOON. 0% residual stenosis, MATEUS: 3 flow. * Procedure detail: We engaged left main artery with XB 3.0 guide catheter. IV heparin was administered to maintain anticoagulation. Run-through wire was used to cross the severe ISR of OM vessel. We then dilated the severe ISR with 3.5 x 12 mm NC balloon at high pressure. This resulted in excellent stent expansion and no residual stenosis. Guidewire and guide catheter were removed. Patient left the Rig Operator in a stable condition.. Conclusions 1. Severe in-stent restenosis of OM 1 stent. Status post successful revascularization with balloon angioplasty.. 2. First Obtuse Marginal Branch Segment was treated with a Balloon. Recommendations * Dual antiplatelet therapy with aspirin and plavix. * High intensity statin therapy. * Outpatient cardiology follow up in 2 weeks. Interventional RX Recommendation: PCI w/o planned CABG Diagnostic RX Recommendation: PCI w/o planned CABG Anticoagulation: Heparin Pressures Phase:Rest AO : 142 / 69 ( 98 ) @ 9:03:00 AM 142 / 68 ( 97 ) @ 9:03:00 AM 131 / 78 ( 98 ) @ 9:04:00 AM LV : 152 / -6 / 8 @ 9:03:00 AM 157 / -5 / 10 @ 9:03:00 AM Valves Phase:DefaultPhase AV : 13.0 @ 9:29:59 AM AV Mean Gradient: 12.0 @ 9:29:59 AM Clinical Evaluation EBL: 5mL-10mL Procedural Details Procedure Consent Obtained. Pre-Procedure Time Out. Identified patient by full name and date of as verbalized by the patient/guarantor. Does the consent match the physician's order: Yes. Accurate & Complete Informed Consent: Yes. Inpatient/Outpatient History & Physical on Chart: Yes. If H&P is completed, is and addenduem needed: No. Visualize and Verify Site with Patient/Guarantor: N/A. Relevant Radiology Images available: Yes. The risks, benefits, and alternatives of sedation and/or procedure were discussed by physician. The patient agrees to continue. Procedure started. [facility] Clinical Fraility Score: 3: Managing Well. Rig Operator Indications: Stable Known CAD/abnormal stress test. Chest Pain Symptom Assessment: Typical Angina Symptoms. Cardiovascular Instability: No. Correct patient, site and procedure confirmed by cath team. PERRLA. Strong, equal hand booster pump operator bilaterally. Lungs clear x 5 lobes. IV Site on Arrival: 20 gauge in the left anticubital. IV Fluids: 0.9% NaCl at KVO. 0 mL infused prior to supervisor laboratory animal facility. Pre Procedural Pulses: bilateral dorsalis pedis was 3+. Pre Procedural Pulses: bilateral posterior tibial was 3+. Pre Procedural Pulses: bilateral radial was 3+. Oxygen started at 2liters/min via nasal canula. right groin was prepped with chloroprep then draped in the usual sterile fashion. right radial was prepped with chloroprep then draped in the usual sterile fashion. Physician notified. Baseline sample Acquired. HR: 85 BPM. Patient's family in CPRU. Dr. Abernathy will update at the completion of the procedure. Equipment: 6F - Radial. Cardiac Cath Pack. ACIST Manifold Kit Model BT 2000. Heparinized Saline (2 units/mL), 1000 mL bag. Physician arrived. Physician scrubbed in. Immediate Pre-Procedure Time Out. Correct Patient: Yes; Correct Procedure: Yes; Correct Site: Yes; Correct Patient Position: Yes; Correct Supplies: Yes; Dried Flammable Prep: Yes; Blood Products Available: N/A;. Lidocaine 1% infiltrated to the right radial. Arterial access obtained. A 5 latvian TIG catheter in over the exchagne J wire. EDP Sample taken: LV 152/-7,8; HR: 70 BPM; SpO2: 98%. Pullback taken: LV 157/-6,10; AO 142/69(98); Mean: 12mmHg, Peak to Peak: 13mmHg, SEP: 22sec/min; HR: 70 BPM; SpO2: 98%. Multiple views taken of left coronary artery. Catheter redirected to the RCA. Multiple views taken of right coronary artery. Catheter removed over the exchange J wire. 6 latvian XB 3.5 guide catheter was inserted over the exchange J wire. Runthrough guidewire was advanced through the guide catheter to lesion in the OM. Inflation number : 1 A MDT NC EUPHORA RX 3.99J08VI BALLOON was prepped and advanced across the 1st Ob Mara , then inflated to 24 DAY for 0:21 seconds. Inflation number: 2 The MDT NC EUPHORA RX 3.53L76NY BALLOON was reinflated across the 1st Ob Mara, to 20 DAY for 0:14 seconds. Balloon out. Results checked. Wire out. ACT drawn. Results out of range HI. seconds. Therapeutic limits - pre-heparin administration 90-150 seconds and monitoring heparin during a vascular procedure >250 seconds. Guide catheter out. Dr. Abernathy scrubbed out. A TR Band was successful obtaining hemostatsis at the Right Radial artery insertion site. Post Procedure: Pulses reassessed and unchanged. PERRLA. Strong, equal hand booster pump operator bilaterally. No VTE prophylaxis required. Medication's Wasted: Lidocaine 1% = 18 mL. Medication's Wasted: Nitro = 49.8 mg. Medication's Wasted: Heparin = 2000 untis. Medication's Wasted: Other = Fentanyl 25 mcg. Total IV fluids: 25 mL. Post-op diagnosis: POBA of the OM for in-stent stenosis. Complications: none. Estimated blood loss: 5mL-10mL. Responsiveness - Normal response to verbal stimuli; alert and oriented, PERRLA. Airway - Unaffected, no intervention required; spontaneous ventilation. Circulation: W/N/L, pulses unchanged. Nausea/Vomiting: No. Procedure completed. Patient transferred by wheelchair to CPRU. Patient transferred by bed to CPRU. Vital chart was stopped. Access Site Site: Right Radial artery Sheath Size: 6 Fr Hemostasis Method: TR Band Hemostasis Success: Successful Procedure Medications Start: 8:53 AM Stop: 8:53 AM Medication: Versed Amount: 1 mg Route: I.V. Start: 8:53 AM Stop: 8:53 AM Medication: Fentanyl Amount: 50 mcg Route: I.V. Start: 9:00 AM Stop: 9:00 AM Medication: Nitrogylcerin Amount: 200 mcg Route: I.A. Start: 9:03 AM Stop: 9:03 AM Medication: Heparin Amount: 5000 units Route: I.V. Start: 9:04 AM Stop: 9:04 AM Medication: Versed Amount: 1 mg Route: I.V. Start: 9:04 AM Stop: 9:04 AM Medication: Fentanyl Amount: 25 mcg Route: I.V. Start: 9:14 AM Stop: 9:14 AM Medication: Heparin Amount: 4000 units Route: I.V. I, the attending physician, have reviewed and verified all procedure medications. Yes, all medications given per verbal order History/Risk Factors Hypertension: Yes Dyslipidemia: Yes Peripheral Arterial Disease (PAD): No Myocardial Infarction (WI): No Obesity: No Renal Disease: No Tobacco Use: Former Prior Interventions PCI: Yes CABG: No Valve Surgery: No Date of PCI: 06/07/2023 Report Signatures Finalized by Anibal Abernathy MD on 05/18/2024 01:16 PM
[2024-05-09] MEDS: diphenhydrAMINE 50 mg Capsule PO (06:21)
--- NOTE | 2024-05-09 08:55 | W.PM.OPSUD ---
Surgery/Procedure H&P Update DATE OF PROCEDURE: May 09, 2024 DATE H&P PERFORMED: 04/25/24 H&P UPDATE INFORMATION: I have reviewed H&P completed within last 30 days, I have examined patient prior to procedure and No changes to prior documentation PREOP DIAGNOSIS: CCS class 2/3 angina/ Worsening dyspnea on exertion/ abnormal stress test PRIMARY INDICATION FOR PROCEDURE: CCS class 2/3 angina/ Worsening dyspnea on exertion/ abnormal stress test PLANNED PROCEDURE: Operation Date: 05/09/24 07:00 Proposed Procedures p Cardiac Catheterization - Cw/woLV&Coros(Left) - Anibal Abernathy M.D Possible percutaneous coronary intervention PATIENT REASSESSED PRIOR TO SEDATION, WITH NO CHANGE NOTED: Yes PHYSICAL EXAM: alert, oriented x 3, clear to auscultation bilaterally and regular rate & rhythm AIRWAY EVAL/ANESTHESIA PLAN: normal airway, ASA III, Local Anesthesia, Risks, benefits & alternatives of sedation and/or procedure discussed and Patient agrees to continue as planned ADDITIONAL INFORMATION: Moderate sedation
[2024-05-09 09:04] LABS: Blood Urea Nitrogen 31 mg/dL (8-23); Calcium 9.3 mg/dL (8.5-10.5); Carbon Dioxide 24 mmol/L (22-29); Chloride 103 mmol/L (98-107); Creatinine Clr Calc Pharmacy 54.9223; Glucose 141 mg/dL (65-115); Osmolality Calculated 291 mOsm/kg (285-295); Sodium 136 mmol/L (136-145)
--- NOTE | 2024-05-09 09:29 | PM.PROC ---
Procedure Note: Date of procedure: 05/09/24 Pre-procedure diagnosis: CCS class 2/3 angina/ Worsening dyspnea on exertion/ abnormal stress test Post-procedure diagnosis: other (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 OM1 has a prior stent with significant ISR. Status post accessible revascularization with 1 stent. This is the area showing ischemia on stress test. 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 Continue dual antiplatelet therapy with aspirin and Plavix 6-8 hours of 100cc/hour fluids Performing Provider: Anibal Abernathy Estimated blood loss (mL): 5 Complications: None Condition: stable Disposition: floor Coding Level of Care Code Acute Code for g Fwhugo
--- NOTE | 2024-05-09 09:30 | SUR.PHASEI ---
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 Status post cardiac catheterization via the right wrist. TR Band in place. Site is hemostatic. No s/s of hematoma formation noted. Family/Patient updated by MD post procedure. They understood well. Verbal post cath instructions went over with the patient/Family. Understood well. See PCS documentation and vital record for assessments. Call light within reach. Informed to call for needs. IV fluids set to 100 ml/hr until discharge at 1700 today. Infusing without difficulty.
--- NOTE | 2024-05-09 09:40 | SUR.PHASEI ---
IV 0.9% ns set at 100 ml/hr post cath.
[2024-05-09] MEDS: hyDRALAzine 20 mg/mL INJ 1 mL 10 MG IVP (11:15)
--- NOTE | 2024-05-09 14:29 | PC.NURSE ---
patient arrived on floor at 1413. report taken from juan m gutierrez rn
--- NOTE | 2024-05-09 17:08 | P.DS_ITS ---
<Statement entered by Anibal Abernathy M.D - 05/11/24 21:30> Patient was evaluated and cared for in conjunction with an advanced practice practitioner. I personally examined the patient and reviewed the chart and all pertinent data including imaging, telemetry, and laboratory results. I discussed the patient in detail with the advanced practice practitioner. Please see their note for discharge summary, results and agreed upon plan of care for the patient. GENERAL: Patient is alert and oriented HEART: Regular S1 and S2 LUNGS: Clear to auscultation bilaterally EXTREMITIES: Lower extremities with no edema Discharge Providers Date of Admission: 05/09/24 Date of Discharge: May 09, 2024 Attending Provider at Discharge: Dr. Abernathy Primary Care Provider: JANA Ambrocio Reason for Visit Reason for Visit: R07.9 Brief History: Patient had worsening dypsnea on exertion and abnormal stress test. 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 OM1 has a prior stent with significant ISR. Status post accessible revascularization with 1 stent. This is the area showing ischemia on stress test. RCA GRADES 6 THROUGH 8 TEACHER. Post cath procedure was without issues. BP was elevated in the 160s on my assessment. Patient will go home and restart home medications. Small area of bruising to cath site. No evidence of hematoma. 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 Routine Exams 05/09/24 06:00 Taken Laboratory Results Sodium 136 mmol/L (136-145) 05/09/24 08:41 Potassium 4.0 mmol/L (3.5-5.1) 05/09/24 08:41 Chloride 103 mmol/L (98-107) 05/09/24 08:41 Carbon Dioxide 24 mmol/L (22-29) 05/09/24 08:41 Anion Gap 13.0 (5-19) 05/09/24 08:41 BUN 31 mg/dL (8-23) H 05/09/24 08:41 Creatinine 1.3 mg/dL (0.7-1.2) H 05/09/24 08:41 GFR Calculation Not Reportable 05/09/24 08:41 Glucose 141 mg/dL (65-115) H 05/09/24 08:41 Calculated Osmolality 291 mOsm/kg (285-295) 05/09/24 08:41 Calcium 9.3 mg/dL (8.5-10.5) 05/09/24 08:41 Procedures Performed Date of procedure: 05/09/24 Pre-procedure diagnosis: CCS class 2/3 angina/ Worsening dyspnea on exertion/ abnormal stress test Post-procedure diagnosis: other (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 OM1 has a prior stent with significant ISR. Status post accessible revascularization with 1 stent. This is the area showing ischemia on stress test. RCA GRADES 6 THROUGH 8 TEACHER. Vitals Last Vital Signs Temp 97.5 F L 05/09/24 16:30 Pulse 79 05/09/24 17:00 Resp 14 05/09/24 17:00 BP 163/77 05/09/24 17:00 Pulse Ox 95 05/09/24 13:45 O2 Del Method Room Air 05/09/24 15:48 Discharge Plan Discharge Patient Disposition: Home Prescriptions: Continued Allergy Relief (cetirizine) 10 mg capsule 10 mg PO DAILY trazodone 100 mg tablet 100 mg PO BEDTIME fluticasone propionate 50 mcg/actuation spray,suspension 2 spray INTRANASAL DAILY PRN (Reason: Nasal Congestion) ascorbate calcium (vitamin C) 500 mg tablet 500 mg PO QAM albuterol sulfate [ProAir HFA] 90 mcg/actuation HFA aerosol inhaler 2 puff INHALATION QID PRN (Reason: Shortness Of Breath) [facility] 250-2.5-0.5 mg capsule 1 cap PO DAILY bumetanide 0.5 mg tablet 0.5 mg PO .COMPLEX Rx Instructions: 0.5 mg orally Mon, Wed, Fri; ofloxacin 0.3 % drops 5 drp otic (ear) BID PRN (Reason: ear pain) hydralazine 100 mg tablet 100 mg PO TID Qty: 270 3RF budesonide-formoterol [Symbicort] 160-4.5 mcg/actuation HFA aerosol inhaler 2 puff inhalation BID Qty: 10.2 1RF ipratropium-albuterol 0.5 mg-3 mg(2.5 mg base)/3 mL solution for nebulization 3 ml inhalation Q6H PRN (Reason: Shortness Of Breath) atorvastatin 80 mg tablet 80 mg PO BEDTIME Qty: 90 4RF nitroglycerin 0.4 mg tablet, sublingual 0.4 mg SUBLINGUAL Q5M PRN (Reason: Chest Pain) Qty: 25 3RF Jardiance 25 mg tablet 25 mg PO QAM Qty: 90 3RF levothyroxine 25 mcg tablet See Rx Instructions .ROUTE .COMPLEX Qty: 30 0RF Dose Instruction: TAKE ONE TABLET BY MOUTH DAILY Rx Instructions: TAKE ONE TABLET BY MOUTH DAILY clopidogrel [Plavix] 75 mg tablet 75 mg PO DAILY@12 Qty: 90 4RF isosorbide mononitrate 60 mg Tablet Extended Release 24 Hr 60 mg PO QAM finasteride 5 mg tablet 5 mg PO DAILY ferrous sulfate 325 mg (65 mg iron) Capsule, Extended Release 65 mg PO .3XWK Fish Oil 500 mg Capsule 500 mg PO DAILY potassium chloride 20 mEq Tablet Extended Release 10 meq PO DAILY magnesium oxide 400 mg magnesium Tablet 400 mg PO DAILY carvedilol 25 mg tablet 25 mg PO BID nifedipine 30 mg tablet extended release 30 mg PO BID pantoprazole 40 mg tablet,delayed release (DR/EC) 40 mg PO DAILY Rx Instructions: dose change aspirin 81 mg Tablet,Delayed Release (Dr/Ec) 81 mg PO DAILY cholecalciferol (vitamin D3) 50 mcg (2,000 unit) capsule 50 mcg PO DAILY valsartan 160 mg tablet 160 mg PO BID Qty: 180 1RF Rx Instructions: [facility]. He will need to pay soto for this Discharge Orders: Discharge Order (Routine); Ordered 05/09/24 Ordered By: Anne-Marie Grayson Referrals: Anne-Marie Grayson, PAPER NOVELTY MAKER [Nurse Practitioner] - (We have notified your physician's clinic of the need for a follow-up appointment to be scheduled. If you have not heard from them within the next 2 business days, please call them directly. ) Diet: Advance as tolerated and Cardiac Activity: Increase activity as tolerated and Limit activity as instructed Patient Instructions: Coronary Angioplasty (DC), Left Heart Catheterization (DC) Activity Restrictions/Additional Instructions: Discussed with patient no heavy lifting more than a gallon of milk as well as going up or down steps for 3 days. No driving for 3 days. Monitor for and report signs or symptoms of bleeding. Monitor for and report s/s of infection such as fever 101 or greater, swelling, redness or pain to the wrist. Continue dual antiplatelet therapy Print Language: Swiss Discharge Attestations Time Spent in Discharge Care*: less than 30 min Quality Metrics Clinical Quality Measures [ No reported AMI, CVA or VTE this stay] Coding Level of Care Code Acute Code for Chg Radha
--- NOTE | 2024-05-09 17:22 | PC.NURSE ---
Patient discharged to home. Instruction provided regarding follow up needs. Refill sent to [facility]. Patient verbalized complete understanding. Right wrist dressing remains c,d,i without s/s of bleeding or hematoma formation observed
== END 2024-05-09 17:27 | disposition home or self-care (01) ==
LOC: CCL 05:55 → CSU 14:02
PROVIDERS: Internal Medicine; PCP Nurse Practitioner Family; Visit Provider Internal Medicine Cardiovascular Disease
DX: T82.855A Stenosis of coronary artery stent, initial encounter (principal); Y71.8 Miscellaneous cardiovascular devices associated with adverse incidents, not elsewhere classified; I10 Essential (primary) hypertension; E78.5 Hyperlipidemia, unspecified; Z87.891 Personal history of nicotine dependence; Z79.02 Long term (current) use of antithrombotics/antiplatelets; Z79.82 Long term (current) use of aspirin; Z95.5 Presence of coronary angioplasty implant and graft; R06.09 Other forms of dyspnea; I25.119 Atherosclerotic heart disease of native coronary artery with unspecified angina pectoris
CPT/HCPCS: 36415; 80048; 85347; 92920; 93458; 96374; 99152; 99153; C1725; C1769; C1887; C1894; J0360; J1644; J2250; J3010; J3490; J7030; J9999; Q0163; Q9967

== ENCOUNTER → 2024-06-05 10:51 | Outpatient (BNVA) | payer OTHER, SELFPAY | PROVIDERS: PCP Nurse Practitioner Family; Visit Provider Internal Medicine Cardiovascular Disease | DX: I25.118 Atherosclerotic heart disease of native coronary artery with other forms of angina pectoris (principal); I65.21 Occlusion and stenosis of right carotid artery; Z95.0 Presence of cardiac pacemaker; E78.2 Mixed hyperlipidemia; I10 Essential (primary) hypertension; E11.9 Type 2 diabetes mellitus without complications | CPT/HCPCS: 99214 ==

== ENCOUNTER 2024-06-10 09:41 | Oncology outpatient (recurring) (ONCR) | payer OTHER, SELFPAY ==
[2024-06-10 10:27] LABS: Basophils % 0.5 %; Eosinophils % 0.7 %; Hematocrit 29.4 % (37-53); Lymphocytes # 0.6 10^3/uL (0.8-4.8); Lymphocytes % 14.3 %; Mean Corpuscular Hemoglobin 25.3 pg (27-33); Mean Corpuscular Volume 81.9 fl (82-101); Mean Platelet Volume 10.7 fL (7.4-10.4); Monocytes # 0.3 10^3/uL (0.2-0.9); Monocytes % 6.1 %; Neutrophils # 3.23 10^3/uL (1.8-7.7); Neutrophils % 78.2 %; Nucleated Red Blood Cells % 0 %; Platelet Count 107 10^3/cmm (157-399); Red Blood Count 3.59 10^6/uL (3.85-5.65); Red Cell Distribution Width 15.8 % (12.1-15.1); White Blood Count 4.13 10^3/uL (3.29-11.43)
[2024-06-10 11:01] LABS: Alanine Aminotransferase 16 U/L (0-41); Albumin Level 4.5 g/dL (3.5-5.2); Alkaline Phosphatase 68 U/L (40-130); Aspartate Amino Transferase 15 U/L (0-40); Blood Urea Nitrogen 30 mg/dL (8-23); Calcium 9.1 mg/dL (8.5-10.5); Carbon Dioxide 23 mmol/L (22-29); Chloride 104 mmol/L (98-107); Ferritin 21 ng/mL (30-400); Globulin 2.2 g/dL (1.3-4.6); Glucose 219 mg/dL (65-115); Iron 32 ug/dL (59-158); Osmolality Calculated 299 mOsm/kg (285-295); Percent Saturation 10.4 % (20-50); Sodium 138 mmol/L (136-145); Total Bilirubin 0.3 mg/dL (0.15-1.2); Total Iron Binding Capacity 307 mcg/dl; Total Protein 6.7 g/dL (6.6-8.7); Unsaturated Iron Binding 275 ug/dL (112-347)
[2024-06-10 11:16] LABS: Vitamin B12 514 pg/mL (232-1245)
[2024-06-10] MEDS: ferric derisomaltose 1,000 MG in sodium chloride 0.9% (100 ml) 100 ML 330 MG IV (12:14)
[2024-06-10 13:00] VITALS: BP 127/78; PULSE 78; RESP 18; TEMP 36.2; O2SAT 97
== END 2024-07-09 23:59 | disposition home or self-care (01) ==
PROVIDERS: PCP Nurse Practitioner Family; Visit Provider Internal Medicine Medical Oncology
DX: D50.9 Iron deficiency anemia, unspecified (principal); I25.10 Atherosclerotic heart disease of native coronary artery without angina pectoris; D70.9 Neutropenia, unspecified; D69.6 Thrombocytopenia, unspecified; Z87.891 Personal history of nicotine dependence; Z79.899 Other long term (current) drug therapy
CPT/HCPCS: 36415; 80053; 82607; 82728; 82746; 83540; 83550; 85025; 96365; 99214; J1437

== ENCOUNTER → 2024-06-13 09:12 | Outpatient (BNVA) | payer MEDICARE, OTHER, SELFPAY | PROVIDERS: PCP Nurse Practitioner Family; Visit Provider Nurse Practitioner Family | DX: N18.31 Chronic kidney disease, stage 3a (principal) | CPT/HCPCS: 80069; 82043; 82306; 82310; 83970; 85025 ==

== ENCOUNTER 2024-07-22 11:11 | Oncology outpatient (recurring) (ONCR) | payer OTHER, SELFPAY ==
[2024-07-22 11:37] LABS: Basophils % 0.1 %; Hematocrit 32.3 % (37-53); Lymphocytes # 0.6 10^3/uL (0.8-4.8); Lymphocytes % 6.3 %; Mean Corpuscular HGB Conc 31.9 g/dL (30-55); Mean Corpuscular Hemoglobin 26.9 pg (27-33); Mean Corpuscular Volume 84.3 fl (82-101); Monocytes # 0.3 10^3/uL (0.2-0.9); Neutrophils # 9.08 10^3/uL (1.8-7.7); Neutrophils % 90.1 %; Nucleated Red Blood Cells % 0 %; Platelet Count 122 10^3/cmm (157-399); Red Blood Count 3.83 10^6/uL (3.85-5.65); White Blood Count 10.08 10^3/uL (3.29-11.43)
[2024-07-22 11:58] LABS: Alanine Aminotransferase 14 U/L (0-41); Albumin Level 4.4 g/dL (3.5-5.2); Alkaline Phosphatase 59 U/L (40-130); Anion Gap 18.4 (5-19); Aspartate Amino Transferase 15 U/L (0-40); Blood Urea Nitrogen 31 mg/dL (8-23); Calcium 9.1 mg/dL (8.5-10.5); Carbon Dioxide 20 mmol/L (22-29); Chloride 103 mmol/L (98-107); Creatinine Clr Calc Pharmacy 51.0331; Ferritin 64 ng/mL (30-400); Globulin 2.9 g/dL (1.3-4.6); Glucose 218 mg/dL (65-115); Iron 43 ug/dL (59-158); Osmolality Calculated 297 mOsm/kg (285-295); Percent Saturation 13.8 % (20-50); Potassium 4.4 mmol/L (3.5-5.1); Sodium 137 mmol/L (136-145); Total Bilirubin 0.3 mg/dL (0.15-1.2); Total Iron Binding Capacity 310 mcg/dl; Total Protein 7.3 g/dL (6.6-8.7); Unsaturated Iron Binding 267 ug/dL (112-347)
[2024-07-22 12:21] LABS: Folate Level 6.9 ng/mL (4.5-32.2)
[2024-07-22] MEDS: ferric derisomaltose 1,000 MG in sodium chloride 0.9% (100 ml) 100 ML 330 MG IV (13:39)
[2024-07-22 14:10] VITALS: BP 180/70; PULSE 16; TEMP 36.8; O2SAT 94
== END 2024-08-09 23:59 | disposition home or self-care (01) ==
PROVIDERS: Nurse Practitioner Family; PCP Nurse Practitioner Family; Visit Provider Internal Medicine Medical Oncology
DX: D50.8 Other iron deficiency anemias (principal); K29.71 Gastritis, unspecified, with bleeding; R03.0 Elevated blood-pressure reading, without diagnosis of hypertension; D70.9 Neutropenia, unspecified; I25.10 Atherosclerotic heart disease of native coronary artery without angina pectoris; D69.6 Thrombocytopenia, unspecified; Z87.891 Personal history of nicotine dependence; Z79.899 Other long term (current) drug therapy
CPT/HCPCS: 36415; 80053; 82728; 82746; 83540; 83550; 85025; 96365; 99214; J1437

== ENCOUNTER → 2024-08-29 10:08 | Outpatient (BNVA) | payer OTHER, SELFPAY | PROVIDERS: PCP Nurse Practitioner Family; Visit Provider Nurse Practitioner Family | DX: L81.4 Other melanin hyperpigmentation (principal); L57.8 Other skin changes due to chronic exposure to nonionizing radiation; D22.5 Melanocytic nevi of trunk; L82.1 Other seborrheic keratosis; L57.0 Actinic keratosis | CPT/HCPCS: 17000; 99213 ==

== ENCOUNTER 2024-10-07 14:15 | Oncology outpatient (recurring) (ONCR) | payer OTHER, SELFPAY ==
[2024-09-09 13:30] LABS: Hematocrit 30.8 % (37-53); Hemoglobin 10.20 g/dL (11.27-16.99); Mean Corpuscular HGB Conc 33.1 g/dL (30-55); Mean Corpuscular Hemoglobin 28.7 pg (27-33); Mean Corpuscular Volume 86.5 fl (82-101); Nucleated Red Blood Cells % 0 %; Platelet Count 94 10^3/cmm (157-399); Red Blood Count 3.56 10^6/uL (3.85-5.65); White Blood Count 5.41 10^3/uL (3.29-11.43)
[2024-09-09 13:49] LABS: Alanine Aminotransferase 16 U/L (0-41); Albumin Level 4.2 g/dL (3.5-5.2); Alkaline Phosphatase 64 U/L (40-130); Anion Gap 18.4 (5-19); Aspartate Amino Transferase 13 U/L (0-40); Blood Urea Nitrogen 37 mg/dL (8-23); Calcium 9.2 mg/dL (8.5-10.5); Carbon Dioxide 19 mmol/L (22-29); Chloride 105 mmol/L (98-107); Ferritin 126 ng/mL (30-400); Globulin 2.5 g/dL (1.3-4.6); Glucose 253 mg/dL (65-115); Iron 49 ug/dL (59-158); Osmolality Calculated 303 mOsm/kg (285-295); Potassium 4.4 mmol/L (3.5-5.1); Sodium 138 mmol/L (136-145); Total Iron Binding Capacity 247 mcg/dl; Total Protein 6.7 g/dL (6.6-8.7); Unsaturated Iron Binding 198 ug/dL (112-347)
[2024-10-07 14:39] LABS: Hematocrit 30.8 % (37-53); Hemoglobin 10.00 g/dL (11.27-16.99); Mean Corpuscular HGB Conc 32.5 g/dL (30-55); Mean Corpuscular Hemoglobin 27.4 pg (27-33); Mean Corpuscular Volume 84.4 fl (82-101); Nucleated Red Blood Cells % 0 %; Platelet Count 120 10^3/cmm (157-399); Red Blood Count 3.65 10^6/uL (3.85-5.65); White Blood Count 5.18 10^3/uL (3.29-11.43)
[2024-10-07 14:54] LABS: Alanine Aminotransferase 19 U/L (0-41); Albumin Level 4.4 g/dL (3.5-5.2); Alkaline Phosphatase 64 U/L (40-130); Anion Gap 18.4 (5-19); Aspartate Amino Transferase 16 U/L (0-40); Blood Urea Nitrogen 33 mg/dL (8-23); Calcium 9.2 mg/dL (8.5-10.5); Carbon Dioxide 22 mmol/L (22-29); Chloride 102 mmol/L (98-107); Creatinine Clr Calc Pharmacy 44.6244; Ferritin 44 ng/mL (30-400); Globulin 2.6 g/dL (1.3-4.6); Glucose 167 mg/dL (65-115); Iron 40 ug/dL (59-158); Osmolality Calculated 297 mOsm/kg (285-295); Potassium 4.4 mmol/L (3.5-5.1); Sodium 138 mmol/L (136-145); Total Iron Binding Capacity 279 mcg/dl; Total Protein 7.0 g/dL (6.6-8.7); Unsaturated Iron Binding 239 ug/dL (112-347)
== END 2024-10-09 23:59 | disposition home or self-care (01) ==
PROVIDERS: Nurse Practitioner Family; PCP Nurse Practitioner Family; Visit Provider Internal Medicine Medical Oncology
DX: Z53.9 Procedure and treatment not carried out, unspecified reason; D50.9 Iron deficiency anemia, unspecified; I10 Essential (primary) hypertension; D70.9 Neutropenia, unspecified; D69.6 Thrombocytopenia, unspecified; Z87.891 Personal history of nicotine dependence; I25.10 Atherosclerotic heart disease of native coronary artery without angina pectoris; K29.71 Gastritis, unspecified, with bleeding
CPT/HCPCS: 36415; 80053; 82728; 83540; 83550; 85025; 99214

== ENCOUNTER 2024-12-02 12:30 | Oncology outpatient (recurring) (ONCR) | payer OTHER, SELFPAY ==
[2024-11-12 12:20] LABS: Hematocrit 28.9 % (37-53); Hemoglobin 9.20 g/dL (11.27-16.99); Mean Corpuscular HGB Conc 31.8 g/dL (30-55); Mean Corpuscular Hemoglobin 25.8 pg (27-33); Mean Corpuscular Volume 81.2 fl (82-101); Nucleated Red Blood Cells % 0 %; Platelet Count 125 10^3/cmm (157-399); Red Blood Count 3.56 10^6/uL (3.85-5.65); White Blood Count 4.75 10^3/uL (3.29-11.43)
[2024-11-12 12:45] LABS: Alanine Aminotransferase 17 U/L (0-41); Albumin Level 4.4 g/dL (3.5-5.2); Alkaline Phosphatase 58 U/L (40-130); Anion Gap 16.5 (5-19); Aspartate Amino Transferase 14 U/L (0-40); Blood Urea Nitrogen 25 mg/dL (8-23); Calcium 9.2 mg/dL (8.5-10.5); Carbon Dioxide 24 mmol/L (22-29); Chloride 104 mmol/L (98-107); Ferritin 23 ng/mL (30-400); Globulin 2.6 g/dL (1.3-4.6); Glucose 154 mg/dL (65-115); Iron 28 ug/dL (59-158); Osmolality Calculated 297 mOsm/kg (285-295); Potassium 4.5 mmol/L (3.5-5.1); Sodium 140 mmol/L (136-145); Total Iron Binding Capacity 308 mcg/dl; Total Protein 7.0 g/dL (6.6-8.7); Unsaturated Iron Binding 280 ug/dL (112-347)
[2024-11-12 12:58] LABS: Vitamin B12 567 pg/mL (232-1245)
[2024-11-18 12:29] LABS: Hematocrit 30.7 % (37-53); Hemoglobin 9.50 g/dL (11.27-16.99); Mean Corpuscular HGB Conc 30.9 g/dL (30-55); Mean Corpuscular Hemoglobin 25.3 pg (27-33); Mean Corpuscular Volume 81.9 fl (82-101); Nucleated Red Blood Cells % 0 %; Platelet Count 121 10^3/cmm (157-399); Red Blood Count 3.75 10^6/uL (3.85-5.65); White Blood Count 5.04 10^3/uL (3.29-11.43)
[2024-11-18 12:52] LABS: Alanine Aminotransferase 17 U/L (0-41); Albumin Level 4.6 g/dL (3.5-5.2); Alkaline Phosphatase 63 U/L (40-130); Anion Gap 13.3 (5-19); Aspartate Amino Transferase 15 U/L (0-40); Blood Urea Nitrogen 26 mg/dL (8-23); Calcium 9.2 mg/dL (8.5-10.5); Carbon Dioxide 23 mmol/L (22-29); Chloride 103 mmol/L (98-107); Ferritin 24 ng/mL (30-400); Globulin 2.7 g/dL (1.3-4.6); Glucose 236 mg/dL (65-115); Iron 37 ug/dL (59-158); Osmolality Calculated 292 mOsm/kg (285-295); Potassium 4.3 mmol/L (3.5-5.1); Sodium 135 mmol/L (136-145); Total Iron Binding Capacity 323 mcg/dl; Total Protein 7.3 g/dL (6.6-8.7); Unsaturated Iron Binding 286 ug/dL (112-347)
[2024-11-18 13:07] LABS: Vitamin B12 552 pg/mL (232-1245)
[2024-12-02 12:44] LABS: Hematocrit 29.0 % (37-53); Hemoglobin 9.20 g/dL (11.27-16.99); Mean Corpuscular HGB Conc 31.7 g/dL (30-55); Mean Corpuscular Hemoglobin 24.9 pg (27-33); Mean Corpuscular Volume 78.4 fl (82-101); Nucleated Red Blood Cells % 0 %; Platelet Count 119 10^3/cmm (157-399); Red Blood Count 3.70 10^6/uL (3.85-5.65); White Blood Count 4.87 10^3/uL (3.29-11.43)
[2024-12-02 13:25] LABS: Alanine Aminotransferase 16 U/L (0-41); Albumin Level 4.5 g/dL (3.5-5.2); Alkaline Phosphatase 59 U/L (40-130); Anion Gap 15.1 (5-19); Aspartate Amino Transferase 14 U/L (0-40); Blood Urea Nitrogen 29 mg/dL (8-23); Calcium 9.3 mg/dL (8.5-10.5); Carbon Dioxide 24 mmol/L (22-29); Chloride 103 mmol/L (98-107); Creatinine Clr Calc Pharmacy 55.2713; Ferritin 21 ng/mL (30-400); Globulin 2.6 g/dL (1.3-4.6); Glucose 176 mg/dL (65-115); Iron 28 ug/dL (59-158); Osmolality Calculated 296 mOsm/kg (285-295); Potassium 4.1 mmol/L (3.5-5.1); Sodium 138 mmol/L (136-145); Total Iron Binding Capacity 317 mcg/dl; Total Protein 7.1 g/dL (6.6-8.7); Unsaturated Iron Binding 289 ug/dL (112-347); Vitamin B12 527 pg/mL (232-1245)
== END 2024-12-09 23:59 | disposition home or self-care (01) ==
PROVIDERS: Nurse Practitioner; PCP Nurse Practitioner Family; Visit Provider Internal Medicine Medical Oncology
DX: Z53.9 Procedure and treatment not carried out, unspecified reason; D50.9 Iron deficiency anemia, unspecified; R03.0 Elevated blood-pressure reading, without diagnosis of hypertension; Z87.891 Personal history of nicotine dependence; I25.10 Atherosclerotic heart disease of native coronary artery without angina pectoris; D70.9 Neutropenia, unspecified; D69.6 Thrombocytopenia, unspecified; K29.71 Gastritis, unspecified, with bleeding
CPT/HCPCS: 36415; 80053; 82607; 82728; 82746; 83540; 83550; 85025; 99215

== ENCOUNTER 2024-12-15 11:39 | Oncology outpatient (recurring) (ONCR) | payer OTHER, SELFPAY ==
[2024-12-15 12:13] VITALS: BP 188/85; PULSE 71; RESP 17; TEMP 36.7; O2SAT 96
[2024-12-15] MEDS: ferric derisomaltose 1,000 MG in sodium chloride 0.9% (100 ml) 100 ML 330 MG IV (12:41)
== END 2025-01-09 23:59 | disposition home or self-care (01) ==
PROVIDERS: PCP Nurse Practitioner Family; Visit Provider Internal Medicine Medical Oncology
DX: D50.9 Iron deficiency anemia, unspecified (principal); Z79.899 Other long term (current) drug therapy
CPT/HCPCS: 96365; J1437

== ENCOUNTER → 2024-12-22 08:21 | Outpatient (BNVA) | payer MEDICARE, OTHER, SELFPAY | PROVIDERS: PCP Nurse Practitioner Family; Visit Provider Nurse Practitioner Family | DX: R05.9 Cough, unspecified (principal) | CPT/HCPCS: 87426 ==

== ENCOUNTER → 2025-01-01 13:45 | Outpatient (BNVA) | payer OTHER, SELFPAY | PROVIDERS: PCP Nurse Practitioner Family; Visit Provider Internal Medicine Cardiovascular Disease | DX: I25.10 Atherosclerotic heart disease of native coronary artery without angina pectoris (principal); I65.29 Occlusion and stenosis of unspecified carotid artery; E78.2 Mixed hyperlipidemia; I10 Essential (primary) hypertension; E11.9 Type 2 diabetes mellitus without complications; Z79.84 Long term (current) use of oral hypoglycemic drugs; Z95.5 Presence of coronary angioplasty implant and graft; Z95.0 Presence of cardiac pacemaker; Z79.02 Long term (current) use of antithrombotics/antiplatelets; Z79.82 Long term (current) use of aspirin; Z86.73 Personal history of transient ischemic attack (TIA), and cerebral infarction without residual deficits; Z87.891 Personal history of nicotine dependence | CPT/HCPCS: 99214 ==

== ENCOUNTER 2025-01-27 09:17 | Oncology outpatient (recurring) (ONCR) | payer OTHER, SELFPAY ==
[2025-01-27 09:42] LABS: Hematocrit 37.0 % (37-53); Hemoglobin 11.80 g/dL (11.27-16.99); Mean Corpuscular HGB Conc 31.9 g/dL (30-55); Mean Corpuscular Hemoglobin 25.5 pg (27-33); Mean Corpuscular Volume 79.9 fl (82-101); Nucleated Red Blood Cells % 0 %; Platelet Count 110 10^3/cmm (157-399); Red Blood Count 4.63 10^6/uL (3.85-5.65); White Blood Count 5.87 10^3/uL (3.29-11.43)
[2025-01-27 10:02] LABS: Alanine Aminotransferase 21 U/L (0-41); Albumin Level 4.5 g/dL (3.5-5.2); Alkaline Phosphatase 67 U/L (40-130); Anion Gap 12.2 (5-19); Aspartate Amino Transferase 18 U/L (0-40); Blood Urea Nitrogen 29 mg/dL (8-23); Calcium 9.4 mg/dL (8.5-10.5); Carbon Dioxide 26 mmol/L (22-29); Chloride 105 mmol/L (98-107); Ferritin 123 ng/mL (30-400); Globulin 2.9 g/dL (1.3-4.6); Glucose 159 mg/dL (65-115); Iron 59 ug/dL (59-158); Osmolality Calculated 297 mOsm/kg (285-295); Potassium 4.2 mmol/L (3.5-5.1); Sodium 139 mmol/L (136-145); Total Iron Binding Capacity 256 mcg/dl; Total Protein 7.4 g/dL (6.6-8.7); Unsaturated Iron Binding 197 ug/dL (112-347)
== END 2025-02-08 23:59 | disposition home or self-care (01) ==
PROVIDERS: Nurse Practitioner; PCP Nurse Practitioner Family; Visit Provider Internal Medicine Medical Oncology
DX: D50.9 Iron deficiency anemia, unspecified (principal); Z87.891 Personal history of nicotine dependence; R03.0 Elevated blood-pressure reading, without diagnosis of hypertension; I25.10 Atherosclerotic heart disease of native coronary artery without angina pectoris
CPT/HCPCS: 36415; 80053; 82728; 83540; 83550; 83615; 85025; 99214